=== PATIENT | female | born 1995 | race Caucasian/White ===

== ENCOUNTER 2024-06-08 08:02 | Outpatient (RCR) | payer OTHER, SELFPAY | END 2024-09-04 23:59 | disposition home or self-care (01) | LOC: ANHLAB 08:02 | PROVIDERS: Visit Provider Obstetrics & Gynecology | DX: O20.0 Threatened abortion (principal); Z3A.00 Weeks of gestation of pregnancy not specified | CPT/HCPCS: 36415; 84702 ==

== ENCOUNTER 2024-06-13 10:19 | Outpatient (CLI) | payer OTHER, SELFPAY | END 2024-06-13 10:20 | disposition home or self-care (01) | LOC: ANHLAB 10:20 | PROVIDERS: Visit Provider Obstetrics & Gynecology | DX: O02.1 Missed abortion (principal) | CPT/HCPCS: 36415; 84702 ==

== ENCOUNTER 2024-06-26 00:31 | Day surgery (SDC) | payer OTHER, SELFPAY ==
[2024-06-24 09:56] VITALS: BMI 36.1
--- NOTE | 2024-06-24 09:57 | PC.NURSE ---
Addendum entered by Jose Carlos Harris RN 06/25/24 14:02: Changed surgery date to 06-26-2024 to arrive at 0930 for 1130 surgery. No other changes to instructions. Original Note: Report to the Outpatient Waiting Room, entrance under the green pavilion located off [facility], at time _1200_ on date _[id number]_. Planned Procedure Time: _2pm_.? Time changes happen often and if your time is changed the preop area will call you the afternoon before. - You and your visitor will be asked to self-screen and do not enter if you have any COVID symptoms. Please call surgeon if you need to reschedule. - A mask is optional within the hospital at this time. Patients may have clear liquids (water, carbonated beverages, clear teas, apple juice) until 3 hours prior to surgery with a maximum of 20 ounces. - No food from midnight until time of surgery and no smoking. This includes no chewing gum, candy or mints. Take only the following medications with a SIP of water on the morning of surgery: ____None____ DO NOT STOP ANY OF YOUR OTHER PRESCRIPTION MEDICATIONS PRIOR TO SURGERY EXCEPT THE FOLLOWING Medications to discontinue per physician __None___ Date to take last dose Please no make-up, nail maori, hairspray, perfume, deodorant, or body powder the day of surgery.? No jewelry (including any body piercings) or valuables the day of surgery, leave them at home.? Please take a shower or bath the night before, or the morning of, surgery with an antibacterial soap.? Wear comfortable, loose fitting clothing.? - Jewelry must be removed prior to entering the operating room.? Rings and piercings that are not removed may be cut off. - The hospital will not accept responsibility for valuables.? - Please leave all valuables, including medications, at home the day of surgery. If you are going home after surgery, a licensed racecar driver must drive you home.? - NO public transportation without another adult if you receive anesthesia. - We recommend that an adult stay with you for 24 hours following discharge. - We also recommend that you do not drive, make important decision, drink alcoholic beverages, or take any drugs that were not prescribed by your health care provider for at least 24 hours after your discharge time. Follow any additional instructions given to you from your surgeon. Telephone instructions given to __Roselyn__and asked if any additional questions and then verbalized understanding. Patient advised to call surgeon office or pre surgery nurse liaison [phone] if any additional questions.
[2024-06-26 09:54] VITALS: BP 123/66; PULSE 84; RESP 20; TEMP 36.4; O2SAT 100
[2024-06-26] MEDS: LACTATED RINGERS 1,000 ML 30 ML IV CONT (10:45)
[2024-06-26] MEDS: ACETAMINOPHEN 500 MG TABLET 1000 MG PO (11:04)
--- NOTE | 2024-06-26 11:34 | P.PNAN_ITS ---
Anes - Initial Pre Proc Eval Procedure: Operation Date: 06/26/24 11:30 Proposed Procedures p Suction Dilation and Curettage - Alistair Manning MD Date/Time: 06/26/24 11:34 Surgeon: Alistair Manning MD Pre Op Diagnosis: Missed AB Patient Data Age: 29 Gender: F Height: 1.7 m Weight: 103.7 kg Last Vital Signs Temp 97.6 F 06/26/24 09:54 Pulse 84 06/26/24 09:54 Resp 20 06/26/24 09:54 BP 123/66 06/26/24 09:54 Pulse Ox 100 06/26/24 09:54 O2 Del Method Room Air 06/26/24 09:54 Allergies Allergy/AdvReac Type Severity Reaction Status Date / Time No Known Allergies Allergy Unverified 06/24/24 09:50 Home Medications ?Medication ?Instructions ?Recorded ?Confirmed ?Type No Home Medications 06/24/24 06/24/24 History Patient hx anesthesia problems: none Family hx anesthesia problems: none Results Review: All pre-operative results and documents have been reviewed as part of the pre- operative evaluation. [facility] Family History Family History Grandparent Diabetes mellitus Social History Social History Smoking status: Never smoker Second hand tobacco smoke exposure: No Alcohol intake: current Drinks per week: 2 Living arrangements: with family Spiritual care concerns: No Anes - Eval Final PreProcedure Day of Procedure 06/26/24 11:34 Patient weight: morbidly obese Heart: regular rate and rhythm Lungs: clear to auscultation Airway: Mallampati scale class II Neurological: alert and oriented Last oral intake: >/= 8 hours ASA classification: III Emergent: no Anesthetic plan: proceed Anesthesia type and monitoring: general GIVS and standard monitoring Results Review: All pre-operative results and documents have been reviewed as part of the pre- operative evaluation. BMI 35. Informed Consent: The patient's anesthetic plan and its attendant risks and benefits were discussed with the patient/family/POA. Questions were solicited and answers provided to the satisfaction of the patient/family/POA.
--- NOTE | 2024-06-26 11:42 | WPDHPUPDATE1 ---
History and Physical Update Update Date/Time: 06/26/24 11:42 History and Physical has been reviewed, including an updated exam of the patient. There are NO changes in the patient's condition. Risks, benefits, and alternatives have been discussed and questions answered. Patient agrees to proceed with procedure.
[2024-06-26] MEDS: LIDOCAINE 1% LOCAL INJ 10 ML VIAL INFILTRATE (12:03)
[2024-06-26 12:14] VITALS: BP 95/59; PULSE 93; RESP 22; O2SAT 99
--- NOTE | 2024-06-26 12:15 | P.OP_ITS ---
Procedure Note - Detailed Date of Procedure 06/26/24 Pre-op Diagnosis Missed AB Post-op Diagnosis Same Procedure Performed Suction D&C Surgeon Alistair Manning MD Anesthesia MAC Indications missed Findings normal-appearing vulva vagina and cervix to. Moderate amount of products conception within the uterus. 10 cm uterus Description of Procedure the patient was taken the operating room. She was prepped and draped in dorsal lithotomy position after induction of mac anesthesia. A speculum was placed in the vagina. Cervix grasped with tenaculum. The cervix was dilated to about 1 cm Using Avendano dilators. A 10. Ugandan curved curette was used to perform suction D&C. The curette was introduced and vacuum was applied. The curette was removed over all surfaces of the intrauterine cavity multiple times. This was done until all the surfaces were clear and had the familiar grainy texture they can be felt through the instrument. A sharp curette was then used to curettage all the surfaces. The suction cup was then reapplied 1 more time to remove any debris. The instruments were removed. The speculum and tenaculum were removed. The patient tolerated the procedure well. She was taken recovery room stable condition. Estimated Blood Loss 50 Drains No Packing No Pathology Yes Complications No immediate complications Condition Stable Disposition PACU
[2024-06-26] MEDS: fentaNYL CITRATE INJ (*CRX) 100 MCG/2 ML VIAL 25 MCG IV PUSH (12:30)
[2024-06-26 12:45] VITALS: BP 125/55; PULSE 71; RESP 18
[2024-06-26] MEDS: oxyCODONE HCL (*CRX) 5 MG TAB IR PO (12:50)
[2024-06-26 13:10] VITALS: BP 121/67; PULSE 75; RESP 16
--- OUTSIDE RECORDS SUMMARY | 2024-07-02 05:05 | XMS_ITS | Encounter Summary ---
Author Organization [facility] Address [address] [place] [address]. [place], [place] [address] [place] [address] Care Team Providers Care Banquet Server Name Role Phone Candida House Primary Care Provider Encounter Details Date Type Department Care Team (Latest Contact Info) Description 11/09/2018 Scan [facility] INFO [facility] Scanned, Documents Social History Tobacco Use Types Packs/Day Years Used Date Smoking Tobacco: Never Smokeless Tobacco: Never Alcohol Use Standard Drinks/Week Comments Yes 0 (1 standard drink = 0.6 oz pur e alcohol) AUDIT-C Answer Date Recorded Frequency of Alcohol Consumption 2-4 times a mon09/04/2018 Average Number of Drinks Not on file 019 Frequency of Binge Drinking Not on file 08/11 PHQ-2 Answer Date Recorded PHQ-2 Score 2 09/06/2018 Comments No Sex and Gender Information Value Date Recorded Sex Assigned at Not on file Legal Sex Female 4:48 PM CDT Gender Identity Not on file Sexual Orientation Not on file documented as of this encounter Plan of Treatment Not on file documented as of this encounter Visit Diagnoses Not on filedocumented in this encounter Additional Health Concerns Assessment Noted Time PHQ-9 Depression Total Score: 6 09/05/19 19 11:32 AM CDT documented as of this encounter Care Teams Banquet Server Relationship Specialty Start Date End Date Candida House FNP [address] [place] [address] PCP - General Nurse Practitioner Family 09/04/18 documented as of this encounter
--- OUTSIDE RECORDS SUMMARY | 2024-07-02 05:05 | XMS_ITS | Encounter Summary ---
Author Organization [facility] Address [address] [place] [address]. [place], [place] [address] [place] [address] Care Team Providers Care Printer Repair Technician Name Role Phone Candida House Primary Care Provider [phone] Encounter Details Date Type Department Care Team (Latest Contact Info) Description 04/05/2019 Scan HEALTH INFO SRVCS Scanned, Documents Social History Tobacco Use Types Packs/Day Years Used Date Smoking Tobacco: Never Smokeless Tobacco: Never Alcohol Use Standard Drinks/Week Comments Yes 0 (1 standard drink = 0.6 oz pur e alcohol) 1x week AUDIT-C Answer Date Recorded Frequency of Alcohol Consumption 2-4 times a mon09/04/2018 Average Number of Drinks Not on file 019 Frequency of Binge Drinking Not on file 08/11 PHQ-2 Answer Date Recorded PHQ-2 Score 0 05/13/2019 Comments No Sex and Gender Information Value [...] Assessment Noted Time PHQ-9 Depression Total Score: 5 04/05/20 19 2:06 PM CDT documented as of this encounter Care Teams Printer Repair Technician Relationship Specialty Start Date End Date Candida House FNP [address] [place] [address] PCP - General Nurse Practitioner Family 09/04/18 documented as of this encounter
--- OUTSIDE RECORDS SUMMARY | 2024-07-02 05:05 | XMS_ITS | Encounter Summary ---
Author Organization [facility] Address [address] [place] [address]. [place], [place] [id number] [place] [address] Care Team Providers Care Vein Pumper Name Role Phone Unavailable Primary Care Provider Unavailabl e Encounter Details Date Type Department Care Team (Latest Contact Info) Description 12/29/2011 [facility] Social History Tobacco Use Types Packs/Day Years Used Date Smoking Tobacco: Never Assessed Comments Unknown Sex and Gender Information Value Date Recorded Sex Assigned at Not on file Legal Sex Female 4:48 PM CDT Gender Identity Not on file Sexual Orientation Not on file documented as of this encounter Plan of Treatment Not on file documented as of this encounter Visit Diagnoses Not on filedocumented in this encounter
--- OUTSIDE RECORDS SUMMARY | 2024-07-02 05:05 | XMS_ITS | Encounter Summary ---
Author Organization [facility] Address [address] [place] [address]. [place], [place] [address] [place] [address] Care Team Providers Care Kettle Operator Name Role Phone Candida House Primary Care Provider [phone] Encounter Details Date Type Department Care Team (Late st Contact Info) Description 12/05/2018 [facility] Documentation [facility] Family & Internal Medicine [facility] [address] [place] [address] Candida House FNP [address] [place], [place] [id number] Social History Tobacco Use Types Packs/Day Years [...] on file documented as of this encounter Progress Notes * APOLINAR Rivas - 12/05/2018 9:02 PM CDT Med refill documented in this encounter Plan of Treatment Not on file documented as of this encounter Visit Diagnoses Diagnosis Acute non-recurrent frontal sinusitis- Primary documented in this encounter Additional Health Concerns Assessment Noted Time PHQ-9 Depression Total Score: 6 09/05/19 19 11:32 AM CDT documented as of this encounter Care Teams Kettle Operator Relationship Specialty Start Date End Date Candida House FNP [address] [place] [id number] PCP - General Nurse Practitioner Family 09/04/18 documented as of this encounter
--- OUTSIDE RECORDS SUMMARY | 2024-07-02 05:05 | XMS_ITS | Encounter Summary ---
Author Organization [facility] Address [address] [place] [address]. [place], [place] [phone] [place] [address] Care Team Providers Care Clinical Psychology Teacher Name Role Phone Unavailable Primary Care Provider Unavailabl e Encounter Details Date Type Department Care Team (Late st Contact Info) Description 12/20/2017 Abstract [facility] Family & Internal Medicine [id number] [place] [address] Candida House FNP [facility] [place] [address] Social History Tobacco Use Types Packs/Day Years Used Date Smoking Tobacco: Never Assessed Comments Unknown Sex and Gender Information Value Date Recorded Sex Assigned at Not on file Legal Sex Female 4:48 PM CDT Gender Identity Not on file Sexual Orientation Not on file documented as of this encounter Plan of Treatment Not on file documented as of this encounter Procedures Procedure Name Priority Date/Time Associated Diagnosis Comments URINALYSIS AUTO DIP Routine 12/20/2017 2 :44 PM CDT documented in this encounter Results * URINALYSIS AUTO DIP (12/20/2017 2:44 PM CDT) COLOR (U) Yellow [facility] T O EPIC CONVERSION TRANSPARENCY Clear [facility] P TO EPIC CONVERSION GLUCOSE Negative [facility] T O EPIC CONVERSION BILIRUBIN (U) Negative [facility] UP TO EPIC CONVERSION KETONE (U) Negative [facility] TO EPIC CONVERSION SPECIFIC GRAVITY (U) 1.005 [facility] TO EPIC CONVERSION BLOOD (U) Non Hemolyzed-Tr conrad [facility] TO EPIC CONVERSION PH (U) 5.5 5.0 - 7.0 [facility] T O EPIC CONVERSION PROTEIN (ELP) (U) Negative [facility] TO EPIC CONVERSION UROBILINOGEN 0.2 E.U./dL [facility] OUP TO EPIC CONVERSION NITRITES neg [facility] T O EPIC CONVERSION LEUKOCYTES (U) Negative [facility] OUP TO EPIC CONVERSION 12/20/2017 2:44 PM CDT 12/20/2017 2:44 PM CDT Narrative [facility] TO EPIC CONVERSION - 12/20/2017 2:44 PM CDT [id number] 9:00AM by Renetta Grey: ERROR in leukocytes. Leukocytes are positive for small. Result Communication: No patient communication needed at this time Candida House DRY WALL FINISHER URINE ORDERABLES Final Result [facility] TO EPIC CONVERSION documented in this encounter Visit Diagnoses Not on filedocumented in this encounter
--- OUTSIDE RECORDS SUMMARY | 2024-07-02 05:05 | XMS_ITS | Encounter Summary ---
Author Organization [facility] Address [address] [place] [address]. [place], [place] [address] [place] [address] Care Team Providers Care Compactor Driver Name Role Phone Unavailable Primary Care Provider Unavailabl e Encounter Details Date Type Department Care Team (Latest Contact Info) Description 09/27/2017 Abstract [facility] Medical Group Social History Tobacco Use [...] Procedure Name Priority Date/Time Associated Diagnosis Comments VARICELLA ZOSTER IGG Routine 09/29/2017 1:00 PM CDT COMPREHENSIVE METABOLIC PANEL Routine 09/29/2017 1:00 PM CDT CBC W/DIFF AUTOMATED Routine 09/29/2017 1:00 PM CDT THYROID STIM HORMONE TSH Routine 09/29/2017 1:00 PM CDT documented in this encounter Results * (ABNORMAL) COMPREHENSIVE METABOLIC PANEL (09/29/2017 1:00 PM CDT) GLUCOSE 110(H) 65 - 99 mg/dL [facility] TO EPIC CONVERSION BUN 9 6 - 20 mg/dL [facility] TO EPIC CONVERSION CREATININE S/P/B 0.83 0.57 - 1.00 mg/dL [facility] TO EPIC CONVERSION EGFR NON-AFR. AMER. 102 >59 mL/min/1.7 3 [facility] TO EPIC CONVERSION EGFR AFR. AMER. 117 >59 mL/min/1.7 3 [facility] TO EPIC CONVERSION BUN CREATININE RATIO 11 9 - 23 [facility] TO EPIC CONVERSION SODIUM S/P/B 141 134 - 144 mmol/L [facility] TO EPIC CONVERSION POTASSIUM S/P/B 4.0 3.5 - 5.2 mmol/L [facility] TO EPIC CONVERSION CHLORIDE S/P/B 99 96 - 106 mmol/L [facility] TO EPIC CONVERSION TCO2 21 18 - 29 mmol/L [facility] TO EPIC CONVERSION CALCIUM S/P/B 9.9 8.7 - 10.2 mg/dL [facility] TO EPIC CONVERSION PROTEIN 7.6 6.0 - 8.5 g/dL [facility] TO EPIC CONVERSION ALBUMIN S/P/B 5.0 3.5 - 5.5 g/dL [facility] TO EPIC CONVERSION GLOBULIN 2.6 1.5 - 4.5 g/dL [facility] TO EPIC CONVERSION A/G RATIO 1.9 1.2 - 2.2 [facility] T O EPIC CONVERSION BILIRUBIN TOTAL (FLUID) 0.4 0.0 - 1.2 mg/dL [facility] TO EPIC CONVERSION ALKALINE PHOSPHATASE S/P/B 103 39 - 117 IU/L [facility] TO EPIC CONVERSION AST 23 0 - 40 IU/L [facility] TO EPIC CONVERSION ALT 23 0 - 32 IU/L [facility] TO EPIC CONVERSION 09/29/2017 1:00 PM CDT 09/29/2017 1:00 PM CDT Narrative [facility] TO EPIC CONVERSION - 09/30/2017 3:10 PM CDT Result Communication: Call patient with results [facility] Final Resul t [facility] TO EPIC CONVERSION * CBC W/DIFF AUTOMATED (09/29/2017 1:00 PM CDT) WBC 8.3 3.4 - 10.8 x10E3/uL [facility] TO EPIC CONVERSION RBC 5.22 3.77 - 5.28 x10E6/uL [facility] TO EPIC CONVERSION HEMOGLOBIN MIXED VENOUS 15.5 11.1 - 15.9 g/dL [facility] TO EPIC CONVERSION HCT 46.4 34.0 - 46.6 % [facility] TO EPIC CONVERSION MCV 89 79 - 97 fL [facility] TO EPIC CONVERSION MCH 29.7 26.6 - 33.0 pg [facility] TO EPIC CONVERSION MCHC 33.4 31.5 - 35.7 g/dL [facility] TO EPIC CONVERSION RDW 13.3 12.3 - 15.4 % [facility] TO EPIC CONVERSION PLT 351 150 - 379 x10E3/uL [facility] TO EPIC CONVERSION SEG NEUTROPHILS 61 Not Estab. % [facility] TO EPIC CONVERSION LYMPHOCYTES 31 Not Estab. % [facility] TO EPIC CONVERSION MONOCYTES 6 Not Estab. % [facility] TO EPIC CONVERSION EOSINOPHILS 2 Not Estab. % [facility] TO EPIC CONVERSION BASOPHILS % 0 Not Estab. % [facility] TO EPIC CONVERSION IMMATURE CELLS [facility] OUP TO EPIC CONVERSION ABS. NEUTROPHILS 5.1 1.4 - 7.0 x10E3/uL [facility] TO EPIC CONVERSION ABS. LYMPHOCYTES 2.5 0.7 - 3.1 x10E3/uL [facility] TO EPIC CONVERSION ABS. MONOCYTES 0.5 0.1 - 0.9 x10E3/uL [facility] TO EPIC CONVERSION ABS. EOSINOPHILS 0.1 0.0 - 0.4 x10E3/uL [facility] TO EPIC CONVERSION ABS. BASOPHILS 0.0 0.0 - 0.2 x10E3/uL [facility] TO EPIC CONVERSION IMMATURE CELLS 0 Not Estab. % [facility] TO EPIC CONVERSION ABS. IMMATURE GRANULOCYTES 0.0 0.0 - 0.1 x10E3/uL [facility] TO EPIC CONVERSION NRBC [facility] T O EPIC CONVERSION CBC COMMENT [facility] TO EPIC CONVERSION 09/29/2017 1:00 PM CDT 09/29/2017 1:00 PM CDT Narrative [facility] TO EPIC CONVERSION - 09/30/2017 3:10 PM CDT Result Communication: Call patient with results [facility] Final Resul t [facility] TO EPIC CONVERSION * THYROID STIM HORMONE, TSH (09/29/2017 1:00 PM CDT) TSH 2.370 0.450 - 4.500 uIU/mL [facility] TO EPIC CONVERSION 09/29/2017 1:00 PM CDT 09/29/2017 1:00 PM CDT Narrative [facility] TO EPIC CONVERSION - 09/30/2017 3:10 PM CDT Result Communication: Call patient with results [facility] Final Resul t Performing Organization Address [facility] de Phone Number [facility] TO EPIC CONVERSION * VARICELLA ZOSTER IGG (09/29/2017 1:00 PM CDT) VARICELLA ZOSTER IGG EIA 3869 Immune >165 index [facility] TO EPIC CONVERSION Comment: Result Comment: ? Negative ?<135 ?Equivocal ?135 - 165 ?Positive ?>165 ? A positive result generally indicates exposure to the ? pathogen or administration of specific immunoglobulins, ? but it is not indication of active infection or stage ? of disease. 09/29/2017 1:00 PM CDT 09/29/2017 1:00 PM CDT Narrative [facility] TO EPIC CONVERSION - 09/30/2017 3:10 PM CDT Result Communication: Call patient with results [facility] Final Resul t Performing Organization Address [facility] de Phone Number [facility] TO EPIC CONVERSION documented in this encounter Visit Diagnoses Not on filedocumented in this encounter
--- OUTSIDE RECORDS SUMMARY | 2024-07-02 05:05 | XMS_ITS | Encounter Summary ---
Author Organization [facility] Address [address] [place] [address]. [place], [place] [id number] [place] [id number] Care Team Providers Care Tool Machine Setup Operator Name Role Phone Candida House Primary Care Provider [phone] Reason for Visit * Reason Comments Annual Encounter Details Date Type Department Care Team (Late st Contact Info) Description 04/05/2019 1:40 PM CDT Office Visit [facility] Family & Internal Medicine [id number] [place] [address] Candida House FNP [facility] [place], [place] [id number] Annual Social History Tobacco Use Types Packs/Day Years [...] on file documented as of this encounter Last Filed Vital Signs Vital Sign Reading Time Taken Comments Blood Pressure 116/81 04/05/2019 1:52 PM CDT Pulse 60 04/05/2019 1:52 PM CDT Temperature - - Respiratory Rate 16 04/05/2019 1:52 PM CDT Oxygen Saturation 100% 04/05/2019 1:52 PM CDT Inhaled Oxygen Concentration - - Weight 81.2 kg (179 lb) 04/05/2019 1:52 PM CDT Height 167.6 cm (5' 6 ) 04/05/2019 1:52 PM CDT Body Mass Index 28.89 04/05/2019 1:52 PM CDT documented in this encounter Patient Instructions * Patient Instructions* APOLINAR Rivas - 04/05/2019 1:40 PM CDT Make sure you follow up with a counselor and a psychiatrist as we discussed in the office today. Call for any questions or concerns Follow up routinely or sooner if needed. documented in this encounter Progress Notes * APOLINAR Rivas - 04/05/2019 1:40 PM CDT Office Progress Note Reason for Visit: Annual History of Present Illness: Roselyn presents to the office for a f/u of her chronic issues which include her bipolar disease withschizophrenic tendencies. She reports that her anxiety is through the roof due to her inattention. She reports that she has never had treatment for ADD but feels like she might need this type of treatment. She did stop her meds for her mental health disorders and seeing her psychiatrist over one year ago because she felt like she did not need this treatment. We discussed follow up with a new psychiatrist for these issues since many of these symptoms can be caused from untreated bipolar disease and treated her with a medication for ADHD can worsen her bipolar symptoms. She is agreeable to thisplan. She is also due for her influenza and TDAP vaccine and she is agreeable to get these today. ROS: Review of Systems Constitutional: Negative for chills, fever and weight loss. HENT: Negative for congestion, ear discharge, ear pain, hearing loss, nosebleeds, sinus pain, sore throat and tinnitus. Eyes: Negative for blurred vision, double vision, photophobia, pain, discharge and redness. Respiratory: Negative for cough, hemoptysis, sputum production, shortness of breath and wheezing. Cardiovascular: Negative for chest pain, palpitations, orthopnea, claudication, leg swelling and PND. Gastrointestinal: Negative for abdominal pain, blood in stool, constipation, diarrhea, heartburn, melena, nausea and vomiting. Genitourinary: Negative for dysuria, flank pain, frequency, hematuria and urgency. Musculoskeletal: Negative for falls, joint pain and myalgias. Neurological: Negative for dizziness, tingling, tremors, sensory change, speech change, focal weakness, seizures, loss of consciousness, weakness and headaches. Psychiatric/Behavioral: Negative for depression, substance abuse and suicidal ideas. The patient isnervous/anxious. The patient does not have insomnia. Medications: No current outpatient medications on file prior to visit. No current facility-administered medications on file prior to visit. Allergies: No Known Allergies Medical History: History reviewed. No pertinent past medical history. Surgical History: Past Surgical History: Procedure Laterality Date ??? ANKLE SURGERY Social History: Social History Socioeconomic History ??? Marital status: Single Spouse name: Not on file ??? Number of children: Not on file ??? Years of education: Not on file ??? Highest education level: Not on file Occupational History ??? Not on file Social Needs ??? Financial resource strain: Not on file ??? Food insecurity: Worry: Not on file Inability: Not on file ??? Transportation needs: Medical: Not on file Non-medical: Not on file Tobacco Use ??? Smoking status: Never Smoker ??? Smokeless tobacco: Never Used Substance and Sexual Activity ??? Alcohol use: Yes Frequency: 2-4 times a month Comment: 1x week ??? Drug use: No ??? Sexual activity: Yes Partners: Male control/protection: IUD Lifestyle ??? Physical activity: Days per week: Not on file Minutes per session: Not on file ??? Stress: Not on file Relationships ??? Social connections: Talks on phone: Not on file Gets together: Not on file Attends jewish service: Not on file Active member of club or organization: Not on file Attends meetings of clubs or organizations: Not on file Relationship status: Not on file ??? Intimate partner violence: Fear of current or ex partner: Not on file Emotionally abused: Not on file Physically abused: Not on file Forced sexual activity: Not on file Other Topics Concern ??? Not on file Social History Narrative ??? Not on file Family History: Family History Problem Relation Name Age of Onset ??? Anxiety Paternal Grandmother ??? Psychiatry Paternal Grandmother PE: Physical Exam Constitutional: She is oriented to person, place, and time. Vital signs are normal. She appears well-developed and well-nourished. She is cooperative. She does not have a sickly appearance. She does not appear ill. No distress. HENT: Head: Normocephalic and atraumatic. Right Ear: External ear normal. Left Ear: External ear normal. Nose: Nose normal. Mouth/Throat: Oropharynx is clear and moist. Eyes: Conjunctivae, EOM and lids are normal. Pupils are equal, round, and reactive to light. Neck: Trachea normal, normal range of motion and full passive range of motion without pain. Neck supple. Normal carotid pulses present. Carotid bruit is not present. No tracheal deviation present. Nothyroid mass and no thyromegaly present. Cardiovascular: Normal rate, regular rhythm, normal heart sounds and intact distal pulses. Exam reveals no gallop and no friction rub. No murmur heard. Pulmonary/Chest: Effort normal and breath sounds normal. No accessory muscle usage. No respiratory distress. She has no decreased breath sounds. She has no wheezes. She has no rhonchi. She has no rales. Abdominal: Soft. Bowel sounds are normal. She exhibits no distension and no mass. There is no tenderness. There is no rebound and no guarding. Musculoskeletal: Normal range of motion. She exhibits no tenderness or deformity. Lymphadenopathy: She has no cervical adenopathy. Neurological: She is alert and oriented to person, place, and time. She has normal strength and normal reflexes. No cranial nerve deficit or sensory deficit. Coordination and gait normal. Skin: Skin is warm, dry and intact. No rash noted. No erythema. Psychiatric: She has a normal mood and affect. Her speech is normal and behavior is normal. Judgment and thought content normal. Cognition and memory are normal. Nursing note and vitals reviewed. Filed Vitals: 04/05/19 1352 BP: 116/81 Pulse: 60 Resp: 16 SpO2: 100% Weight: 81.2 kg (179 lb) Height: 5' 6 (1.676 m) Diagnoses/Impression: 1. Bipolar disorder with depression (CMS/HCC) 2. Episodic mood disorder (CMS/HCC) 3. Inattention 4. Need for influenza vaccination 5. Need for Tdap vaccination Recommendations and Plan: 1. Bipolar disorder with depression ([facility]/HCC) 2. Episodic mood disorder ([facility]/HCC) 3. Inattention 4. Need for influenza vaccination 5. Need for Tdap vaccination Orders Placed This Encounter ??? FLU VACC QUAD PRSRV FREE 0.5 ML DOSE ??? TETANUS, DIPHTHERIA THOXIDS AND ACELLULAR Cannot display discharge medications since this is not an admission. Time Spent: Approximately 30 minutes was spent in direct patient consultation and the majority of that time (>50%) was spent on counseling and coordination of care. PCP: APOLINAR YANCEY 04/11/2019 documented in this encounter Plan of Treatment Not on file documented as of this encounter Visit Diagnoses Diagnosis Bipolar disorder with depression ([facility]/HCC [facility]/HCC)- Primary Bipolar I disorder, most recent episode (or current) depressed, unspecified Episodic mood disorder ([facility]/HCC) Unspecified episodic mood disorder Inattention Other specified conditions influencing health status Need for influenza vaccination Need for prophylactic vaccination and inoculation against influenza Need for Tdap vaccination Need for prophylactic vaccination with combined [id number] (DTP) vaccine documented in this encounter Additional Health Concerns Assessment Noted Time PHQ-9 Depression Total Score: 5 04/05/20 19 2:06 PM CDT documented as of this encounter Care Teams Tool Machine Setup Operator Relationship Specialty Start Date End Date Candida House FNP [address] [place] [id number] PCP - General Nurse Practitioner Family 09/04/18 documented as of this encounter
--- OUTSIDE RECORDS SUMMARY | 2024-07-02 05:05 | XMS_ITS | Encounter Summary ---
Author Organization [facility] Address [address] [place] [address]. [place], [place] [id number] [place] [id number] Care Team Providers Care Engine Repairer Name Role Phone Candida House Primary Care Provider [phone] Reason for Visit * Reason Comments Allied Health Visit TB test reading Encounter Details Date Type Department Care Team (Latest Contact Info) Description 11/09/2018 12:40 PM CDT Allied Health/Nurse Visit [facility] Family & Internal Medicine [address] [phone] Allied Health Visit (TB test reading) Social History Tobacco Use Types Packs/Day Years [...] as of this encounter Visit Diagnoses Diagnosis Screening for tuberculosis- Primary Screening examination for pulmonary tuberculosis documented in this encounter Additional Health Concerns Assessment Noted Time PHQ-9 Depression Total Score: 6 09/05/19 19 11:32 AM CDT documented as of this encounter Care Teams Engine Repairer Relationship Specialty Start Date End Date Candida House FNP [address] [place] [id number] PCP - General Nurse Practitioner Family 09/04/18 documented as of this encounter
--- OUTSIDE RECORDS SUMMARY | 2024-07-02 05:05 | XMS_ITS | Clinical Summary ---
Author Organization [facility] Address [address] [place] [address]. [place], [place] [id number] [place] [address] Care Team Providers Care Painter Spring Name Role Phone Candida House APOLINAR Primary Care Provider [phone] Allergies No known active allergies Medications No known medications Active Problems Problem Noted Date Diagnosed Date Inattention 04/11/2019 Abdominal pain 12/20/2017 Bipolar disorder with depression ([facility]) 09/23/2017 H/O varicella 09/22/2017 Abnormal glucose level 07/28/2017 Episodic mood disorder 07/28/2017 Anxiety 11/08/2011 Resolved Problems Problem Noted Date Diagnosed Date Resolved Date Need for influenza vaccination 04/11/2019 02/21/2020 Need for Tdap vaccination 04/11/2019 Immunizations Name Administration Dates Next Due Fluzone 6 Months+ Quad (0.5 mL Prefilled Syringe ) 04/05/2019 Tdap (Boostrix) 04/05/2019 Family History Medical History Relation Comments Anxiety Paternal Grandmother Psychiatry Paternal Grandmother Relation Status Comments Paternal Grandmother Social History Tobacco Use Types Packs/Day Years [...] on file Sexual Orientation Not on file Last Filed Vital Signs Vital Sign Reading [...] Mass Index 28.89 04/05/2019 1:52 PM CDT Plan of Treatment Health Maintenance Due Date Last Done Comments Cervical Cancer Screening Pa p Smear (Age 21 to 29) Every 3 Years 1997 Cervical Cancer Screening 1997 Annual Physical 02/29/2000 Hepatitis C 2015 Hepatitis B Vaccines (1 of 3 - 19+ 3-dose series) 02/29/2016 COVID-19 Vaccine ( - 2023-2 5 season) 2024 Influenza Adult (#1) 2024 04/05/2019 DTaP, Tdap and Td Vaccines ( 2 - Td or Tdap) 04/05/2029 04/05/2019 HPV Vaccines Aged Out No longer eligi ble based on patient's age to complete this topic Meningococcal Vaccine Aged Out No marilyn bruce eligible based on patient's age to complete this topic Pneumococcal Vaccine: Pediat rics (0 to 5 Years) and At-Risk Patients (6 to 64 Years) Aged Out No longer eligi ble based on patient's age to complete this topic RSV Immunizations Under 20 Months Aged Out No longer eligible based on patient's age to complete this topic Insurance [facility] Care Teams Painter Spring Relationship Specialty Start Date End Date Candida House FNP [address] [place] [id number] PCP - General Nurse Practitioner Family 09/04/18
--- OUTSIDE RECORDS SUMMARY | 2024-07-02 05:05 | XMS_ITS | Encounter Summary ---
Author Organization [facility] Address [address] [place] [address]. [place], [place] [address] [place] [id number] Care Team Providers Care Case Manager Name Role Phone Unavailable Primary Care Provider Unavailabl e Encounter Details Date Type Department Care Team (Latest Contact Info) Description 09/14/2017 Abstract [facility] Social History Tobacco [...]
--- OUTSIDE RECORDS SUMMARY | 2024-07-02 05:05 | XMS_ITS | Encounter Summary ---
Author Organization [facility] Address [address] [place] [address]. [place], [place] [id number] [place] [address] Care Team Providers Care Optical Technician Name Role Phone Unavailable Primary Care Provider Unavailabl e Encounter Details Date Type Department Care Team (Late st Contact Info) Description 07/28/2017 Abstract [facility] Family & Internal Medicine [id number] [place] [address] Candida House FNP [address] [place] [address] Social History Tobacco Use Types Packs/Day Years Used Date Smoking Tobacco: Never Assessed Comments Unknown Sex and Gender Information Value Date Recorded Sex Assigned at Not on file Legal Sex Female 4:48 PM CDT Gender Identity Not on file Sexual Orientation Not on file documented as of this encounter Last Filed Vital Signs Vital Sign Reading Time Taken Comments Blood Pressure 118/74 07/28/2017 8:42 AM DITTO MACHINE OPERATOR Pulse 71 07/28/2017 8:42 AM DITTO MACHINE OPERATOR Temperature - - Respiratory Rate - - Oxygen Saturation - - Inhaled Oxygen Concentration - - Weight 100.2 kg (221 lb) 07/28/2017 8:42 AM DITTO MACHINE OPERATOR Height 170.2 cm (5' 7 ) 07/28/2017 8:42 AM DITTO MACHINE OPERATOR Body Mass Index 34.61 07/28/2017 8:42 AM DITTO MACHINE OPERATOR documented in this encounter Progress Notes * APOLINAR Rivas - 07/28/2017 8:00 AM CST Reason For Visit New Patient Visit Chief Complaint New patient to establish care History of Present Illness PHQ-9 Depression Questionnaire: Over the past 2 weeks, how often have you been bothered by the following problems? 1.) Little interest or pleasure in doing things? Several days. 2.) Feeling down, depressed or hopeless? Several days. 3.) Trouble falling asleep or sleeping too much? Not at all. 4.) Feeling tired or having little energy? Several days. 5.) Poor appetite or overeating? Several days. 6.) Feeling bad about yourself, or that you are a failure, or have let yourself or your family down? Several days. 7.) Trouble concentrating on things, such as reading a newspaper or watching television? Half the days or more. 8.) Moving or speaking so slowly that other people could have noticed, or the opposite, moving or speaking faster than usual? Several days. 9.) Thoughts that you would be off or of hurting yourself in some way? Not at all. TOTAL SCORE: 8, severity of depression is mild. How difficult have these problems made it for you to do your work, take care of things at home, or get along with people? Somewhat difficult. HPI Free Text: Angy presents to the office, as a new patient, to establish primary care with me. She reports a history of bipolar/mood disorder. She does see a psychiatrist regularly for her treatment of her mood disorder. She is taking Lamictal and Risperdal daily for her mood disorder. She reports that it is working well. She denies any side effects from these medications. She denies SI or HI presently. She lives with her parents and her brother and sister. She works full-time and is in college part-time. She reports that she is sexually active and has an IUD (Elda) in place since April 2015. She reports that she has a menstrual cycle every 3-4 months. She also reports that her last Pap smear was with Dr Jones. She is a non-smoker, occasional/rare alcohol drinker and non-illicit drug user. She denies any domestic violence issues in her life. She also reports no concerns for STIs. She is unsure when her last routine labs were checked. We will order them today for her to get. She reports a history of an elevated fasting glucose level but she was never diagnosed with diabetes. She does not want an influenza vaccine. Otherwise, she feels like her immunizations ar UTD. Review of Systems See HPI for pertinent positives. Psychiatric: depression, but no anxiety and no suicidal ideation. Active Problems 1. Anxiety (300.00) (F41.9) 2. Depression (311) (F32.9) Family History Family History 1. No pertinent family history Social History ?? Never a smoker ?? Never Drank Alcohol Current Meds 1. LamoTRIgine 25 MG Oral Tablet; TAKE ONE TABLET BY MOUTH IN THE MORNING FOR 1 WEEK, THEN INCREASE TO 1TABLET BY MOUTH TWICE DAILY; Therapy: [id number] to (Evaluate:11Jul2012) Requested for: 12Apr2012; Last Rx:12Apr2012 Ordered Rx By: Demi Reed; Dispense: 30 Days ; #:60; Refill: 2; For: Anxiety; RASHIDA = N; Verified Transmission to [facility] 2. RisperiDONE 1 MG Oral Tablet; TAKE ONE TABLET BY MOUTH AT BEDTIME; Therapy: [id number] to (Evaluate:22Apr2012) Requested for: [id number]; Last Rx:[id number] Ordered Rx By: Demi Reed; Dispense: 30 Days ; #:30; Refill: 1; For: Anxiety, Depression; RASHIDA = N; Verified Transmission to [facility] 361; Last Updated By: Mercedes Ramires; 02/22/2012 8:09:29 AM Allergies 1. No Known Drug Allergies Recorded By: Mercedes Ramires; 04/24/2012 8:04:09 AM Vitals Recorded: 90Sqx9658 08:42AM Heart Rate 71 Respiration 16 Systolic 118 Diastolic 74 O2 Saturation 98 Height 5 ft 7 in Weight 221 lb BMI Calculated 34.61 BSA Calculated 2.11 Physical Exam Constitutional General appearance: Abnormal. patient was observed to be, but well developed and well nourished. Head and Face Head and face: Normal. Palpation of the face and sinuses: No sinus tenderness. Eyes Conjunctiva and lids: No swelling, erythema or discharge. Pupils and irises: Equal, round, reactive to light. Ears, Nose, Mouth, and Throat External inspection of ears and nose: Normal. Otoscopic examination: Tympanic membranes translucent with normal light reflex. Canals patent without erythema. Hearing: Normal. Nasal mucosa, septum, and turbinates: Normal without edema or erythema. Lips, teeth, and gums: Normal, good dentition. Oropharynx: Abnormal. Oral mucosa was moist, but was normal. The palate examination showed no abnormalities. The tonsils were normal. There was 3+ enlargement, erythema and swelling of both tonsils. The posterior pharynx was erythematous. Neck Neck: Supple, symmetric, trachea midline, no masses. Thyroid: Normal, no thyromegaly. Pulmonary Respiratory effort: No increased work of breathing or signs of respiratory distress. Auscultation of lungs: Clear to auscultation. Cardiovascular Auscultation of heart: Normal rate and rhythm, normal S1 and S2, no murmurs. Examination of extremities for edema and/or varicosities: Normal. Chest Patient defers breast exam. Abdomen Patient defers rectal exam. Abdomen: Non-tender, no masses. Liver and spleen: No hepatomegaly or splenomegaly. Genitourinary Patient defers pelvic exam. Lymphatic Palpation of lymph nodes in neck: No lymphadenopathy. Musculoskeletal Gait and station: Normal. Digits and nails: Normal without clubbing or cyanosis. Joints, bones, and muscles: Normal. Range of motion: Normal. Stability: Normal. Muscle strength/tone: Normal. Skin Skin and subcutaneous tissue: Normal without rashes or lesions. Neurologic Cranial nerves: Cranial nerves II-XII intact. Cortical function: Normal mental status. Reflexes: 2+ and symmetric. Sensation: No sensory loss. Coordination: Normal finger to nose and heel to esquivel. Psychiatric Judgment and insight: Normal. Orientation to person, place, and time: Normal. Recent and remote memory: Intact. Mood and affect: Normal. Results/Data *A1C In Office 28Jul2017 11:57AM Scovillezer, Candida Test Name Result Flag Reference A1C 5.4 4.2 - 6.5 % HbA1C *Rapid Strep Test In Office 28Jul2017 11:56AM Kilzer, Candida Test Name Result Flag Reference *Rapid Strep In Office Presumptive Negative Internal QC Verified Yes LC-Upper Respiratory Culture [id number] 28Jul2017 09:05AM Scovillezer, Candida Test Name Result Flag Reference Upper Respiratory Culture Final report Result 1 Routine respiratory jayleen Counseling The patient was counseled regarding diagnostic results, instructions for management, risk factor reductions, prognosis, patient and family education, impressions, risks and benefits of treatment options and importance of compliance with treatment. total time of encounter was 30 minutes and 25 minutes was spent counseling. Assessment 1. Abnormal glucose level (790.29) (R73.09) 2. Sore throat (462) (J02.9) 3. Screening cholesterol level (V77.91) (Z13.220) 4. Screening for blood disease (V78.9) (Z13.0) 5. Mood disorder (296.90) (F39) 6. Immunization due (V05.9) (Z23) 7. Does not use illicit drugs (V49.89) (Z78.9) 8. Denies alcohol consumption (V49.89) (Z78.9) 9. Never used tobacco (V49.89) (Z78.9) 10. Caffeine use (V49.89) (F15.90) 11. Lack of exercise (V69.0) (Z72.3) 12. No pertinent family history : Family History 13. Anxiety (300.00) (F41.9) 14. Depression (311) (F32.9) Plan Abnormal glucose level 1. *A1C In Office; Status:Complete; Done: 70Wor6885 11:57AM Performed:In Office; Due:27Aug2017;Ordered; For:Abnormal glucose level; Ordered By:Candida House; Abnormal glucose level, Anxiety, Depression, Mood disorder, Screening cholesterol level, Screening for blood disease, Sore throat 2. LC-CBC With Differential/Platelet [id number]; Status:Hold For - Manual Activation; Requested for:[id number]; Perform:[facility]; Due:27Aug2017; Last Updated By:Demi Galeana; 07/28/2017 11:57:37 AM;Ordered; For:Abnormal glucose level, Anxiety, Depression, Mood disorder, Screening cholesterol level, Screening for blood disease, Sore throat; Ordered By:Candida House; 3. LC-Comp. Metabolic Panel ( CMP ) [id number]; Status:Hold For - Manual Activation; Requested for:[id number]; Perform:[facility]; Due:27Aug2017; Last Updated By:Demi Galeana; 07/28/2017 11:57:37 AM;Ordered; For:Abnormal glucose level, Anxiety, Depression, Mood disorder, Screening cholesterol level, Screening for blood disease, Sore throat; Ordered By:Candida House; 4. LC-Lipid Panel With LDL/HDL Ratio [id number]; Status:Hold For - Manual Activation; Requested for:[id number]; Perform:[facility]; Due:27Aug2017; Last Updated By:Demi Galeana; 07/28/2017 11:57:37 AM;Ordered; For:Abnormal glucose level, Anxiety, Depression, Mood disorder, Screening cholesterol level, Screening for blood disease, Sore throat; Ordered By:Candida House; 5. LC-TSH reflex to T4F 101499; Status:Hold For - Manual Activation; Requested for:[id number]; Perform:[facility]; Due:27Aug2017; Last Updated By:Demi Galeana; 07/28/2017 11:57:37 AM;Ordered; For:Abnormal glucose level, Anxiety, Depression, Mood disorder, Screening cholesterol level, Screening for blood disease, Sore throat; Ordered By:Candida House; 6. LC-UA with Culture Reflex [id number]; Status:Hold For - Manual Activation; Requested for:[id number]; Perform:[facility]; Due:27Aug2017; Last Updated By:Demi Galeana; 07/28/2017 11:57:37 AM;Ordered; For:Abnormal glucose level, Anxiety, Depression, Mood disorder, Screening cholesterol level, Screening for blood disease, Sore throat; Ordered By:Candida House; 7. LC-Uric Acid, Serum 063847; Status:Hold For - Manual Activation; Requested for:[id number]; Perform:[facility]; Due:27Aug2017; Last Updated By:Demi Galeana; 07/28/2017 11:57:37 AM;Ordered; For:Abnormal glucose level, Anxiety, Depression, Mood disorder, Screening cholesterol level, Screening for blood disease, Sore throat; Ordered By:Candida House; 8. LC-Vitamin D, 25-Hydroxy [id number]; Status:Hold For - Manual Activation; Requested for:[id number]; Perform:[facility]; Due:27Aug2017; Last Updated By:Demi Galeana; 07/28/2017 11:57:37 AM;Ordered; For:Abnormal glucose level, Anxiety, Depression, Mood disorder, Screening cholesterol level, Screening for blood disease, Sore throat; Ordered By:Candida House; Immunization due 9. Stop: Flulaval Quadrivalent 0.5 ML Intramuscular Suspension Prefilled Syringe For: Immunization due; Ordered By:Candida House; Effective Date:28Jul2017; Last Updated By: Annemarie Allen; 07/28/2017 9:52:33 AM Mood disorder 10. Schedule Follow up 4 weeks Outpatient Follow-up Status: Hold For - Scheduling Requested for: [id number] Ordered; For: Mood disorder; Ordered By: Candida House Performed: Due: 14Aug2017 11. Avoid alcoholic beverages.; Status:Complete; Done: 34Vzy3386 11:09PM Ordered; For:Mood disorder; Ordered By:Candida House; 12. Call if: New symptoms occur.; Status:Complete; Done: 30Vsu2362 11:09PM Ordered; For:Mood disorder; Ordered By:Candida House; 13. Be sure to get at least 8 hours of sleep every night.; Status:Complete; Done: 02Ptp5590 11:09PM Ordered; For:Mood disorder; Ordered By:Candida House; 14. Call if: The symptoms seem worse.; Status:Complete; Done: 15Rzt7757 11:09PM Ordered; For:Mood disorder; Ordered By:Candida House; 15. Continue with our present treatment plan.; Status:Complete; Done: 85Itt0514 11:09PM Ordered; For:Mood disorder; Ordered By:Candida House; 16. Call if: You are having unusual movements of your tongue, mouth, or face muscles.; Status:Complete; Done: 93Csd1767 11:09PM Ordered; For:Mood disorder; Ordered By:Candida House; 17. Decreasing the stress in your life may help your condition improve.; Status:Complete; Done: 41Bao8885 11:09PM Ordered; For:Mood disorder; Ordered By:Candida House; 18. Call 881 if: You are considering suicide.; Status:Complete; Done: 09Gbl5984 11:09PM Ordered; For:Mood disorder; Ordered By:Candida House; 19. Please bring all medicines, vitamins, and herbal supplements with you when you come to the office.; Status:Complete; Done: 35Bvm7106 11:09PM Ordered; For:Mood disorder; Ordered By:Candida House; 20. Call 911 if: You are thinking about harming yourself or someone else.; Status:Complete; Done: 99Mcp6057 11:09PM Ordered; For:Mood disorder; Ordered By:Candida House; 21. There are ways to handle a person with paranoia.; Status:Complete; Done: 22Cev5225 11:09PM Ordered; For:Mood disorder; Ordered By:Candida House; 22. Call 911 if: Your muscles are rigid, tight, or stiff and you are running a high fever.; Status:Complete; Done: 37Szy9367 11:09PM Ordered; For:Mood disorder; Ordered By:Candida House; 23. We recommend regular contraceptive use to prevent an unplanned .; Status:Complete; Done: 10Iak7999 11:09PM Ordered; For:Mood disorder; Ordered By:Candida House; Sore throat 24. Avoid exposure to cigarette smoke.; Status:Complete; Done: 87Hdn7957 11:10PM Ordered; For:Sore throat; Ordered By:Candida House; 25. Call if: The symptoms are not better in 7 days.; Status:Complete; Done: 08Wqj3747 11:10PM Ordered; For:Sore throat; Ordered By:Candida House; 26. *Rapid Strep Test In Office; Status:Complete; Done: 86Tvr3584 11:56AM Performed:In Office; Due:27Aug2017;Ordered; For:Sore throat; Ordered By:Candida House; 27. Drink plenty of fluids.; Status:Complete; Done: 14Ycn4949 11:10PM Ordered; For:Sore throat; Ordered By:Candida House; 28. Call if: You develop a cough.; Status:Complete; Done: 88Zoz4598 11:10PM Ordered; For:Sore throat; Ordered By:Candida House; 29. Gargle with warm salt water for 5 minutes every 4 hours.; Status:Complete; Done: 61Hzf6478 11:10PM Ordered; For:Sore throat; Ordered By:Candida House; 30. Call if: You get a rash.; Status:Complete; Done: 34Qjp9882 11:10PM Ordered; For:Sore throat; Ordered By:Candida House; 31. Good hand washing is one of the best ways to control the spread of germs.; Status:Complete; Done: 72Rmm1083 11:10PM Ordered; For:Sore throat; Ordered By:Candida House; 32. Call if: You have pain in your ear.; Status:Complete; Done: 44Azh8951 11:10PM Ordered; For:Sore throat; Ordered By:Candida House; 33. Status:Complete; Done: 75Lij4274 11:10PM Ordered; For:Sore throat; Ordered By:Candida House; 34. Call if: You start vomiting.; Status:Complete; Done: 97Ate0907 11:10PM Ordered; For:Sore throat; Ordered By:Candida House; 35. Take steps to prevent passing germs to others.; Status:Complete; Done: 04Rto7800 11:10PM Ordered; For:Sore throat; Ordered By:Candida House; 36. Call if: Your joints are red or painful.; Status:Complete; Done: 38Vkn4996 11:10PM Ordered; For:Sore throat; Ordered By:Candida House; 37. The following home treatments may soothe a sore throat.; Status:Complete; Done: 79Szd4522 11:10PM Ordered; For:Sore throat; Ordered By:Candida House; 38. Call if: Your sore throat is not better in 1 week.; Status:Complete; Done: 89Nph3322 11:10PM Ordered; For:Sore throat; Ordered By:Candida House; 39. Call if: Your swallowing difficulty is not better in 3 days.; Status:Complete; Done: 00Kgf8481 11:10PM Ordered; For:Sore throat; Ordered By:Candida House; 40. Call if: Your temperature is higher than 101F.; Status:Complete; Done: 04Wkr6706 11:10PM Ordered; For:Sore throat; Ordered By:Candida House; 41. Call 911 if: You have difficulty breathing, or you are short of breath more often.; Status:Complete; Done: 09Wvn8014 11:10PM Ordered; For:Sore throat; Ordered By:Candida House; 42. Seek Immediate Medical Attention if: You become dehydrated.; Status:Complete; Done: 59Mdb3492 11:10PM Ordered; For:Sore throat; Ordered By:Candida House; 43. Seek Immediate Medical Attention if: You get a severe headache that seems different from your usual ones.; Status:Complete; Done: 72Mdg4541 11:10PM Ordered; For:Sore throat; Ordered By:Candida House; 44. Seek Immediate Medical Attention if: Your swallowing difficulty is worse.; Status:Complete; Done: 22Qyd2724 11:10PM Ordered; For:Sore throat; Ordered By:Candida House; Discussion/Summary Suicide Risk Assessment Completed. Positive adult depression screening. Evaluation of Psychiatric State Completed.. Tobacco use screening completed. Alcohol consumption screening completed. Assessment of substance use completed. Suicide risk assessment completed. Alcohol consumption screening completed. Assessment of substance use completed. PHQ-9 Completed (Score 8). Signatures Electronically signed by : Candida House CNP; Jul 31 2017 11:11PM DITTO MACHINE OPERATOR (Author) documented in this encounter Plan of Treatment Not on file documented as of this encounter Procedures Procedure Name Priority Date/Time Associated Diagnosis Comments HEMOGLOBIN, GLYCOSYLATED Routine 07/28/2017 11:57 AM DITTO MACHINE OPERATOR STREP A RAPID Routine 07/28/2017 11:56 AM DITTO MACHINE OPERATOR CULTURE, RESPIRATORY Routine 07/28/2017 9:05 AM DITTO MACHINE OPERATOR documented in this encounter Results * HEMOGLOBIN, GLYCOSYLATED (07/28/2017 11:57 AM DITTO MACHINE OPERATOR) HGB A1C 5.4 4.2 - 6.5 % HbA1C [facility] TO EPIC CONVERSION 07/28/2017 11:5 7 AM DITTO MACHINE OPERATOR 07/28/2017 11:57 AM DITTO MACHINE OPERATOR Narrative [facility] TO EPIC CONVERSION - 07/28/2017 11:57 AM DITTO MACHINE OPERATOR Result Communication: No patient communication needed at this time us Candida JIANG LABORATORY Final Result [facility] TO EPIC CONVERSION * STREP A RAPID (07/28/2017 11:56 AM DITTO MACHINE OPERATOR) Pathologist [facility] RAPID STREP TEST Presumptive Negative [facility] TO EPIC CONVERSION Internal Control: Yes [facility] TO EPIC CONVERSION 07/28/2017 11:5 6 AM DITTO MACHINE OPERATOR 07/28/2017 11:56 AM DITTO MACHINE OPERATOR Narrative [facility] TO EPIC CONVERSION - 07/28/2017 11:56 AM DITTO MACHINE OPERATOR Result Communication: No patient communication needed at this time us Candida MCCALLUMP MICROBIOLOGY - GENERAL ORDERAB LES Final Result Performing Organization Address City/[facility]/ZIP Co de Phone Number [facility] TO EPIC CONVERSION * CULTURE RESPIRATORY, BACTERIAL (07/28/2017 9:05 AM DITTO MACHINE OPERATOR) CULTURE RESULT Final report [facility] TO EPIC CONVERSION RESULT [facility] T O EPIC CONVERSION Comment:Result Comment: Rout ine respiratory jayleen 07/28/2017 9:05 AM DITTO MACHINE OPERATOR 07/28/2017 9:05 AM DITTO MACHINE OPERATOR Narrative [facility] TO EPIC CONVERSION - 07/30/2017 3:07 PM DITTO MACHINE OPERATOR Result Communication: No patient communication needed at this time us Candida House DESKTOP PUBLISHING ASSOCIATE MICROBIOLOGY - GENERAL ORDERAB LES Final Result Performing Organization Address City/[facility]/ZIP Co de Phone Number [facility] TO EPIC CONVERSION documented in this encounter Visit Diagnoses Not on filedocumented in this encounter
--- OUTSIDE RECORDS SUMMARY | 2024-07-02 05:05 | XMS_ITS | Encounter Summary ---
Author Organization [facility] Address [address] [place] [address]. [place], [place] [address] [place] [address] Care Team Providers Care Club Attendant Name Role Phone Candida House APOLINAR Primary Care Provider [phone] Reason for Visit * Reason Comments Allied Health Visit Encounter Details Date Type Department Care Team (Latest Contact Info) Description 11/06/2018 3:40 PM CDT Allied Health/Nurse Visit [facility] Family & Internal Medicine [address] [phone] Allied Health Visit Social History Tobacco Use Types Packs/Day Years Used Date Smoking Tobacco: Never Smokeless Tobacco: Never Alcohol Use Standard Drinks/Week Comments Yes 0 (1 standard drink = 0.6 oz pur e alcohol) AUDIT-C Answer Date Recorded Frequency of Alcohol Consumption 2-4 times a mon th 09/04/2018 Average Number of Drinks Not on file [...] Procedure Name Priority Date/Time Associated Diagnosis Comments TB INTRADERMAL TEST (BACK OFFICE) Routine 11/06/2018 8:38 AM CDT Visit for TB skin test documented in this encounter Results * TB INTRADERMAL TEST (BACK OFFICE) (11/06/2018 8:38 AM CDT) MM INDURATION 0 PPD SKIN TEST NEGATIVE NOT REQUIRED (NOT REQUIRED) 11/06/2018 8:38 AM CDT Candida JIANG MICROBIOLOGY - GENERAL ORDERAB LES Final Result documented in this encounter Visit Diagnoses Diagnosis Visit for TB skin test- Primary Screening examination for pulmonary tuberculosis documented in this encounter Administered Medications Administered Medications Medication Order MAR Action Action Date Dose Rate Site Protein Derivative (Purified) Intradermal Given 11/07/2018 0.1 mL RIGHT FOREARM documented in this encounter Additional Health Concerns Assessment Noted Time PHQ-9 Depression Total Score: 6 09/05/19 19 11:32 AM CDT documented as of this encounter Care Teams Club Attendant Relationship Specialty Start Date End Date Candida House FNP [address] [place] [id number] PCP - General Nurse Practitioner Family 09/04/18 documented as of this encounter
--- OUTSIDE RECORDS SUMMARY | 2024-07-02 05:05 | XMS_ITS | Encounter Summary ---
Author Organization [facility] Address [address] [place] [address]. [place], [place] [address] [place] [address] Care Team Providers Care Charge Lpn Name Role Phone Unavailable Primary Care Provider Unavailabl e Encounter Details Date Type Department Care Team (Latest Contact Info) Description 04/16/2012 Abstract [facility] Social History Tobacco Use [...]
--- OUTSIDE RECORDS SUMMARY | 2024-07-02 05:05 | XMS_ITS | Encounter Summary ---
Author Organization [facility] Address [address] [place] [address]. [place], [place] [address] [place] [address] Care Team Providers Care Commercial Teller Name Role Phone Candida House Primary Care Provider [phone] Encounter Details Date Type Department Care Team [...] documented as of this encounter Care Teams Commercial Teller Relationship Specialty Start Date End Date Candida House FNP [address] [place] [address] PCP - General Nurse Practitioner Family 09/04/18 documented as of this encounter
--- OUTSIDE RECORDS SUMMARY | 2024-07-02 05:05 | XMS_ITS | Encounter Summary ---
Author Organization [facility] Address [address] [place] [address]. [place], [place] [address] [place] [address] Care Team Providers Care Farm Machinery Assembler Name Role Phone Unavailable Primary Care Provider Unavailabl e Encounter Details Date Type Department Care Team (Latest Contact Info) Description 12/21/2017 Abstract [facility] Social History Tobacco Use Types Packs/Day Years Used Date Smoking Tobacco: Never Assessed Comments Unknown Sex and Gender Information Value Date Recorded Sex Assigned at Not on file Legal Sex Female 4:48 PM CDT Gender Identity Not on file Sexual Orientation Not on file documented as of this encounter Progress Notes * Generic Conversion MD Debora - 12/21/2017 4:13 PM CDT Message Recorded as Task Date: 12/20/2017 04:24 PM, Created By: Candida House Task Name: Call Back [facility] Nurse Team Regarding Patient: Angy Norman, Status: In Progress Comment: Candida House - 20 Dec 2017 4:24 PM TASK CREATED I thought her urine dip was positive for small leukocytes?? Renetta Grey - 21 Dec 2017 8:58 AM TASK IN PROGRESS Renetta Grey - 21 Dec 2017 8:58 AM TASK REPLIED TO: [facility] Yes, I looked and it is positive for small leukocytes. not sure why it is entered in as negative. Iwill try to change it. Candida House - 21 Dec 2017 11:39 AM TASK REPLIED TO: Previously Assigned To Candida House thank you Signatures Electronically signed by : Renetta Grey, ; Dec 21 2017 4:13PM LICENSED PRACTICAL NURSE CLINIC NURSE (Author) documented in this encounter Plan of Treatment Not on file documented as of this encounter Visit Diagnoses Not on filedocumented in this encounter
--- OUTSIDE RECORDS SUMMARY | 2024-07-02 05:05 | XMS_ITS | Encounter Summary ---
Author Organization [facility] Address [address] [place] [address]. [place], [place] [id number] [place] [address] Care Team Providers Care Thermograph Operator Name Role Phone Unavailable Primary Care Provider Unavailabl e Encounter Details Date Type Department Care Team (Latest Contact Info) Description 08/08/2017 Abstract [facility] Social History Tobacco Use Types Packs/Day Years Used Date Smoking Tobacco: Never Assessed Comments Unknown Sex and Gender Information Value Date Recorded Sex Assigned at Not on file Legal Sex Female 4:48 PM CDT Gender Identity Not on file Sexual Orientation Not on file documented as of this encounter Progress Notes * Generic Conversion MD Debora - 08/08/2017 8:58 AM CST Message Message: Per notes written by Candida on pt's previous medical record, she is due for the Gardasil Vaccine series and will need a TDAP in 2019 or sooner. Pt updated by phone and V/U-cara Signatures Electronically signed by : Dawn Coles R.N.; Aug 08 2017 9:00AM [employer] OFFICE INSTRUCTOR (Author) documented in this encounter Plan of Treatment Not on file documented as of this encounter Visit Diagnoses Not on filedocumented in this encounter
--- OUTSIDE RECORDS SUMMARY | 2024-07-02 05:05 | XMS_ITS | Encounter Summary ---
Author Organization [facility] Address [facility]. [place], [place] [address] [place] [address] Care Team Providers Care Recovery Operator Name Role Phone Unavailable Primary Care Provider Unavailabl e Encounter Details Date Type Department Care Team (Late st Contact Info) Description 09/29/2017 Abstract [facility] Family & Internal Medicine [id number] [place] [address] Ochoa Bradley MD [address] [place] [address] Social History Tobacco Use Types Packs/Day Years Used Date Smoking Tobacco: Never Assessed Comments Unknown Sex and Gender Information Value Date Recorded Sex Assigned at Not on file Legal Sex Female 4:48 PM CDT Gender Identity Not on file Sexual Orientation Not on file documented as of this encounter Progress Notes * KIMBERLY Mcmullen - 09/29/2017 1:00 PM CDT Reason For Visit Nurse Visit Chief Complaint Patient is here for TB skin test Active Problems 1. Abnormal glucose level (790.29) (R73.09) 2. Anxiety (300.00) (F41.9) 3. Bipolar depression (296.50) (F31.30) 4. Depression (311) (F32.9) 5. H/O varicella (V12.09) (Z86.19) 6. Immunization due (V05.9) (Z23) 7. Mood disorder (296.90) (F39) 8. Screening cholesterol level (V77.91) (Z13.220) 9. Screening for blood disease (V78.9) (Z13.0) 10. Screening for tuberculosis (V74.1) (Z11.1) Current Meds 1. BuPROPion HCl ER (XL) 150 MG Oral Tablet Extended Release 24 Hour; Therapy: [id number] to Recorded 2. LamoTRIgine 25 MG Oral Tablet; TAKE ONE TABLET BY MOUTH IN THE MORNING FOR 1 WEEK, THEN INCREASE TO 1TABLET BY MOUTH TWICE DAILY; Therapy: 83Tgf4000 to (Evaluate:11Jul2012) Requested for: 12Apr2012; Last Rx:12Apr2012 Ordered 3. RisperiDONE 1 MG Oral Tablet; TAKE ONE TABLET BY MOUTH AT BEDTIME; Therapy: 19Pyh1570 to (Evaluate:22Apr2012) Requested for: 68Asn3092; Last Rx:[id number] Ordered Allergies 1. No Known Drug Allergies Assessment 1. Screening for blood disease (V78.9) (Z13.0) 2. Immunization due (V05.9) (Z23) Plan 1. Tubersol 5 UNIT/0.1ML Intradermal Solution For: Immunization due; Ordered By:Alma Maldonado; Effective Date:29Sep2017; Administered by: Annemarie Allen: 09/29/2017 1:31:00 PM; Last Updated By: Annemarie Allen; 09/29/2017 1:32:08 PM 2. LC-CBC With Differential/Platelet [id number]; Status:In Progress - Specimen/Data Collected; Done: 27Sep2017 Perform:[facility]; Due:27Oct2017; Last Updated By:Demi Galeana; 09/29/2017 1:02:19 PM;Ordered; For:Screening for blood disease; Ordered By:Alma Maldonado; 3. LC-Comp. Metabolic Panel ( CMP ) [id number]; Status:In Progress - Specimen/Data Collected; Done: 27Sep2017 Perform:[facility]; Due:27Oct2017; Last Updated By:Demi Galeana; 09/29/2017 1:02:19 PM;Ordered; For:Screening for blood disease; Ordered By:Alma Maldonado; 4. LC-TSH [id number]; Status:In Progress - Specimen/Data Collected; Done: 27Sep2017 Perform:[facility]; Due:48Qlv6709; Last Updated By:Demi Galeana; 09/29/2017 1:02:19 PM;Ordered; For:Screening for blood disease; Ordered By:Alma Maldonado; 5. TC-Zhajsrjyq-Kymhtt V Ab, IgG [id number]; Status:In Progress - Specimen/Data Collected; Done: 27Sep2017 Perform:[facility]; Due:55Oru9188; Last Updated By:Demi Galeana; 09/29/2017 1:02:19 PM;Ordered; For:Screening for blood disease; Ordered By:Alma Maldonado; Signatures Electronically signed by : Alma Maldonado APN; Sep 29 2017 2:17PM OSTEOPATHIC MEDICINE TEACHER (Author) documented in this encounter Plan of Treatment Not on file documented as of this encounter Visit Diagnoses Not on filedocumented in this encounter
--- OUTSIDE RECORDS SUMMARY | 2024-07-02 05:05 | XMS_ITS | Encounter Summary ---
Author Organization [facility] Address [address] [place] [address]. [place], [place] [address] [place] [address] Care Team Providers Care Machine Deicer Element Winder Name Role Phone Unavailable Primary Care Provider Unavailabl e Encounter Details Date Type Department Care Team (Latest Contact Info) Description 10/01/2017 Abstract [facility] Social History Tobacco Use Types Packs/Day Years Used Date Smoking Tobacco: Never Assessed Comments Unknown Sex and Gender Information Value Date Recorded Sex Assigned at Not on file Legal Sex Female 4:48 PM CDT Gender Identity Not on file Sexual Orientation Not on file documented as of this encounter Progress Notes * KIMBERLY Mcmullen - 10/01/2017 9:04 PM CDT Message Was this specimen fasting? If not, let her know labs were nml. Verified Results LC-CBC With Differential/Platelet [id number] 01:00PM Alma Maldonado Test Name Result Flag Reference WBC 8.3 x10E3/uL 3.4-10.8 RBC 5.22 x10E6/uL 3.77-5.28 Hemoglobin 15.5 g/dL 11.1-15.9 Hematocrit 46.4 % 34.0-46.6 MCV 89 fL 79-97 MCH 29.7 pg 26.6-33.0 MCHC 33.4 g/dL 31.5-35.7 RDW 13.3 % 12.3-15.4 Platelets 351 x10E3/uL 150-379 Neutrophils 61 % Not Estab. Lymphs 31 % Not Estab. Monocytes 6 % Not Estab. Eos 2 % Not Estab. Basos 0 % Not Estab. Immature Cells Neutrophils (Absolute) 5.1 x10E3/uL 1.4-7.0 Lymphs (Absolute) 2.5 x10E3/uL 0.7-3.1 Monocytes(Absolute) 0.5 x10E3/uL 0.1-0.9 Eos (Absolute) 0.1 x10E3/uL 0.0-0.4 Baso (Absolute) 0.0 x10E3/uL 0.0-0.2 Immature Granulocytes 0 % Not Estab. Immature Grans (Abs) 0.0 x10E3/uL 0.0-0.1 NRBC Hematology Comments: LC-Comp. Metabolic Panel ( CMP ) [id number] 29Sep2017 01:00PM Alma Maldonado Test Name Result Flag Reference Glucose, Serum 110 mg/dL H 65-99 BUN 9 mg/dL 6-20 Creatinine, Serum 0.83 mg/dL 0.57-1.00 eGFR If NonAfricn Am 102 mL/min/1.73 >59 eGFR If Africn Am 117 mL/min/1.73 >59 BUN/Creatinine Ratio 11 9-23 Sodium, Serum 141 mmol/L 134-144 Potassium, Serum 4.0 mmol/L 3.5-5.2 Chloride, Serum 99 mmol/L 96-106 Carbon Dioxide, Total 21 mmol/L 18-29 Calcium, Serum 9.9 mg/dL 8.7-10.2 Protein, Total, Serum 7.6 g/dL 6.0-8.5 Albumin, Serum 5.0 g/dL 3.5-5.5 Globulin, Total 2.6 g/dL 1.5-4.5 A/G Ratio 1.9 1.2-2.2 Bilirubin, Total 0.4 mg/dL 0.0-1.2 Alkaline Phosphatase, S 103 IU/L 39-117 AST (SGOT) 23 IU/L 0-40 ALT (SGPT) 23 IU/L 0-32 -TSH [id number] 29Sep2017 01:00PM Alma Maldonado Test Name Result Flag Reference TSH 2.370 uIU/mL 0.450-4.500 GB-Ffpmpkqll-Humtch V Ab, IgG [id number] 29Sep2017 01:00PM Alma Maldonado Test Name Result Flag Reference Varicella Zoster IgG 3869 index Immune >165 Negative <135 Equivocal 135 - 165 Positive >165 A positive result generally indicates exposure to the pathogen or administration of specific immunoglobulins, but it is not indication of active infection or stage of disease. documented in this encounter Plan of Treatment Not on file documented as of this encounter Visit Diagnoses Not on filedocumented in this encounter
--- OUTSIDE RECORDS SUMMARY | 2024-07-02 05:05 | XMS_ITS | Encounter Summary ---
Author Organization [facility] Address [address] [place] [address]. [place], [place] [address] [place] [address] Care Team Providers Care Car Dumper Name Role Phone Candida House Primary Care Provider [phone] Reason for Visit * Reason Comments URI/ENT Symptoms x 3 days Encounter Details Date Type Department Care Team (Late st Contact Info) Description 09/04/2018 10:20 AM CDT Office Visit [facility] Family & Internal Medicine [id number] [place] [address] Candida House FNP [address] [place] [id number] URI/ENT Symptoms (x 3 days) Social History Tobacco Use Types Packs/Day Years [...] Sign Reading Time Taken Comments Blood Pressure 117/80 09/04/2018 10:38 AM CDT Pulse 83 09/04/2018 10:38 AM CDT Temperature - - Respiratory Rate 12 09/04/2018 10:38 AM CDT Oxygen Saturation 99% 09/04/2018 10:38 AM CDT Inhaled Oxygen Concentration - - Weight 91.6 kg (202 lb) 09/04/2018 10:38 AM CDT Height 167.6 cm (5' 6 ) 09/04/2018 10:38 AM CDT Body Mass Index 32.6 09/04/2018 10:38 AM CDT documented in this encounter Patient Instructions * Patient Instructions* Candida TamAPOLINAR lemon - 09/04/2018 10:20 AM CDT Images from the original note were not included. Patient Education Patient Education Sinusitis Discharge Instructions, Adult About this topic The sinuses are air-filled spaces inside the head. They are found behind your forehead, nose, cheeks, and eyes. The spaces are lined with small hairs that clean the sinuses. Sinusitis means that your sinuses are swollen, inflamed, or infected. This happens when the small hairs that clean the sinuses do not work, or when the opening to the sinuses is blocked. Mucus is trapped inside the sinuses and causes pain. The block may be caused by: ?? Colds ? This is the most common reason. ?? Allergies ?? Curving or bending of the wall that separates your nose. This is a deviated septum. ?? Extra bony growths inside the nose. These are called nasal bone spurs. ?? Chemical irritation from cigarette smoke or other irritating odors Signs can last for up to 4 weeks or may be long-lasting. They may also appear again in a few monthsafter you feel better. Doctors may treat sinusitis by giving drugs. Surgery may be needed if sinusitis happens again and again. What care is needed at home? ?? Ask your doctor what you need to do when you go home. Make sure you ask questions if you do not understand what you need to do. ?? Your doctor may order a saline nose rinse to help clear your sinuses. ?? Drink 6 to 8 glasses of water each day to help thin mucus. ?? Use two or three pillows under your head and shoulders when you sleep. This will help your sinuses drain. ?? Drape a towel over your head as you breathe in the steam from a bowl of warm water. This will help moisturize your sinuses. This may also drain clogged sinuses. ?? Use a warm compress to your face to ease facial pain. What follow-up care is needed? ?? Your doctor may ask you to make visits to the office to check on your progress. Be sure to keep your visits. ?? Your doctor will tell you if other tests are needed. ?? Your doctor may send you for allergy tests or to an allergy expert. What lifestyle changes are needed? ?? Avoid drinks that contain caffeine or alcohol. ?? Try to stop smoking. Avoid being around others who smoke. Smoke can damage the small hairs inside your sinuses. What drugs may be needed? The doctor may order drugs to: ?? Help with pain and swelling ?? Fight an infection ?? Control coughing ?? Dry up the sinuses ?? Help a runny or stuffy nose Will physical activity be limited? You do not have to limit your activity. You may want to rest more if you have a fever or headache. What problems could happen? ?? Infections that happen again and again ?? Asthma attack ?? Coughing ?? Loss of voice What can be done to prevent this health problem? ?? Keep your nose as moist as possible. Use saline sprays, washes, and a humidifier often. ?? Avoid being around cigarette and cigar smoke or strong odors from chemicals. ?? Avoid long periods of swimming in pools treated with chlorine. This can bother the lining of thenose and sinuses. ?? Avoid water diving. This forces water into the sinuses from the nasal passages. ?? Manage your allergies with your doctor's help. ?? Use an air conditioner if allergies are a problem. ?? Before air travel, use a drug to dry up mucus. As the plane takes off or lands, the pressure cancause sinus pain. When do I need to call the doctor? ?? Signs of infection. These include a fever of 100.4??F (38??C) or higher, chills. ?? Sudden breathing problems ?? You are not feeling better in 2 or 3 days or you are feeling worse Teach Back: Helping You Understand The Teach Back Method helps you understand the information we are giving you. The idea is simple. After talking with the staff, tell them in your own words what you were just told. This helps to makesure the staff has covered each thing clearly. It also helps to explain things that may have been abit confusing. Before going home, make sure you are able to do these: ?? I can tell you about my condition. ?? I can tell you what may help ease my breathing. ?? I can tell you what I will do if I have a fever, chills, or trouble breathing. Where can I learn more? [place] [employer] http://care.australian-rhinologic.org/adult_sinusitis National [place] of Allergy and Infectious Diseases http://www.niaid.nih.gov/topics/sinusitis/Pages/index.aspx Last Reviewed Date 2015-01-01 Consumer Information Use and Disclaimer This information is not specific medical advice and does not replace information you receive from your health care provider. This is only a brief summary of general information. It does NOT include all information about conditions, illnesses, injuries, tests, procedures, treatments, therapies, discharge instructions or life-style choices that may apply to you. You must talk with your health care provider for complete information about your health and treatment options. This information should not be used to decide whether or not to accept your health care provider???s advice, instructions or recommendations. Only your health care provider has the knowledge and training to provide advice that is right for you. Copyright Copyright ?? 2018 [employer] and its affiliates and/or licensors. All rights reserved. documented in this encounter Progress Notes * APOLINAR Rivas - 09/04/2018 10:20 AM CDT Office Progress Note Reason for Visit: URI/ENT Symptoms (x 3 days) History of Present Illness: Angy comes to the office today with complaints of frontal headache, right sided maxillary pain, malaise, dry cough that is worse at night, mild sore throat, clear rhinorrhea with nasal congestion. She reports her symptoms started 3 days ago and have progressively gotten worse. She has only been treating her headache with ibuprofen PRN. She reports some mild nausea 1 night ago. Denies vomiting, diarrhea, rash, fever, wheezing or SOB. Reports her mom has been sick with laryngitis recently. She denies voice changes. ROS: Review of Systems Constitutional: Positive for malaise/fatigue. Negative for chills, diaphoresis, fever and weight loss. HENT: Positive for congestion, sinus pain and sore throat. Negative for ear discharge, ear pain, hearing loss, nosebleeds and tinnitus. Eyes: Negative for blurred vision, double vision, photophobia, pain, discharge and redness. Respiratory: Positive for cough. Negative for hemoptysis, sputum production, shortness of breath, wheezing and stridor. Cardiovascular: Negative for chest pain, palpitations, orthopnea, claudication and leg swelling. Gastrointestinal: Positive for nausea. Negative for abdominal pain, blood in stool, constipation, diarrhea, heartburn, melena and vomiting. Genitourinary: Negative for dysuria, flank pain, frequency, hematuria and urgency. Musculoskeletal: Negative for back pain, joint pain, myalgias and neck pain. Skin: Negative for itching and rash. Neurological: Negative for dizziness, tingling, speech change, focal weakness, weakness and headaches. Endo/Heme/Allergies: Negative for environmental allergies. Psychiatric/Behavioral: Negative for depression. The patient is not nervous/anxious. Medications: No current outpatient medications on file prior to visit. No current facility-administered medications on file prior to visit. Allergies: No Known Allergies Medical History: No past medical history on file. Surgical History: Past Surgical History: Procedure Laterality [...] use: Yes Frequency: 2-4 times a month ??? Drug use: No ??? Sexual activity: Yes control/protection: IUD Lifestyle ??? Physical activity: Days per week: Not on file Minutes per session: Not on file ??? Stress: Not on file Relationships ??? Social connections: Talks on phone: Not on file Gets together: Not on file Attends jain service: Not on file Active member of [...] Problem Relation Name Age of Onset ??? Psychiatry Paternal Grandfather PE: Physical Exam Constitutional: She is oriented to person, place, and time. She appears well- developed and well-nourished. She is cooperative. She appears ill. No distress. HENT: Head: Normocephalic and atraumatic. Right Ear: Hearing, tympanic membrane, external ear and ear canal normal. Left Ear: Hearing, tympanic membrane, external ear and ear canal normal. Nose: Rhinorrhea and sinus tenderness present. Right sinus exhibits maxillary sinus tenderness. Left sinus exhibits maxillary sinus tenderness. Mouth/Throat: Uvula is midline and mucous membranes are normal. No uvula swelling. Posterior oropharyngeal erythema present. No oropharyngeal exudate, posterior oropharyngeal edema or tonsillar abscesses. Eyes: Conjunctivae, EOM and lids are normal. Pupils are equal, round, and reactive to light. Neck: Trachea normal, normal range of motion, full passive range of motion without pain and phonation normal. Neck supple. Normal carotid pulses present. Carotid bruit is not present. No thyroid massand no thyromegaly present. Cardiovascular: Normal rate, regular rhythm and normal heart sounds. Pulmonary/Chest: Effort normal and breath sounds normal. No accessory muscle usage. No respiratory distress. She has no decreased breath sounds. She has no wheezes. She has no rhonchi. She has no rales. She exhibits no tenderness. Abdominal: Soft. Bowel sounds are normal. She exhibits no distension and no mass. There is no tenderness. There is no rebound and no guarding. Lymphadenopathy: Head (right side): No submental, no submandibular and no tonsillar adenopathy present. Head (left side): No submental, no submandibular and no tonsillar adenopathy present. She has no cervical adenopathy. Neurological: She is alert and oriented to person, place, and time. She has normal reflexes. Coordination and gait normal. Skin: Skin is warm, dry and intact. She is not diaphoretic. Psychiatric: She has a normal mood and affect. Her speech is normal and behavior is normal. Judgment and thought content normal. Cognition and memory are normal. Filed Vitals: 09/04/18 1038 BP: 117/80 Pulse: 83 Resp: 12 SpO2: 99% Weight: 91.6 kg (202 lb) Height: 5' 6 (1.676 m) Diagnoses/Impression: 1. Acute non-recurrent frontal sinusitis amoxicillin 875 MG tablet Recommendations and Plan: 1. Acute non-recurrent frontal sinusitis - amoxicillin 875 MG tablet; Take 1 tablet (875 mg total) by mouth 2 (two) times daily for 10 days.Dispense: 20 tablet; Refill: 0 start amoxicillin 875mg twice daily for 10 days - Take medications as prescribed - Drink plenty of fluids - Notify office if symptoms do no resolve or you start running a fever over 102 - Call the office for any questions or concerns Orders Placed This Encounter ??? amoxicillin 875 MG tablet Cannot display discharge medications since this is not an admission. PCP: APOLINAR YANCEY 09/06/2018 documented in this encounter Plan of Treatment Not on file documented as of this encounter Visit Diagnoses Diagnosis Acute non-recurrent frontal sinusitis- Primary documented in this encounter Additional Health Concerns Assessment Noted Time PHQ-9 Depression Total Score: 6 09/05/19 19 11:32 AM CDT documented as of this encounter Care Teams Car Dumper Relationship Specialty Start Date End Date Candida House FNP [address] [place] [id number] PCP - General Nurse Practitioner Family 09/04/18 documented as of this encounter
--- OUTSIDE RECORDS SUMMARY | 2024-07-02 05:05 | XMS_ITS | Encounter Summary ---
Author Organization [facility] Address [address] [place] [address]. [place], [place] [address] [place] [address] Care Team Providers Care Belt Builder Name Role Phone Unavailable Primary Care Provider Unavailabl e Encounter Details Date Type Department Care Team (Late st Contact Info) Description 09/22/2017 Abstract [facility] Family & Internal Medicine [id number] [place] [address] Alma Maldonado APNP [address] [place] [address] Social History Tobacco Use Types Packs/Day Years Used Date Smoking Tobacco: Never Assessed Comments Unknown Sex and Gender Information Value Date Recorded Sex Assigned at Not on file Legal Sex Female 4:48 PM CDT Gender Identity Not on file Sexual Orientation Not on file documented as of this encounter Last Filed Vital Signs Vital Sign Reading Time Taken Comments Blood Pressure 114/68 09/22/2017 1:12 PM CDT Pulse 69 09/22/2017 1:12 PM CDT Temperature - - Respiratory Rate - - Oxygen Saturation - - Inhaled Oxygen Concentration - - Weight 99.5 kg (219 lb 4 oz) 09/22/2017 1:12 PM CDT Height 167.6 cm (5' 6 ) 09/22/2017 1:12 PM CDT Body Mass Index 35.39 09/22/2017 1:12 PM CDT documented in this encounter Progress Notes * KIMBERLY Mcmullen - 09/22/2017 1:00 PM CDT Reason For Visit Health Electrician Outside Complaint Patient is here for school physical History of Present Illness HPI: Angy Guillen 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 She continues her medications as prescribed for bipolar depression. She is followed by psychiatry on a regular basis for this. She denies any HI or SI. No new complaints today. Review of Systems Constitutional: negative. Head and Face: negative. Eyes: negative. ENT: negative. Cardiovascular: negative. Respiratory: negative. Gastrointestinal: negative. Genitourinary: negative. Musculoskeletal: negative. Integumentary negative. Psychiatric: as noted in HPI and depression, but no insomnia, no irritability, no anxiety and not suicidal. Hematologic and Lymphatic: negative. Neurological Negative. Endocrine Negative. Active Problems 1. Abnormal glucose level (790.29) (R73.09) 2. Anxiety (300.00) (F41.9) 3. Depression (311) (F32.9) 4. Immunization due (V05.9) (Z23) 5. Mood disorder (296.90) (F39) 6. Screening cholesterol level (V77.91) (Z13.220) 7. Screening for blood disease (V78.9) (Z13.0) Surgical History ?? History of Ankle Surgery Family History Family History ?? No pertinent family history Social History ?? Caffeine use (V49.89) (F15.90) ?? Denies alcohol consumption (V49.89) (Z78.9) ?? Does not use illicit drugs (V49.89) (Z78.9) ?? Lack of exercise (V69.0) (Z72.3) ?? Never a smoker ?? Never Drank Alcohol ?? Never used tobacco (V49.89) (Z78.9) Current Meds 1. BuPROPion HCl ER (XL) 150 MG Oral Tablet Extended Release 24 Hour; Therapy: [id number] to Recorded Rx By: GAETANO; Dispense: 30 Days ; #:30; Refill: 0; RASHIDA = N; Record; Last Updated By: Annemarie Allen; 07/28/2017 8:45:37 AM 2. LamoTRIgine 25 MG Oral Tablet; TAKE ONE TABLET BY MOUTH IN THE MORNING FOR 1 WEEK, THEN INCREASE TO 1TABLET BY MOUTH TWICE DAILY; Therapy: [id number] to (Evaluate:11Jul2012) Requested for: 12Apr2012; Last Rx:12Apr2012 Ordered Rx By: Demi Reed; Dispense: 30 Days ; #:60; Refill: 2; For: Anxiety; RASHIDA = N; Verified Transmission to [facility] 3. RisperiDONE 1 MG Oral Tablet; TAKE ONE TABLET BY MOUTH AT BEDTIME; Therapy: 44Mms4377 to (Evaluate:22Apr2012) Requested for: 86Lzu2135; Last Rx:[id number] Ordered Rx By: Demi Reed; Dispense: 30 Days ; #:30; Refill: 1; For: Anxiety, Depression; RASHIDA = N; Verified Transmission to [facility]; Last Updated By: Mercedes Ramires; 02/22/2012 8:09:29 AM Allergies 1. No Known Drug Allergies Recorded By: Mercedes Ramires; 04/24/2012 8:04:09 AM Vitals Recorded: 22Sep2017 01:12PM Temperature 97.4 F Heart Rate 69 Respiration 16 Systolic 114 Diastolic 68 O2 Saturation 98 Height 5 ft 6 in Weight 219 lb 4 oz BMI Calculated 35.39 BSA Calculated 2.08 Physical Exam Constitutional General appearance: No acute distress, well appearing and well nourished. Head and Face Head and face: Normal. Palpation of the face and sinuses: No sinus tenderness. Eyes Conjunctiva and lids: No swelling, erythema or discharge. Pupils and irises: Equal, round, reactive to light. Ears, Nose, Mouth, and Throat External inspection of ears and nose: Normal. Otoscopic examination: Tympanic membranes translucent with normal light reflex. Canals patent without erythema. Nasal mucosa, septum, and turbinates: Normal without edema or erythema. Lips, teeth, and gums: Normal, good dentition. Oropharynx: Normal with no erythema, edema, exudate or lesions. Neck Neck: Supple, symmetric, trachea midline, no masses. Thyroid: Normal, no thyromegaly. Pulmonary Respiratory effort: No increased work of breathing or signs of respiratory distress. Auscultation of lungs: Clear to auscultation. Cardiovascular Auscultation of heart: Normal rate and rhythm, normal S1 and S2, no murmurs. Pedal pulses: 2+ bilaterally. Examination of extremities for edema and/or varicosities: Normal. Chest Patient defers breast exam. Abdomen Patient defers rectal exam. Abdomen: Non-tender, no masses. Liver and spleen: No hepatomegaly or splenomegaly. Genitourinary Patient defers pelvic exam. Lymphatic Palpation of lymph nodes in neck: No lymphadenopathy. Musculoskeletal Gait and station: Normal. Digits and nails: Normal without clubbing or cyanosis. Skin Skin and subcutaneous tissue: Normal without rashes or lesions. Palpation of skin and subcutaneous tissue: Normal turgor. Neurologic Cranial nerves: Cranial nerves II-XII intact. Reflexes: 2+ and symmetric. Sensation: No sensory loss. Psychiatric Orientation to person, place, and time: Normal. Mood and affect: Normal. Counseling The patient was counseled regarding instructions for management, risk factor reductions, patient and family education, impressions, risks and benefits of treatment options and importance of compliance with treatment. total time of encounter was 30 minutes and 20 minutes was spent counseling. Assessment 1. Encounter for preventive health examination (V70.0) (Z00.00) 2. Bipolar depression (296.50) (F31.30) 3. Screening for blood disease (V78.9) (Z13.0) 4. Screening for tuberculosis (V74.1) (Z11.1) Plan Abnormal glucose level, Anxiety, Depression, PMH: History of sore throat, Mood disorder, Screening cholesterol level, Screening for blood disease ?? LC-CBC With Differential/Platelet [id number]; Status:Canceled - Manual Activation; Perform:[facility]; Due:27Aug2017; Last Updated By:Demi Galeana; 09/22/2017 1:53:18 PM;Ordered; For:Abnormal glucose level, Anxiety, Depression, PMH: History of sore throat, Mood disorder, Screening cholesterol level, Screening for blood disease; Ordered By:Candida House; ?? LC-Comp. Metabolic Panel ( CMP ) [id number]; Status:Canceled - Manual Activation; Perform:[facility]; Due:27Aug2017; Last Updated By:Demi Galeana; 09/22/2017 1:53:18 PM;Ordered; For:Abnormal glucose level, Anxiety, Depression, PMH: History of sore throat, Mood disorder, Screening cholesterol level, Screening for blood disease; Ordered By:Candida House; ?? LC-Lipid Panel With LDL/HDL Ratio [id number]; Status:Canceled - Manual Activation; Perform:[facility]; Due:27Aug2017; Last Updated By:Demi Galeana; 09/22/2017 1:53:18 PM;Ordered; For:Abnormal glucose level, Anxiety, Depression, PMH: History of sore throat, Mood disorder, Screening cholesterol level, Screening for blood disease; Ordered By:Candida House; ?? LC-TSH reflex to T4F [id number]; Status:Canceled - Manual Activation; Perform:[facility]; Due:27Aug2017; Last Updated By:Demi Galeana; 09/22/2017 1:53:18 PM;Ordered; For:Abnormal glucose level, Anxiety, Depression, PMH: History of sore throat, Mood disorder, Screening cholesterol level, Screening for blood disease; Ordered By:Candida House; ?? LC-UA with Culture Reflex [id number]; Status:Canceled - Manual Activation; Perform:[facility]; Due:27Aug2017; Last Updated By:Demi Galeana; 09/22/2017 1:53:18 PM;Ordered; For:Abnormal glucose level, Anxiety, Depression, PMH: History of sore throat, Mood disorder, Screening cholesterol level, Screening for blood disease; Ordered By:Candida House; ?? LC-Uric Acid, Serum 671276; Status:Canceled - Manual Activation; Perform:[facility]; Due:27Aug2017; Last Updated By:Demi Galeana; 09/22/2017 1:53:18 PM;Ordered; For:Abnormal glucose level, Anxiety, Depression, PMH: History of sore throat, Mood disorder, Screening cholesterol level, Screening for blood disease; Ordered By:Candida House; ?? LC-Vitamin D, 25-Hydroxy 243501; Status:Canceled - Manual Activation; Perform:[facility]; Due:27Aug2017; Last Updated By:Demi Galeana; 09/22/2017 1:53:18 PM;Ordered; For:Abnormal glucose level, Anxiety, Depression, PMH: History of sore throat, Mood disorder, Screening cholesterol level, Screening for blood disease; Ordered By:Candida House; Abnormal glucose level, Screening cholesterol level, Screening for blood disease ?? LC-TSH 149469; Status:In Progress - Specimen/Data Collected; Done: 22Sep2017 Perform:[facility]; Due:12Dtf1695; Last Updated By:Demi Galeana; 09/22/2017 2:04:24 PM;Ordered; For:Abnormal glucose level, Screening cholesterol level, Screening for blood disease; Ordered By:Alma Maldonado; Bipolar depression ?? Be sure to get at least 8 hours of sleep every night.; Status:Complete; Done: 23Sep2017 Ordered; For:Bipolar depression; Ordered By:Alma Maldonado; ?? Call if: You are having difficulty sleeping (insomnia).; Status:Complete; Done: 23Sep2017 Ordered; For:Bipolar depression; Ordered By:Amla Maldonado; ?? Continue with our present treatment plan.; Status:Complete; Done: 23Sep2017 Ordered; For:Bipolar depression; Ordered By:Alma Maldonado; ?? Call if: You are having unusual movements of your tongue, mouth, or face muscles.; Status:Complete; Done: 23Sep2017 Ordered; For:Bipolar depression; Ordered By:Alma Maldonado; ?? Decreasing the stress in your life may help your condition improve.; Status:Complete; Done: 23Sep2017 Ordered; For:Bipolar depression; Ordered By:Alma Maldonado; ?? Call if: You are unable to eat a normal amount of food and you do not feel hungry.; Status:Complete; Done: 23Sep2017 Ordered; For:Bipolar depression; Ordered By:Alma Maldonado; ?? Reduce your daily intake of foods and beverages that contain caffeine; Status:Complete; Done: 23Sep2017 Ordered; For:Bipolar depression; Ordered By:Alma Maldonado; ?? Call if: You become dizzy or lightheaded, especially when you stand up after sitting for a while.; Status:Complete; Done: 23Sep2017 Ordered; For:Bipolar depression; Ordered By:Alma Maldonado; ?? We recommend regular contraceptive use to prevent an unplanned .; Status:Complete; Done: 23Sep2017 Ordered; For:Bipolar depression; Ordered By:Alma Maldonado; ?? Call if: You gain or lose over 10 pounds without a change in your diet.; Status:Complete; Done: 05Zxa8174 Ordered; For:Bipolar depression; Ordered By:Alma Maldonado; ?? Call if: You have feelings of extreme sadness and feelings of hopelessness.; Status:Complete; Done: 43Oeg1835 Ordered; For:Bipolar depression; Ordered By:Alma Maldonado; ?? Call if: Your feelings of being frightened, nervous, anxious, and out of control are happening more often.; Status:Complete; Done: 80Moe5335 Ordered; For:Bipolar depression; Ordered By:Alma Maldonado; ?? Call 663 if: You are considering suicide.; Status:Complete; Done: 00Wtp5687 Ordered; For:Bipolar depression; Ordered By:Alma Maldonado; ?? Call 911 if: You are thinking about harming yourself or someone else.; Status:Complete; Done: 23Sep2017 Ordered; For:Bipolar depression; Ordered By:Alma Maldonado; ?? Seek Immediate Medical Attention if: You get a rash.; Status:Complete; Done: 23Sep2017 Ordered; For:Bipolar depression; Ordered By:Alma Maldonado; ?? Seek Immediate Medical Attention if: Your muscles are rigid, tight, or stiff and you are running a high fever.; Status:Complete; Done: 23Sep2017 Ordered; For:Bipolar depression; Ordered By:Alma Maldonado; H/O varicella ?? FR-Idnmvdoqv-Foyddp V Ab, IgG [id number]; Status:In Progress - Specimen/Data Collected; Done: 22Sep2017 Perform:[facility]; Due:46Zus4595; Last Updated By:Demi Galeana; 09/22/2017 2:04:24 PM;Ordered; For:H/O varicella; Ordered By:Alma Maldonado; Health Maintenance ?? Follow-up visit in 1 year Outpatient Follow-up Status: Hold For - Scheduling Requested for: 22Sep2017 Ordered; For: Health Maintenance; Ordered By: Alma Maldonado Performed: Due: 06Oct2017; Last Updated By: Bernice Orr; 09/22/2017 1:55:29 PM ?? Always use a seat belt and shoulder strap when riding or driving a motor vehicle.; Status:Complete; Done: 99Vvq6474 Ordered; For:Health Maintenance; Ordered By:Alma Maldonado; ?? Call if: You find a new or different kind of lump in your breast.; Status:Complete; Done: 13Ouu0415 Ordered; For:Health Maintenance; Ordered By:Alma Maldonado; ?? Decreasing the stress in your life may help your condition improve.; Status:Complete; Done: 59Idj3235 Ordered; For:Health Maintenance; Ordered By:Alma Maldonado; ?? Call if: You have any warning signs of skin cancer.; Status:Complete; Done: 43Mln6263 Ordered; For:Health Maintenance; Ordered By:Alma Maldonado; ?? Drink plenty of fluids.; Status:Complete; Done: 23Sep2017 Ordered; For:Health Maintenance; Ordered By:Alma Maldonado; ?? Schedule an appointment in 48-72 hours to have your TB (tuberculin) skin test interpreted by a trained healthcare provider.; Status:Complete; Done: 23Sep2017 Ordered; For:Health Maintenance; Ordered By:Alma Maldonado; ?? There are many ways to reduce your risk of catching or spreading a sexually transmitted Infection.; Status:Complete; Done: 17Rne5909 Ordered; For:Health Maintenance; Ordered By:Alma Maldonado; ?? Use a sun block product with an SPF of 15 or more.; Status:Complete; Done: 23Sep2017 Ordered; For:Health Maintenance; Ordered By:Alma Maldonado; ?? Vitamins can help you get daily requirements that your diet may not be giving you.; Status:Complete; Done: 23Sep2017 Ordered; For:Health Maintenance; Ordered By:Alma Maldonado; ?? We recommend routine visits to a dentist.; Status:Complete; Done: 23Sep2017 Ordered; For:Health Maintenance; Ordered By:Alma Maldonado; ?? We recommend you modify your diet to achieve and maintain a healthy weight. Being underweight may increase your risk of developing health problems from vitamin and mineral deficiencies. We recommend a balanced diet rich in fruits and vegetables. You may also consider increasing your calorie intake by eating more frequently or adding nuts, avocados, and low-fat cheese or milk to your meals. Please let us know if you would like to learn more about your nutrition and calorie needs, and additional options to help you achieve your weight goals.; Status:Complete; Done: 44Osi7433 Ordered; For:Health Maintenance; Ordered By:Alma Maldonado; Screening for blood disease ?? LC-CBC With Differential/Platelet [id number]; Status:In Progress - Specimen/Data Collected; Done: 22Sep2017 Perform:[facility]; Due:16Jks0020; Last Updated By:Demi Galeana; 09/22/2017 2:04:24 PM;Ordered; For:Screening for blood disease; Ordered By:Alma Maldonado; ?? LC-Comp. 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 She continues her medication for her Bipolar depression. No HI or SI. She will receive her first part PPD in office today. No pap indicated at this time. Routine fasting labs ordered. Signatures Electronically signed by : Alma Maldonado APN; Sep 23 2017 10:31PM IMAGING SCIENCE PROFESSOR (Author) documented in this encounter Plan of Treatment Not on file documented as of this encounter Visit Diagnoses Not on filedocumented in this encounter
--- OUTSIDE RECORDS SUMMARY | 2024-07-02 05:05 | XMS_ITS | Encounter Summary ---
Author Organization [facility] Address [address] [place] [address]. [place], [place] [address] [place] [address] Care Team Providers Care Safety Director Name Role Phone Unavailable Primary Care Provider Unavailabl e Encounter Details Date Type Department Care Team (Latest Contact Info) Description 01/30/2018 Abstract [facility] Medical Group , Generic Conversion, Social History Tobacco Use Types Packs/Day Years [...]
--- OUTSIDE RECORDS SUMMARY | 2024-07-02 05:05 | XMS_ITS | Encounter Summary ---
Author Organization [facility] Address [address] [place] [address]. [place], [place] [address] [place] [address] Care Team Providers Care Conveyor Feeder Offbearer Name Role Phone Candida House Primary Care Provider [phone] Encounter Details Date Type Department Care Team (Latest Contact Info) Description 11/07/2018 Scan HEALTH INFO [facility] Scanned, Documents Social [...] documented as of this encounter Care Teams Conveyor Feeder Offbearer Relationship Specialty Start Date End Date Candida House FNP [address] [place] [id number] PCP - General Nurse Practitioner Family 09/04/18 documented as of this encounter
--- OUTSIDE RECORDS SUMMARY | 2024-07-02 05:05 | XMS_ITS | Encounter Summary ---
Author Organization [facility] Address [address] [place] [address]. [place], [place] [address] [place] [address] Care Team Providers Care Maintenance Trainer Name Role Phone Unavailable Primary Care Provider Unavailabl e Encounter Details Date Type Department Care Team (Latest Contact Info) Description 04/24/2012 Abstract [facility] Medical Group Demi Reed MD [address] [place] [phone] Social History Tobacco Use Types Packs/Day Years Used Date Smoking Tobacco: Never Assessed Comments Unknown Sex and Gender Information Value Date Recorded Sex Assigned at Not on file Legal Sex Female 4:48 PM CDT Gender Identity Not on file Sexual Orientation Not on file documented as of this encounter Last Filed Vital Signs Vital Sign Reading Time Taken Comments Blood Pressure 124/70 04/24/2012 8:02 AM HEALTH/SAFETY JOB TITLES Pulse 92 04/24/2012 8:02 AM HEALTH/SAFETY JOB TITLES Temperature - - Respiratory Rate - - Oxygen Saturation - - Inhaled Oxygen Concentration - - Weight 67.7 kg (149 lb 3.2 oz) 04/24/2012 8:02 A M HEALTH/SAFETY JOB TITLES Height 170.2 cm (5' 7 ) 04/24/2012 8:02 AM HEALTH/SAFETY JOB TITLES Body Mass Index 23.37 04/24/2012 8:02 AM HEALTH/SAFETY JOB TITLES Body Mass Index Percentile 81.31% 04/24/2012 8:0 2 AM HEALTH/SAFETY JOB TITLES Growth Chart: [facility] (Girls, 2- 20 Years) documented in this encounter Progress Notes * Demi Reed MD - 04/24/2012 8:00 AM CST Chief Complaint follow-up History of Present Illness Roselyn has transitioned easily to high school. She made all A's and one B first quarter and reports that she is able to keep up in all classes. Her mother reports that Roselyn will not always make homework/studying a priority but is doing well overall. Roselyn denies any significant anger, anxiety, or ir ritability.She is able to focus well in class and has had no difficulty with organization. She is cheerleading this year and enjoys the activity. She is also dating a sophomore and feels that the relationship is going well. She reports that sleep and appetite have been good. Mom reports that Roselyn saw her Ob-Gyne in December and was started on an OCP to help regulate her menstrual cycles and mood--she has responded well. No decreased need for sleep, grandiosity, or inapppropriate risk-taking behaviors. No SIB, SI, intent, or plan. No HI or violence. Active Problems 1. Anxiety 300.00 2. Depression 311 Social History ?? Never A Smoker ?? Never Drank Alcohol Current Meds 1. LamoTRIgine 25 MG Oral Tablet; TAKE ONE TABLET BY MOUTH IN THE MORNING FOR 1 WEEK, THEN INCREASE TO 1TABLET BY MOUTH TWICE DAILY; Therapy: 59Naa1225 to (Evaluate:11Jul2012) Requested for: 12Apr2012; Last Rx:12Apr2012 Ordered; For: Anxiety (300.00); Rx By: Demi Reed; Dispense: 30 Days ; #:60 EA; Refill: 2; Verified Transmission to [facility] 2. RisperiDONE 1 MG Oral Tablet; TAKE ONE TABLET BY MOUTH AT BEDTIME; Therapy: 53Bjc8952 to (Evaluate:22Apr2012) Requested for: 27Vsp5910; Last Rx:[id number] Ordered; For: Depression (311), Anxiety (300.00); Rx By: Demi Reed; Dispense: 30 Days ; #:30 EA; Refill: 1; [facility]; Last Updated By: Mercedes Ramires 3. Sertraline HCl 50 MG Oral Tablet; TAKE ONE TABLET BY MOUTH AT BEDTIME; Therapy: 75Psu5818 to (Evaluate:09Apr2012) Requested for: 75Lmp7086; Last Rx:[id number] Ordered; For: Depression (311), Anxiety (300.00); Rx By: Demi Reed; Dispense: 30 Days ; #:30 EA; Refill: 1; Verified Transmission to [facility]; Last Updated By: Mercedes Ramires Lamictal 25 mg po bid; Risperdal 1 mg po qhs; Zoloft 50 mg po qday; OCP through Ob-Gyne Allergies 1. No Known Drug Allergies No Known Drug Allergies Vitals Vital Signs [Data Includes: Current Encounter] 24Apr2012 08:02AM Heart Rate 92, L Radial Pulse Quality Normal, L Radial Respiration 18 Respiration Quality Normal Systolic 124, LUE, Sitting Diastolic 70, LUE, Sitting BMI Calculated 23.42 BSA Calculated 1.78 Height 5 ft 7 in Weight 149 lb 3.2 oz LMP 27Mar2012 Physical Exam Roselyn was casually groomed in [facility] and a [place]. Pleasant and cooperative with good eye contact. Able to initiate and maintain conversation.Speech is regular rate, volume, and articulation. Thoughtsl/l/gd. Mood is good and affect full- ranged. No SIB, SI, intent, or plan. No HI or violence. No AVH, delusions, or paranoia. I/J good. Counseling Supportive psychotherapy provided regarding current stressors and coping. Session lasted 20 minutes. Assessment AXIS I: 296.90, 300.00 AXIS II: none AXIS III:none acute AXIS IV: none AXIS V: 65 Plan Roselyn is stable overall at this time. Continue Risperdal 1 mg po qhs, Zoloft 50 mg po qday, Lamictal 25 mg po bid, and OCP through Ob-Gyne. RTC 3 months for follow-up. Call with problems. ER for SI, HI, AVH. Signatures Electronically signed by : Demi Reed M.D.; Apr 24 2012 8:44AM (Author) TH/SAFETY JOB TITLES documented in this encounter Plan of Treatment Not on file documented as of this encounter Visit Diagnoses Not on filedocumented in this encounter
--- OUTSIDE RECORDS SUMMARY | 2024-07-02 05:05 | XMS_ITS | Encounter Summary ---
Author Organization [facility] Address [facility]. [place], [place] [address] [place] [address] Care Team Providers Care Market Development Trainer Name Role Phone Unavailable Primary Care Provider Unavailabl e Encounter Details Date Type Department Care Team (Late st Contact Info) Description 10/02/2017 Abstract [facility] Family & Internal Medicine [facility] [address] [place] [address] Alma Maldonado, KIMBERLY [address] [place] [address] Social History Tobacco Use Types Packs/Day Years Used Date Smoking Tobacco: Never Assessed Comments Unknown Sex and Gender Information Value Date Recorded Sex Assigned at Not on file Legal Sex Female 4:48 PM CDT Gender Identity Not on file Sexual Orientation Not on file documented as of this encounter Progress Notes * Ochoa Bradley MD - 10/02/2017 1:00 PM CDT Reason For Visit Nurse Visit History of Present Illness HPI: Patient is here for a tb skin test reading Active Problems 1. Abnormal glucose level (790.29) [...] Oral Tablet Extended Release 24 Hour; Therapy: [id number] to Recorded 2. LamoTRIgine 25 MG Oral Tablet; TAKE ONE TABLET BY MOUTH IN THE MORNING FOR 1 WEEK, THEN INCREASE TO 1TABLET BY MOUTH TWICE DAILY; Therapy: [id number] to (Evaluate:11Jul2012) Requested for: 12Apr2012; Last Rx:[id number] Ordered 3. RisperiDONE 1 MG Oral Tablet; TAKE ONE TABLET BY MOUTH AT BEDTIME; Therapy: [id number] to (Evaluate:22Apr2012) Requested for: [id number]; Last Rx:[id number] Ordered Allergies 1. No Known Drug Allergies Signatures Electronically signed by : Ochoa Bradley M.D.; Oct 09 2017 3:52PM ASSISTANT PROFESSOR OF ANTHROPOLOGY (Author) * Generic Conversion MD Debora - 10/02/2017 1:00 PM CDT Message Recorded as Task Date: 10/01/2017 09:05 PM, Created By: Alma Maldonado Task Name: Call Patient with results Assigned To: [facility] Nurse Team Regarding Patient: Angy Norman, Status: In Progress Comment: Alma Maldonado - 01 Oct 2017 9:05 PM Patient Was this specimen fasting? If not, let her know labs were nml. Bernice Orr - 02 Oct 2017 7:38 AM TASK REASSIGNED: Previously Assigned To Alma Maldonado - 02 Oct 2017 12:54 PM TASK EDITED LM 10-02-17 tn Daylin Allen02 Oct 2017 12:54 PM TASK IN PROGRESS Annemarie Allen 02 Oct 2017 1:03 PM TASK EDITED This was not fasting, pt informed normal tn Signatures Electronically signed by : Annemarie Allen, ; Oct 02 2017 1:04PM ASSISTANT PROFESSOR OF ANTHROPOLOGY (Author) documented in this encounter Plan of Treatment Not on file documented as of this encounter Procedures Procedure Name Priority Date/Time Associated Diagnosis Comments TB INTRADERMAL TEST(LAB PERFORMED) Routine 10/02/2017 12:00 AM CDT documented in this encounter Results * TB INTRADERMAL TEST(LAB PERFORMED) (10/02/2017 12:00 AM CDT) TB SKIN TST 2ND STEP Negative [facility] TO EPIC CONVERSION COMMENT none [facility] T O EPIC CONVERSION TB SKIN TST 2ND STEP none [facility] TO EPIC CONVERSION COMMENT Annemarie Allen CMA [facility] TO EPIC CONVERSION 10/02/2017 10/02/2017 Narrative [facility] TO EPIC CONVERSION - 10/03/2017 10:52 AM CDT Result Communication: No patient communication needed at this time us Ochoa Bradley MD MICROBIOLOGY - GENERAL ORDERAB LES Final Result [facility] TO EPIC CONVERSION documented in this encounter Visit Diagnoses Not on filedocumented in this encounter
--- OUTSIDE RECORDS SUMMARY | 2024-07-02 05:06 | XMS_ITS | Clinical Summary ---
Author Organization [facility] Virtual Care Address [address] [place] [phone] Phone Care Team Providers Care Gypsum Roofer Name Role Phone Adria Miranda MD Primary Care Provider Allergies No known active allergies Medications senna (SENOKOT) 8.6 mg tabletIndicatio ns:constipation Take 1 tablet by mouth 2 (two) times a day as needed for constipation 30 tablet 2 Active ibuprofen (ADVIL,MOTRIN) 600 mg tabletIndicatio ns:Cramps Take 1 tablet (600 mg total) by mouth every 6 (six) hours as needed for pain 60 tablet 2 Active acetaminophen 500 mg capsuleIndicati ons:Pain Take 2 capsules (1,000 mg total) by mouth every 6 (six) hours as needed for pain 60 tablet 2 Active oxyCODONE (ROXICODONE) 5 mg immediate release tabletIndicatio ns:Pain Take 1 tablet (5 mg total) by mouth every 4 (four) hours as needed for pain for up to 7 doses 7 tablet 2 Active Active Problems Problem Noted Date Diagnosed Date state 03/20/2022 Overview (03/21/2022): # ID: Afebrile. No signs/symptoms of infection. #COVID-19: Test not indicated # Heme: EBL 750 mL. No symptoms acute blood loss anemia. # CV/Pulm: Gestational hypertension - Blood pressures well controlled on no meds. Asymptomatic, denies GONZALEZ/RUQ pain/vision changes. CBC/CMP WNL, UPC deferred d/t diagnosis . Enrolled in home BP. # GI/: Tolerating PO. Voiding spontaneously. # Pain: Controlled with above regimen. # Post DVT prophylaxis: The patient has the following MAJOR risk factors none and the following MINOR risk factors BMI 30-39 and delivery. enoxaparin 40 mg daily ordered for VTE prophylaxis. # MOC: for IUD at PPV # MOF: . Urine drug screen not indicated. Patient informed of results: N/A. # COVID Vaccination Status: Not assessed # Disposition: Follow up to be scheduled with primary OB. Desires dc home today if baby is cleared by peds. Arthralgia of ankle 11/24/2015 Pain of foot 11/24/2015 Resolved Problems Problem Noted Date Diagnosed Date Resolved Date Encounter for induction of labor 03/18/2022 03/20/2022 Immunizations Name Administration Dates Next Due Influenza, Unspecified 03/09/2022 Medical History Medical History Date Comments Personal history of other me ntal and behavioral disorders History of bipolar disorder - (Added by TW Conv) Family History Medical History Relation Name Comments Low Back Pain Mother Family history of low back pain - (Added by TW Conv) Relation Name Status Comments Mother Social History Tobacco Use Types Packs/Day Years Used Date Smoking Tobacco: Never Social Connection and Isolat ion Panel [NHANES] Answer Date Recorded In a typical week, how many times do you talk on the phone with family, friends, or neighbors? More than three times a week 03/21/2022 How often do you get togethe r with friends or relatives? More than three times a week 03/21/2022 How often do you attend chur Cardiac Systemz or muslim services? Never 03/21/2022 Do you belong to any clubs o r organizations such as advent groups, unions, fraternal or athletic groups, or school groups? No 03/21/2022 How often do you attend meet ings of the clubs or organizations you belong to? Never 03/21/2022 Are you , , di vorced, , never , or living with a partner? Living with partner 03/21/2022 AUDIT-C Answer Date Recorded Q1: How often do you have a drink containing alcohol? Never 03/18/2022 Q2: How many drinks containi ng alcohol do you have on a typical day when you are drinking? Patient does not drink Q3: How often do you have si x or more drinks on one occasion? Never 03/18/2022 Overall Financial Resource Strain (CARDIA) Answe r Date Recorded How hard is it for you to pa y for the very basics like food, housing, medical care, and heating? Not hard at all 03/21/2022 Hunger Vital Sign Answer Date Recorded Within the past 12 months, y ou worried that your food would run out before you got the money to buy more. Never true 03/21/20 22 Within the past 12 months, t he food you bought just didn't last and you didn't have money to get more. Never true 03/21/2022 PRAPARE - Transportation Answer Date Re corded In the past 12 months, has l ack of transportation kept you from medical appointments or from getting medications? No 03/12 In the past 12 months, has l ack of transportation kept you from meetings, work, or from getting things needed for daily living? No 03/21/2022 Housing Stability Vital Sign Answer Ruslan e Recorded In the last 12 months, was t here a time when you were not able to pay the mortgage or rent on time? No 03/21/2022 In the last 12 months, how many places have you lived? 0 03/21/2022 In the last 12 months, was t here a time when you did not have a steady place to sleep or slept in a [place] (including now)? No 03/21/2022 Comments No Sex and Gender Information Value Date Recorded Sex Assigned at Not on file Legal Sex Female 10:50 AM DIRECTOR OF RETAIL ANALYTICS Gender Identity Not on file Sexual Orientation Not on file Obstetrics History Para Term AB IAB SAB Ectopic Multiple Livin g Live Births 1 1 1 0 1 1 Date Outcome GA Total Labor Labor/2nd/3rd Weight Sex Type Anes PTL Loan A1 A5 Name Clin 2021 Term 40w 1d 1h 26m 1h 25m/0h 01m 3.74 kg (8 lb 3.9 oz) M CS-LT ranv Epidur al N Livin g 3 8 MIFFLI N,BOYA NNE PORTER Elosi meagan, Rebecca lle, MD Complications: Intolera nce Delivery Location:[facility] Main C ampus ([facility] L AND D PROCEDURE) Last Filed Vital Signs Vital Sign Reading Time Taken Comments Blood Pressure 121/75 03/21/2022 8:15 AM CDT Pulse 99 03/21/2022 8:15 AM CDT Temperature 37 ??C (98.6 ??F) 03/21/2022 8:15 AM CDT Respiratory Rate 18 03/21/2022 8:15 AM CDT Oxygen Saturation 96% 03/21/2022 8:15 AM CDT Inhaled Oxygen Concentration - - Weight 108.9 kg (240 lb) 03/18/2022 6:20 AM CDT Height 170.2 cm (5' 7 ) 03/18/2022 6:20 AM CDT Body Mass Index 37.59 03/18/2022 6:20 AM CDT Plan of Treatment Health Maintenance Due Date Last Done Comments Cervical Cancer Screening 1997 Depression Screening 1997 Hepatitis C Screening 1997 Varicella Vaccines (1 of 2 - 13+ 2-dose series) 2010 Hepatitis B Screening 2015 Regular Well Visit/Exam 18-64 2015 Covid-19 Vaccine (3 - 2023-2 5 season) 2024 11/23/2020, 11/02/2020 Influenza Vaccine (#1) 2024 , 04/05/2019 DTaP/Tdap/Td Vaccine (2 - Td or Tdap) 04/05/2029 04/05/2019 HPV Vaccines Aged Out No longer eligi ble based on patient's age to complete this topic Pneumococcal vaccine <65 Aged Out No longer eligible based on patient's age to complete this topic Insurance [facility] [employer] Address: [address] [place] [address] [facility] [employer] [employer] [facility] [employer] [employer] Address: [facility] [address] [place] [address] [facility] CHOICE PLUS [employer] [facility] [employer] Address: [facility] [id number] [place] [address] Advance Directives For more information, please contact: [phone] * Full Code (Latest Code Status on File) Date Activated Date Inactivated Comments 03/19/2022 8:09 PM 03/21/2022 9:14 PM * Full Code Date Activated Date Inactivated Comments 03/18/2022 6:04 AM 03/19/2022 8:09 PM Full CPR in case of cardiopulmonary arrest Care Teams Gypsum Roofer Relationship Specialty Start Date End Date Adria Miranda MD [address] [place] [address] PCP - General 05/15/20
--- OUTSIDE RECORDS SUMMARY | 2024-07-02 05:06 | XMS_ITS | Encounter Summary ---
Author Organization [facility] Healthcare Address [address] [place] [address] Care Team Providers Care Brazing Machine Tender Name Role Phone Adria Miranda MD Primary Care Provider Reason for Visit * Reason Onset Date Comments Follow-up 04/04/2022 Encounter Details Date Type Department Care Team (Late st Contact Info) Description 04/04/[address] [address] Mar Swift RN Postpartum Follow-up Social History Tobacco Use Types Packs/Day Years [...] 03/21/2022 How often do you attend chur ch or religion services? Never 03/21/2022 Do you belong to any clubs o r organizations such as christianity groups, unions, fraternal or athletic groups, or [...] you are drinking? Patient does not drink 2 Q3: How often do you have si [...] place to sleep or slept in a intermediate (including now)? No 03/21/2022 Comments No Sex and Gender Information Value Date Recorded Sex Assigned at Not on file Legal Sex Female 10:50 AM RENDERER Gender Identity Not on file Sexual Orientation Not on file documented as of this encounter Miscellaneous Notes * Telephone Encounter - Mar Swift RN - 04/04/2022 10:32 AM CDT Contacted patient for follow up call. Pt denies any increase in bleeding, clots, or pain. Pt has no questions or concerns at this time. Discussed symptoms of hemorrhage and high BP.Contacted patient for follow up call. Pt denies any increase in bleeding, clots, or pain. Pt hasno questions or concerns at this time. Discussed symptoms of hemorrhage and high BP.Pt states BP isin the 116-130 over 80-83 range. documented in this encounter Plan of Treatment Not on file documented as of this encounter Visit Diagnoses Not on filedocumented in this encounter Care Teams Brazing Machine Tender Relationship Specialty Start Date End Date Adria Miranda MD [address] [place] [id number] PCP - General 05/15/20 documented as of this encounter
--- OUTSIDE RECORDS SUMMARY | 2024-07-02 05:06 | XMS_ITS | Referral Summary ---
Author Organization [facility] Virtual Care Address [facility] [place] [address] Phone Care Team Providers Care Shaving Machine Operator Name Role Phone Adria Miranda MD Primary [...] Administration Dates Next Due Influenza, Unspecified 03/09/2022 Social History Tobacco Use Types Packs/Day Years [...] often do you attend chur ch or uatsdin services? Never 03/21/2022 Do you belong to any clubs o r organizations such as latter-day groups, unions, fraternal or athletic groups, or [...] place to sleep or slept in a residential (including now)? No 03/21/2022 Comments No Sex and Gender Information Value Date Recorded Sex Assigned at Not on file Legal Sex Female 10:50 AM SECTION SUPERVISOR Gender Identity Not on file Sexual Orientation [...] 03/18/2022 6:20 AM CDT Plan of Treatment Not on file Insurance [facility] [facility] CHOICE PLUS [facility] Advance Directives For more information, please contact: [phone] * Full Code (Latest Code Status on File) Date Activated Date Inactivated Comments 03/19/2022 8:09 PM 03/21/2022 9:14 PM * Full Code Date Activated Date Inactivated Comments 03/18/2022 6:04 AM 03/19/2022 8:09 PM Full CPR in case of cardiopulmonary arrest Care Teams Shaving Machine Operator Relationship Specialty Start Date End Date Adria Miranda MD [address] [facility] [address] [facility] - General 05/15/20
--- OUTSIDE RECORDS SUMMARY | 2024-07-02 05:07 | XMS_ITS | Encounter Summary ---
Author Organization [facility] Healthcare Address [address] [place] [address] Care Team Providers Care Secondary Education Professor Name Role Phone Adria Miranda MD Primary Care Provider Encounter Details Date Type Department Care Team (Late st Contact Info) Description 05/14/[address] [facility] [address] [place] [address] Room [address] (Third Floor) [place] [address] Juanita Malcolm NP [address] [facility] [phone] [place], [place] [id number] Social History Tobacco Use Types Packs/Day Years Used Date Smoking Tobacco: Never Comments Unknown Sex and Gender Information Value Date Recorded Sex Assigned at Not on file Legal Sex Female 10:50 AM FLOAT NURSE Gender Identity Not on file Sexual Orientation Not on file documented as of this encounter Miscellaneous Notes * Addendum Note - Anneliese Goddard CLT - 05/15/2020 10:45 AM CSTAddended by: ANNELIESE GODDARD on: 05/15/2020 10:45 AM Modules accepted: Orders T NURSE * Telephone Encounter - Juanita Malcolm NP - 05/14/2020 4:00 PM FLOAT NURSE Employee COVID-19 Screening 05/14/2020 Email: [email or web address] Employee/Student ID# [id number] Are you an employee or student? Employee Employer: [employer] Employee Facility: [facility] Does your job primarily involve providing care for bone marrow transplant patients? 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 Are you working/studying from home or on-site? On-site Have you been tested for Covid-19 previously? No Have you had a known, specific COVID exposure within the last 14 days? No Employee Symptoms: Yes Date of employee symptom onset: 05/13/2020 Description of Symptoms: Loss of Taste;Loss of Smell Date symptoms started: 05/13/2020 Date last worked: 05/10/2020 Do you currently live with, or have ongoing contact with, someone known or suspected to have COVID-19? No Exposure Risk (See Exposure Guide): No known or low risk exposure Assessment: Symptomatic, non-occupational Plan: (A) Stay home and test (COVID plus Influenza A/B) Testing Site Location: [facility] Script A0 (Stay home and test) for symptomatic employees with no known or low risk exposure Given your symptoms, you should not come to work and will be referred for testing. ??? Please go to the employee testing site at ??? You will be tested for both COVID-19 and Influenza ??? While you are awaiting testing and results, you must remain off work. ??? While waiting for results, home quarantine guidance still applies. You should isolate yourself at home, avoid contact with any household members as much as possible, and stay in your home withoutleaving except for medical care. If your symptoms worsen, please call back or call 911 - let your providers, ER or EMS know that you are being tested for COVID-19. ??? Once your results are back, you will receive further instruction from Occupational Health. Don't return to work until you hear from [facility]. Occupational Health will notify you and your consumer affairs manager when you can return to work. ??? Should your test result positive, [facility] will work with you to identify any close contacts you may have had at work. [facility] will then alert your work contacts directly; you do not have to. Your table games floor supervisor should consult with [facility] if they have any questions and before any communication with coworkers about a positive test. [facility] will help ensure that coworkers potentially at risk are notified and given appropriate advice without unnecessary disclosure of personal health information. ??? We will send you an email with self-quarantine instructions (see [facility] Guidance for At-Home Isolation: Employees). ??? You must follow any additional isolation or quarantine instructions provided to you from federal, state or local public health authorities. ??? You should let your table games floor supervisor know that you will not be coming to work. Although the Call Center will email your table games floor supervisor to confirm that you have been instructed not to come to work, it is still your responsibility to notify your table games floor supervisor as you would for any other work absence. You should receive an email from the call center with these instructions. The email will come from [email or web address]; if you do not receive it, please check to see if your email beverage server has automatically routed it to [employer]. T NURSE documented in this encounter Plan of Treatment Not on file documented as of this encounter Results * (ABNORMAL) Influenza A/B and COVID-19 PCR ([facility] ONLY) Nasopharyngeal (05/15/2020 8:17 AM FLOAT NURSE) COVID-19 RNA Detected(A) JONATHAN HODGE Comment: Interpretive Data Testing performed by the [facility] Molecular Infectious Disease Laboratory. The 2019-Novel Coronavirus Assay (COVID-19) Real Time RT-PCR assay is for in vitro diagnostic use under FDA emergency use authorization only. A negative RT-PCR result does not preclude infection with COVID-19 and should not be used as the sole basis for treatment or other patient management decisions. Additional sample types have been validated according to CLIA regulations. ?? Current Interpretive Data was last revised on 2019. Testing performed by: [facility], [address] [place]., [address] Influenza A RNA Not Detected JONATHAN HODGE Comment:Testing performed by : [facility], [address] [place] [address], [id number] Influenza B RNA Not Detected CERNER CH Comment: Interpretive Data Testing performed by the [facility] Molecular Infectious Disease [facility]. This test is performed using the elbert Influenza A/B Assay. This is a real-time RT-PCR test for the qualitative detection of nucleic acid from Influenza A and Influenza B. This assay has been reviewed by the FDA for Emergency Use Authorization (EUA). The performance characteristics have been verified by the [facility]. Results should be interpreted in combination with clinical context and a negative result does not rule out infection. ?? Interpretive data last revised 2020. Testing performed by: [facility], [address] [place] [address], [id number] First COVID-19 test? Yes CERNER CH Comment:Testing performed by : [facility], [address] [place] [address], [id number] Employeed in healthcare? Yes CERNER CH Comment:Testing performed by : [facility], [address] [place] [address], [id number] status? No CERNER CH Comment:Testing performed by : [facility], [address] [place] [address], [id number] Group care resident? No CERNER CH Comment:Testing performed by : [facility], [address] [place] [address], [id number] Hospitalized? No CERNER CH Comment:Testing performed by : [facility], [address] [place] [address], [id number] Is patient in ICU? No CERNER CH Comment:Testing performed by : [address], [address] Symptomatic as defined by CDC? Yes CERNER CH Comment:Testing performed by : [facility], [address] [place] [address], [id number] Nasopharyngeal 05/15/2020 8: 17 AM FLOAT NURSE 05/15/2020 3:08 PM FLOAT NURSE Narrative CERNER - 05/16/2020 6:20 AM FLOAT NURSE Patient is employed by/enrolled at:->[facility] Date of symptom onset->05/13/20 us Stacie Angulo MD LAB MICROBIOLOGY - GENERAL ORDERABLES Final Result JONATHAN [address] [address] Department [place] [address] documented in this encounter Visit Diagnoses Diagnosis Loss of smell- Primary Disturbances of sensation of smell and taste Loss of smell Disturbances of sensation of smell and taste documented in this encounter Additional Health Concerns Infection Onset Date Last Indicated Resolved Time COVID: Suspected 05/14/2020 05/15/2020 05/16/2020 6:20 AM FLOAT NURSE documented as of this encounter Care Teams Secondary Education Professor Relationship Specialty Start Date End Date Adria Miranda MD [address] [facility] [address] [place] [address] PCP - General 05/15/20 documented as of this encounter
--- OUTSIDE RECORDS SUMMARY | 2024-07-02 05:07 | XMS_ITS | Encounter Summary ---
Author Organization [facility] Healthcare Address [address] [place] [address] Care Team Providers Care Vp Communications Name Role Phone Adria Miranda MD Primary Care Provider Encounter Details Date Type Department Care Team (Late st Contact Info) Description 06/16/2021 Telephone [facility] [address] [place] [address] [id number] (Third Floor) [place] [address] Isabel Power RN Social History Tobacco Use Types Packs/Day Years Used Date Smoking Tobacco: Never Comments Unknown Sex and Gender Information Value Date Recorded Sex Assigned at Not on file Legal Sex Female 10:50 AM SENIOR MECHANICAL PROJECT MANAGER Gender Identity Not on file Sexual Orientation Not on file documented as of this encounter Miscellaneous Notes * Addendum Note - Jacinda Vazquez - 06/16/2021 4:59 PM CSTAddended by: JACINDA VAZQUEZ on: 06/16/2021 04:59 PM Modules accepted: Orders OR MECHANICAL PROJECT MANAGER * Telephone Encounter - Isabel Power RN - 06/16/2021 1:45 PM CST Employee COVID-19 Screening 05/14/2020 06/16/2021 Vaccine related call? - No Email: [email or web address] Employee/Student ID# [id number] Are you an employee or student? Employee Employee Employer: [employer] Employee Facility: [facility] Does your job primarily involve providing care for bone marrow transplant patients? 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 On-site On-site Have you been tested for Covid-19 previously? No - Have you had a known, specific Covid exposure within the last 14 days? No - Employee Symptoms: Yes - Date of employee symptom onset: 05/13/2020 - Description of Symptoms: Loss of Taste;Loss of Smell - Date symptoms started: 05/13/2020 - Date last worked: 05/10/2020 - Do you currently live with, or have ongoing contact with, someone known or suspected to have Covid-19? No - Exposure Risk (See Exposure Guide): No known or low risk exposure - Assessment: Symptomatic, non-occupational - Plan: (A) Stay home and test (COVID plus Influenza A/B) - Testing Site Location: [facility] - Script A0 (Stay home and test) for symptomatic, exposed HCW, symptomatic, unexposed Non-HCW or Vaccinated Non-HCW Given your symptoms, you should not come to work and will be referred for combined COVID/Influenza testing. If you have had a COVID infection in the past 4 months, you will be tested for influenza only. ??? Please go to the employee testing site at [facility] ??? While you are awaiting testing and [...] Occupational Health will notify you and your manager telecom when you can return to work. ??? Should your test result positive, [facility] will work with you to identify any close contacts you may have had at work. [facility] will then alert your work contacts directly; you do not have to. Your electrical maintenance supervisor should consult with [facility] if they have any questions and before any communication with coworkers about a positive test. [facility] will help ensure that coworkers potentially at risk are notified and given appropriate advice without unnecessary disclosure of personal health information. ??? We will send you an email with self-quarantine instructions (see [facility] Guidance for At-Home Isolation: Employees). ??? You must follow any additional isolation or quarantine instructions provided to you from federal, state or local public health authorities. ??? You should let your electrical maintenance supervisor know that you will not be coming to work. Although the Call Center will email your electrical maintenance supervisor to confirm that you have been instructed not to come to work, it is still your responsibility to notify your electrical maintenance supervisor as you would for any other work absence. You should receive an email from the call center with these instructions. The email will come from [email or web address]; if you do not receive it, please check to see if your email [employer] has automatically routed it to [email or web address]. OR MECHANICAL PROJECT MANAGER documented in this encounter Plan of Treatment Not on file documented as of this encounter Results * (ABNORMAL) Influenza A/B and COVID-19 PCR Nasopharyngeal (06/16/2021 3:48 PM SENIOR MECHANICAL PROJECT MANAGER) COVID-19 RNA Detected(A) JONATHAN HODGE Comment: Interpretive Data Synonyms for this test include: PCR and NAAT . ??Testing performed by the [facility] Molecular Infectious Disease Laboratory. The 2019-Novel Coronavirus Assay (COVID-19) Real Time RT-PCR assay is for in vitro diagnostic use under FDA emergency use authorization only. A negative RT-PCR result does not preclude infection with COVID-19 and should not be used as the sole basis for treatment or other patient management decisions. ??Additional sample types have been validated according to CLIA regulations. ?? Current Interpretive Data was last revised on July 16, 2020. Testing performed by: [facility], [address] [place]., [address] Influenza A RNA Not Detected CERNER Comment:Testing performed by : [facility], [address] [facility], [address] Influenza B RNA Not Detected CERNER Comment: Interpretive Data Testing performed by the [facility] Infectious Disease [facility]. This test is performed using the elbert Influenza A/B Assay. This is a real-time RT-PCR test for the qualitative detection of nucleic acid from Influenza A and Influenza B. This assay has been reviewed by the FDA for Emergency Use Authorization (EUA). The performance characteristics have been verified by the [facility]. Results should be interpreted in combination with clinical context and a negative result does not rule out infection. ?? Interpretive data last revised 2020. Testing performed by: [facility], [address] [place] [address], [id number] First COVID-19 test? No CERNER CH Comment:Testing performed by : [facility], [address] [place] [address], [address] Employeed in healthcare? Yes CERNER CH Comment:Testing performed by : [facility], [address] [place] [address], [id number] status? No CERNER CH Comment:Testing performed by : [facility], [address] [place] [address], [address] Group care resident? No CERNER CH Comment:Testing performed by : [facility], [address] [place] [address], [id number] Hospitalized? No CERNER CH Comment:Testing performed by : [facility], [address] [place] [address], [address] Is patient in ICU? No CERNER CH Comment:Testing performed by : [facility], [address] [place] [address], [id number] Symptomatic as defined by CDC? Yes JONATHAN HODGE Comment:Testing performed by : [facility], [address] [facility], [place]., [address] Nasopharyngeal 06/16/2021 3: 48 PM SENIOR MECHANICAL PROJECT MANAGER 06/17/2021 12:59 AM SENIOR MECHANICAL PROJECT MANAGER Narrative JONATHAN HODGE - 06/17/2021 12:31 PM SENIOR MECHANICAL PROJECT MANAGER Patient is employed by/enrolled at:->[facility] Date of Symptom Onset->06/16/21 us Stacie Angulo MD LAB MICROBIOLOGY - GENERAL ORDERABLES Final Result JONATHAN [address] Department [place] [address] documented in this encounter Visit Diagnoses Diagnosis Body aches- Primary Generalized pain Body aches Generalized pain documented in this encounter Additional Health Concerns Infection Onset Date Last Indicated Resolved Time COVID: Suspected 06/16/2021 06/16/2021 06/17/2021 12:31 PM SENIOR MECHANICAL PROJECT MANAGER documented as of this encounter Care Teams Vp Communications Relationship Specialty Start Date End Date Adria Miranda MD [address] [facility] [address] [place] [address] [place] [id number] PCP - General 05/15/20 documented as of this encounter
--- OUTSIDE RECORDS SUMMARY | 2024-07-02 05:07 | XMS_ITS | Encounter Summary ---
Author Organization [facility]/Health system Facility Care Team Providers Care Pipe Fitter Maintenance Name Role Phone Unavailable Primary Care Provider Unavailabl e Encounter Details Date Type Department Care Team (Latest Contact Info) Description 07/10/2015 5:37 AM RAILROAD DESIGN CONSULTANT - 07/10/2015 4:00 PM RAILROAD DESIGN CONSULTANT Hospital Encounter [facility] [place], [place] [address] [place] [address] Other instability, left ankle; Synovitis and tenosynovitis; Other acquired deformities of left foot; Bipolar disorder (CMS/HCC); Attention-deficit hyperactivity disorder; senior living current use of aspirin; Other retirement (current) drug therapy Social History Tobacco Use Types Packs/Day Years Used Date Smoking Tobacco: Never Comments Unknown Sex and Gender Information Value Date Recorded Sex Assigned at Not on file Legal Sex Female 10:50 AM RAILROAD DESIGN CONSULTANT Gender Identity Not on file Sexual Orientation Not on file documented as of this encounter Miscellaneous Notes * Op Note - Provider, MD Ludivina - 07/10/2015 12:00 AM CST Patient: NANI OCHOA Reg No: [id number] U H #: [id number] Admit Dt.: 07/10/2015 : 1995 Pt Type: COS Room No: [id number]- Attending: Price Downing M.D. Surgeon: Price Downing M.D. Dictating: Price Downing M.D. Service Dt: 07/10/2015 OPERATIVE REPORT ANESTHESIA: General with preoperative popliteal femoral blockade. PREOPERATIVE DIAGNOSIS (ES): 1. Left ankle instability. 2. Left ankle synovitis. POSTOPERATIVE DIAGNOSIS (ES): 1. Left ankle instability. 2. Left ankle synovitis. 3. Left ankle talus osteochondral defect. NAME OF OPERATION: 1. Left ankle arthroscopy with extensive debridement. 2. Left ankle arthroscopy with osteochondral debridement and microfracture. 3. Left peroneus longus debridement. 4. Left peroneus brevis debridement. 5. Left sinus tarsi open debridement. 6. Left Brostrom-Velásquez lateral ligament reconstruction. INDICATIONS FOR PROCEDURE: The patient is an 20-year-old female who has had longstanding difficulty with the left ankle. She has symptoms of instability. She had a high ankle sprain. She had symptoms of high ankle instability. We had placed a tightrope with ankle arthroscopy and debridement of an osteochondral defect at the ankle nearly one year ago. With continued difficulty, we examined the ankle and she was felt to have symptoms of instability as well as clinical instability. MRI did not show any significant intraarticular process. However, we knew of the lateral talar dome lesion. We discussed operative versus nonoperative care. She elected to proceed with ankle stabilization procedure and in addition we will investigate the peroneal tendons where she has some posterior ankle pain. Lastly, we would debride the sinus tarsi where she had additional focal pain in the sinus tarsi joint. She understood the risks and benefits of the operation including but not limited to bleeding, infection, nerve injury, need for reoperation, malunion, nonunion and persistent pain. She agreed to proceed and surgical consent was obtained. OPERATIVE FINDINGS: 1. Small flap of cartilage in an irregular zone of cartilage in the area of the previous OCD of the lateral talar dome about 4-5 mm in length. 2. Intact-appearing longus and brevis tendons after debridement. 3. Scarring within the sinus tarsi debrided. 4. Stable ankle after Brostrom-Velásquez lateral ligament reconstruction. DESCRIPTION OF PROCEDURE: After the proper side and site were identified in the preoperative holding area and the word YES was written on the patient's left lower extremity, she was brought to the operating room. She was placed on the operating table in the supine position. All bony processes were well padded. BREANN and sequential compression device were placed on the right lower extremity. A tourniquet was placed on the left upper thigh. The left leg was placed in the noninvasive distraction harness for arthroscopy. Preoperative antibiotics were given. The left lower extremity was prepped and draped in the usual sterile manner. At this point, a surgical pause was performed to verify side and site of procedure. An Esmarch bandage was used to exsanguinate the left lower extremity. The tourniquet was inflated to 300 mmHg. We made the arthroscopic portals. The ankle had been placed in the noninvasive distractor. Distraction was applied. We started with the medial portal. A needle was used to localize the medial portal just medial to the anterior tibial tendon. About a 1 cm incision was made in the skin. The needle had been used to insufflate the joint with 20 mL of normal saline. The incision was made through the soft tissue and dissected down to the level of the joint. The camera was then placed in the joint. Under direct visualization, we then placed our lateral portal. The needle was used to localize this. We made a small billy in the skin and then debrided down to the level of the ankle joint. We entered the ankle joint bluntly. We placed the shaver here. We inspected the joint. There was some recurrence of synovium and thickened tissue in the anterior ankle, anterolateral ankle and in the region of the syndesmosis. Also, we could identify a small flap of cartilage laterally in the talar dome at the region of her previous osteochondral defect. Medially, the tissues appeared to be in slightly better condition. There was still some inflammation and synovitis to the joint. At this point, we moved the shaver to debride anterior, anterolaterally. We used a biter to debride some thickened TFL ligaments. We then moved towards the syndesmosis region and debrided there as well. Posteriorly and medially there was less debridement. We switched portals. We debrided the anterolateral portal region as well as anteriorly at the ankle at this time as well. At this point, we switched portals back. We investigated laterally. There was a flap of cartilage and fibrocartilage that was a bit thickened. It seemed irregular. We elected to debride it. We used curettes to debride the area and we finally had an area of about 4 x 5 mm in size. Once the cartilage had been debrided, we then evaluated the joint. The other cartilage was in good condition. We elected to move towards microfracture. We used the microfracture pick and placed multiple perforations in the region. Fat edema emanated from the holes that were made, suggesting that we were deep to the subchondral bone. We irrigated the joint out. We then removed the instrumentation. We closed the lateral and medial portals with 3-0 nylon to the skin. At this point, we moved towards the lateral ankle. We made about an 8 cm incision at the lateral ankle. It was centered over the fibula and extended down towards the base of the fourth. Soft tissue was carefully dissected, with care taken to protect the branch of the sural nerve. We then identified the lateral ligamentous capsular structure. We preserved the extensor retinaculum. We retracted this inferiorly. Once the lateral capsule ligamentous structures had been isolated, we then dissected down into the peroneal tendon sheath. She had pain in this region. We kept the SPR intact. We opened the peroneal tendon sheath from the tip of the fibula down distal about 3 cm. we examined the longus and brevis tendons. Both were felt to be intact. There was no significant tearing. There was some tenosynovium that surrounded each of them which was debrided with the scissors, with care taken to protect the tendons themselves. At this point, we moved towards the sinus tarsi. We made a rent in the area of the EDB and joint capsule to expose into the sinus tarsi. We used a pituitary rongeur to debride a portion of the sinus tarsi fat pad and synovitis. We then moved towards the lateral ligament reconstruction. We made a hockey-stick type capsulotomy over the distal anterior aspect of the fibula, extending slightly posteriorly. This elevated the lateral ligament and capsular structures. We elevated it off of the distal fibula. With it elevated and out of the way, we then exposed the distal fibula and used a curette and rongeur to debride the area to create a bleeding surface for healing back. Once this was completed, we placed sutures. We placed two box-stitches in the calcaneofibular ligament deep to the peroneal tendon. We placed multiple [id number] FiberWire sutures in the anterolateral angle. We then held the ankle in dorsiflexion and eversion to tie the calcaneofibular ligament suture. We then held the ankle in dorsiflexion with posterior drawer slight eversion to tie the anterior capsular and ATFL repair ligament structure in place. At this point, we examined the ankle. There was increased stability, but we had not completed the Velásquez modification. We identified the central retinaculum which we had preserved. We used an 0 Vicryl in the mattress manner to reapproximate the extensor retinaculum. Once this was completed, the ankle was quite stable in both anterior drawer and TL tilt. At this point, we irrigated the wounds. We closed in layered fashion with a 3-0 Monocryl in the deep tissues, 3-0 Monocryl in the subcutaneous tissues and 3-0 nylon to the skin. A dry sterile dressing was applied to the left lower extremity. A posterior and sugar tong well padded splint was then applied as well. The tourniquet was let down. Toes pinked up nicely without concern for perfusion. There were no complications to the case. She was brought to the recovery room in stable condition. SPECIMENS REMOVED: None. ESTIMATED BLOOD LOSS: Less than 50 mL. INTRAOPERATIVE FLUIDS: 1200 mL. TOURNIQUET TIME: 1 hour and 54 minutes at 300 mmHg. SPONGE/INSTRUMENT/NEEDLE COUNTS: Correct at the end of the case x 2. CONDITION ON DISCHARGE FROM OPERATING ROOM: Stable. COMPLICATIONS: None. ATTESTATION OF PRESENCE: Dr. Price Downing was the attending surgeon and was present for the entirety of the case. POSTOPERATIVE PAIN MANAGEMENT REQUEST: I have requested that regional anesthesia for pain management be performed by a qualified health care provider from the Anesthesiology department for postoperative pain management. Based upon the degree of postoperative pain that is expected from this procedure, the skills and experience of a qualified health care provider from the Anesthesiology department are required. This expertise in pain management will improve pain relief and aid in decreasing analgesic side effects. Edited by: Price Downing MD On 08/03/2015 11:15 PM RAILROAD DESIGN CONSULTANT Electronically Authenticated and Edited by: Price Downing MD On 11/27/2015 11:07 AM CDT Price Downing M.D. PETERSONM:mm #[id number] Editing MT: TD: 07/19/2015 12:40 AM documented in this encounter Plan of Treatment Not on file documented as of this encounter Procedures Procedure Name Priority Date/Time Associated Diagnosis Comments URINE CHORIONIC GONADOTROPIN (HCG) Routine 07/10/2015 5:50 AM RAILROAD DESIGN CONSULTANT DISCHARGE LABORATORY CUMULATIVE REPORT 07/10/2015 documented in this encounter Results * Urine chorionic gonadotropin (HCG) (07/10/2015 5:50 AM RAILROAD DESIGN CONSULTANT) HCG, ur Negative HISTORICAL RESULTS Urine 07/10/2015 5:50 AM RAILROAD DESIGN CONSULTANT Price Downing MD LAB BLOOD ORDERABLES F inal Result HISTORICAL RESULTS * DISCHARGE LABORATORY CUMULATIVE REPORT (07/10/2015) Narrative 07/10/2015 Ordered by an unspecified provider. 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
--- OUTSIDE RECORDS SUMMARY | 2024-07-02 05:07 | XMS_ITS | Encounter Summary ---
Author Organization [facility] Healthcare Address [address] [place] [address] Care Team Providers Care Seismic Prospecting Observer Name Role Phone Adria Miranda MD Primary Care Provider Encounter Details Date Type Department Care Team (Late st Contact Info) Description 03/15/[address] [phone] Mercedes Rainey, RN Social History Tobacco Use Types Packs/Day Years Used Date Smoking Tobacco: Never Comments Unknown Sex and Gender Information Value Date Recorded Sex Assigned at Not on file Legal Sex Female 10:50 AM RESIDENT SERVICE COORDINATOR Gender Identity Not on file Sexual Orientation Not on file documented as of this encounter Miscellaneous Notes * Telephone Encounter - Mercedes Rainey RN - 03/15/2022 9:46 AM CDT RN sent pre IOL instructions to pt via [employer]. documented in this encounter Plan of Treatment Not on file documented as of this encounter Visit Diagnoses Not on filedocumented in this encounter Care Teams Seismic Prospecting Observer Relationship Specialty Start Date End Date Adria Miranda MD [address] [facility] [address] [place] [address] [place] [id number] PCP - General 05/15/20 documented as of this encounter
--- OUTSIDE RECORDS SUMMARY | 2024-07-02 05:07 | XMS_ITS | Encounter Summary ---
Author Organization [facility] Facility Care Team Providers Care Extractor Operator Name Role Phone Unavailable Primary Care Provider Unavailabl e Encounter Details Date Type Department Care Team (Latest Contact Info) Description 07/29/2014 5:38 AM RECREATION INSTRUCTOR - 07/29/2014 4:00 PM RECREATION INSTRUCTOR Hospital Encounter [facility] [place] [address] [place] [address] Other synovitis and tenosynovitis; Acquired musculoskeletal deformity of other specified site; Other joint derangement, not elsewhere classified, involving ankle and foot; Sprain of tibiofibular ligament of ankle; Other accidents Social History Tobacco Use Types Packs/Day Years Used Date Smoking Tobacco: Never Comments Unknown Sex and Gender Information Value Date Recorded Sex Assigned at Not on file Legal Sex Female 10:50 AM RECREATION INSTRUCTOR Gender Identity Not on file Sexual Orientation Not on file documented as of this encounter Miscellaneous Notes * Op Note - Provider, MD Ludivina - 07/29/2014 12:00 AM CST Patient: Angy Norman Reg No: [id number] H #: [id number] Admit Dt.: 07/29/2014 : 1995 Pt Type: 200 Room No: OR Attending: Price Sherman M.D. Surgeon: Price Sherman M.D. Dictating: Price Sherman M.D. Service Dt: 07/29/2014 OPERATIVE REPORT FIRST INSURANCE ASSISTANT: Dr. Barbara Du. ANESTHESIA: General. PREOPERATIVE DIAGNOSIS (ES): Left ankle synovitis. POSTOPERATIVE DIAGNOSIS (ES): Left ankle synovitis. Left osteochondral defect. Left syndesmosis instability. NAME OF OPERATION: Left ankle arthroscopy with extensive debridement. Left ankle arthroscopy with debridement and microfracture of osteochondral defect. Left ankle open reduction internal fixation of syndesmosis. Surgeon used fluoroscopy greater than one hour. Postoperative X-rays, three views of the left ankle. Postoperative X-ray, stress view of the left ankle. INDICATIONS FOR PROCEDURE: Ms. Norman is a 19-year-old female who had an ankle sprain in February. She has been working through nonoperative care. Unfortunately she continues to have pain and swelling. She does not feel overt instability, but with any exertional activity continues to feel pain from around anterior and anterolateral aspects of her ankle. External rotation stress maneuver demonstrated that there was some tilting of the talus on the left that was asymmetric to the right. No overt syndesmotic widening. Preoperative imaging did not reveal clear intraarticular process. The syndesmosis appeared to be symmetric on CT scan. We discussed operative intervention due to the fact that the patient had failed six months of conservative care. We also discussed injection. The patient elected to proceed with surgical intervention. She and her mother understood the risks and benefits of the operation including, but not limited to, bleeding, infection, nerve or muscle injury, need for operation, malunion, non-union, recurrence of deformity, persistent pain, and need for further operation. She understood the risks of recurring instability. She and her mother agreed to proceed. Surgical consent was obtained. OPERATIVE FINDINGS: 1. 3 x 5 millimeter osteochondral defect to the lateral shoulder of the talus. 2. No clear flap or loose body within the joint. 3. Area of impaction injury to the anterior distal tibia. 4. Scar tissue within the anteromedial and anterolateral and anterior gutters, as well as posteriorly in the ankle joint, as well as along the area of the syndesmosis. 5. Talar lilt increased on the left as compared to the right when external rotation stress maneuver was completed, suggesting subtle instability of the talus and suggesting the necessity for syndesmotic stability. DESCRIPTION OF PROCEDURE: After the proper site and side were identified in the preoperative holding area and the word yes was written on Ms. Norman's left lower extremity she was brought to the operating room. She was placed on the operating room table in the supine position. All bony prominences were well padded. TEDs and sequential compression devices were placed on the right lower extremity. Tourniquet was placed on the left upper thigh. Preoperative antibiotics in the form of Ancef were given. Her left lower extremity was prepped and draped in the usual sterile manner. The leg was placed in a noninvasive distractor for ankle arthroscopy. At this point a surgical pause was performed to verify site, side and procedure. An esmarch bandage was used to exsanguinate the left lower extremity. Tourniquet was inflated to 300 mmHg. The leg was placed in a noninvasive distractor and distraction, and traction was applied to the ankle. We started with the arthroscopy. A needle was used to localize the medial portal. It was placed just medial to the anterior tibial tendon. A small billy was made in the skin. 20 mL of fluid had been insufflated into the joint. We then bluntly dissected the medial ankle joint down to the level of the joint itself and entered the joint. The camera was placed. We investigated the joint. We found that there was an area of osteochondral defect at the lateral talar dome. The synovitis in the anterior aspect of the ankle. There was a plica along the anterior aspect of the joint as well. Significant synovitis throughout the joint. Particularly inflamed at the anterior joint, as well as along the area of the syndesmosis. At this point we started our lateral portal. A needle was used to localize this and it was visualized under the arthroscopy. A small billy was made in the skin. The soft tissue was bluntly dissected down to the level of the ankle joint. The soft tissue was carefully dissected with care taken to protect the superficial peroneal nerve. The shaver was then placed in the lateral portal. At this point we used the shaver to debride the plica from the anterior joint. It was debrided in its entirety. We then moved towards the anterolateral ankle. There was significant synovitis here. This was debrided with the shaver. We then identified the inferior slip of the AITFL and was felt to be a bit thickened and potentially an impinging lesion within the joint. With this in mind we debrided it. A biter was used and then a shaver was used to debride this anterolateral joint to prevent any risk of further impinging lesion of the joint. Then we moved towards the syndesmosis. There was an area of synovitic tissue particularly at the posterior half of the syndesmosis. This was debrided with the shaver. At this point we then moved towards the posterior aspect of the joint. There was some thickened synovitic capsular tissue. There was an inferior slip of the anterior malleolar ligament that appeared to be thickened as well. This was debrided with a shaver. We then evaluated the cartilage in the joint. All appeared to be in fairly good condition. We did identify the lateral aspect of the talar dome where there was an area of osteochondral defect about 3 x 3 millimeters in size. We would address this after addressing the medial side of the ankle. At this point the arthroscopy instruments were switched. With the shaver in the medial portal we were then able to debride the medial aspect of the anterior ankle joint, as well as the anterior aspect of the joint as well. We were able to identify an area of cartilage injury at the most anterior aspect of the distal tibial plafond, likely the region of the impaction injury, and suggestion of subchondral fracture. This was debrided so as to remove any loose scar tissue that was in this region. We then used the shaver in the anteromedial aspect of the joint. There appeared to be a tiny bony ossicle here, but it did not appear to be intraarticular and was felt to be fairly benign in nature. It was debrided of thickened synovitic tissue, but the actual ossicle itself was left in place. The overall intraarticular alignment appeared to be fairly appropriate and stable. We then switched portals back. We evaluated the syndesmosis. The traction had been let go on the ankle. There was a fair amount of mobilization of the fibula. It was felt that this may be subtle instability. Particularly in light of the fact that X-ray demonstrated stress maneuver which showed increased talar tilt on the left as compared to the right with external rotation stress. We elected to proceed with syndesmosis fixation. We would debride the osteochondral defect first. We used a curette to debride the area of the osteochondral defect at the lateral talar bone. Once this was completed there was an area of about 3 x 5 millimeters in size. All of these fragments were removed. Then used a microfracture awl to microfracture within the area of this defect. The area bled very nicely, suggesting appropriate blood flow for fibrocartilage formation. We then suctioned the remaining fluid from the joint. We completed arthroscopy. The leg was removed from the noninvasive distraction harness. We then moved towards syndesmosis fixation. We localized the area of the lateral fibula where we would like to place our syndesmosis fixation with a tightrope. We examined the ankle carefully. External rotation stress confirmed the talar tilt that we were concerned about. We then moved towards an incision. A 3 centimeter incision was made along the lateral aspect of the ankle. The soft tissue was carefully dissected down to the level of the lateral fibula. We incised the periosteum and elevated anteriorly and posteriorly. We then identified the fibula. We found an area that was in the central location of the fibula anterior to posterior and then we placed our guide pin. It was an area just above the area of the incision where there was articulation between the fibula and tibia. K-wire was placed across four cortices. It was identified on the C-arm to be parallel to the joint. On lateral view we found that it moved from posterior to anterior and was fairly centered within the fibula which was felt to be satisfactory position. We then over-drilled this with the drill for the tightrope. The tightrope was then placed from lateral to medial. The suture button was deployed at the medial aspect of the ankle and was able to oppose nicely to the medial ankle itself. We then were able to cinch the FiberWire in place and cinch the suture button in appropriate position and fixation. The lateral circular button sat nicely against the bone. At this point we took multiple X-ray images. External rotation stress showed that there was further stability in the area of the ankle and the talus did not appear to tilt significantly as it had. With this in mind we moved towards closure. We irrigated the wound. We closed the deep periosteal layer with 3-0 Monocryl, 3-0 Monocryl in the subcutaneous tissues, and 3-0 nylon in the skin. Arthroscopic portals were closed with 3-0 nylon at each port. The tourniquet was let down. The toes pinked up nicely without concern for perfusion. A dry sterile dressing was then applied to the left lower extremity. A posterior and a sugar-tong well-padded splint was then applied to the left lower extremity as well. The patient was awakened from anesthesia without difficulty and brought to the recovery room in stable condition. There were no complications to the case. SPECIMENS REMOVED: None. ESTIMATED BLOOD LOSS: Less than 50 mL. INTRAOPERATIVE FLUIDS: 1800 mL. Tourniquet time: 107 minutes at 300 mmHg. SPONGE/INSTRUMENT/NEEDLE COUNTS: All sponge, instrument and needle counts were correct times two. CONDITION ON DISCHARGE FROM OPERATING ROOM: Stable. COMPLICATIONS: None. ATTESTATION OF PRESENCE: I, Dr. Price Sherman, the attending surgeon, was present for the entirety of the case. X-ray Note: At the completion of the case, but prior to closing the wounds, three views of the left ankle, as well as a stress view of the left ankle were obtained. Showed AP, mortis and lateral view with appropriate alignment of the ankle joint. Tightrope had been placed from fibula to tibia, providing further syndesmotic stability and fixation. External rotation stress demonstrated that compared to preoperative imaging there was less talar tilt and less instability of the ankle. Electronically Signed By Price Sherman M.D. 08/12/2014 10:15 P Gayla Morgan/[facility] #[id number] Editing MT: [email or web address] a TD: 07/29/2014 11:26:00 cc: Price Sherman M.D. documented in this encounter Plan of Treatment Not on file documented as of this encounter Procedures Procedure Name Priority Date/Time Associated Diagnosis Comments FL FLUOROSCOPY > 1 HOUR Routine 07/29/2014 7:54 AM RECREATION INSTRUCTOR documented in this encounter Results * Fluoroscopy > 1 Hour (07/29/2014 7:54 AM RECREATION INSTRUCTOR) Anatomical Region Laterality Modality Body N/A Radiographic Beatriz ging 07/29/2014 7:54 AM RECREATION INSTRUCTOR Narrative 07/29/2014 10:03 AM RECREATION INSTRUCTOR This examination was converted from a legacy system and did not match a report, either due to it being a non-reportable examination, or a duplicate entry Procedure Note Provider, Ludivina, - 01/16/2017 This examination was converted from a legacy system and did not match areport, either due to it being a non-reportable examination, or aduplicate entry Historical Provider MD VERMA FLUOROSCOPY PROCEDURE S Final Result documented in this encounter Visit Diagnoses Diagnosis Other synovitis and tenosynovitis Acquired musculoskeletal deformity of other specified site Other joint derangement, not elsewhere classified, involving ankle and foot Sprain of tibiofibular ligament of ankle Other accidents documented in this encounter
--- OUTSIDE RECORDS SUMMARY | 2024-07-02 05:07 | XMS_ITS | Encounter Summary ---
Author Organization [facility] Address [address] [place] [address] Care Team Providers Care Circuit Court Judge Name Role Phone Adria Miranda MD Primary Care Provider Reason for Referral * Diagnostic Imaging (Routine) - Closed Specialty Diagnoses / Procedures Referred By Chula collins Referred To Contact Diagnoses Encounter for anatomic survey Procedures US Ob 14 Weeks Or Over Alessandra Conde NP [address] [place] [address] Phone: tel: fax: [facility] (All Locations) Referral ID Status Reason Start Date Expiration Date Visits Re quested Visits Authorized [id number] Closed 09/01/2021 10/01/2022 1 1 * Diagnostic Imaging (Routine) - Closed Specialty Diagnoses / Procedures Referred By Chula collins Referred To Contact Diagnoses Encounter for supervision of normal first in first trimester Procedures US Nuchal Translucency Alessandra Conde NP [address] [place] [address] Phone: tel: fax: [facility] (All Locations) Referral ID Status Reason Start Date Expiration Date Visits Re quested Visits Authorized [id number] Closed 08/04/2021 06/11/2022 1 1 Reason for Visit * Diagnostic Imaging (Routine) - Closed Specialty Diagnoses / Procedures Referred By Chula collins Referred To Contact Diagnoses Encounter for supervision of normal first in first trimester Procedures US Nuchal Translucency Alessandra Conde NP [address] [place] [address] Phone: tel: fax: [facility] (All Locations) Referral ID Status Reason Start Date Expiration Date Visits Re quested Visits Authorized [id number] Closed 08/04/2021 06/11/2022 1 1 Encounter Details Date Type Department Care Team (Latest Contact Info) Description 09/01/2021 10:42 AM CDT - 09/01/2021 11:59 PM CDT Hospital Encounter [facility] - Ultrasound [address] [place] [address], [address] Floor, [address] [facility] [place] [address] Jade Garcia MD [address] [place] [address] Alessandra Conde NP [address] [place] [address] Nuchal translucency of fetus on ultrasound (Primary Dx); Encounter for supervision of normal first in first trimester; Encounter for anatomic survey Discharge Disposition: Discharge to home or self care Social History Tobacco Use Types Packs/Day Years Used Date Smoking Tobacco: Never Comments Unknown Sex and Gender Information Value Date Recorded Sex Assigned at Not on file Legal Sex Female 10:50 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 Gender Identity Not on file Sexual Orientation Not on file documented as of this encounter Discharge Disposition Disposition Code Departure Means Destination Discharge to home or self care documented in this encounter Plan of Treatment Not on file documented as of this encounter Procedures Procedure Name Priority Date/Time Associated Diagnosis Comments US NUCHAL TRANSLUCENCY Schedule Routine, Read Routine (OP Routine) 09/01/2021 10:42 AM CDT Encounter for supervision of normal first in first trimester SEQUENTIAL SCREEN, PART 1 Routine 09/01/2021 12:00 AM CDT Nuchal translucency of fetus on ultrasound documented in this encounter Results * US Ob 14 Weeks Or Over (11/03/2021 12:04 PM CDT) Fetus# Fetus1 VIEWPOINT Estimated Weight 402 g&grams VIEWPOINT Placenta Details posterior, Previa-no VIEWPOINT Presentation Vertex VIEWPOINT Anatomical Region Laterality Modality Abdomen N/A Ultrasound 11/03/2021 12:0 8 PM CDT [facility] Aileen Conde WIRE DRAWER IMG OB US PROCEDURES Nelda l Result * US Nuchal Translucency (09/01/2021 10:42 AM CDT) Anatomical Region Laterality Modality Abdomen N/A Ultrasound 09/01/2021 10:4 5 AM CDT Narrative 09/01/2021 11:18 AM CDT There are no Discrete Measurement Components for this test result - Please see .pdf Procedure Note Luis Fernando Bran MD - 09/01/2021 There are no Discrete Measurement Components for this test result - Pleasesee .pdf [facility] Aileen Conde WIRE DRAWER IMG OB US PROCEDURES Nelda l Result * Sequential screen, part 1 (09/01/2021 12:00 AM CDT) Pathologist [facility] Ultrasound Date 09/01/2021 12:00:00 AM [facility] - 01 Nuchal Transluency 1.5 mm [facility] - 01 [place] Rump Length 51.2 mm [facility] - 01 Gestational Age 11.6 weeks [facility] - 01 Equity Research Analyst Juanita Barnes [facility] - 01 Fetus Count 1 [facility] - 01 Weight 204 LBS [facility] - 01 Race White [facility] - 01 Age at Term 25.1 [facility] - 01 IDDM No [facility] - 01 DS Family History No [facility] - 01 Nuchal Translucency MoM 1.28 MoM [facility] - 01 HOWARD-A MoM 0.61 MoM [facility] - 01 hCG MoM 1.02 MoM [facility] - 01 Result Note [facility] - 01 Comment: Final result pending second trimester sample ??Optimal draw dates: 10/02/2021 - 10/16/2021 Down Syndrome Screening Risk 1:1,400 [facility] - 01 Down Syndrome Age Related Risk 1:770 [facility] - 01 Down Syndrome Risk Cutoff 1:50 [facility] - 01 Trisomy 18 Screening Risk 1:10,000 [facility] - 01 Trisomy 18 Age Related Risk 1:2,700 [facility] - 01 Trisomy 18 Risk Cutoff 1:100 [facility] - 01 Interpretation Note [facility] - 01 Comment: The second trimester specimen may be collected between 15 and 21 weeks GA. This patient's optimal date range (16-18 weeks gestation) is noted above. This test does not reliably detect other chromosomal abnormalities. ?Risk assessment for open neural tube defects (ONTD) is not available in the first trimester. ?Maternal screening has some level of inherent false negative and false positive results and is not a substitute for diagnostic testing. ??It remains standard of care to offer diagnosis to women age 35 or older at term. ?Please check the patient information used in this risk assessment and call with any corrections. Director Note [facility] - Comment: Bayron Zarate M.D., Ph.D [facility] is a business unit of [email or web address], a wholly-owned subsidiary of [employer]. Blood specimen (specimen) 09/01/2021 09/02/2021 7:01 PM CDT Comment:SERUM Narrative [facility] - 09/03/2021 11:47 AM CDT Performed at: ??01 - [facility] [address] [place], [place] Insole Bottom Filler: Bayron Zarate Polysomnography Technician, Phone: ??[phone] Summer Aileen Conde NP LAB GENETIC TESTING Final Result [facility] - documented in this encounter Visit Diagnoses Diagnosis Nuchal translucency of fetus on ultrasound- Primary Encounter for supervision of normal first in first trimester Encounter for anatomic survey documented in this encounter Additional Health Concerns Infection Onset Date Last Indicated Resolved Time COVID: Recovered Comment:Added based on recent COVID infection. 06/30/2021 08/04/2021 10/28/2021 3:05 AM C DT documented as of this encounter Care Teams Circuit Court Judge Relationship Specialty Start Date End Date Adria Miranda MD [address] [place] [address] PCP - General 05/15/20 documented as of this encounter
--- OUTSIDE RECORDS SUMMARY | 2024-07-02 05:07 | XMS_ITS | Encounter Summary ---
Author Organization [facility]/Health system Facility Care Team Providers Care Equities Trader Name Role Phone Unavailable Primary Care Provider Unavailabl e Encounter Details Date Type Department Care Team (Late st Contact Info) Description 11/24/2015 12:28 PM CDT - 11/24/2015 11:59 PM CDT Hospital Encounter [facility] Js, Joceline Vargas MD [address] [place] [id number] Soft tissue disorder; Acquired left flat foot Social History Tobacco Use Types Packs/Day Years Used Date Smoking Tobacco: Never Comments Unknown Sex and Gender Information Value Date Recorded Sex Assigned at Not on file 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 FINAL REPORT ACC# ??Date Time ??Exam [id number] Nov 24, 2015 13:27:00 [id number] Ankle Complt. min 3 views L EXAMINATION: ?Left ankle complete minimum 3 views HISTORY: ??Left ankle sprain FINDINGS: ?? Weight-bearing 3 view examination of the left ankle is performed with comparison the left ankle radiographs on 02/25/2015 and left foot radiographs from earlier the same day. Comparison was also made to an MRI on 06/08/2015. There is unchanged there is syndesmotic reduction with intact ankle mortise. There is increased diffuse left ankle soft tissue swelling. No fracture is identified. Mild pes planus is unchanged. IMPRESSION: ?? Unchanged left ankle syndesmotic reduction with increased diffuse left ankle soft tissue swelling. No fracture. Requested By: Dictated By: ?? JOCELINE HIGGINBOTHAM M.D. ??on Nov 24 2015 ??1:34P This document has been electronically signed by: JOCELINE HIGGINBOTHAM M.D. on Nov 24 2015 ??1:34P [id number] Procedure Note Provider, MD Ludivina - 10/06/2016 JOCELINE HIGGINBOTHAM M.D. FINAL REPORT ACC# Date Time Exam [id number] Nov 24, 2015 13:27:00 [id number] Ankle Complt. min 3 views L EXAMINATION: Left ankle complete minimum 3 views HISTORY: Left ankle sprain FINDINGS: Weight-bearing 3 view examination of the left ankle is performed with comparison the left ankle radiographs on 02/25/2015 and left foot radiographs from earlier the same day. Comparison was also made to an MRI on 06/08/2015. There is unchanged there is syndesmotic reduction with intact ankle mortise. There is increased diffuse left ankle soft tissue swelling. No fracture is identified. Mild pes planus is unchanged. IMPRESSION: Unchanged left ankle syndesmotic reduction with increased diffuse left ankle soft tissue swelling. No fracture. Requested By: Dictated By: JOCELINE HIGGINBOTHAM M.D. on Nov 24 2015 1:34P This document has been electronically signed by: JOCELINE HIGGINBOTHAM M.D. on Nov 24 2015 1:34P [id number] us Historical Provider MD VERMA XR PROCEDURES Final R esult * XR Foot 3+ Vw (11/24/2015 12:44 PM CDT) Anatomical Region Laterality Modality N/A Radiographic Beatriz ging 11/24/2015 12:4 4 PM CDT Narrative 11/24/2015 12:49 PM CDT BEATRIZ CLOUD M.D. FINAL REPORT ACC# ??Date Time ??Exam [id number] Nov 24, 2015 12:44:00 [id number] Foot Complt. min 3 views L EXAMINATION: ?? 1. Left foot complete minimum 3 views HISTORY: Left foot pain FINDINGS: Three views weight-bearing submitted with comparison CT 07/14/2014. There no acute fractures. There is mild pes planus. The joint spaces are normal in appearance. Prior syndesmotic repair is noted. IMPRESSION: ?? 1. Mild left pes planus. Requested By: Dictated By: ?? BEATRIZ CLOUD M.D. ??on Nov 24 2015 12:49P This document has been electronically signed by: BEATRIZ CLOUD M.D. on Nov 24 2015 12:49P [id number] Procedure Note Provider, Ludivina, - 10/06/2016 BEATRIZ CLOUD M.D. FINAL REPORT ACC# Date Time Exam [id number] Nov 24, 2015 12:44:00 [id number] Foot Complt. min 3 views L EXAMINATION: 1. Left foot complete minimum 3 views HISTORY: Left foot pain FINDINGS: Three views weight-bearing submitted with comparison CT 07/14/2014. There no acute fractures. There is mild pes planus. The joint spaces are normal in appearance. Prior syndesmotic repair is noted. IMPRESSION: 1. Mild left pes planus. Requested By: Dictated By: BEATRIZ CLOUD M.D. on Nov 24 2015 12:49P This document has been electronically signed by: BEATRIZ CLOUD M.D. on Nov 24 2015 12:49P [id number] us Historical Provider MD VERMA XR PROCEDURES Final R esult documented in this encounter Visit Diagnoses Diagnosis Soft tissue disorder Disorders of soft tissue, unspecified Acquired left flat foot documented in this encounter
--- OUTSIDE RECORDS SUMMARY | 2024-07-02 05:07 | XMS_ITS | Encounter Summary ---
Author Organization [facility] Address [address] [place] [address] Care Team Providers Care Plant General Manager Name Role Phone Adria Miranda MD Primary Care Provider Reason for Visit * Reason Onset Date Comments Covid-19 Home Monitoring 06/25/2021 Encounter Details Date Type Department Care Team (Late st Contact Info) Description 06/25/2021 Telephone [facility] Organization [address] [place] [address] Bee Farmer MA Covid-19 Home Monitoring Social History Tobacco Use Types Packs/Day Years Used Date Smoking Tobacco: Never Comments Unknown Sex and Gender Information Value Date Recorded Sex Assigned at Not on file 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 By saving a note using this template, the patient will drop off our home monitoring candidate reports for two weeks. If we still consider them to have an active case of COVID-19 at that time, we willreevaluate them for home monitoring. Bee Farmer, Cable Assembler, [facility] Care [facility] REFINER documented in this encounter Plan of Treatment Not on file documented as of this encounter Visit Diagnoses Not on filedocumented in this encounter Additional Health Concerns Infection Onset Date Last Indicated Resolved Time COVID19 06/16/2021 06/16/2021 06/30/2021 3:05 AM SALT REFINER documented as of this encounter Care Teams Plant General Manager Relationship Specialty Start Date End Date Adria Miranda MD [address] [place] [address] [place] [id number] PCP - General 05/15/20 documented as of this encounter
--- OUTSIDE RECORDS SUMMARY | 2024-07-02 05:07 | XMS_ITS | Encounter Summary ---
Author Organization [facility] Facility Care Team Providers Care Media Intern Name Role Phone Unavailable Primary Care Provider Unavailabl e Encounter Details Date Type Department Care Team (Late st Contact Info) Description 03/03/2015 8:51 AM CDT - 03/03/2015 4:00 PM CDT Hospital Encounter [facility] [place] [address] [place] [address] Pain in joint, ankle and foot Social History Tobacco Use Types Packs/Day Years Used Date Smoking Tobacco: Never Comments Unknown Sex and Gender Information Value Date Recorded Sex Assigned at Not on file 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 Gender Identity Not on file Sexual Orientation Not on file documented as of this encounter Plan of Treatment Not on file documented as of this encounter Procedures Procedure Name Priority Date/Time Associated Diagnosis Comments ASPIRATION INJECTION INTERMEDIATE JOINT Routine 03/03/2015 8:29 AM CDT documented in this encounter Results * Aspiration Injection Intermediate Joint (03/03/2015 8:29 AM CDT) Anatomical Region Laterality Modality N/A Radiographic Beatriz ging 03/03/2015 8:29 AM CDT Narrative 03/03/2015 9:34 AM CDT This examination was converted from a legacy system and did not match a report, either due to it being a non-reportable examination, or a duplicate entry Procedure Note ProviderLudivina MD - 01/16/2017 This examination was converted from a legacy system and did not match areport, either due to it being a non-reportable examination, or aduplicate entry us Historical Provider MD VERMA FLUOROSCOPY PROCEDURE S Final Result documented in this encounter Visit Diagnoses Diagnosis Pain in joint, ankle and foot documented in this encounter
--- OUTSIDE RECORDS SUMMARY | 2024-07-02 05:07 | XMS_ITS | Encounter Summary ---
Author Organization [facility] Facility Care Team Providers Care Hyperion Administrator Name Role Phone Unavailable Primary Care Provider Unavailabl e Encounter Details Date Type Department Care Team (Late st Contact Info) Description 10/08/2014 3:33 PM CDT - 10/08/2014 4:00 PM CDT Hospital Encounter [facility] [place], [place] [address] [place] [address] Pain in joint, ankle and foot; Edema Social History Tobacco Use Types Packs/Day Years Used Date Smoking Tobacco: Never Comments Unknown Sex and Gender Information Value Date Recorded Sex Assigned at Not on file 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 FINAL REPORT ACC# ??Date Time ??Exam [id number] Oct 08, 2014 15:46:00 [id number] Ankle Complt. min 3 views L EXAMINATION: ?Left ankle complete minimum 3 views HISTORY: ??Ankle instability FINDINGS: ?? Three weight-bearing views of the left ankle are compared to the prior study from 09/10/2014. Redemonstrated is syndesmotic repair with a tight rope which is in unchanged alignment. The ankle mortise and syndesmosis are intact. The visualized joint spaces are normal. There is mild pes planus. There is no acute fracture. Mild bimalleolar soft tissue swelling is unchanged. IMPRESSION: ?? Unchanged left ankle syndesmotic repair with persistent mild soft tissue swelling. Requested By: PRICE SARABIA M.D. Dictated By: ?? BEATRIZ JIMÉNEZ M.D. ??on Oct 08 2014 ??4:12P This document has been electronically signed by: BEATRIZ JIMÉNEZ M.D. on Oct 08 2014 ??4:12P Procedure Note Provider, MD uLdivina - 10/06/2016 BEATRIZ JIMÉNEZ M.D. FINAL REPORT ACC# Date Time Exam [id number] Oct 08, 2014 15:46:00 [id number] Ankle Complt. min 3 views L EXAMINATION: Left ankle complete minimum 3 views HISTORY: Ankle instability FINDINGS: Three weight-bearing views of the left ankle are compared to the prior study from 09/10/2014. Redemonstrated is syndesmotic repair with a tight rope which is in unchanged alignment. The ankle mortise and syndesmosis are intact. The visualized joint spaces are normal. There is mild pes planus. There is no acute fracture. Mild bimalleolar soft tissue swelling is unchanged. IMPRESSION: Unchanged left ankle syndesmotic repair with persistent mild soft tissue swelling. Requested By: PRICE SARABIA M.D. Dictated By: BEATRIZ JIMÉNEZ M.D. on Oct 08 2014 4:12P This document has been electronically signed by: BEATRIZ JIMÉNEZ M.D. on Oct 08 2014 4:12P us Historical Provider IMG XR PROCEDURES Final R esult documented in this encounter Visit Diagnoses Diagnosis Pain in joint, ankle and foot Edema documented in this encounter
--- OUTSIDE RECORDS SUMMARY | 2024-07-02 05:07 | XMS_ITS | Encounter Summary ---
Author Organization [facility] Address [address] [address] Care Team Providers Care Maintenance Aide Name Role Phone Adria Miranda MD Primary Care Provider Reason for Visit * Reason Onset Date Comments Covid-19 Home Monitoring 05/19/2020 enrollm ent Encounter Details Date Type Department Care Team (Late st Contact Info) Description 05/19/2020 Telephone [facility] Accountable Care Organization [address] [place] [address] Mercedes Ashley [address] [address] Covid-19 Home Monitoring (enrollment) Social History Tobacco Use Types Packs/Day Years Used Date Smoking Tobacco: Never Comments Unknown Sex and Gender Information Value Date Recorded Sex Assigned at Not on file 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 The patient was contacted via phone for enrollment in the program. The following criteria were reviewed with the patient: - Active MyChart (or willing to activate today): No Please send patient activation link and confirm that they have received. Patients with active MyChart but who are uncertain how to access should be directed to the [employer] wyckoff at: [phone] or [phone]. - Tablet or SmartPhone with [employer] or ability to download [employer] today: No - Agree to complete a daily questionnaire about their symptoms (this will be sent to their phone ator around 9am daily): No The patient was informed that members of the healthcare team will contact them depending on the symptoms that they report. This call could come from a variety of phone numbers depending on which member of the healthcare team is contacting the patient, and the patient should be prepared to answer calls from a variety of phone numbers. If the patient reports concerning symptoms but is unable to be contacted, the police department maybe contacted to perform a security check. After review, the patient declined to participate. The ???COVID19 Home Monitoring?? order was not placed to enroll the patient. Declined HM but took hotline WORKER documented in this encounter Plan of Treatment Not on file documented as of this encounter Visit Diagnoses Not on filedocumented in this encounter Additional Health Concerns Infection Onset Date Last Indicated Resolved Time COVID19 05/15/2020 05/15/2020 05/29/2020 3:07 AM TREE WORKER documented as of this encounter Care Teams Maintenance Aide Relationship Specialty Start Date End Date Adria Miranda MD [address] [place] [address] [place] [id number] PCP - General 05/15/20 documented as of this encounter
--- OUTSIDE RECORDS SUMMARY | 2024-07-02 05:07 | XMS_ITS | Encounter Summary ---
Author Organization [facility] Healthcare Address [address] [place] [address] Care Team Providers Care Slate Roofer Name Role Phone Adria Miranda MD Primary Care Provider Reason for Visit * Auth/Cert Specialty Diagnoses / Procedures Referred By Contac t Referred To Contact Diagnoses Encounter for induction of labor Procedures ADM Referral ID Status Reason Start Date Expiration Date Visits Re quested Visits Authorized [id number] 1 1 Encounter Details Date Type Department Care Team (Late st Contact Info) Description 03/19/2022 3:45 AM CDT - 03/19/2022 6:00 AM CDT Surgery [address] [id number] [place] [address] [place] [id number] SECTION Surgery Details Date/Time Status Location OR Service Patient Class Case Class Case Type Trauma Case? 03/19/2022 3:45 AM Posted [facility] L&D OR L&D OR 2 Obstetrics / Gynecology Inpatient Panel 1 Procedure [facility] Anes Op Region Wound Class Comments SECTION N/A Choice Abdomen Class II - Cl kayode Contaminated Surgeon Surgeon Role Service Panel Billy, Carlitos Fowler MD Resident - Assisting Obstetrics / Gynecology 1 O'Mel Ivey MD Co-Surgeon Obstetrics / Gynecolog y 1 Brenda Baldwin MD Primary Obstetrics / Gynec ology 1 Tiffani Neely MD Assisting Obstetrics / Gynecology 1 documented in this encounter Social History Tobacco Use Types Packs/Day Years Used Date Smoking Tobacco: Never AUDIT-C Answer Date Recorded Q1: How often do you have a drink containing alcohol? Never 03/18/2022 Q2: How many drinks containi ng alcohol do you have on a typical day when you are drinking? Patient does not drink Q3: How often do you have si x or more drinks on one occasion? 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 Gender Identity Not on file Sexual Orientation Not on file documented as of this encounter Last Filed Vital Signs Vital Sign Reading Time Taken Comments Blood Pressure 108/56 03/19/2022 5:55 AM CDT Pulse 111 03/19/2022 6:00 AM CDT Temperature 37 ??C (98.6 ??F) 03/19/2022 4:50 AM CDT Respiratory Rate 18 03/19/2022 5:55 AM CDT Oxygen Saturation 98% 03/19/2022 6:00 AM CDT Inhaled Oxygen Concentration - - Weight 108.9 kg (240 lb) 03/18/2022 6:20 AM CDT Height 170.2 cm (5' 7 ) 03/18/2022 6:20 AM CDT Body Mass Index 37.59 03/18/2022 6:20 AM CDT documented in this encounter Discharge Summaries * Flora Darden NP - 03/21/2022 9:06 AM CDT Inpatient Discharge Summary Admitting Provider: Afshan Trimble MD Discharge Provider: Brenda Baldwin MD Admission Date: 03/18/2022 Discharge Date: 03/21/2022 Delivery Date/Time: 03/19/2022 at 3:36 AM Delivery method: , Low Transverse [251] Primary Discharge Diagnosis: Intrauterine at 40w1d, delivered Secondary Discharge Diagnosis: Medical Conditions Diagnosis Arthralgia of ankle Pain of foot state Procedures Performed: Procedure(s): SECTION Low transverse Other Treatments: Magnesium sulfate therapy: No Blood transfusion: No Hospital Course: Angy Norman is a 27 y.o. female at 40w1d weeks gestation, dated by 1st trimester ultrasound who presented to L&D for elective IOL. Her induction was started with misoprostol and a cervical ripening balloon catheter, and later augmented with pitocin and amniotomy. She progressedto complete cervical dilation and after she started pushing, recurrent late decelerations and decreased variability developed on EFM. A prolonged deceleration to the 100- 100s began despite repositioning, halting pitocin infusion, and terbutaline. The FHR remained stable in the 110s with moderate variability, from baseline of 150. Decision was made to proceed to OR for Level 1 given nonreassuring status. After obtaining the appropriate operative consents, the patient was taken to the operating room, where previously placed epidural was dosed and confirmed to provide adequate anesthesia. She underwent a primary Low Transverse Section via [place]. She delivered a viable male with apgars 3 and 8 at one and five minutes of life respectively. Delivery was unco mplicated. See operative report for full details. The patient was transferred to . Her course was uncomplicated. Prior to discharge, her pain was well controlled, she was voiding, passing gas, ambulating, and meeting all milestones. Pt has chosen to breastfeed and plans a IUD for contraception, desires to wait until 6 weeks. #gHTN: BP controlled on no meds. The patient was consented and registered for remote blood pressuremonitoring. A blood pressure cuff has been given to the patient. She has confirmed receipt of test message. Her AVS was updated with discharge instructions on use of the remote blood pressure monitoring system. She will follow up in 1 week for a blood pressure check in her primary OB team ([facility]). Symptoms of preeclampsia have been reviewed. Discharge Details Physical Exam at Discharge: Discharge Condition: Stable Pulse: 99 Resp: 18 BP: 121/75 Temp: 37 ??C (98.6 ??F) Weight: 240 lb (108.9 kg) Problem State # ID: Afebrile. No signs/symptoms of infection. #COVID-19: Test not indicated # Heme: EBL 750 mL. No symptoms acute blood loss anemia. # CV/Pulm: Gestational hypertension - Blood pressures well controlled on no meds. Asymptomatic, denies GONZALEZ/RUQ pain/vision changes. CBC/CMP WNL, UPC deferred d/t diagnosis . Enrolled in home. # GI/: Tolerating PO. Voiding spontaneously. # [...] today if baby is cleared by peds. See full physical exam from progress note on day of discharge. Lab Results Component Value Date HCT 28.3 (L) 03/20/2022 ABORH A Positive 03/18/2022 Immunization History Administered Date(s) Administered Influenza, Unspecified 03/09/2022 Pfizer SARS-CoV-2 Vaccination (12+ yrs) PURPLE 11/02/2020, 11/23/2020 Discharge Disposition: Final discharge disposition not confirmed Code Status at Discharge: Full Discharge Instructions: SEE AVS Discharge Medications: Your medication list START taking these medications acetaminophen 500 mg capsule Take 2 capsules (1,000 mg total) by mouth every 6 (six) hours as needed for pain ibuprofen 600 mg tablet Take 1 tablet (600 mg total) by mouth every 6 (six) hours as needed for pain Commonly known as: ADVIL,MOTRIN senna 8.6 mg tablet Take 1 tablet by mouth 2 (two) times a day as needed for constipation Commonly known as: SENOKOT Outpatient Follow-Up: 2 weeks at [facility] Flora Darden NP 03/21/22 Cosigned by Jade Garcia MD at 03/21/2022 7:10 PM CDT documented in this encounter Discharge Instructions * Discharge Instructions* Susannah Treviño NP - 03/19/2022 3:31 PM CDT Images from the original note were not included. Discharge Instructions - Section In order to minimize social contact during COVID19 precautions, your visit maybe over the phone. Please remember to wash your hands frequently, do not touch your face, and avoid anyone with feversor cough. Stay at home as much as possible and practice social distancing. COVID19 Precautions: * Wash your hands frequently * Do not touch your face * Avoid anyone with fevers or cough * DO NOT come to clinic or the hospital with mild cold or flu-like symptoms, first call our OB communication center at [phone]. * If you have SEVERE illness including persistent shortness of breath, high fever not responsive totylenol, or nausea and vomiting preventing you from adequately orally hydrating, then call your doctor or go to the ER. Call Your Doctor If: * You have a fever of 100.4 degrees or higher. * You have vaginal bleeding more than your normal menstrual period. * You are passing large blood clots (larger than an egg). * You have a strong foul odor coming from your vagina. * You have burning, pain or difficulty urinating. * Your incision has redness, drainage, bad odor, or if the incision separates. * You have nausea, vomiting or increased abdominal pain. * You have redness or pain in your calves, legs or inner thighs. * You have red, swollen painful breasts. * You have other questions or concerns. * You have a headache, difficulty breathing, pain in your upper abdomen, or changes in your vision. * You have decreased urine output. * Your level of consciousness changes. * If you have a blood pressure cuff at home, check your blood pressure once a day and write it down. Call your doctor if your blood pressure is greater than 160 (top number) or 110 (bottom number). Diet: * Follow your regular diet. * Maintain liquid intake of 8 -10 glasses per day. * For constipation - drink prune juice or take stool softener medication ordered by your doctor. Eat foods with fiber (examples - raisins, prunes, washed raw vegetables, whole wheat bread, and bran). Activity: * Do not put anything in your vagina for 6 weeks. NO douching, tampons or sexual intercourse. * Weakness and fatigue are common. * Limit activities and visitors and increase as energy levels return. Rest as often as possible. * Lift nothing heavier than 10 pounds for 2 weeks. * No driving for 1-2 weeks or while taking narcotics. * If you are not , milk will come in between the 3rd and 4th day . Wear tight support bra and use ice packs to relieve discomfort. Care Instructions: * You may shower or shampoo your hair. You may take a full bath about 2 weeks after delivery. * Keep incision clean and dry. Every day, gently wash your incision with mild soap and warm water and pat dry. * If you have steri strips, you may still shower. The steri strips may fall of on their own, but ifthey do not, remove them after 5 days. * If you have beau, please make an appointment with your doctor to have them removed in 10 days. Contraception: PROGESTIN-ONLY PILLS: Progestin-only pills are safe to use while . You can start taking the pills at any time. You can get within 2 weeks of giving , though we recommend no sexual intercourse for at least 6 weeks. Swallow the pill at the same time every day. Choose a time and take the pill at that time or within 3 hours after that time. Start the next pack the day after the last pack is finished. Do not take any break or days off between packs. Always have your next pack ready before you finish each pack. If you miss taking a pill during the 3-hour window, take it as soon as you remember, even if that means you will take 2 pills in one day. Use a backup method such as condoms or abstain from sex during the next 48 hours. Changes in your menstrual periods (frequency, length, and bleeding between periods) are common in women taking these pills. Very few medications interact with control pills. Ask your pharmacist or doctor if you have questions about other medications you aretaking. INJECTABLE CONTRACEPTIVE: You received your first dose of Depo-Provera in the hospital. It works right away to prevent . Get a new Depo-Provera shot every 12 weeks. Call your doctor to make an appointment. Depo-Provera works best if you return on time. It is common to have changes in your menstrual periods with Depo-Provera, such as no periods, frequent bleeding, or unpredictable bleeding. DESIRES IUD: The intrauterine device (IUD) can be placed 4 to 6 weeks after delivery. Make an appointment to have it placed with your doctor. You can get within 2 weeks of giving , though we recommend no sexual intercourse for at least 6 weeks. Consider using a different method of control while you are waiting for your IUD. LACTATIONAL AMENORRHEA can be an effective method to prevent if ALL of the following are true: 1) you are on demand, with at least 80% of feeds at the breast (not pumped breast milk orformula), 2) you have not gotten your first menstrual period after delivery, and 3) your baby is less than 6 months old. Ask your doctor about other methods of control if any of those things are no longer true. DESIRES CONDOMS / DECLINES CONTRACEPTION: You can get within 2 weeks of giving , though we recommend no sexual intercourse for at least 6 weeks. Condoms can be an effective method of control. However, other methods of control are better at preventing . Use a new condom every time you have sex. If you do not use a condom, or the condom breaks, you can use emergency contraceptive pills (Plan B) to preventpregnancy. You can get them at a pharmacy without a prescription. You can also get a prescription by calling your doctor. Emergency contraception works best if used right away. However, you can stilluse it within 5 days after unprotected sex. Feeding: : Follow unrestricted . Feed your baby based on baby's hunger cues (or atleast 8-12 feedings per 24 hours). Do NOT supplement unless instructed by Vascular Neurologist. Call your Vascular Neurologist if your baby has poor eating habits (examples: feedings decrease, no feedings in 6 hours, or spits up more than ?? of their feeding for 2 consecutive feedings). Once your baby is 5-6 days old, you should expect at least 5 wet diapers and 3 soiled diapers per day. Formula Feeding: Feed your baby based on baby's hunger cues. Your baby will eat about every three to four hours during the day. Babies usually eat on demand (when they wake up at night). Your baby will take1-3 ounces at each feeding, and this will increase as the baby grows. Formula contains all the water and nutrition your baby needs. Do NOT supplement (water, juice, cereal) unless instructed byPediatrician. Call your Vascular Neurologist if your baby has poor eating habits (examples: feedings decrease, no feedings in 6 hours, or spits up more than ?? of their feeding for 2 consecutive feedings). Once your baby is 5-6 days old you should expect at least 5 wet diapers and 3 soiled diapers per day. Outpatient Follow Up: Every patient needs a visit. We are currently scheduling some in person and some telemedicine visits for your visits. We are trying to keep you safe and minimize social contact due to COVID19 precautions. If you do not hear from your primary OB to set up your telephone or in person visit, please call your primary OB to set up a telephone or in person visit. Thank you for understanding and remember to wash your hands and avoid anyone with fevers or cough. Stay at home as much as possible and practice social distancing. If you yourself develop fever >100.4F, a new cough, or shortness of breath please call our centralized OB communication center at [phone]. Do not come to the hospital or clinic until you speak with a provider. [facility]: Your appointment has been scheduled for you. If you did not receive an appointment, please call your primary provider to set up either an in person or phone appointment. Call to schedule one to be seen within 2 and 6 weeks of delivery Blood Pressure Monitoring: If you are enrolled in home blood pressure monitoring please text your blood pressures when prompted upon hospital discharge. How to use a home blood pressure monitor: Be still. Don't smoke, drink caffeinated beverages or exercise within 30 minutes before measuring your blood pressure. Sit for at least 5 minutes before taking your blood pressure. Sit correctly. Sit with your back straight and supported (on a dining chair, rather than a sofa). Your feet should be flat on the floor and your legs should not be crossed. Your arm should be supported on a flat surface (such as a table) with the upper arm at heart level. Make sure the middle of the cuff is placed directly above the bend of the elbow. Check your monitor's instructions for an illustration or have your healthcare provider show you how. If at ANY time you have symptoms of chest pain, shortness of breath, vision changes, numbness/weakness, difficulty speaking, headache, or if something just doesn't feel right, call our OB communication center at [phone]. High blood pressure problems during & after Preeclampsia or induced hypertension is a high blood pressure disease that can happen in and shortly after delivery (up to 6 weeks after having your baby). Most women will developblood pressure problems towards the end of their , but others will have it for the first time after their delivery. High blood pressure can be dangerous and needs to be monitored closely. Blood pressures can get so high that it can put you at risk for brain injury, stroke, and seizures. Preeclampsia can also hurt your kidneys and liver or cause buildup of fluid in your lungs. If it is very severe and not treatedpreeclampsia can cause . Preeclampsia affects 8-10 out of 100 women and although we don???t know exactly what causes it we do know that some women are at higher risk: - First - If you are under 18 years old or over 40 years old - If you have diabetes, kidney problems, or Lupus - If you are obese - If you have had preeclampsia before - If you had high blood pressure before - If you are with twins or triplets The best way to treat preeclampsia is to have the baby and most of the time your blood pressure will return to normal after delivery, but some people still have high blood pressure after the baby is born. Some people need medication when leaving the hospital to help keep you blood pressure in a normal range. You may only need to take medication for a short time after the baby is born others need it for longer periods of time. It is very important that you get this prescription filled and take the medicine as instructed in order to help control your blood pressure. If you have preeclampsia or another hypertensive disorder of after you go home from the hospital, you should call the doctor if you experience: senior care risks of preeclampsia If you had preeclampsia or high blood pressure in you have a higher chance of having highblood pressure sometime later in life. It can also increase your chance of heart disease, heart attack, or stroke in future . May women who get preeclampsia will not have it again in the future but women with preeclampsia have a higher chance of getting it again compared to women who did not have it. If you had a baby before 34 weeks because of preeclampsia, you have the highest chance of getting it again. It is very important you see a primary care doctor for regular checkups to have your blood pressurechecked. Discharge Medications: Take the following medications. Your medication list You have not been prescribed any medications. documented in this encounter Medications at Time of Discharge acetaminophen 500 mg capsuleIndicatio ns:Pain Take 2 capsules (1,000 mg total) by mouth every 6 (six) hours as needed for pain 60 tablet 03/21/2022 ibuprofen (ADVIL,MOTRIN) 600 mg tabletIndication s:Cramps Take 1 tablet (600 mg total) by mouth every 6 (six) hours as needed for pain 60 tablet 03/21/2022 oxyCODONE (ROXICODONE) 5 mg immediate release tabletIndication s:Pain Take 1 tablet (5 mg total) by mouth every 4 (four) hours as needed for pain for up to 7 doses 7 tablet 03/21/2022 senna (SENOKOT) 8.6 mg tabletIndication s:constipation Take 1 tablet by mouth 2 (two) times a day as needed for constipation 30 tablet 03/21/2022 documented as of this encounter Ordered Prescriptions Prescription Sig Dispense Quantity Refills Last Filled Start Date End Date oxyCODONE (ROXICODONE) 5 mg immediate release tabletIndications :Pain Take 1 tablet (5 mg total) by mouth every 4 (four) hours as needed for pain for up to 7 doses 7 tablet 03/21/2022 acetaminophen 500 mg capsuleIndication s:Pain Take 2 capsules (1,000 mg total) by mouth every 6 (six) hours as needed for pain 60 tablet 03/21/2022 ibuprofen (ADVIL,MOTRIN) 600 mg tabletIndications :Cramps Take 1 tablet (600 mg total) by mouth every 6 (six) hours as needed for pain 60 tablet 03/21/2022 senna (SENOKOT) 8.6 mg tabletIndications :constipation Take 1 tablet by mouth 2 (two) times a day as needed for constipation 30 tablet 03/21/2022 documented in this encounter Discharge Disposition Disposition Code Departure Means Destination Discharge to home or self care documented in this encounter Progress Notes * Angy Myers LMSW - 03/21/2022 12:03 PM CDT Reason for Admission MOB (Angy Thomas Emerson 1995) was admitted on 03/18/2022 for Encounter for induction of labor[Z34.90]. 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 Pediatric follow-up to be scheduled with [facility] in [place]. Medical insurance coverage is through [employer]. Information Baby boy was born on 03/19/2022 at EGA 40 weeks and has been named Elliot. Delivery was , Low Transverse . weighed 8lbs and 3.9 ounces at delivery. This is mother's first child. Social History Current [place] [address] [place] [address] [place] [address], where she lives with her boyfriend, Jose Luis. Patient confirms she feels safe here. Currently [phone] (home) is the best phone number for future contact. Pt denies having established WIC and Food Eunice as supplemental income source. MOB reports that FOB and their families will be positive supports for her and her child. FOB has been present and supportive at the hospital. Mental Health History Patient noted she was diagnosed with Bipolar disorder at 16 years old, but has not been on medication since she was 21 years old. Patient denied any concerns at this time and noted she is very open with her family, who checks in with her often. Patient explained she is not currently connected with a therapist, but that she has information on a few therapists she plans to contact if needed. Patient noted her was super easy and that she is currently feeling good. SW provided patientwith a Mood and Anxiety Disorder(PMADS) resource/information packet. SW explained the information and the resources available. Social Work and Angy Norman discussed the signs and symptoms of Mood and AnxietyDisorder. Social Work discussed and normalized increase in emotions and the importance of self-care. Social Work encouraged new mom to take time for herself and utilize supports available. Available support systems reviewed, including: FOB and her family. Warning signs reviewed and MOB encouraged to seek medical and mental health treatment if symptoms arise including possible medication management. Resources for counseling provided in Mother/Baby folder and MOB encouraged to contact if needed. MOB engaged in conversation and demonstrates knowledge. Strengths Pt is open and receptive to Social Work intervention, education, and resources. Resources Provided and Goals Addressed Social Determinants of Health: Transportation Needs: No Transportation Needs Lack of Transportation (Medical): No Lack of Transportation (Non-Medical): No Social Connections: Moderately Isolated Frequency of Communication with Friends and Family: More than three times a week Frequency of Social Gatherings with Friends and Family: More than three times a week Attends Sikh Services: Never Active Member of Clubs or Organizations: No Attends Club or Organization Meetings: Never Marital Status: Living with partner Food Insecurity: No Food Insecurity Worried About Running Out of Food in the Last Year: Never true Ran Out of Food in the Last Year: Never true Housing Stability: Low Risk Unable to Pay for Housing in the Last Year: No Number of Places Lived in the Last Year: 0 Unstable Housing in the Last Year: No Financial Resource Strain: Low Risk Difficulty of Paying Living Expenses: Not hard at all SW provided patient with a [employer] resource/information packet. Patient denied needing any further resources at this time. Safe Sleep education provided including the importance of sleeping alone, flat on their back, in their own basinet/crib for the first year. SW ensured that Angy Norman has a crib/basinet/pack n play for safe sleep of . Family has diapers, bottles, clothing, and car seat for . Safe Discharge Plan Mother bonding well with . Preparations have been made at home for and social supports are available. Follow-up medical care has been arranged. Family is connected to resources and will utilize services as needed. There are no concerns for a safe discharge for with family. Social Work will follow for support and additional needs should they arise. Angy MCCRAY LMSW [facility] [employer] Driver * Flora Darden NP - 03/21/2022 9:02 AM CDT Post Progress Note Admission Date: 03/18/2022 SUBJECTIVE Angy Norman is a 27 y.o. postop day 2 s/p , Low Transverse . Pain: Controlled Bleeding: lochia minimal Oral Intake: taking regular diet Voiding: without difficulty Bowel function: bowel movement Ambulating: yes Mood: stable Feeding: No acute events overnight. Denies GONZALEZ, visual changes, chest pain, SOB, or RUQ pain. no complaints . Strongly desires discharge today if baby is able. Understands home BP monitoring and s/s of PReE OBJECTIVE Vitals: Temp Min: 36.7 ??C (98.1 ??F) Max: 37 ??C (98.6 ??F) Pulse Min: 90 Max: 99 BP Min: 121/75 Max: 131/65 Resp Min: 18 Max: 20 SpO2 Min: 96 % Max: 100 % Physical Exam General: No acute distress. Neurologic: Alert and oriented Lungs: Non-labored. Clear to auscultation bilaterally. Abdomen: Soft, non distended, non-tender. Positive bowel sounds. Fundus firm below umbilicus. Incision: Dressing removed, steri strips c/d/i Extremities: Warm and well-perfused. +1 bilateral lower extremity edema. No redness or calf tenderness. Pelvic: Deferred. Lab Review: No results found for this or any previous visit (from the past 24 hour(s)). Current Meds: Current Facility-Administered Medications Medication Dose Route Frequency Provider Last Rate Last Admin acetaminophen (TYLENOL) tablet 1,000 mg 1,000 mg oral Q6H Chel Louis MD 1,000 mg at 03/21/22521 docusate sodium (COLACE) capsule 100 mg 100 mg oral BID Chel Louis MD 100 mg at 03/20/222008 enoxaparin (LOVENOX) syringe 40 mg 40 mg subcutaneous Daily-2100 Chel Louis MD 40 mg at 03/20/222008 hydrocortisone (ANUSOL-HC) 2.5 % rectal cream rectal TID PRN Chel Louis MD ibuprofen (ADVIL,MOTRIN) tablet 600 mg 600 mg oral Q6H Chel Louis MD 600 mg at 03/21/22 0521 Lactated Ringer's (LR) infusion 125 mL/hr intravenous Continuous Chel Louis MD ondansetron ODT (ZOFRAN-ODT) disintegrating tablet 4 mg 4 mg oral Q6H PRN Chel Louis MD Or ondansetron (ZOFRAN) injection 4 mg 4 mg intravenous Q6H PRN Chel Louis MD oxyCODONE (ROXICODONE) tablet 5 mg 5 mg oral Q4H PRN Chel Louis MD 5 mg at 03/20/22 0924 PNV with drnrbfg-lggp-YG tablet 1 tablet 1 tablet oral Daily Chel Louis MD 1 tablet at 03/20/22 0744 polyethylene glycol (MIRALAX) packet 17 g 17 g oral Daily PRN Chel Louis MD 17 g at 03/20/22 0744 senna (SENOKOT) tablet 1 tablet 1 tablet oral BID Chel Louis MD 1 tablet at 03/20/222008 simethicone (MYLICON) chewable tablet 80 mg 80 mg oral QID PRN (after meals & nightly) Chel Louis MD sodium chloride 0.9% flush 0.5-20 mL 0.5-20 mL intra-catheter Q8H DUTCH Chel Louis MD 10 mLat 03/19/22 2232 sodium chloride 0.9% flush 0.5-20 mL 0.5-20 mL intra-catheter PRN Chel Louis MD sodium chloride 0.9% irrigation PRN Brenda Baldwin MD 1,000 mL at 03/19/22 0343 sterile water irrigation PRN Brenda Baldwin MD 1,000 mL at 03/19/22 0343 ASSESSMENT/PLAN Angy Norman is a 27 y.o. female postop day 2 s/p , Low Transverse . Problem State # ID: Afebrile. No signs/symptoms of infection. #COVID-19: Test not indicated # Heme: EBL 750 mL. No symptoms acute blood loss anemia. # CV/Pulm: Gestational hypertension - Blood pressures well controlled on no meds. Asymptomatic, denies GONZALEZ/RUQ pain/vision changes. CBC/CMP WNL, UPC deferred d/t diagnosis . Enrolled in home. # GI/: Tolerating PO. Voiding spontaneously. # [...] today if baby is cleared by peds. Flora Darden HOST AND HOSTESS-C 03/21/22 Cosigned by Jade Garcia MD at 03/21/2022 7:17 PM CDT Associated attestation - Jade Garcia MD - 03/21/2022 7:17 PM CDT I have seen and examined the patient on 03/21/22. I agree with the findings and plan of care as documented in the resident's/fellow's note.. * Bernice Olivarez MD - 03/20/2022 5:34 AM CDT Post Progress Note Delivery Date/Time: 03/19/2022 at 3:36 AM Delivery method: , Low Transverse [251] Subjective Flatus: No Pain: Well controlled Diet: Tolerating regular diet. Ambulating independently Voiding spontaneously Lochia less than menses Feels well this AM. Has not yet passed flatus since surgery, tolerating PO without n/v. Scheduled Medications acetaminophen, 1,000 mg, oral, Q6H docusate sodium, 100 mg, oral, BID enoxaparin, 40 mg, subcutaneous, Daily-2100 ibuprofen, 600 mg, oral, Q6H viatmin, 1 tablet, oral, Daily senna, 1 tablet, oral, BID sodium chloride 0.9%, 0.5-20 mL, intra-catheter, Q8H DUTCH PRN Medications diphenhydrAMINE hydrocortisone HYDROmorphone nalbuphine naloxone ondansetron ODT OR ondansetron ondansetron ODT OR ondansetron oxyCODONE oxyCODONE polyethylene glycol simethicone sodium chloride 0.9% sodium chloride 0.9% sterile water Vitals: Temp: [36.6 ??C (97.9 ??F)-37.4 ??C (99.3 ??F)] 36.8 ??C (98.2 ??F) Pulse: [104-117] 105 BP: (115-121)/(59-76) 115/76 Resp: [17-18] 18 SpO2: [95 %-99 %] 96 % Intake/Output Summary (Last 24 hours) at 03/20/2022 0712 Last data filed at 03/19/2022 1700 Gross per 24 hour Intake -- Output 1700 ml Net -1700 ml Physical Exam General: No acute distress. Cardiovascular: Regular rate and rhythm. Lungs: Non-labored. Clear to auscultation bilaterally. Abdomen: Soft, non-distended, non-tender to palpation. Fundus below umbilicus. Bandage c/d/i Extremities: Warm and well-perfused. Neuro: Globally intact Recent Labs Lab Units 03/20/22 0600 03/18/22 0642 WBC K/cumm 15.6* 11.2* HEMOGLOBIN g/dL 9.5* 12.7 HEMATOCRIT % 28.3* 36.8 PLATELETS K/cumm 127* 176 CREATININE mg/dL 0.64 0.51* AST Units/L 31 24 ALT Units/L 14 13 GLUCOSE mg/dL 124 95 Assessment and Plan 27 y.o. POD#1from PLTCS. Problem State # ID: Afebrile. No signs/symptoms of infection. #COVID-19: Test not indicated # Heme: EBL 750 mL. No symptoms acute blood loss anemia. # CV/Pulm: Gestational hypertension - Blood pressures well controlled on no meds. Asymptomatic, denies GONZALEZ/RUQ pain/vision changes. CBC/CMP WNL, UPC deferred d/t diagnosis . # GI/: Tolerating PO. Voiding spontaneously. # [...] Status: Not assessed # Disposition: Follow up task not sent. Continue routine care. Encounter for Induction of Labor (Resolved) Chel Louis MD 03/20/22 R4 OB Attestation: I have reviewed the above documentation and agree as edited. gHTN, well controlled on no meds. POD1, continue routine PP care Chel Louis MD CALL CENTER RECEPTIONIST PGY-4 03/20/22 7:12 AM Cosigned by Tiffani Neely MD at 03/20/2022 11:06 PM CDT Associated attestation - Tiffani Neely MD - 03/20/2022 11:06 PM CDT I have seen and examined the patient on 03/20/22. I agree with the findings and plan of care as documented in the resident's/fellow's note.. * Chel Louis MD - 03/19/2022 12:59 AM CDT R4 OB: FHR cat 1. Nadege q2m. SVE on RN check 9.5/90/0. VS notable for elevated BPx1 (including SR BPx1) not yet meeting criteria. Continue OT and uptitrate per protocol, OT at 8. Dr. Baldwin aware and at desk. Chel Louis MD * Bernice Olivarez MD - 03/18/2022 7:34 PM CDT Labor Update Note S: Patient feeling painful contractions. Requesting an epidural now. Currently on nasal cannula O2 as a part of the oxygen study. O: BP 122/72 Pulse 97 Temp 36.9 ??C (98.5 ??F) Resp 18 Ht 170.2 cm (5' 7 ) Wt 240 lb (108.9 kg) SpO2 92% BMI 37.59 kg/m?? SVE: 5.5 /50 /-3 Monitoring: Baseline: 130 bpm, Variability: Moderate, Accelerations: Present and Decelerations: Yes, intermittent variables Uterine Activity: Contractions present, q4-5 minutes A/P: 27 y.o. at 40w0d Category 2 tracing, reassured by moderate variability Vitals: reviewed and normal Additional medications/infusions: oxytocin - will continue to titrate per protocol - currently on OT running @2 Bernice lOivarez MD * Yan Conteh MD - 03/18/2022 5:59 PM CDT Labor Progress Note 27 y.o. at 40w0d by 1T US Feeling painful contractions. BP 122/78 Pulse 100 Temp 36.7 ??C (98 ??F) (Oral) Resp 18 Ht 170.2 cm (5' 7 ) Wt 240 lb (108.9 kg) SpO2 98% BMI 37.59 kg/m?? Temp: [36.7 ??C (98 ??F)] Pulse: [78-179] BP: (122)/(78) Monitoring: Baseline: 145 bpm, Variability: Moderate, Accelerations: Present and Decelerations: None Uterine Activity: Contractions present, q2-4 minutes Physical Exam General: NAD, mood appropriate Cardiovascular: Regular rate Pulmonary: non-labored Abdomen: Gravid, non-tender Extremities: Warm and well perfused. Cervix: 5.5 /60 /-3 Assessment and Plan 27 y.o. at 40w0d Problem Encounter for Induction of Labor Induction of labor: Admit to L&D. Consents signed and placed in chart. Labs: Hgb 12.7. S/p misoprostol/cook catheter. Ruptured at 1610. Now unchanged for several hours, will start OT when patientamenable. Maternal obesity: BMI>40. FWB: Continuous monitoring. Reactive NST ID: 3rd trimester HIV (>28 wga) negative on 02/22. GBS negative on 02/22. RPR on admission: negative. Membrane Status: AROM at 1610 on 1610.. Indications for UDS: none. Verbal consent obtained for UDS: Not indicated MOF: Plans to breastfeed. Urine drug screen not indicated. Patient informed of results: N/A MOC: Plans to use post hIUD for contraception. Pain management: Desires epidural when no longer tolerating contractions. Post DVT prophylaxis: The patient has the following MAJOR risk factors BMI >/= 40 and thefollowing MINOR risk factors none. enoxaparin 40 mg daily will be ordered for VTE prophylaxis . COVID Vaccine Status: Not assessed COVID Test Status: Test not indicated Yan Conteh MD 226:05 PM * Mikayla Coon MD - 03/18/2022 4:15 PM CDT R1 OB Update AROM @1610 with clear fluid. Mikayla Rojas MD * Jessica Marie MD - 03/18/2022 3:43 PM CDT Labor Update Note S: Patient resting in bed, feels contractions but describes them as toelrable O: BP 122/78 Pulse 89 Temp 36.8 ??C (98.3 ??F) (Oral) Resp 18 Ht 170.2 cm (5' 7 ) Wt 240 lb (108.9 kg) SpO2 93% BMI 37.59 kg/m?? SVE: 6.5 /75 /-2 Monitoring: Baseline: 145 bpm, Variability: Moderate, Accelerations: Absent and Decelerations: Yes, late deceleration with prompt return to baseline and assured by moderate variability Uterine Activity: Contractions present, q1-4 minutes A/P: 27 y.o. at 40w0d Category II tracing Vitals: reviewed and normal Additional medications/infusions: none - Late decels associated with pt bouncing on ball. - Discouraged use of bouncing on ball, repositioned patient in bed - Pitocin paused due to limited staff due to [employer] in OR - Dr. Baldwin updated Jessica Marie MD * Kesha Snider MD - 03/18/2022 12:45 PM CDT Labor Update Note S: Patient feeling painful contractions, feeling some pressure vaginally. Bouncing on ball helps. O: BP 118/57 Pulse 82 Temp 36.8 ??C (98.3 ??F) (Oral) Resp 18 Ht 170.2 cm (5' 7 ) Wt 240 lb (108.9 kg) SpO2 97% BMI 37.59 kg/m?? SVE: 5 75 /-2 Monitoring: Baseline: 145 bpm, Variability: Moderate, Accelerations: Present and Decelerations: Yes, rare variable deceleratoins Uterine Activity: Irregular contractions A/P: 27 y.o. at 40w0d Category II tracing, reassured by variability Vitals: reviewed and normal CC removed during SVE Will transition to pitocin starting at 2mU/min and titrate as able Dr. Baldwin updated Kesha Snider MD * Gabbie Gutierrez MD - 03/18/2022 6:06 AM CDT Obstetrics H&P Chief Complaint: IOL Estimated Date of Delivery: None noted. Provider: [facility] HPI: Angy Norman is a 27 y.o. 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 Patient is . History of Abnormal Pap: None STD History: none Past Medical History: Diagnosis Date Personal history of other mental and behavioral disorders History of bipolar disorder - (Added by TW Conv) Chronic hypertension: No Diabetes: No Asthma: No No past surgical history on file. Social History Tobacco Use Smoking status: Never Smokeless tobacco: Not on file Substance and Sexual Activity Drug use: Not on file Sexual activity: Not on file Alcohol Use: Not on file Support System: Supported by partner Safe at home: Yes family history includes Low Back Pain in her mother. Family history of bleeding or clotting disorders: No Family history of defects, genetic disorders, or developmental delay: No No Known Allergies HOME MEDICATIONS : Not on File Review of Sys: Negative except per HPI Vitals: Temp: [37.1 ??C (98.7 ??F)] 37.1 ??C (98.7 ??F) Pulse: [89] 89 Resp: [18] 18 BP: (133)/(83) 133/83 Physical Exam: General: NAD, mood appropriate Cardiovascular: Regular rate and rhythm Pulmonary: normal work of breathing Abdomen: Gravid, non-tender Extremities: Warm and well perfused Speculum Exam: deferred Cervix: 2 /50 /-3 Monitoring: Baseline: 140 bpm, Variability: Moderate, Accelerations: Present and Decelerations: None Uterine Activity: Irregular contractions Interpretation: Reactive Ultrasound: Breech presentation Posterior placenta Previa: No Estimated Weight: 3400g by Yazan Labs: Rh pos/Ab neg/HIV NR (Resulted on: 02/22) 3rd trimester (>28 wga):yes/Rub immune/RPRNR/HepB NR/HepC NR/GC/CT neg GBS neg (Resulted on: 02/22) Assessment and Plan Angy Norman is a 27 y.o. at 40w0d by 1T who is being admitted for IOL Problem Encounter for Induction of Labor Induction of labor: Admit to L&D. Consents signed and placed in chart. Labs: CBC, BMP and T&S pending. Induction of labor with misoprostol and cook catheter. Maternal obesity: BMI>40, BMP ordered on admission. FWB: Continuous monitoring. Reactive NST ID: 3rd trimester HIV (>28 wga) negative on 02/22. GBS negative on 02/22. RPR on admission: pending. Membrane Status: intact. Indications for UDS: none. Verbal consent obtained for UDS: Not indicated MOF: Plans to breastfeed. Urine drug screen not indicated. Patient informed of results: N/A MOC: Plans to use post hIUD for contraception. Pain management: Desires epidural when no longer tolerating contractions. Post DVT prophylaxis: The patient has the following MAJOR risk factors BMI >/= 40 and thefollowing MINOR risk factors none. enoxaparin 40 mg daily will be ordered for VTE prophylaxis . COVID Vaccine Status: Not assessed COVID Test Status: Test not indicated Plan discussed with Dr. Trimble. Gabbie Gutierrez MD 03/18/22 Cosigned by Afshan Trimble MD at 03/18/2022 9:35 AM CDT Associated attestation - Afshan Trimble MD - 03/18/2022 9:35 AM CDT The resident/fellow saw and examined the patient, we discussed their findings, and I am in agreement with the plan based on the discussion with the resident/fellow. I did not personally examine the patient. documented in this encounter H&P Notes * Afshan Trimble MD - 03/18/2022 9:35 AM CDT See progress note dated 03/[address] Gutierrez for H&P. Afshan Trimble MD 03/18/2022 documented in this encounter Miscellaneous Notes * Plan of Care - Ruba Simpson RN - 03/21/2022 2:39 PM CDT Problem: Activity: Goal: Ability to tolerate increased activity will improve Outcome: Progressing Problem: Bowel/Gastric: Goal: Gastrointestinal status for postoperative course will improve Outcome: Progressing Problem: Lack of Knowledge: Goal: Knowledge of Section Care will improve Outcome: Progressing Problem: Life Cycle: Goal: Chance of risk for complications during the period will decrease Outcome: Progressing Problem: Physical Regulation: Goal: Postoperative complications will be avoided or minimized Outcome: Progressing Problem: Respiratory: Goal: Ability to maintain adequate ventilation will improve Outcome: Progressing Problem: Role Relationship: Goal: Ability to demonstrate positive interaction with the child will improve Outcome: Progressing Problem: Sensory: Goal: Pain level will decrease Outcome: Progressing Goal: Satisfaction with pain management regimen will improve Outcome: Progressing Problem: Skin Integrity: Goal: Demonstration of wound healing without infection will improve Outcome: Progressing Goal: Ability to participate in self-care as condition permits will improve Outcome: Progressing Problem: Urinary Elimination: Goal: Ability to reestablish a normal urinary elimination pattern will improve Outcome: Progressing Goals: Clinical Goals for the Shift: vss, pain management Summary: progressing towards d.c * Note - Adelina Espinoza RN - 03/21/2022 2:17 PM CDT 03/21/22 1015 Consultation Reason for Consult Follow-up assessment LATCH Documentation Latch source Observed Latch 2 Audible Swallowing 2 Type of Nipple 2 Comfort (Breast/Nipple) 2 Hold 1 LATCH Score 9 Feeding Information Position Cross cradle Other OB Tools Tools Lanolin;Comfort gels Breast Pump Pump 1 Pump Review/Education Setup, frequency, and cleaning Patient Follow-Up Consult Status Complete Accepts assistance with latch/position at this time. Standby assist and verbal coaching alone sufficient in order for mother to latch baby comfortably to breast independently. Discussed consistency with deliberate attachment to breast using techniques to acheive deep latch. Lots of colostrum noted with hand expression, encouraged frequent hand expression directly to baby or on spoon, then fed to baby. Encouraged to call for assist as desired. Discharge teaching done at this time. Praise and support offered. * Plan of Care - Gilbert Savage RN - 03/20/2022 11:31 PM CDT Problem: Activity: Goal: Ability to tolerate increased activity will improve Outcome: Progressing Problem: Bowel/Gastric: Goal: Gastrointestinal status for postoperative course will improve Outcome: Progressing Problem: Lack of Knowledge: Goal: Knowledge of Section Care will improve Outcome: Progressing Problem: Life Cycle: Goal: Chance of risk for complications during the period will decrease Outcome: Progressing Problem: Physical Regulation: Goal: Postoperative complications will be avoided or minimized Outcome: Progressing Problem: Respiratory: Goal: Ability to maintain adequate ventilation will improve Outcome: Progressing Problem: Role Relationship: Goal: Ability to demonstrate positive interaction with the child will improve Outcome: Progressing Problem: Sensory: Goal: Pain level will decrease Outcome: Progressing Goal: Satisfaction with pain management regimen will improve Outcome: Progressing Problem: Skin Integrity: Goal: Demonstration of wound healing without infection will improve Outcome: Progressing Goal: Ability to participate in self-care as condition permits will improve Outcome: Progressing Problem: Urinary Elimination: Goal: Ability to reestablish a normal urinary elimination pattern will improve Outcome: Progressing Goals: Clinical Goals for the Shift: vss, pain manegement, ramesh with baby Summary: Patient verbalizes understanding of plan of care. Patient states that pain is controlled by current medications and therapies ordered. Patient progressing toward discharge. * Note - Luly Redding RN - 03/20/2022 11:48 AM CDT Mother states infant has latched but at this time sleepy then becomes gaggy and spitty. S/p bath and circumcision. Mother shown how to position in football and cross cradle position but no successful latch achieved. Mother shown hand expression and infant given gtts of colostrum. Mother encouraged to keep attempting every 2-3 hours and on demand. Encouraged mother to watch videos * Plan of Care - Ruba Simpson RN - 03/20/2022 10:20 AM CDT Problem: Activity: Goal: Ability to tolerate increased activity will improve Outcome: Progressing Problem: Bowel/Gastric: Goal: Gastrointestinal status for postoperative course will improve Outcome: Progressing Problem: Lack of Knowledge: Goal: Knowledge of Section Care will improve Outcome: Progressing Problem: Life Cycle: Goal: Chance of risk for complications during the period will decrease Outcome: Progressing Problem: Physical Regulation: Goal: Postoperative complications will be avoided or minimized Outcome: Progressing Problem: Respiratory: Goal: Ability to maintain adequate ventilation will improve Outcome: Progressing Problem: Role Relationship: Goal: Ability to demonstrate positive interaction with the child will improve Outcome: Progressing Problem: Sensory: Goal: Pain level will decrease Outcome: Progressing Goal: Satisfaction with pain management regimen will improve Outcome: Progressing Problem: Skin Integrity: Goal: Demonstration of wound healing without infection will improve Outcome: Progressing Goal: Ability to participate in self-care as condition permits will improve Outcome: Progressing Problem: Urinary Elimination: Goal: Ability to reestablish a normal urinary elimination pattern will improve Outcome: Progressing Goals: Clinical Goals for the Shift: vss, pain management Summary: progressing towards d/c * Plan of Care - Gilbert Savage RN - 03/19/2022 11:58 PM CDT Problem: Activity: Goal: Ability to tolerate increased activity will improve Outcome: Progressing Problem: Bowel/Gastric: Goal: Gastrointestinal status for postoperative course will improve Outcome: Progressing Problem: Lack of Knowledge: Goal: Knowledge of Section Care will improve Outcome: Progressing Problem: Life Cycle: Goal: Chance of risk for complications during the period will decrease Outcome: Progressing Problem: Physical Regulation: Goal: Postoperative complications will be avoided or minimized Outcome: Progressing Problem: Respiratory: Goal: Ability to maintain adequate ventilation will improve Outcome: Progressing Problem: Role Relationship: Goal: Ability to demonstrate positive interaction with the child will improve Outcome: Progressing Problem: Sensory: Goal: Pain level will decrease Outcome: Progressing Goal: Satisfaction with pain management regimen will improve Outcome: Progressing Problem: Skin Integrity: Goal: Demonstration of wound healing without infection will improve Outcome: Progressing Goal: Ability to participate in self-care as condition permits will improve Outcome: Progressing Problem: Urinary Elimination: Goal: Ability to reestablish a normal urinary elimination pattern will improve Outcome: Progressing Goals: Clinical Goals for the Shift: vss, pain management Summary: Patient verbalizes understanding of plan of care. Patient states that pain is controlled by current medications and therapies ordered. No signs of infection noted at this time. Patient progressing toward discharge. * Plan of Care - Ruba Simpson RN - 03/19/2022 4:44 PM CDT Problem: Lack of Knowledge: Goal: Verbalization of understanding the information provided will improve Outcome: Progressing Problem: Coping: Goal: Ability to identify appropriate support needs for the childbearing process will improve Outcome: Progressing Goal: Ability to verbilize concerns and feelings about labor and delivery improve Outcome: Progressing Problem: Life Cycle: Goal: Ability to maintain clinical measurements within normal limits will improve Outcome: Progressing Goal: Ability to make normal progression through stages of labor will improve Outcome: Progressing Goal: Ability to effectively push during vaginal delivery will improve Outcome: Progressing Problem: Role Relationship: Goal: Ability to demonstrate positive interaction with the child will improve Outcome: Progressing Problem: Safety: Goal: Chance of risk for complications during labor and delivery will decrease Outcome: Progressing Problem: Sensory: Goal: Relief or control of pain from uterine contractions will improve Outcome: Progressing Problem: Activity: Goal: Ability to tolerate increased activity will improve Outcome: Progressing Problem: Bowel/Gastric: Goal: Gastrointestinal status for postoperative course will improve Outcome: Progressing Problem: Lack of Knowledge: Goal: Knowledge of Section Care will improve Outcome: Progressing Problem: Life Cycle: Goal: Chance of risk for complications during the period will decrease Outcome: Progressing Problem: Physical Regulation: Goal: Postoperative complications will be avoided or minimized Outcome: Progressing Problem: Respiratory: Goal: Ability to maintain adequate ventilation will improve Outcome: Progressing Problem: Role Relationship: Goal: Ability to demonstrate positive interaction with the child will improve Outcome: Progressing Problem: Sensory: Goal: Pain level will decrease Outcome: Progressing Goal: Satisfaction with pain management regimen will improve Outcome: Progressing Problem: Skin Integrity: Goal: Demonstration of wound healing without infection will improve Outcome: Progressing Goal: Ability to participate in self-care as condition permits will improve Outcome: Progressing Problem: Urinary Elimination: Goal: Ability to reestablish a normal urinary elimination pattern will improve Outcome: Progressing Goals: Clinical Goals for the Shift: healthy mom/baby, pain control, monitor VSS, monitor FHR Summary: progressing * Hospital Course - Katalina, Flora Milligan NP - 03/19/2022 3:33 PM CDT Angy Norman is a 27 y.o. female at 40w1d weeks gestation, dated by 1st trimester ultrasound who presented to L&D for elective IOL. Her induction was started with misoprostol and a cervical ripening balloon catheter, and later augmented with pitocin and amniotomy. She progressedto complete cervical dilation and after she started pushing, recurrent late decelerations and decreased variability developed on EFM. A prolonged deceleration to the 100- 100s began despite repositioning, halting pitocin infusion, and terbutaline. The FHR remained stable in the 110s with moderate variability, from baseline of 150. Decision was made to proceed to OR for Level 1 given nonreassuring status. After obtaining the appropriate operative consents, the patient was taken to the operating room, where previously placed epidural was dosed and confirmed to provide adequate anesthesia. She underwent a primary Low Transverse Section via Pfannensteil. She delivered a viable male infant with apgars 3 and 8 at one and five minutes of life respectively. Delivery was unco mplicated. See operative report for full details. The patient was transferred to . Her course was uncomplicated. Prior to discharge, her pain was well controlled, she was voiding, passing gas, ambulating, and meeting all milestones. Pt has chosen to breastfeed and plans a IUD for contraception, desires to wait until 6 weeks. #gHTN: BP controlled on no meds. The patient was consented and registered for remote blood pressuremonitoring. A blood pressure cuff has been given to the patient. She has confirmed receipt of test message. Her AVS was updated with discharge instructions on use of the remote blood pressure monitoring system. She will follow up in 1 week for a blood pressure check in her primary OB team ([facility]). Symptoms of preeclampsia have been reviewed. * Note - Luly Redding RN - 03/19/2022 2:16 PM CDT Discussed hunger cues, cluster feedings and normal behavior. Mother shown correct positioning and latch using illustrations.. Infant sleepy at this time. Discussed hand expression but mother has visitors in room. Will follow up in am. Encouraged mother to attempt every 2-3 hours and watch for hunger cues * Op Note - Carlitos Cervantes MD - 03/19/2022 4:47 AM CDT [facility] Section Delivery Note Patient's Name: Angy Norman : 1995 Attending Physician: Brenda Baldwin MD Surgical Team: Surgeon(s) and Role: * Brenda Baldwin MD - Primary * Tiffani Neely MD - Assisting * Carlitos Cervantes MD - Resident - Assisting * Mel Martin MD - Co-Surgeon Clinic: [facility] Primary Diagnoses: Intrauterine at 40w1d, delivered Delivery method: , Low Transverse [251] Anesthesia: Epidural [254] Membranes: Artificial rupture, thick meconium. Time ruptured prior to delivery: rupture date, rupture time, delivery date, or delivery time have not been documented Antibiotics: Ancef and Azithromycin Infant Delivery Date/Time: 03/19/2022 at 3:36 AM Placenta Delivery Date & Time: 03/19/2022 3:37 AM Cord: 3 vessels [3] Delayed cord clamping: No, per pediatrics : living 8 lb 3.9 oz (3.74 kg) male APGARs: 3 / 8 Disposition: [facility] Operative Note Preoperative Diagnosis: Intrauterine at 40w1d Non-reassuring status Postoperative Diagnosis: Same Name of Operation: Primary Low Transverse Section via Pfannensteil Indication for Procedure: Angy Norman is a 27 y.o. female at 40w1d weeks gestation, dated by 1st trimester ultrasound who presented to L&D for elective IOL. Her induction was started with misoprostol and a cervical ripening balloon catheter, and later augmented with pitocin and amniotomy. She progressed tocomplete cervical dilation and after she started pushing, recurrent late decelerations and decreased variability developed on EFM. A prolonged deceleration to the 100-100s began despite repositioning, halting pitocin infusion, and terbutaline. The FHR remained stable in the 110s with moderate variability, from baseline of 150. Decision was made to proceed to OR for Level 1 given nonreassuring status. Operative Findings: Infant in vertex presentation. APGARS were 3 / 8 at 1 and 5 minutes respectively. Pediatrics was present at delivery. Placenta with central 3 vessel cord. Normal uterus, bilateral tubes and ovaries. Description of Procedure: After obtaining the appropriate operative consents, the patient was takento the operating room, where previously placed epidural was dosed and confirmed to provide adequateanesthesia. She was given 2 grams of Ancef/500mg Azithromycin. She was then prepared and draped in the normal sterile fashion in the supine position with a leftward tilt. A Pfannenstiel skin incisionwas then made with the scalpel and carried through to the underlying layer of fascia. The fascia was incised in the midline and the incision extended laterally bluntly. The superior aspect of the fascial incision was then grasped with the Vikas clamps and elevated, the underlying rectus muscles were dissected off bluntly. The rectus muscles were then in the midline, and the peritoneum was identified and entered bluntly. The peritoneal incision was then extended superiorly and inferiorly with good visualization of the bladder. The bladder blade was then inserted and the vesicouterine peritoneum identified. A low transverse hysterotomy was made with the scalpel. The uterine incision was then extended bluntly. The bladder blade was removed and the infant's head was brought to the level of the hysterotomyand delivered atraumatically. The cord was clamped and cut and the was handed off to the waiting pediatricians. Cord gases were sent. The placenta was then delivered using external massage. The uterus was exteriorized and cleared of all clots and debris. The uterine incision was repaired with 0-vicryl in a running, locked fashion. A second imbricating layer of the same suture was used to obtain excellent hemostasis.An additional figure of eight suture was used to reapproximate the R lateral serosal defect observed following imbrication. Good hemostasis was noted after hysterotomy closure. The uterus was returned to the abdomen and the gutters were cleared of all clots and debris. The hysterotomy was examined in situ and hemostasis was satisfactory. The ventral aspect of the fascia wasinspected and no fascial defects were found. The rectus muscles were inspected and found to be intact. The fascia was reapproximated with looped 0 PDS in a running fashion. The subcutaneous tissue was then irrigated and the bovie was used to obtain excellent hemostasis. The subcutaneous tissue was closed with 0-Plain Gut. The skin was closed with 4-0 monocryl in a subcuticular fashion. Following fundal pressure to expel uterine/vaginal clots, boggy tone was palpated and 800mg misoprostol was placed rectally. The patient tolerated the procedure well and was taken to the recovery room in stable condition. Complications: None Estimated Blood Loss: 750 mL Intraoperative Fluids: 2000mL crystalloid Urine Output: 40mL clear yellow urine at the end of the procedure Sponge/Instrument/Needle Counts: The sponge, lap and needle counts were correct x3. Specimens Sent To Pathology: Placenta The attending, Brenda Baldwin MD, was present for the hernandez portions of the procedure. Carlitos Cervantes MD Cosigned by Tiffani Neely MD at 03/19/2022 3:22 PM CDT Associated attestation - Tiffani Neely MD - 03/19/2022 3:[address] Martin and Dr. Baldwin were present at start of , I arrived as hysterotomy was being closed and Dr. Martin scrubbed out at that time, I was present for the remainder of the procedure. * Significant Event - Chel Louis MD - 03/19/2022 3:55 AM CDT Section Decision Huddle Note Note entry delayed 2/2 patient care. After reviewing the patient's labor course, she has met criteria for non- reassuring status while pushing and complete, at 0 to +1 station, too high for attempt at operative delivery. Patient with persistent non-reassuring status despite terbutaline x1 as per primary physician, Dr. Baldwin. Given pesistent non-reassuring status, recommended to proceed with an urgent delivery. We allowed Angy Norman the opportunity to ask questions. We recommended a Level 1 delivery. The risks, benefits, and alternatives were discussed with the patient at length. She was in agreement. The labor team, anesthesia team, and pediatrics team were made aware. Proceeded to the OR emergently. Chel Louis MD * Plan of Care - Candice Cerrato RN - 03/18/2022 7:46 AM CDT Problem: Lack of Knowledge: Goal: Verbalization of understanding the information provided will improve Outcome: Progressing Problem: Coping: Goal: Ability to identify appropriate support needs for the childbearing process will improve Outcome: Progressing Goal: Ability to verbilize concerns and feelings about labor and delivery improve Outcome: Progressing Problem: Life Cycle: Goal: Ability to maintain clinical measurements within normal limits will improve Outcome: Progressing Goal: Ability to make normal progression through stages of labor will improve Outcome: Progressing Goal: Ability to effectively push during vaginal delivery will improve Outcome: Progressing Problem: Role Relationship: Goal: Ability to demonstrate positive interaction with the child will improve Outcome: Progressing Problem: Safety: Goal: Chance of risk for complications during labor and delivery will decrease Outcome: Progressing Problem: Sensory: Goal: Relief or control of pain from uterine contractions will improve Outcome: Progressing Goals: Clinical Goals for the Shift: healthy mom/baby, induction Summary: Patient cooperative and calm. Patient progressing towards goals. * Plan of Care - Malena Lim RN - 03/18/2022 6:20 AM CDT Goals: Clinical Goals for the Shift: healthy mom/baby, induction Summary: Problem: Lack of Knowledge: Goal: Verbalization of understanding the information provided will improve Outcome: Progressing Problem: Coping: Goal: Ability to identify appropriate support needs for the childbearing process will improve Outcome: Progressing Goal: Ability to verbilize concerns and feelings about labor and delivery improve Outcome: Progressing Problem: Life Cycle: Goal: Ability to maintain clinical measurements within normal limits will improve Outcome: Progressing Goal: Ability to make normal progression through stages of labor will improve Outcome: Progressing Goal: Ability to effectively push during vaginal delivery will improve Outcome: Progressing Problem: Role Relationship: Goal: Ability to demonstrate positive interaction with the child will improve Outcome: Progressing Problem: Safety: Goal: Chance of risk for complications during labor and delivery will decrease Outcome: Progressing Problem: Sensory: Goal: Relief or control of pain from uterine contractions will improve Outcome: Progressing documented in this encounter Plan of Treatment Not on file documented as of this encounter Procedures Procedure Name Priority Date/Time Associated Diagnosis Comments US OB LIMITED IP Routine 03/21/2022 8:48 AM CDT Encounter for induction of labor EGFR Timed 03/20/2022 6:00 AM CDT CBC WITHOUT DIFFERENTIAL Timed 03/20/2022 6:00 AM CDT COMPREHENSIVE METABOLIC PANEL Timed 03/20/2022 6:00 AM CDT SECTION 03/19/2022 3:25 AM CDT Intolerance of Labor EGFR STAT 03/18/2022 6:42 AM CDT RPR Routine 03/18/2022 6:42 AM CDT CBC WITHOUT DIFFERENTIAL STAT 03/18/2022 6:42 AM CDT HC ANTIBODY SCREEN RBC Timed 03/18/2022 6:42 AM CDT HEPATIC FUNCTION PANEL STAT 03/18/2022 6:42 AM CDT BASIC METABOLIC PANEL STAT 03/18/2022 6:42 AM CDT documented in this encounter Results * US Ob Limited (03/21/2022 8:48 AM CDT) Anatomical Region Laterality Modality Abdomen N/A Ultrasound Narrative 03/21/2022 8:48 AM CDT Vertex I have reviewed the images and agree with above. Javi Buenrostro MD us Javi Buenrostro MD IMG OB US PROCEDURES Final Result * eGFR (03/20/2022 6:00 AM CDT) eGFR >90 90 - 130 mL/min/1. 73 m2 [facility] Comment: Interpretive Data Reference Interval Normal ?>/= 90 mL/min/1.73m2 Mildly decreased* ? 60 - 89 mL/min/1.73m2 Mildly to moderately decreased ?45 - 59 mL/min/1.73m2 Moderately to severely decreased ??30 - 44 mL/min/1.73m2 Severely decreased ?15 - 29 mL/min/1.73m2 Kidney Failure ?< 15 ??mL/min/1.73m2 *Relative to young adult level Estimated glomerular filtration rate is determined by the 2020 CKD-EPI equation recommended by the National Kidney Foundation (A Unifying Approach to GFR Estimation: Recommendations of the NKF-ASK Task Force on Reassessing the Inclusion of Race in Diagnosing Kidney Disease, JASN 2020). The CKD-EPI equation should not be used for patients with unstable renal function and has not been validated in children and those over 70. Current interpretive data was last reviewed 2021. Blood 03/20/2022 6:00 AM CDT 03/20/2022 6:14 AM CDT Brenda Baldwin MD LAB BLOOD ORDERABLES Final Result Performing Organization Address City/State/[facility] Co de Phone Number [facility] [place] [address] * (ABNORMAL) Comprehensive metabolic panel (03/20/2022 6:00 AM CDT) Sodium 137 135 - 145 mmol/L [facility] Potassium, pl 3.8 3.3 - 4.9 mmol/L [facility] Chloride 104 97 - 110 mmol/L [facility] CO2 25 22 - 32 mmol/L [facility] Anion gap 8 2 - 15 mmol/L [facility] BUN 10 8 - 25 mg/dL [facility] Creatinine 0.64 0.60 - 1.10 mg/dL [facility] Glucose 124 70 - 199 mg/dL [facility] Comment: Interpretive Data Fasting glucose >/= 126 mg/dl is diagnostic for diabetes. ?? Fasting is defined as no caloric intake for at least 8 hours. Fasting glucose between 100 mg/dl to 125 mg/dl is diagnostic of prediabetes. In a patient with classic symptoms of hyperglycemia or hyperglycemic crisis, a random glucose >/= 200 mg/dl is diagnostic for diabetes. In the absence of unequivocal hyperglycemia, results should be confirmed by repeat testing. The classification and Diagnosis of Diabetes Diabetes Care 2017;40 (Suppl. 1):S11. Current interpretive data was last revised 2017. Calcium 8.7 8.5 - 10.3 mg/dL [facility] Bilirubin, total 0.3 0.1 - 1.2 mg/dL [facility] Protein, pl 5.8(L) 6.5 - 8.5 g/dL [facility] Albumin 3.0(L) 3.5 - 5.0 g/dL [facility] Alk phos 102 40 - 130 Units/L [facility] ALT 14 7 - 45 Units/L [facility] AST 31 10 - 45 Units/L [facility] Blood 03/20/2022 6:00 AM CDT 03/20/2022 6:14 AM CDT Brenda Baldwin MD LAB BLOOD ORDERABLES Final Result [facility] [place] [address] * (ABNORMAL) CBC without differential (03/20/2022 6:00 AM CDT) WBC 15.6(H) 3.8 - 9.9 K/cumm [facility] Hgb 9.5(L) 11.9 - 15.5 g/dL [facility] Comment:Hemoglobin delta due to surgical procedure. Called to Gilbert Castañeda RN on 03-20-22 at 0630 by P.R. Hct 28.3(L) 35.6 - 45.5 % [facility] Plt 127(L) 150 - 400 K/cumm [facility] MPV 11.3 9.1 - 12.3 fL [facility] RBC 3.16(L) 3.90 - 5.20 M/cumm [facility] MCV 89.6 81.3 - 96.4 fL [facility] MCH 30.1 27.1 - 33.3 pg [facility] MCHC 33.6 32.3 - 35.7 g/dL [facility] RDW CV 13.5 11.1 - 14.9 % [facility] RDW SD 44.6 35.7 - 48.1 fL [facility] NRBC abs 0.00 0.00 - 0.01 K/cumm [facility] Blood 03/20/2022 6:00 AM CDT 03/20/2022 6:14 AM CDT us Brenda Baldwin MD LAB BLOOD ORDERABLES Final Result Performing Organization Address [facility] Co de Phone Number [facility] [place] [address] * (ABNORMAL) Hepatic function panel (03/18/2022 6:42 AM CDT) Bilirubin, total 0.2 0.1 - 1.2 mg/dL [facility] Bilirubin, direct <0.2 0.1 - 0.3 mg/dL [facility] Protein, pl 6.7 6.5 - 8.5 g/dL [facility] Albumin 3.8 3.5 - 5.0 g/dL [facility] Alk phos 142(H) 40 - 130 Units/L [facility] ALT 13 7 - 45 Units/L [facility] AST 24 10 - 45 Units/L [facility] Blood 03/18/2022 6:42 AM CDT 03/18/2022 6:53 AM CDT Brenda Baldwin MD LAB BLOOD ORDERABLES Final Result Performing Organization Address [facility] Co de Phone Number [facility] Department [place] [address] * (ABNORMAL) eGFR (03/18/2022 6:42 AM CDT) eGFR >90(H) 90 - 130 mL/min/1. 73 m2 [facility] Comment: Interpretive Data Reference Interval Normal ?>/= 90 mL/min/1.73m2 Mildly decreased* ? 60 - 89 mL/min/1.73m2 Mildly to moderately decreased ?45 - 59 mL/min/1.73m2 Moderately to severely decreased ??30 - 44 mL/min/1.73m2 Severely decreased ?15 - 29 mL/min/1.73m2 Kidney Failure ?< 15 ??mL/min/1.73m2 *Relative to young adult level Estimated glomerular filtration rate is determined by the 2020 CKD-EPI equation recommended by the National Kidney Foundation (A Unifying Approach to GFR Estimation: Recommendations of the NKF-ASK Task Force on Reassessing the Inclusion of Race in Diagnosing Kidney Disease, JASN 2020). The CKD-EPI equation should not be used for patients with unstable renal function and has not been validated in children and those over 70. Current interpretive data was last reviewed 2021. Blood 03/18/2022 6:42 AM CDT 03/18/2022 6:53 AM CDT us Jade Garcia MD LAB BLOOD ORDERA BLES Final Result [facility] [place] [address] * RPR Blood (03/18/2022 6:42 AM CDT) RPR Nonreactive Nonreactive [facility] Blood 03/18/2022 6:42 AM CDT 03/18/2022 6:53 AM CDT us Jade Garcia MD LAB MICROBIOLOGY - GENERAL ORDERABLES Final Result Performing Organization Address City/[facility]/ZIP Co de Phone Number [facility] Department [place] [address] * (ABNORMAL) Basic metabolic panel (03/18/2022 6:42 AM CDT) [facility] Sodium 138 135 - 145 mmol/L [facility] Potassium, pl 3.8 3.3 - 4.9 mmol/L [facility] Chloride 104 97 - 110 mmol/L [facility] CO2 23 22 - 32 mmol/L [facility] Anion gap 11 2 - 15 mmol/L [facility] BUN 6(L) 8 - 25 mg/dL [facility] Creatinine 0.51(L) 0.60 - 1.10 mg/dL [facility] Glucose 95 70 - 199 mg/dL [facility] Comment: Interpretive Data Fasting glucose >/= 126 mg/dl is diagnostic for diabetes. ?? Fasting is defined as no caloric intake for at least 8 hours. Fasting glucose between 100 mg/dl to 125 mg/dl is diagnostic of prediabetes. In a patient with classic symptoms of hyperglycemia or hyperglycemic crisis, a random glucose >/= 200 mg/dl is diagnostic for diabetes. In the absence of unequivocal hyperglycemia, results should be confirmed by repeat testing. The classification and Diagnosis of Diabetes Diabetes Care 2017;40 (Suppl. 1):S11. Current interpretive data was last revised 2017. Calcium 9.6 8.5 - 10.3 mg/dL [facility] Blood 03/18/2022 6:42 AM CDT 03/18/2022 6:53 AM CDT us Jade Garcia MD LAB BLOOD ORDERA BLES Final Result Performing Organization Address City/[facility]/ZIP Co de Phone Number [facility] Department [place] [address] * (ABNORMAL) CBC without differential (03/18/2022 6:42 AM CDT) Pathologist [facility] WBC 11.2(H) 3.8 - 9.9 K/cumm [facility] Hgb 12.7 11.9 - 15.5 g/dL [facility] Hct 36.8 35.6 - 45.5 % [facility] Plt 176 150 - 400 K/cumm [facility] MPV 11.4 9.1 - 12.3 fL [facility] RBC 4.22 3.90 - 5.20 M/cumm [facility] MCV 87.2 81.3 - 96.4 fL [facility] MCH 30.1 27.1 - 33.3 pg [facility] MCHC 34.5 32.3 - 35.7 g/dL [facility] RDW CV 12.9 11.1 - 14.9 % [facility] RDW SD 40.5 35.7 - 48.1 fL [facility] NRBC abs 0.00 0.00 - 0.01 K/cumm [facility] Blood 03/18/2022 6:42 AM CDT 03/18/2022 6:53 AM CDT us Jade Garcia MD LAB BLOOD ORDERA BLES Final Result [facility] [place] [address] * Type and screen (03/18/2022 6:42 AM CDT) Pathologist [facility] Amanda, indirect Negative [facility] ABO Rh A Positive [facility] Blood 03/18/2022 6:42 AM CDT 03/18/2022 7:03 AM CDT Narrative [facility] - 03/18/2022 7:58 AM CDT Has the patient had Daratumumab or Isatuximab in the past 6 months?->Unknown us Jade Garcia MD LAB BLOOD BANK T EST ORDERABLES Final Result [facility] [place] [address] documented in this encounter Visit Diagnoses Not on filedocumented in this encounter Admitting Diagnoses Diagnosis Encounter for induction of labor documented in this encounter Administered Medications Inactive Administered Medications - up to 3 most recent administrations Medication Order MAR Action Action Date Dose Rate Site acetaminophen (TYLENOL) tablet 1,000 mg 1,000 mg, oral, Every 6 hours, First dose on 03/20/22 at 0630, Start in 24 hours after Anesthesia no longer covering., Indications: PainIndications:Pain Given 03/21/2022 11:44 AM CDT 1,000 mg Given 03/21/2022 5:22 AM CDT 1,000 mg Given 03/20/2022 11:17 PM CDT 1,000 mg docusate sodium (COLACE) capsule 100 mg 100 mg, oral, 2 times daily, First dose on 03/19/22 at 2100, Hold if diarrhea., Indications: constipation, Stool SoftenerIndications:constipation,Stool Softener Given 03/21/2022 9:44 AM CDT 100 mg Given 03/20/2022 8:09 PM CDT 100 mg Given 03/20/2022 7:44 AM CDT 100 mg enoxaparin (LOVENOX) syringe 40 mg 40 mg, subcutaneous, Daily (for enoxaparin), First dose on 03/19/22 at 2100, Indications: Deep Vein Thrombosis PreventionIndications:Deep Vein Thrombosis Prevention Given 03/20/2022 8:09 PM CDT 40 mg Left Lower Abdomen ibuprofen (ADVIL,MOTRIN) tablet 600 mg 600 mg, oral, Every 6 hours, First dose on 03/20/22 at 0630, Start in 24 hours after Anesthesia no longer covering., Indications: CrampsIndications:Cramps Given 03/21/2022 11:43 AM CDT 600 mg Given 03/21/2022 5:21 AM CDT 600 mg Given 03/20/2022 11:17 PM CDT 600 mg ondansetron (ZOFRAN) injection 4 mg 4 mg, intravenous, Administer over 2 Minutes, Every 6 hours PRN, nausea, vomiting, if not tolerating PO, Starting on 03/20/22 at 0224, Start in 24 hours after Anesthesia no longer covering., Indications: Nausea and VomitingIndications:Nausea and Vomiting ondansetron ODT (ZOFRAN-ODT) disintegrating tablet 4 mg 4 mg, oral, Every 6 hours PRN, nausea, vomiting, Starting on 03/20/22 at 0224, Start in 24 hours after Anesthesia no longer covering., Indications: Nausea and VomitingIndications:Nausea and Vomiting oxyCODONE (ROXICODONE) tablet 5 mg 5 mg, oral, Every 4 hours PRN, 1st line for pain, Starting on 03/20/22 at 0624, May administer 1 hour after 1st line agent for uncontrolled or increasing pain. Start in 24 hours after Anesthesia no longer covering., Indications: PainIndications:Pain Given 03/20/2022 9:24 AM CDT 5 mg PNV with [id number]-ytok-[id number] tablet 1 tablet 1 tablet, oral, Daily, First dose on 03/19/22 at 2045, Begin when normal bowel activity resumes., Indications: Vitamin Deficiency PreventionIndications:Vitamin Deficiency Prevention Given 03/21/2022 9:44 AM CDT 1 tablet Given 03/20/2022 7:44 AM CDT 1 tablet polyethylene glycol (MIRALAX) packet 17 g 17 g, oral, Daily PRN, constipation, Starting on 03/19/22 at 2009, Hold if diarrhea., Indications: constipationIndications:constipation Given 03/20/2022 7:44 AM CDT 17 g senna (SENOKOT) tablet 1 tablet 1 tablet, oral, 2 times daily, First dose on 03/19/22 at 2100, Hold if diarrhea., Indications: constipationIndications:constipation Given 03/21/2022 9:44 AM CDT 1 table t Given 03/20/2022 8:09 PM CDT 1 tablet Given 03/20/2022 7:44 AM CDT 1 tablet sodium chloride 0.9% flush 0.5-20 mL 0.5-20 mL, intra-catheter, Every 8 hours scheduled, First dose on 03/19/22 at 2200, Flush volume based on line type and size. Given 03/19/2022 10:32 PM CDT 10 mL sodium chloride 0.9% irrigation As needed, Starting on 03/19/22 at 0343, Intra-Op Given 03/19/2022 3:43 AM CDT 1,000 mL Surgical Site sterile water irrigation As needed, Starting on 03/19/22 at 0343, Intra-Op Given 03/19/2022 3:43 AM CDT 1,000 mL Surgical Site documented in this encounter Active and Recently Administered Medications Times are shown in CDT. Scheduled Medication Order 03/19/2022 03/20/2022 03/21/2022 acetaminophen (TYLENOL) tablet 1,000 mg (COMPLETED) 1,000 mg, oral, Every 6 hours scheduled, First dose on 03/19/22 at 1100, For 24 hours, When able to tolerate PO. Max 4 doses. Anesthesia orders for the first 24 hours ., Indications: Pain 1034 (Given - Provider: Ruba Simpson RN)1650 (Given - Provider: Ruba Simpson RN)2231 (Given - Provider: Gilbert Savage RN) 0447 (Given - Provider: Gilbert Savage RN) acetaminophen (TYLENOL) tablet 1,000 mg 1,000 mg, oral, Every 6 hours, First dose on 03/20/22 at 0630, Start in 24 hours after Anesthesia no longer covering., Indications: Pain 0630 (Due)1025 (Given - Provider: Ruba Simpson RN)1624 (Given - Provider: Ruba Simpson RN)2317 (Given - Provider: Gilbert Savage RN) 0522 (Given - Provider: Gilbert Savage RN)1144 (Given - Provider: Ruba Simpson RN)1700 (Due - Provider: Carlos A Yoder [facility]) docusate sodium (COLACE) capsule 100 mg 100 mg, oral, 2 times daily, First dose on 03/19/22 at 2100, Hold if diarrhea., Indications: constipation, Stool Softener 2046 (Given - Provider: Gilbert Savage RN) 0744 (Given - Provider: Ruba Simpson RN)2008 (Given - Provider: Gilbert Savage RN) 0944 (Given - Provider: Jeffery Dorsey) enoxaparin (LOVENOX) syringe 40 mg 40 mg, subcutaneous, Daily (for enoxaparin), First dose on 03/19/22 at 2100, Indications: Deep Vein Thrombosis Prevention 2225 (Not Given - Provider: Gilbert Savage RN - Reason: Contraindicated) 2008 (Given - Provider: Gilbert Savage RN) ibuprofen (ADVIL,MOTRIN) tablet 600 mg 600 mg, oral, Every 6 hours, First dose on 03/20/22 at 0630, Start in 24 hours after Anesthesia no longer covering., Indications: Cramps 0630 (Due)1025 (Given - Provider: Ruba Simpson RN)1624 (Given - Provider: Ruba Simpson RN)2317 (Given - Provider: Gilbert Savage RN) 0521 (Given - Provider: Gilbert Savage RN)1143 (Given - Provider: Ruba Simpson RN)1700 (Due - Provider: Carlos A Yoder [facility]) ketorolac (TORADOL) 30 mg/mL (1 mL) injection 30 mg (COMPLETED) 30 mg, intravenous, Every 6 hours scheduled, First dose on 03/19/22 at 1200, For 24 hours, Max 4 doses. Anesthesia orders for the first 24 hours ., Indications: Pain 1034 (Given - Provider: Ruba Simpson RN)1650 (Given - Provider: Ruba Simpson RN)2232 (Given - Provider: Gilbert Savage RN) 0447 (Given - Provider: Gilbert Savage RN) PNV with uuxykwg-pvob-AA tablet 1 tablet 1 tablet, oral, Daily, First dose on 03/19/22 at 2045, Begin when normal bowel activity resumes., Indications: Vitamin Deficiency Prevention 2338 (Not Given - Provider: Gilbert Savage RN - Reason: Contraindicated) 0744 (Given - Provider: Ruba Simpson RN) 0944 (Given - Provider: Jeffery Dorsey) senna (SENOKOT) tablet 1 tablet 1 tablet, oral, 2 times daily, First dose on 03/19/22 at 2100, Hold if diarrhea., Indications: constipation 2046 (Given - Provider: Gilbert Savage RN) 0744 (Given - Provider: Ruba Simpson RN)2008 (Given - Provider: Gilbert Savage RN) 0944 (Given - Provider: Jeffery Dorsey) sodium chloride 0.9% flush 0.5-20 mL (CANCELED) 0.5-20 mL, intra-catheter, Every 8 hours scheduled, First dose on Mon03/18/22 at 2200, Flush volume based on line type and size. 0600 (Due)1653 (Given - Provider: Ruba Simpson RN) sodium chloride 0.9% flush 0.5-20 mL 0.5-20 mL, intra-catheter, Every 8 hours scheduled, First dose on 03/19/22 at 2200, Flush volume based on line type and size. 2232 (Given - Provider: Gilbert Savage RN) 0639 (Not Given - Provider: Gilbert Savage RN - Reason: Patient/family refused)1805 (Not Given - Provider: Ruba Simpson RN - Reason: Order Discontinued)2332 (Not Given - Provider: Gilbert Savage RN - Reason: Loss of IV access) 0527 (Not Given - Provider: Gilbert Savage RN - Reason: Loss of IV access)1400 (Due) Continuous Medication Order 03/19/2022 03/20/2022 03/21/2022 fentaNYL-bupivacaine preservative free in 0.9% sodium chloride 2 mcg/mL- 0.1 % cassette (premix) (CANCELED) Continuous Rate: 10 mL/hr, Patient Bolus Dose: 8 mL, Lockout Interval: 15 Minutes, epidural, Continuous, Starting on Mon03/18/22 at 2014, Until 03/19/22 at 2008, 100 mL, Indications: Pain, Stop epidural infusion after placental delivery and any indicated repair is complete., Routine 0200 (New Syringe/Cartridge - Provider: Malena Lim RN)0440 (Stopped (Dual Sign) - Provider: Malena Lim RN) Lactated Ringer's (LR) infusion(Linked Group 1) 125 mL/hr, intravenous, Continuous, Starting on 03/20/22 at 0045, Until regular diet. 2337 (Not Given - Provider: Gilbert Savage RN - Reason: Contraindicated) oxytocin 30 unit/500 mL (0.06 unit/mL) in sodium chloride 0.9% (premix) solution (CANCELED) 0.5-40 milliunits/min (0.5-40 mL/hr), 0.06 units/mL, intravenous, Titrated, Starting on Mon03/18/22 at 1330, Until 03/19/22 at 2008, Indications: Induction of Labor, Start at 2 lawson-units/min and increase by 2 lawson-units/minutes every 30 minutes until contraction frequency is every 2-3 minutes. - - 20 milliunits/minutes maximum - All other patients 40 milliunits/minute maximum Discontinue for distress or uterine hyperstimulation., Routine 0338 (Rate/Dose Change - Provider: Ruben Ogden MD)0347 (Rate/Dose Change - Provider: Ruben Ogden MD)2008 (Due: Stopped - Provider: Chel Louis MD) PRN Medication Order 03/19/2022 03/20/2022 03/21/2022 hydrocortisone (ANUSOL-HC) 2.5 % rectal cream rectal, 3 times daily PRN, itching, irritation, Starting on 03/19/22 at 2008, Indications: Hemorrhoids miSOPROStoL (CYTOTEC) tablet 800 mcg (CANCELED) 800 mcg, rectal, Once as needed, hemorrhage per MD request, Starting on Mon03/18/22 at 0559, For 1 dose, L&D Pre-Delivery, Administer only on provider request 0433 (Given - Provider: Malena Lim RN) ondansetron (ZOFRAN) injection 4 mg(Linked Group 2) 4 mg, intravenous, Administer over 2 Minutes, Every 6 hours PRN, nausea, vomiting, if not tolerating PO, Starting on 03/20/22 at 0224, Start in 24 hours after Anesthesia no longer covering., Indications: Nausea and Vomiting ondansetron ODT (ZOFRAN-ODT) disintegrating tablet 4 mg(Linked Group 2) 4 mg, oral, Every 6 hours PRN, nausea, vomiting, Starting on 03/20/22 at 0224, Start in 24 hours after Anesthesia no longer covering., Indications: Nausea and Vomiting oxyCODONE (ROXICODONE) tablet 5 mg () 5 mg, oral, Every 4 hours PRN, 1st line for pain, Starting on 03/19/22 at 1020, For 24 hours, When able to tolerate PO. Anesthesia orders for the first 24 hours ., Indications: Pain 2231 (Given - Provider: Gilbert Savage RN) oxyCODONE (ROXICODONE) tablet 5 mg 5 mg, oral, Every 4 hours PRN, 1st line for pain, Starting on 03/20/22 at 0624, May administer 1 hour after 1st line agent for uncontrolled or increasing pain. Start in 24 hours after Anesthesia no longer covering., Indications: Pain 0924 (Given - Provider: Ruba Simpson, MARGE) polyethylene glycol (MIRALAX) packet 17 g 17 g, oral, Daily PRN, constipation, Starting on 03/19/22 at 2008, Hold if diarrhea., Indications: constipation 0744 (Given - Provider: Ruba Simpson, MARGE) simethicone (MYLICON) chewable tablet 80 mg 80 mg, oral, 4 times daily PRN (after meals, bedtime), flatulence, Starting on 03/19/22 at 2008, Indications: Flatulence sodium chloride 0.9% flush 0.5-20 mL (CANCELED) 0.5-20 mL, intra-catheter, As needed, line care, Starting on Mon03/18/22 at 1939, Flush volume based on line type and size. Flush before and after each use. 1650 (Given - Provider: Ruba Simpson RN) sodium chloride 0.9% flush 0.5-20 mL 0.5-20 mL, intra-catheter, As needed, line care, Starting on 03/19/22 at 2008, Flush volume based on line type and size. Flush before and after each use. sodium chloride 0.9% irrigation (CANCELED) As needed, Starting on 03/19/22 at 0343, Intra-Op 0343 (Given - Provider: Carlitos Cervantes MD) sterile water irrigation (CANCELED) As needed, Starting on 03/19/22 at 0343, Intra-Op 0343 (Given - Provider: Carlitos Cervantes MD) terbutaline (BRETHINE) injection 0.125 mg (COMPLETED)(Linked Group 3) 0.125 mg, intravenous, Once as needed, distress and uterine tachysystole, Starting on Mon03/18/22 at 0559, For 1 dose, L&D Pre-Delivery, Notify physician immediately if administration is required., Indications: distress and uterine tachysystole 0317 (Given - Provider: Malena Lim RN) Linked Groups Order Group 1: oxytocin 30 unit/500 mL (0.06 unit/mL) in sodium chloride 0.9% (premix) solution () 95-334 milliunits/min (95-334 mL/hr), 0.06 units/mL, intravenous, Titrated, Starting on 03/19/22 at 2045, Until 03/20/22 at 0044, Indications: Hemorrhage Prevention, 334 lawson-units/minutes for 30 minutes then decrease infusion to 95 lawson-units/min for 3.5 hours. , Routine Followed by Lactated Ringer's (LR) infusionJump to med 125 mL/hr, intravenous, Continuous, Starting on 03/20/22 at 0045, Until regular diet. Group 2: ondansetron ODT (ZOFRAN-ODT) disintegrating tablet 4 mgJump to med 4 mg, oral, Every 6 hours PRN, nausea, vomiting, Starting on 03/20/22 at 0224, Start in 24 hours after Anesthesia no longer covering., Indications: Nausea and Vomiting Or ondansetron (ZOFRAN) injection 4 mgJump to med 4 mg, intravenous, Administer over 2 Minutes, Every 6 hours PRN, nausea, vomiting, if not tolerating PO, Starting on 03/20/22 at 0224, Start in 24 hours after Anesthesia no longer covering., Indications: Nausea and Vomiting Group 3: terbutaline (BRETHINE) injection 0.125 mg (COMPLETED)Jump to med 0.125 mg, intravenous, Once as needed, distress and uterine tachysystole, Starting on Mon03/18/22 at 0559, For 1 dose, L&D Pre-Delivery, Notify physician immediately if administration is required., Indications: distress and uterine tachysystole Or terbutaline (BRETHINE) injection 0.25 mg (COMPLETED) 0.25 mg, subcutaneous, Once as needed, distress and uterine tachysystole if no IV access, Starting on Mon03/18/22 at 0559, For 1 dose, L&D Pre-Delivery, Notify physician immediately if administration is required., Indications: distress and uterine tachysystole documented in this encounter Orders Medications Ordered That Jhonny ht Not Have Been Administered Count Last Ordered Date First Ordered Date acetaminophen (TYLENOL) tablet 1,000 mg 2 1 diphenhydrAMINE (BENADRYL) injection 25 mg 2 03/19/2022 03/18/2022 docusate sodium (COLACE) capsule 100 mg 1 1 enoxaparin (LOVENOX) syringe 40 mg 1 2021 hydrocortisone (ANUSOL-HC) 2 .5 % rectal cream 1 03/19/2022 HYDROmorphone (DILAUDID) injection 0.2 mg 1 03/19/2022 ibuprofen (ADVIL,MOTRIN) tablet 600 mg 1 ketorolac (TORADOL) 30 mg/mL (1 mL) injection 30 mg 1 03/19/2022 Lactated Ringer's (LR) infusion 1 nalbuphine (NUBAIN) injection 5 mg 2 202103/18/2022 naloxone (NARCAN) 0.4 mg/mL injection 0.04-0.4 mg 2 03/19/2022 03/18/2022 ondansetron (ZOFRAN) injection 4 mg 3 03/1903/18/2022 ondansetron ODT (ZOFRAN-ODT) disintegrating tablet 4 mg 3 03/19/2022 03/18/2022 oxyCODONE (ROXICODONE) tablet 5 mg 2 2021 oxytocin 30 unit/500 mL (0.0 6 unit/mL) in sodium chloride 0.9% (premix) solution 2 03/19/2022 1 PNV with mzftgbu-odjb-EJ tablet 1 tablet 1 03/19/2022 polyethylene glycol (MIRALAX) packet 17 g 1 03/19/2022 senna (SENOKOT) tablet 1 tablet 1 simethicone (MYLICON) chewab le tablet 80 mg 1 03/19/2022 sodium chloride 0.9% flush 0.5-20 mL 6 01/202203/18/2022 carboprost (HEMABATE) injection 250 mcg 1 1 Carrier Fluids for Secondary Infusion - 0.9% Sodium Chloride 2 03/18/2022 cefOXitin (MEFOXITIN) 1,000 mg/10 mL in sterile water (premix) 1,000 mg 1 03/18/2022 dextrose 5% and Lactated Ringer's infusion 1 03/18/2022 fentaNYL-bupivacaine preserv ative free in 0.9% sodium chloride 2 mcg/mL- 0.1 % cassette (premix) 1 03/18/2022 Lactated Ringer's (LR) bolus 1,000 mL 3 12/2021 lidocaine PF (XYLOCAINE) 10 mg/mL (1 %) preservative free injection 100 mg 1 03/18/2022 loperamide (IMODIUM) capsule 2 mg 1 methylergonovine (METHERGINE ) injection 0.2 mg 1 03/18/2022 miSOPROStol (CYTOTEC) split tablet 25 mcg 2 03/18/2022 miSOPROStoL (CYTOTEC) tablet 800 mcg 1 12/2021 oxytocin (PITOCIN) injection 10 Units 1 12/2021 terbutaline (BRETHINE) injection 0.125 mg 1 03/18/2022 terbutaline (BRETHINE) injection 0.25 mg 1 03/18/2022 tranexamic acid (CYKLOKAPRON ) 1,000 mg/100 mL (10 mg/mL) in sodium chloride (premix) 1,000 mg 1 03/18/2022 Lab Orders Without Results Count Last Ordered D ate First Ordered Date HEPATIC FUNCTION PANEL 1 03/19/2022 Admission Count Last Ordered Date First Orde red Date ADMIT TO L&D INPATIENT 1 03/18/2022 Transfer Count Last Ordered Date First Orde red Date TRANSFER PATIENT TO NEW UNIT 1 03/19/2022 Discharge Count Last Ordered Date First Orde red Date DISCHARGE PATIENT 1 03/21/2022 documented in this encounter Care Teams Slate Roofer Relationship Specialty Start Date End Date Adria Miranda MD [address] [place] [address] PCP - General 05/15/20 documented as of this encounter
--- OUTSIDE RECORDS SUMMARY | 2024-07-02 05:07 | XMS_ITS | Encounter Summary ---
Author Organization [facility] Facility Care Team Providers Care Vein Access Technician Name Role Phone Unavailable Primary Care Provider Unavailabl e Encounter Details Date Type Department Care Team (Late st Contact Info) Description 02/25/2015 9:10 AM CDT - 02/25/2015 4:00 PM CDT Hospital Encounter [facility] [place], [place] [address] [place] [address] Aftercare involving internal fixation device; Swelling of limb Social History Tobacco Use Types Packs/Day Years Used Date Smoking Tobacco: Never Comments Unknown Sex and Gender Information Value Date Recorded Sex Assigned at Not on file 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 FINAL REPORT ACC# ??Date Time ??Exam [id number] Feb 25, 2015 09:26:00 [id number] Ankle Complt. min 3 views L EXAMINATION: ?Left ankle complete minimum 3 views HISTORY: ??Left high ankle sprain FINDINGS: Three weight-bearing views of the left ankle were submitted for interpretation with comparison to prior study dated 11/19/2014. There is unchanged internal fixation of the left ankle syndesmosis with a tight rope. The syndesmosis remains reduced. The ankle mortise is intact. There remains mild surrounding soft tissue swelling. There is no fracture. IMPRESSION: ?? Unchanged internal fixation of left distal tibiofibular syndesmosis, with decreased soft tissue swelling. Requested By: PRICE SARABIA M.D. Dictated By: ?? YOLA TALAVERA M.D. ??on Feb 25 2015 ??9:41A This document has been electronically signed by: YOLA TALAVERA M.D. on Feb 25 2015 ??9:41A [id number] Procedure Note Provider, MD Ludivina - 10/06/2016 YOLA TALAVERA M.D. FINAL REPORT ACC# Date Time Exam [id number] Feb 25, 2015 09:26:00 [id number] Ankle Complt. min 3 views L EXAMINATION: Left ankle complete minimum 3 views HISTORY: Left high ankle sprain FINDINGS: Three weight-bearing views of the left ankle were submitted for interpretation with comparison to prior study dated 11/19/2014. There is unchanged internal fixation of the left ankle syndesmosis with a tight rope. The syndesmosis remains reduced. The ankle mortise is intact. There remains mild surrounding soft tissue swelling. There is no fracture. IMPRESSION: Unchanged internal fixation of left distal tibiofibular syndesmosis, with decreased soft tissue swelling. Requested By: PRICE SARABIA M.D. Dictated By: YOLA TALAVERA M.D. on Feb 25 2015 9:41A This document has been electronically signed by: YOLA TALAVERA M.D. on Feb 25 2015 9:41A [id number] Historical Provider IMG XR PROCEDURES Final R esult documented in this encounter Visit Diagnoses Diagnosis Aftercare involving internal fixation device Swelling of limb documented in this encounter
--- OUTSIDE RECORDS SUMMARY | 2024-07-02 05:07 | XMS_ITS | Encounter Summary ---
Author Organization [facility] Facility Care Team Providers Care Meat Smoker Name Role Phone Unavailable Primary Care Provider Unavailabl e Encounter Details Date Type Department Care Team (Late st Contact Info) Description 10/19/2015 - 10/19/2015 11:59 PM CDT Hospital Encounter [facility] [place], [place] [address] [facility] [address] [place] [address] Social History Tobacco Use Types Packs/Day Years Used Date Smoking Tobacco: Never Comments Unknown Sex and Gender Information Value Date Recorded Sex Assigned at Not on file 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
--- OUTSIDE RECORDS SUMMARY | 2024-07-02 05:07 | XMS_ITS | Encounter Summary ---
Author Organization [facility] Address [address] [place] [address] Phone Care Team Providers Care Statistical Reporting Analyst Name Role Phone Adria Miranda MD Primary Care Provider Encounter Details Date Type Department Care Team (Late st Contact Info) Description 08/09/2021 Telephone [facility] Obstetrics and Gynecology [address] [place] [id number] [address] Social History Tobacco Use Types Packs/Day Years Used Date Smoking Tobacco: Never Comments Unknown Sex and Gender Information Value Date Recorded Sex Assigned at Not on file 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 06/30/2021 08/04/2021 10/28/2021 3:05 AM C DT documented as of this encounter Care Teams Statistical Reporting Analyst Relationship Specialty Start Date End Date Adria Miranda MD [address] [place] [address] PCP - General 05/15/20 documented as of this encounter
--- OUTSIDE RECORDS SUMMARY | 2024-07-02 05:07 | XMS_ITS | Encounter Summary ---
Author Organization [facility] Facility Care Team Providers Care Cushion Maker Hand Name Role Phone Unavailable Primary Care Provider Unavailabl e Encounter Details Date Type Department Care Team (Late st Contact Info) Description 07/10/2014 8:27 AM CLIENT SUCCESS DIRECTOR - 07/10/2014 4:00 PM CLIENT SUCCESS DIRECTOR Hospital Encounter [facility] [place] [place], [place] [address] [place] [address] Social History Tobacco Use Types Packs/Day Years Used Date Smoking Tobacco: Never Comments Unknown Sex and Gender Information Value Date Recorded Sex Assigned at Not on file Legal Sex Female 10:50 AM CLIENT SUCCESS DIRECTOR Gender Identity Not on file Sexual Orientation Not on file documented as of this encounter Plan of Treatment Not on file documented as of this encounter Procedures Procedure Name Priority Date/Time Associated Diagnosis Comments XR ANKLE 3+ VW Routine 07/10/2014 8:43 AM CLIENT SUCCESS DIRECTOR XR TIBIA FIBULA 2 VW Routine 07/10/2014 8:43 AM CLIENT SUCCESS DIRECTOR documented in this encounter Results * XR Tibia Fibula 2 VW (07/10/2014 8:43 AM CLIENT SUCCESS DIRECTOR) Anatomical Region Laterality Modality N/A Radiographic Beatriz ging 07/10/2014 8:43 AM CLIENT SUCCESS DIRECTOR Narrative 07/10/2014 9:11 AM CLIENT SUCCESS DIRECTOR BEATRIZ JIMÉNEZ M.D. FINAL REPORT ACC# ??Date Time ??Exam [id number] Jul 10, 2014 08:43:00 [id number] Ankle Complt. min 3 views R [id number] Jul 10, 2014 08:43:00 [id number] Tibia Fibula 2 views L EXAMINATION: ? 1. Right ankle complete minimum 3 views 2. Left tibia fibula 2 views HISTORY: ??Radiographically occult distal tibial fracture FINDINGS: ?? Right ankle: 3 weight-bearing views of the right ankle are submitted without prior right ankle examination but are compared to the left ankle radiographs from 06/09/2014. The ankle mortise and syndesmosis are intact. Additionally, the syndesmosis appears symmetric the contralateral side. There is no fracture. There is no soft tissue swelling. The joint spaces of the mid and hindfoot are normal. Left tibia and fibula: AP and lateral views of the left tibia and fibula are correlated to prior left ankle radiographs from 06/09/2014. The distal tibial fracture remains radiographically occult. There are no acute fractures. There is unchanged mild bimalleolar soft tissue swelling. A small lateral talar dome osteochondral lesion is unchanged. IMPRESSION: ?? 1. Normal right ankle radiographs with symmetric appearing syndesmosis. 2. Unchanged radiographically occult distal left tibial fracture. 3. Unchanged small left lateral talar dome osteochondral lesion. Requested By: PRICE SARABIA M.D. Dictated By: ?? BEATRIZ JIMÉNEZ M.D. ??on Jul 10 2014 ??9:11A This document has been electronically signed by: BEATRIZ JIMÉNEZ M.D. on Jul 10 2014 ??9:11A Procedure Note Provider, MD Ludivina - 10/06/2016 BEATRIZ JIMÉNEZ M.D. FINAL REPORT ACC# Date Time Exam [id number] Jul 10, 2014 08:43:00 [id number] Ankle Complt. min 3 views R [id number] Jul 10, 2014 08:43:00 [id number] Tibia Fibula 2 views L EXAMINATION: 1. Right ankle complete minimum 3 views 2. Left tibia fibula 2 views HISTORY: Radiographically occult distal tibial fracture FINDINGS: Right ankle: 3 weight-bearing views of the right ankle are submitted without prior right ankle examination but are compared to the left ankle radiographs from 06/09/2014. The ankle mortise and syndesmosis are intact. Additionally, the syndesmosis appears symmetric the contralateral side. There is no fracture. There is no soft tissue swelling. The joint spaces of the mid and hindfoot are normal. Left tibia and fibula: AP and lateral views of the left tibia and fibula are correlated to prior left ankle radiographs from 06/09/2014. The distal tibial fracture remains radiographically occult. There are no acute fractures. There is unchanged mild bimalleolar soft tissue swelling. A small lateral talar dome osteochondral lesion is unchanged. IMPRESSION: 1. Normal right ankle radiographs with symmetric appearing syndesmosis. 2. Unchanged radiographically occult distal left tibial fracture. 3. Unchanged small left lateral talar dome osteochondral lesion. Requested By: PRICE SARABIA M.D. Dictated By: BEATRIZ JIMÉNEZ M.D. on Jul 10 2014 9:11A This document has been electronically signed by: BEATRIZ JIMÉNEZ M.D. on Jul 10 2014 9:11A us Historical Provider IMNemo XR PROCEDURES Final R esult * XR Ankle 3+ Vw (07/10/2014 8:43 AM CLIENT SUCCESS DIRECTOR) Anatomical Region Laterality Modality N/A Radiographic Beatriz ging 07/10/2014 8:43 AM CLIENT SUCCESS DIRECTOR Narrative 07/10/2014 9:11 AM CLIENT SUCCESS DIRECTOR BEATRIZ JIMÉNEZ M.D. FINAL REPORT ACC# ??Date Time ??Exam [id number] Jul 10, 2014 08:43:00 [id number] Ankle Complt. min 3 views R [id number] Jul 10, 2014 08:43:00 [id number] Tibia Fibula 2 views L EXAMINATION: ? 1. Right ankle complete minimum 3 views 2. Left tibia fibula 2 views HISTORY: ??Radiographically occult distal tibial fracture FINDINGS: ?? Right ankle: 3 weight-bearing views of the right ankle are submitted without prior right ankle examination but are compared to the left ankle radiographs from 06/09/2014. The ankle mortise and syndesmosis are intact. Additionally, the syndesmosis appears symmetric the contralateral side. There is no fracture. There is no soft tissue swelling. The joint spaces of the mid and hindfoot are normal. Left tibia and fibula: AP and lateral views of the left tibia and fibula are correlated to prior left ankle radiographs from 06/09/2014. The distal tibial fracture remains radiographically occult. There are no acute fractures. There is unchanged mild bimalleolar soft tissue swelling. A small lateral talar dome osteochondral lesion is unchanged. IMPRESSION: ?? 1. Normal right ankle radiographs with symmetric appearing syndesmosis. 2. Unchanged radiographically occult distal left tibial fracture. 3. Unchanged small left lateral talar dome osteochondral lesion. Requested By: PRICE SARABIA M.D. Dictated By: ?? BEATRIZ JIMÉNEZ M.D. ??on Jul 10 2014 ??9:11A This document has been electronically signed by: BEATRIZ JIMÉNEZ M.D. on Jul 10 2014 ??9:11A Procedure Note Provider, MD Ludivina - 10/06/2016 BEATRIZ JIMÉNEZ M.D. FINAL REPORT ACC# Date Time Exam [id number] Jul 10, 2014 08:43:00 [id number] Ankle Complt. min 3 views R [id number] Jul 10, 2014 08:43:00 [id number] Tibia Fibula 2 views L EXAMINATION: 1. Right ankle complete minimum 3 views 2. Left tibia fibula 2 views HISTORY: Radiographically occult distal tibial fracture FINDINGS: Right ankle: 3 weight-bearing views of the right ankle are submitted without prior right ankle examination but are compared to the left ankle radiographs from 06/09/2014. The ankle mortise and syndesmosis are intact. Additionally, the syndesmosis appears symmetric the contralateral side. There is no fracture. There is no soft tissue swelling. The joint spaces of the mid and hindfoot are normal. Left tibia and fibula: AP and lateral views of the left tibia and fibula are correlated to prior left ankle radiographs from 06/09/2014. The distal tibial fracture remains radiographically occult. There are no acute fractures. There is unchanged mild bimalleolar soft tissue swelling. A small lateral talar dome osteochondral lesion is unchanged. IMPRESSION: 1. Normal right ankle radiographs with symmetric appearing syndesmosis. 2. Unchanged radiographically occult distal left tibial fracture. 3. Unchanged small left lateral talar dome osteochondral lesion. Requested By: PRICE SARABIA M.D. Dictated By: BEATRIZ JIMÉNEZ M.D. on Jul 10 2014 9:11A This document has been electronically signed by: BEATRIZ JIMÉNEZ M.D. on Jul 10 2014 9:11A us Historical Provider MD VERMA XR PROCEDURES Final R esult documented in this encounter Visit Diagnoses Not on filedocumented in this encounter
--- OUTSIDE RECORDS SUMMARY | 2024-07-02 05:07 | XMS_ITS | Encounter Summary ---
Author Organization [facility] Address [address] [place] [address] Care Team Providers Care Theater Company Producer Name Role Phone Adria Miranda MD Primary Care Provider Encounter Details Date Type Department Care Team (Late st Contact Info) Description 05/15/2020 10:45 AM COMMODITY BUYER Lab [address] [address] Loss of smell Social History Tobacco Use Types Packs/Day Years Used Date Smoking Tobacco: Never Comments Unknown Sex and Gender Information Value Date Recorded Sex Assigned at Not on file Legal Sex Female 10:50 AM COMMODITY BUYER Gender Identity Not on file Sexual Orientation Not on file documented as of this encounter Plan of Treatment Not on file documented as of this encounter Procedures Procedure Name Priority Date/Time Associated Diagnosis Comments INFLUENZA A/B AND COVID-19 PCR Routine 05/15/2020 8:17 AM COMMODITY BUYER Loss of smell documented in this encounter Results * (ABNORMAL) Influenza A/B and COVID-19 PCR ([facility] ONLY) Nasopharyngeal (05/15/2020 8:17 AM COMMODITY BUYER) COVID-19 RNA Detected(A) JONATHAN HODGE Comment: Interpretive Data Testing performed by the [facility]. The 2018-Novel Coronavirus Assay (COVID-19) Real Time RT-PCR assay [...] last revised on 2019. Testing performed by: [facility], [address] [place]., [address] Influenza A RNA Not Detected CERNER Comment:Testing performed by : [facility], [address] [facility], [address] Influenza B RNA Not Detected CERNER Comment: Interpretive Data Testing performed by the [facility]. This test is performed using the elbert Influenza A/B Assay. This is a real-time RT-PCR test for the qualitative detection of nucleic acid from Influenza A and Influenza B. This assay has been reviewed by the FDA for Emergency Use Authorization (EUA). The performance characteristics have been verified by the [facility]. Results should be interpreted in combination with clinical context and a negative result does not rule out infection. ?? Interpretive data last revised 2020. Testing performed by: [facility], [address] [place] [address]., [address] First COVID-19 test? 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 No CERNER CH Comment:Testing performed by : [facility], [address] [place] [address], [address] Group care resident? No CERNER CH Comment:Testing performed by : [facility], [address] [place] [address], [address] Hospitalized? No CERNER CH Comment:Testing performed by : [facility], [address] [place] [address], [address] Is patient in ICU? No CERNER CH Comment:Testing performed by : [facility], [address] [place]., [address] Symptomatic as defined by CDC? Yes JONATHAN HODGE Comment:Testing performed by : [facility], [address] [place]., [address] Nasopharyngeal 05/15/2020 8: 17 AM COMMODITY BUYER 05/15/2020 3:08 PM COMMODITY BUYER Narrative JONATHAN HODGE - 05/16/2020 6:20 AM COMMODITY BUYER Patient is employed by/enrolled at:->[facility] Date of symptom onset->05/13/20 us Stacie Angulo MD LAB MICROBIOLOGY - GENERAL ORDERABLES Final Result JONATHAN HODGE [id number] [address] [place] [address] documented in this encounter Visit Diagnoses Diagnosis Loss of smell Disturbances of sensation of smell and taste documented in this encounter Additional Health Concerns Infection Onset Date Last Indicated Resolved Time COVID: Suspected 05/14/2020 05/15/2020 05/16/2020 6:20 AM COMMODITY BUYER documented as of this encounter Care Teams Theater Company Producer Relationship Specialty Start Date End Date Adria Miranda MD [address] [place] [address] [place] [id number] PCP - General 05/15/20 documented as of this encounter
--- OUTSIDE RECORDS SUMMARY | 2024-07-02 05:07 | XMS_ITS | Encounter Summary ---
Author Organization [facility] Facility Care Team Providers Care Tours Captain Name Role Phone Unavailable Primary Care Provider Unavailabl e Encounter Details Date Type Department Care Team (Late st Contact Info) Description 06/11/2015 - 06/11/2015 11:59 PM RESIDENTIAL LIFE DIRECTOR Hospital Encounter [facility] [place], [place] [address] [place] [address] Social History Tobacco Use Types Packs/Day Years Used Date Smoking Tobacco: Never Comments Unknown Sex and Gender Information Value Date Recorded Sex Assigned at Not on file Legal Sex Female 10:50 AM RESIDENTIAL LIFE DIRECTOR Gender Identity Not on file Sexual Orientation Not on file documented as of this encounter Plan of Treatment Not on file documented as of this encounter Visit Diagnoses Not on filedocumented in this encounter
--- OUTSIDE RECORDS SUMMARY | 2024-07-02 05:07 | XMS_ITS | Encounter Summary ---
Author Organization [facility] Address [address] [place] [address] Care Team Providers Care Recreation Therapy Aide Name Role Phone Adria Miranda MD Primary Care Provider Reason for Visit * Reason Onset Date Comments Covid-19 Questions 06/23/2021 Encounter Details Date Type Department Care Team (Late st Contact Info) Description 06/23/2021 Telephone [facility] [address] [place], [place] [id number] (Third Floor) [place] [address] Meche Ornelas RN Covid-19 Questions Social History Tobacco Use Types Packs/Day Years Used Date Smoking Tobacco: Never Comments Unknown Sex and Gender Information Value Date Recorded Sex Assigned at Not on file Legal Sex Female 10:50 AM BOOSTER PUMP OILER Gender Identity Not on file Sexual Orientation Not on file documented as of this encounter Miscellaneous Notes * Telephone Encounter - Meche Ornelas RN - 06/23/2021 8:39 AM CST Employee calling for RTW clearance after positive COVID test. Referred to local [place] for further guidance and RTW date @ [phone]. TER PUMP OILER documented in this encounter Plan of Treatment Not on file documented as of this encounter Visit Diagnoses Not on filedocumented in this encounter Additional Health Concerns Infection Onset Date Last Indicated Resolved Time COVID19 06/16/2021 06/16/2021 06/30/2021 3:05 AM BOOSTER PUMP OILER documented as of this encounter Care Teams Recreation Therapy Aide Relationship Specialty Start Date End Date Adria Miranda MD [address] [place] [address] [place] [id number] PCP - General 05/15/20 documented as of this encounter
--- OUTSIDE RECORDS SUMMARY | 2024-07-02 05:07 | XMS_ITS | Encounter Summary ---
Author Organization [facility] Facility Care Team Providers Care Assembler Erector Name Role Phone Unavailable Primary Care Provider Unavailabl e Encounter Details Date Type Department Care Team (Latest Contact Info) Description 06/08/2015 1:55 PM INCLUSION INTERN - 06/08/2015 11:59 PM INCLUSION INTERN Hospital Encounter [facility] [place] [address] [place] [address] Sprain of other ligament of left ankle, subsequent encounter; Sprain of calcaneofibular ligament of left ankle, subsequent encounter; Sprain of deltoid ligament of left ankle, subsequent encounter; Other specified postprocedural state; Personal history of healed traumatic fracture; Abnormal findings on diagnostic imaging of other parts of musculoskeletal system Social History Tobacco Use Types Packs/Day Years Used Date Smoking Tobacco: Never Comments Unknown Sex and Gender Information Value Date Recorded Sex Assigned at Not on file Legal Sex Female 10:50 AM INCLUSION INTERN Gender Identity Not on file Sexual Orientation Not on file documented as of this encounter Plan of Treatment Not on file documented as of this encounter Procedures Procedure Name Priority Date/Time Associated Diagnosis Comments MRI LOWER EXTREMITY JOINT WO CONTRAST Routine 06/08/2015 4:03 PM INCLUSION INTERN VLWU UE/LE DUPLEX, VENOUS LIMITED OR UNILATERAL STUDY Routine 06/08/2015 2:56 PM INCLUSION INTERN documented in this encounter Results * MRI Lower Extremity Joint WO Contrast (06/08/2015 4:03 PM INCLUSION INTERN) Anatomical Region Laterality Modality N/A Magnetic Resonan ce 06/08/2015 4:0 3 PM INCLUSION INTERN Narrative 06/08/2015 5:06 PM INCLUSION INTERN JOCELINE HIGGINBOTHAM M.D. TANYA BRASWELL, FINAL REPORT The radiology attending physician has personally reviewed this study, and has reviewed and/or edited this written report and agrees with it. ACC# ??Date Time ??Exam [id number] Jun 08, 2015 16:03:00 [id number] MR Ankle Hindfoot wo L EXAMINATION: ?? MR left ankle without contrast HISTORY: Left ankle sprain. FINDINGS: Comparison left ankle radiographs dated 02/25/2015 show internal fixation of the left distal tibiofibular syndesmosis. Comparison is also made with left ankle MRI dated 04/15/[address] dated 07/14/2014. MR examination of the left ankle and hindfoot is performed with an extremity coil. Sagittal short TR/TE and STIR images and transverse and coronal short TR/TE, STIR, and fast spin-echo images were performed. Since the prior MRI, the subchondral insufficiency fracture in the tibial plafond has resolved. There has been microfracture of the anterolateral talar osteochondral lesion. There is mild edema in the anterolateral talar dome, but no focal cartilage defect. Medially, the posterior tibialis, flexor digitorum longus, and flexor hallucis longus tendons are intact. There is a chronic sprain of the deep deltoid ligament. The superficial deltoid and spring ligament are normal. Laterally, the superior peroneal retinaculum is indistinct. The peroneal tendons are normal without evidence of subluxation or dislocation. Again seen is a complete tear of the anterior talofibular ligament. The calcaneofibular ligament is thickened. The posterior talofibular ligament is intact. The distal anterior/inferior tibiofibular ligament and syndesmotic membrane are thickened. The sinus tarsi is normal. The anterior ankle extensors are normal. The Achilles tendon is intact. ?? The plantar fascia appears normal. The visualized intrinsic muscles of the foot are normal. There are moderate-sized tibiotalar and subtalar joint effusions. IMPRESSION: ?? 1. Chronic sprains of the left anterior talofibular ligament, calcaneofibular ligament, and deep deltoid ligament. 2. Sequela of prior left ankle syndesmotic injury status post reduction and internal fixation. 3. 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 4. Moderate-sized left tibiotalar and subtalar joint effusions and/or synovitis. 5. Resolved left tibial plafond subchondral fracture. 6. Previous microfracture of the left talar dome osteochondral lesion without cartilage defect. Requested By: Dictated By: ?? TANYA BRASWELL, ?? on Jun 08 2015 ??4:47P This document has been electronically signed by: JOCELINE HIGGINBOTHAM M.D. on Jun 08 2015 ??5:06P [id number] Procedure Note Provider, MD Ludivina - 10/06/2016 JOCELINE HIGGINBOTHAM M.D. TANYA BRASWELL, FINAL REPORT The radiology attending physician has personally reviewed this study, and has reviewed and/or edited this written report and agrees with it. ACC# Date Time Exam [id number] Jun 08, 2015 16:03:00 [id number] MR Ankle Hindfoot wo L EXAMINATION: MR left ankle without contrast HISTORY: Left ankle sprain. FINDINGS: Comparison left ankle radiographs dated 02/25/2015 show internal fixation of the left distal tibiofibular syndesmosis. Comparison is also made with left ankle MRI dated 04/15/[address] dated 07/14/2014. MR examination of the left ankle and hindfoot is performed with an extremity coil. Sagittal short TR/TE and STIR images and transverse and coronal short TR/TE, STIR, and fast spin-echo images were performed. Since the prior MRI, the subchondral insufficiency fracture in the tibial plafond has resolved. There has been microfracture of the anterolateral talar osteochondral lesion. There is mild edema in the anterolateral talar dome, but no focal cartilage defect. Medially, the posterior tibialis, flexor digitorum longus, and flexor hallucis longus tendons are intact. There is a chronic sprain of the deep deltoid ligament. The superficial deltoid and spring ligament arenormal. Laterally, the superior peroneal retinaculum is indistinct. The peroneal tendons are normal without evidence of subluxation or dislocation. Again seen is a complete tear of the anterior talofibular ligament. The calcaneofibular ligament is thickened. The posterior talofibular ligament is intact. The distal anterior/inferior tibiofibular ligament and syndesmotic membrane are thickened. The sinus tarsi is normal. The anterior ankle extensors are normal. The Achilles tendon is intact. The plantar fascia appears normal. The visualized intrinsic muscles of the foot are normal. There are moderate-sized tibiotalar and subtalar joint effusions. IMPRESSION: 1. Chronic sprains of the left anterior talofibular ligament, calcaneofibular ligament, and deep deltoid ligament. 2. Sequela of prior left ankle syndesmotic injury status post reduction and internal fixation. 3. 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 4. Moderate-sized left tibiotalar and subtalar joint effusions and/or synovitis. 5. Resolved left tibial plafond subchondral fracture. 6. Previous microfracture of the left talar dome osteochondral lesion without cartilage defect. Requested By: Dictated By: TANYA BRASWELL on Jun 08 2015 4:47P This document has been electronically signed by: JOCELINE HIGGINBOTHAM M.D. on Jun 08 2015 5:06P [id number] us Historical Provider MD [facility] MRI PROCEDURES Final Result * US UE/LE Duplex, venous Limited or Unilateral study (06/08/2015 2:56 PM INCLUSION INTERN) Anatomical Region Laterality Modality Vascular Ultrasound 06/08/2015 2:56 PM INCLUSION INTERN Narrative 06/08/2015 2:58 PM INCLUSION INTERN THANH HUSSEIN M.D. FINAL REPORT ACC# ??Date Time ??Exam [id number] Jun 08, 2015 14:56:00 [id number] Ext Vein US Ltd Left L EXAMINATION: ?? Venous Doppler of left lower extremity HISTORY: Swelling Ultrasound examination was performed from the groin to the ankle using real time ultrasound including dominique scale, duplex, spectral wave form analysis and color Doppler technique. ??Both augmentation and compression maneuvers were performed. FINDINGS: The veins are normally compressible and augment normally. ?? Normal respiratory variation is identified. IMPRESSION: ?? No evidence of deep venous thrombosis. Requested By: PRICE SARABIA M.D. Dictated By: ?? THANH HUSSEIN M.D. ??on Jun 08 2015 ??2:58P This document has been electronically signed by: THANH HUSSEIN M.D. on Jun 08 2015 ??2:58P [id number] Procedure Note Provider, Ludivina, - 10/06/2016 THANH HUSSEIN M.D. FINAL REPORT ACC# Date Time Exam [id number] Jun 08, 2015 14:56:00 [id number] Ext Vein US Ltd Left L EXAMINATION: Venous Doppler of left lower extremity HISTORY: Swelling Ultrasound examination was performed from the groin to the ankle using real time ultrasound including dominique scale, duplex, spectral wave form analysis and color Doppler technique. Both augmentation and compression maneuvers were performed. FINDINGS: The veins are normally compressible and augment normally. Normal respiratory variation is identified. IMPRESSION: No evidence of deep venous thrombosis. Requested By: PRICE SARABIA M.D. Dictated By: THANH HUSSEIN M.D. on Jun 08 2015 2:58P This document has been electronically signed by: THANH HUSSEIN M.D. on Jun 08 2015 2:58P [id number] Historical Provider CV VASCULAR PROCEDURES Fi nal Result documented in this encounter Visit Diagnoses Diagnosis Sprain of other ligament of left ankle, subsequent encounter Sprain of calcaneofibular ligament of left ankle, subsequent encounter Sprain of deltoid ligament of left ankle, subsequent encounter Other specified postprocedural state Personal history of healed traumatic fracture Abnormal findings on diagnostic imaging of other parts of musculoskeletal system documented in this encounter
--- OUTSIDE RECORDS SUMMARY | 2024-07-02 05:07 | XMS_ITS | Encounter Summary ---
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 Name Role Phone Unavailable Primary Care Provider Unavailabl e Encounter Details Date Type Department Care Team (Latest Contact Info) Description 01/01/2016 7:32 PM CDT - 01/01/2016 11:59 PM CDT Hospital [facility] [place], [place] [address] [place] [address] Other synovitis and tenosynovitis, left ankle and foot; Other specified joint disorders, left ankle and foot; Effusion of left ankle; Disorder of bone; Sprain of other ligament of left ankle, subsequent encounter; Sprain of calcaneofibular ligament of left ankle, subsequent encounter; Sprain of deltoid ligament of left ankle, subsequent encounter Social History Tobacco Use Types Packs/Day Years Used Date Smoking Tobacco: Never Comments Unknown Sex and Gender Information Value Date Recorded Sex Assigned at Not on file 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 F FINAL REPORT ACC# ??Date Time ??Exam [id number] Jan 01, 2016 21:54:00 [id number] MR Ankle Hindfoot wo cont L EXAMINATION: ?Left ankle MRI without contrast HISTORY: ??Left medial hindfoot and ankle pain, type II accessory navicular FINDINGS: ?? MR examination of the left ankle is performed using an extremity coil and no contrast. Sagittal short TR/TE and STIR images, transverse short TR/TE and fast spin echo images and coronal short TR/TE and fast spin echo images were obtained. Comparison is made to the prior MR examination on 06/08/2015 and prior foot and ankle radiographs on 11/24/2015. An MR compatible marker was placed over the medial aspect of the ankle at the posterior aspect of the medial malleolus. The posterior tibialis, flexor digitorum longus and flexor hallucis longus tendons are intact. There is a type II accessory navicular without edema in the accessory ossicle or the navicular. There is minimal fluid around the posterior tibialis and flexor digitorum longus deep to the marker. There is a chronic sprain of the deltoid ligament. The spring ligament is intact. The peroneus brevis and longus are intact. There is no discrete tear. There is a chronic sprain of the anterior talofibular ligament. The calcaneofibular ligament is thick in the posterior talofibular ligament is intact. There are changes of syndesmotic stabilization with thickening of the syndesmotic ligaments. The anterior tibialis, extensor digitorum longus and extensor hallucis longus are normal. The Achilles tendon is normal. The plantar fascia is normal. There is a small ankle joint effusion. There is no atrophy or edema within the intrinsic muscles of the foot. The sinus Tarsi and tarsal tunnel are normal. The joint spaces are normal. There is unchanged minimal persistent edema in the lateral talar dome at the site of prior osteochondral lesion microfracture. No focal cartilage defect is seen. IMPRESSION: ?? 1. 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 Minimal unchanged tenosynovitis at the posterior tibialis (deep to the palpable pain marker). 2. Changes of syndesmotic repair. 3. Small left ankle effusion. 4. Unchanged appearance of left talar dome osteochondral lesion microfracture with minimal persistent edema. 5. Chronic sprains of the left anterior talofibular, calcaneofibular and deltoid ligaments. Requested By: PRICE SARABIA M.D. Dictated By: ?? Gayla GRANT ??on Jan 02 2016 10:05A This document has been electronically signed by: Gayla GRANT on Jan 02 2016 10:05A [id number] Procedure Note Provider, MD Ludivina - 10/06/2016 Gayla GRANT FINAL REPORT ACC# Date Time Exam [id number] Jan 01, 2016 21:54:00 [id number] MR Ankle Hindfoot wo cont L EXAMINATION: Left ankle MRI without contrast HISTORY: Left medial hindfoot and ankle pain, type II accessorynavicular FINDINGS: MR examination of the left ankle is performed using an extremity coil and no contrast. Sagittal short TR/TE and STIR images, transverse short TR/TE and fast spin echo images and coronal short TR/TE and fast spin echo images were obtained. Comparison is made to the prior MR examination on 06/08/2015 and prior foot and ankle radiographs on 11/24/2015. An MR compatible marker was placed over the medial aspect of the ankle at the posterior aspect of the medial malleolus. The posterior tibialis, flexor digitorum longus and flexor hallucis longus tendons are intact. There is a type II accessory navicular without edema in the accessory ossicle or the navicular. There is minimal fluid around the posterior tibialis and flexor digitorum longus deep to the marker. There is a chronic sprain of the deltoid ligament. The spring ligament is intact. The peroneus brevis and longus are intact. There is no discrete tear. There is a chronic sprain of the anterior talofibular ligament. The calcaneofibular ligament is thick in the posterior talofibular ligament is intact. There are changes of syndesmotic stabilization with thickening of the syndesmotic ligaments. The anterior tibialis, extensor digitorum longus and extensor hallucis longus are normal. The Achilles tendon is normal. The plantar fascia is normal. There is a small ankle joint effusion. There is no atrophy or edema within the intrinsic muscles of the foot. The sinus Tarsi and tarsal tunnel are normal. The joint spaces are normal. There is unchanged minimal persistent edema in the lateral talar dome at the site of prior osteochondral lesion microfracture. No focal cartilage defect is seen. IMPRESSION: 1. 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 Minimal unchanged tenosynovitis at the posterior tibialis (deep to the palpable pain marker). 2. Changes of syndesmotic repair. 3. Small left ankle effusion. 4. Unchanged appearance of left talar dome osteochondral lesion microfracture with minimal persistent edema. 5. Chronic sprains of the left anterior talofibular, calcaneofibular and deltoid ligaments. Requested By: PRICE SARABIA M.D. Dictated By: Gayla GRANT on Jan 02 2016 10:05A This document has been electronically signed by: Gayla GRANT on Jan 02 2016 10:05A [id number] Historical Provider MD [facility] MRI PROCEDURES Final Result documented in this encounter Visit Diagnoses Diagnosis Other synovitis and tenosynovitis, left ankle and foot Other specified joint disorders, left ankle and foot Effusion of left ankle Disorder of bone Sprain of other ligament of left ankle, subsequent encounter Sprain of calcaneofibular ligament of left ankle, subsequent encounter Sprain of deltoid ligament of left ankle, subsequent encounter documented in this encounter
--- OUTSIDE RECORDS SUMMARY | 2024-07-02 05:07 | XMS_ITS | Encounter Summary ---
Author Organization [facility] Healthcare Address [address] [place] [address] Care Team Providers Care Epic Anesthesia Analyst Name Role Phone Adria Miranda MD Primary Care Provider Reason for Visit * Auth/Cert Specialty Diagnoses / Procedures Referred By Contac t Referred To Contact Diagnoses Encounter for induction of labor Procedures ADM Referral ID Status Reason Start Date Expiration Date Visits Re quested Visits Authorized [id number] 1 1 Encounter Details Date Type Department Care Team (Late st Contact Info) Description 03/18/2022 7:43 PM CDT Anesthesia Event [address] [id number] Ruben Ogden MD [address] [place] [address] Spencer Nunes MD [address] [place] [address] Anesthesia Record Procedure Summary Procedure Name Responsible Anesthesiologist Anesthesia Start Time Anesthesia Stop Time SECTION (Abdomen) Ruben Ogden MD 03/18/22194203/19/22 0446 Events Date Time Event Comment 03/18/2022 194 An Start 1942 Face Time 1949 Time out - Regional 1950 An Block Induction The patie nt was reevaluated immediately before moderate or deep sedation and before anesthesia induction. 2000 Epidural Placed 03/19/2022 0324 Epidural to 0325 An Start Data 0325 In Room 0330 Left Uterine Displacement 0330 Anesthesia Ready 0334 Proc Start 0335 Uterine Incision 0337 Baby Delivered 0340 Placenta 0356 Emesis 0435 Proc Fin 0438 Epidural removed 0438 an stop data 0439 Out of Room 0446 Handoff to RN I completed my handoff to the receiving nurse during which we: 1. Patient identified 2. Responsible provider identified 3. Pertinent medical history reviewed 4. Procedure type and surgical course discussed 5. Intraoperative anesthetic management and any significant issues discussed 6. Expectations and concerns for postop period discussed 7. Questions solicited from receiving nurse 8. Patient disposition at the time of handoff: patient's room 445 An Stop Meds Name Total epinePHRINE 1:200,000-lidocaine 1.5 % 5 mL phenylephrine 100 mcg/mL 1,600 mcg fentaNYL-bupivacaine preserv ative free in 0.9% sodium chloride 2 mcg/mL- 0.1 % cassette (premix) 91.33 mL phenylephrine infusion 5.65 mg oxytocin 3 Units ketorolac 30 mg ondansetron PF (ZOFRAN) 2 mg/mL injectio n 4 mg famotidine PF 20 mg oxytocin 30 unit/500 mL (0.0 6 unit/mL) in sodium chloride 0.9% (premix) solution 146.75 mL ceFAZolin 2,000 mg azithromycin 500 mg/250 mL 500 mg epinePHRINE 1:200,000-lidocaine 2 % PF 5 mL dextrose 5% and Lactated Ringer's infusi on 672.92 mL LR 1,000 mL * Agents No agents on file. * Blood No blood administrations on file. Lines, Drains, and Airways Type Details Placement Removal Peripheral IV Placement Date: 03/18/22; Placement Time: 0620; Existing LDA Placed by: Other (Comment); Catheter Size: 18 G; Orientation: Distal, Posterior, Right; Location: Forearm; Removal Date: 03/20/22; Removal Time: 1900; Removal Reason: Per protocol 03/18/22 0620 by Malena Lim RN 03/20/22 190 by Gilbert Castañeda RN Intrauterine Pressure Catheter Placement Date: 03/18/22; Placement Time: 175; Removal Date: 03/19/22; Removal Time: 0300; Removal Reason: Per protocol 03/18/22 175 by Candice Cerrato RN 03/19/22 0300 by Aida Marvin RN Epidural Placement Date: 03/18/22; Placement Time: 2031 (created via procedure documentation); 03/19/22; 43703/18/222031 by Heather Louis RN 03/19/22437 by Dianna Mendenhall MD Urethral Catheter Placement Date: 03/18/22; Placement Time: 2039; Balloon Size: 10 mL; Urine Returned: Yes; Removal Date: 03/19/22; Removal Time: 0300; Removal Reason: Per protocol 03/18/222039 by Malena Lim RN 03/19/22299 by Aida Marvin RN Urethral Catheter Placement Date: 03/19/22; Placement Time: 329; Inserted by: Adria BIRD; Removal Date: 03/19/22; Removal Time: 1314 03/19/22 033 by Aida Marvin RN 03/19/22 1314 by April Tidwell RETIRED Surgical Site 03/19/22; 0343; Abdomen; 05/14/24 (Retired LDA, Removed/Completed by [employer] with LDA Utility); 1213 (Retired LDA, Removed/Completed by [employer] with LDA Utility) 03/19/22 0343 by Aida Marvin RN 05/14/24 1213 by Discharge Provider, Automatic documented in this encounter Social History Tobacco [...] often do you attend chur ch or sikhism services? Never 03/21/2022 Do you belong to any clubs o r organizations such as jewish groups, unions, fraternal or athletic groups, or [...] place to sleep or slept in a jail (including now)? 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 Gender Identity Not on file Sexual Orientation Not on file documented as of this encounter OR Notes * Anesthesia Postprocedure Evaluation - Anita Cabrera DO - 03/20/2022 9:22 AM CDT Patient: Angy Thomas Novinger Procedure Summary Date: 03/18/22 Room / Location: [facility] ROOM 2 / [facility] L&D OR Anesthesia Start: 1942 Anesthesia Stop: 03/19/22445 Procedure: SECTION (Abdomen) Diagnosis: ( Intolerance of Labor) Surgeons: Brenda Baldwin MD Responsible Provider: Ruben Ogden MD Anesthesia Type: epidural ASA Status: 2 Anesthesia Type: epidural Last vitals BP 116/66 (BP Location: Right arm) Pulse 96 Temp 36.7 ??C (98.1 ??F) (Oral) Resp 18 SpO2 98% Anesthesia Post Evaluation Patient location during evaluation: floor Patient participation: complete - patient participated Level of consciousness: fully awake Pain score: 1 Pain management: adequate Airway patency: adequate Cardiovascular status: acceptable and hemodynamically stable Respiratory status: acceptable and room air Hydration status: euvolemic Pt is: normothermic Nausea/Vomiting status: none Comments: Patient denies headache, fevers, chills, rigors, nausea/vomiting, tingling/weakness/numbness, excessive pain/edema/drainage/erythema at needle puncture site. Patient taking PO, ambulating, urinating without Wallis catheter. Puncture site examined - no appreciable induration, erythema, swelling, drainage. Patient counseled on signs/symptoms of epidural abscess/hematoma and post dural puncture headache. Patient advised to seek immediate medical attention should she appreciate any of these. Patient voices understanding. No notable events documented. Cosigned by Julio Aviles MD at 03/20/2022 9:34 AM CDT * Anesthesia Procedure Notes - Heather Louis RN - 03/18/2022 8:29 PM CDTAssociated Order(s): Epidural Block Epidural Block Patient location: L&D End time: 03/18/2022 8:05 PM Reason for block: labor analgesia Staff: Supervising provider: Ruben Ogden MD Placed by: AGRONOMY INSTRUCTOR: Curt Rivas CRNA Other staff: Heather Louis RN Procedure prep: Preprocedure checklist: patient identified, procedure contraindications assessed, procedure consentobtained, IV checked, risks, benefits and alternatives discussed, monitors and equipment checked and timeout performed Patient Position: sitting Procedure performed while patient: awake Monitoring: oximetry and blood pressure Prep solution: chlorhexadine/alcohol PPE: provider hat/mask, sterile gloves and sterile drape Skin infiltrated with lidocaine 1%: yes Epidural: Approach: midline Imaging guidance used: no Location: L3-4 Number of attempts:2 Epidural needle: Injection technique: MYA saline Needle type: Tuohy Needle gauge: 17 G Needle length: 9 cm Loss of resistance: 6 cm Catheter: Catheter type: multi-orifice and wire-bound. Catheter at skin depth: 12 cm Negative aspiration of blood: no Negative aspiration of CSF: no Test dose: negative Assessment: Sensory level - left: full eval pending Sensory level - right: full eval pending Events: patient tolerated procedure well with no complications * Anesthesia Preprocedure Evaluation - Ruben Ogden MD - 03/18/2022 1:24 PM CDT Anesthesia Evaluation Angy Norman is a 27 y.o. female * No procedures listed * * No Diagnosis Codes entered * HISTORY HPI 27 yo 40w0d here for IOL. Past Medical History Information obtained from: patient and chart. Neurological Neuro/Psych system: negative Cardiovascular Cardiac system: negative Respiratory Pertinent negatives: non-smoker Respiratory system: negative Hepatic / Heme Hepatic/Heme system: negative Gastrointestinal GI system: negative Renal / Renal/ system: negative Musculoskeletal/Pain Musculoskeletal/Pain system: negative Patient Active Problem List Diagnosis ??? Arthralgia of ankle ??? Pain of foot ??? Encounter for induction of labor Past Medical History: Diagnosis Date ??? Personal history of other mental and behavioral disorders History of bipolar disorder - (Added by TERESSA Conv) No past surgical history on file. OB History 1 Para Term AB Living SAB IAB Ectopic Multiple Live Births No Known Allergies No medications reported. Current Facility-Administered Medications: ??? carboprost (HEMABATE) injection 250 mcg, 250 mcg, intramuscular, Once PRN ??? Carrier Fluids for Secondary Infusion - 0.9% Sodium Chloride, 30 mL, intravenous, PRN ??? cefOXitin (MEFOXITIN) 1,000 mg/10 mL in sterile water (premix) 1,000 mg, 1,000 mg, intravenous,Once PRN ??? dextrose 5% and Lactated Ringer's infusion, 125 mL/hr, intravenous, Continuous ??? Lactated Ringer's (LR) bolus 1,000 mL, 1,000 mL, intravenous, Once PRN ??? Lactated Ringer's (LR) bolus 1,000 mL, 1,000 mL, intravenous, TID PRN ??? lidocaine PF (XYLOCAINE) 10 mg/mL (1 %) preservative free injection 100 mg, 10 mL, infiltration, Once PRN ??? loperamide (IMODIUM) capsule 2 mg, 2 mg, oral, Once PRN ??? methylergonovine (METHERGINE) injection 0.2 mg, 0.2 mg, intramuscular, Once PRN ??? miSOPROStoL (CYTOTEC) tablet 800 mcg, 800 mcg, rectal, Once PRN ??? ondansetron ODT (ZOFRAN-ODT) disintegrating tablet 4 mg, 4 mg, oral, Q6H PRN OR ondansetron(ZOFRAN) injection 4 mg, 4 mg, intravenous, Q6H PRN ??? oxytocin (PITOCIN) injection 10 Units, 10 Units, intramuscular, Once PRN ??? oxytocin 30 unit/500 mL (0.06 unit/mL) in sodium chloride 0.9% (premix) solution, 0.5-40 milliunits/min, intravenous, Titrated ??? sodium chloride 0.9% flush 0.5-20 mL, 0.5-20 mL, intra-catheter, Q8H DUTCH ??? sodium chloride 0.9% flush 0.5-20 mL, 0.5-20 mL, intra-catheter, PRN ??? terbutaline (BRETHINE) injection 0.125 mg, 0.125 mg, intravenous, Once PRN OR terbutaline (BRETHINE) injection 0.25 mg, 0.25 mg, subcutaneous, Once PRN ??? tranexamic acid (CYKLOKAPRON) 1,000 mg/100 mL (10 mg/mL) in sodium chloride (premix) 1,000 mg, 1,000 mg, intravenous, Once PRN Social History Tobacco Use Smoking Status Never Smokeless Tobacco Not on file Alcohol Use: Not At Risk ??? Frequency of Alcohol Consumption: Never ??? Average Number of Drinks: Patient does not drink ??? Frequency of Binge Drinking: Never Substance and Sexual Activity Drug Use Not on file Family History Problem Relation Age of Onset ??? Low Back Pain Mother Family history of low back pain - (Added by TW Conv) PAT Physical Exam Airway Exam: Mallampati: II Cervical ROM: FROM Upper lip bite test class: 1 Cardiovascular Exam: Rate: regular Rhythm: regular Pulmonary Exam: LCTA EENT Exam: trachea midline Dental Exam: Appears intact and permanent retainer Skin Exam: Skin is warm. Abdominal exam: Abdomen is soft. Current state: Patient's current state is cooperative. Additional comments: BP 118/57 Pulse 82 Temp 36.8 ??C (98.3 ??F) (Oral) Resp 18 Ht 170.2 cm(5' 7 ) Wt 108.9 kg (240 lb) SpO2 97% BMI 37.59 kg/m?? Vitals: 03/18/22 1040 03/18/22 1045 03/18/22 1050 BP: 118/57 Pulse: 95 86 82 Resp: 18 Temp: 36.8 ??C (98.3 ??F) SpO2: 96% 98% 97% PT: No results found for requested labs within last 720 hours. INR: No results found for requested labs within last 720 hours. APTT: No results found for requested labs within last 720 hours. Hgb A1C: No results found for requested labs within last 720 hours. CBC RBC: 03/18/2022: 4.22 M/cumm RDW: No results found for requested labs within last 720 hours. MCHC: 03/18/2022: 34.5 g/dL MCH: 03/18/2022: 30.1 pg MCV: 03/18/2022: 87.2 fL Hct: 03/18/2022: 36.8 % Hgb: 03/18/2022: 12.7 g/dL WBC: 03/18/2022: 11.2 K/cumm (H) MPV: 03/18/2022: 11.4 fL Platelets: 03/18/2022: 176 K/cumm RDW CV: 03/18/2022: 12.9 % RDW Sd: 03/18/2022: 40.5 fL BMP Glucose: 03/18/2022: 95 mg/dL Calcium: 03/18/2022: 9.6 mg/dL Sodium: 03/18/2022: 138 mmol/L Potassium: 03/18/2022: 3.8 mmol/L CO2: 03/18/2022: 23 mmol/L Chloride: 03/18/2022: 104 mmol/L BUN: 03/18/2022: 6 mg/dL (L) Creatinine: 03/18/2022: 0.51 mg/dL (L) DOS Physical Exam Medical history, medications, and allergies reviewed. Attestation: This PAT evaluation 03/18/2022. Airway Exam: Mallampati: II Cervical ROM: FROM TM distance: 3 Cardiovascular Exam: Rate: regular Rhythm: regular Pulmonary Exam: LCTA, bilat EENT Exam: trachea midline Dental Exam: Appears intact Skin Exam: Skin is warm. Turgor is normal. Current state: Patient's current state is cooperative. Anesthesia Plan ASA 2 My patient is approved for the Anesthesia Controlled Medication protocol when under care of a AGRONOMY INSTRUCTOR Planned anesthesia: Epidural Informed Consent: Anesthesia plan and risks discussed with patient. Consent and Attending signature: I and/or my designee have discussed the anesthesia plan, benefits, possible alternatives, parental presence at time of induction (if indicated), and clinically relevant risks that may include dental injury, unintentional awareness, and/or other complications. The patient and/or parent/legal guardian understand, and agree to proceed. All questions answered. documented in this encounter Plan of Treatment Not on file documented as of this encounter Procedures Procedure Name Priority Date/Time Associated Diagnosis Comments [place] AN PROCEDURE PLACEHOLDER Routine 03/18/2022 8:29 PM CDT documented in this encounter Results * [place] AN PROCEDURE PLACEHOLDER (03/18/2022 8:29 PM CDT) Narrative Heather Louis RN - 03/18/2022 8:29 PM CDT Heather Louis RN ? 03/18/2022 ??8:32 PM Epidural Block Patient location: L&D End time: 03/18/2022 8:05 PM Reason for block: labor analgesia Staff: Supervising provider: Ruben Ogden MD Placed by: AGRONOMY INSTRUCTOR: Curt Rivas CRNA Other staff: Heather Louis RN Procedure prep: Preprocedure checklist: patient identified, procedure contraindications assessed, procedure consent obtained, IV checked, risks, benefits and alternatives discussed, monitors and equipment checked and timeout performed Patient Position: sitting Procedure performed while patient: awake Monitoring: oximetry and blood pressure Prep solution: chlorhexadine/alcohol PPE: provider hat/mask, sterile gloves and sterile drape Skin infiltrated with lidocaine 1%: yes Epidural: Approach: midline Imaging guidance used: no Location: L3-4 Number of attempts:2 Epidural needle: Injection technique: MYA saline Needle type: Tuohy Needle gauge: 17 G Needle length: 9 cm Loss of resistance: 6 cm Catheter: Catheter type: multi-orifice and wire-bound. Catheter at skin depth: 12 cm Negative aspiration of blood: no Negative aspiration of CSF: no Test dose: negative Assessment: Sensory level - left: full eval pending Sensory level - right: full eval pending Events: patient tolerated procedure well with no complications Brenda Baldwin MD ANESTHESIA ORDERABLES Final Result documented in this encounter Visit Diagnoses Not on filedocumented in this encounter Administered Medications Inactive Administered Medications - up to 3 most recent administrations Medication Order MAR Action Action Date Dose Rate Site azithromycin (ZITHROMAX) 500 mg/250 mL in sodium chloride 0.9% (premix) intravenous, Administer over 60 Minutes, As needed, Starting on 03/19/22 at 0332, Anesthesia Intra-op Given 03/19/2022 3:32 AM CDT 500 mg ceFAZolin (ANCEF) injection intravenous, Administer over 3 Minutes, As needed, Starting on 03/19/22 at 0332, Anesthesia Intra-op Given 03/19/2022 3:32 AM CDT 2,000 mg dextrose 5% and Lactated Ringer's infusion 125 mL/hr, intravenous, Continuous, Starting on Mon03/18/22 at 1400 Rate/Dose Verify 03/18/2022 7:43 PM CDT 125 mL/hr Restarted 03/18/2022 6:40 PM CDT 125 mL/hr 125 mL/hr New Bag 03/18/2022 1:32 PM CDT 125 mL/hr 125 mL/hr famotidine (PEPCID) injection intravenous, Administer over 2 Minutes, As needed, Starting on 03/19/22 at 0343, Anesthesia Intra-op Given 03/19/2022 3:43 AM CDT 20 mg fentaNYL-bupivacaine preservative free in 0.9% sodium chloride 2 mcg/mL- 0.1 % cassette (premix) Continuous Rate: 10 mL/hr, Patient Bolus Dose: 8 mL, Lockout Interval: 15 Minutes, epidural, Continuous, Starting on Mon03/18/22 at 2015, Until 03/19/22 at 2009, 100 mL, Indications: Pain, Stop epidural infusion after placental delivery and any indicated repair is complete., RoutineIndications:Pain New Syringe/Cartridge 03/19/2022 2:00 AM CDT 100 mL New Syringe/Cartridge 03/18/2022 8:37 PM CDT 100 mL Given 03/18/2022 8:09 PM CDT 5 mL ketorolac (TORADOL) 30 mg/mL (1 mL) injection intravenous, As needed, Starting on 03/19/22 at 0423, Anesthesia Intra-op Given 03/19/2022 4:23 AM CDT 30 mg Lactated Ringer's (LR) infusion intravenous, Continuous PRN, Starting on 03/19/22 at 0331, Anesthesia Intra-op New Bag 03/19/2022 3:31 AM CDT lidocaine-EPINEPHrine (XYLOCAINE with EPI) 1.5 %-1:200,000 preservative free injection epidural, As needed, Starting on Mon03/18/22 at 2005, Anesthesia Intra-op, Indications: Administration of Local AnesthesiaIndications:Administ ration of Local Anesthesia Given 03/18/2022 8:04 PM CDT 5 mL lidocaine-EPINEPHrine (XYLOCAINE with EPI) 2 %-1:200,000 preservative free injection epidural, As needed, Starting on 03/19/22 at 0339, Anesthesia Intra-op, Indications: Administration of Local AnesthesiaIndications:Administ ration of Local Anesthesia Given 03/19/2022 3:39 AM CDT 5 mL ondansetron (ZOFRAN) injection intravenous, Administer over 2 Minutes, As needed, Starting on 03/19/22 at 0343, Anesthesia Intra-op Given 03/19/2022 3:43 AM CDT 4 mg oxytocin (PITOCIN) injection intravenous, As needed, Starting on 03/19/22 at 0338, Anesthesia Intra-op Given 03/19/2022 3:38 AM CDT 3 Units oxytocin 30 unit/500 mL (0.06 unit/mL) in sodium chloride 0.9% (premix) solution 0.5-40 milliunits/min (0.5-40 mL/hr), 0.06 units/mL, intravenous, Titrated, Starting on Mon03/18/22 at 1330, Until 03/19/22 at 2009, Indications: Induction of Labor, Start at 2 lawson-units/min and increase by 2 lawson-units/minutes every 30 minutes until contraction frequency is every 2-3 minutes. - - 20 milliunits/minutes maximum - All other patients 40 milliunits/minute maximum Discontinue for distress or uterine hyperstimulation., RoutineIndications:Induction of Labor Rate/Dose Change 03/19/2022 3:47 AM CDT 95 mL/hr 95 mL/hr Rate/Dose Change 03/19/2022 3:38 AM CDT 250 mL/hr 250 mL/ hr Rate/Dose Change 03/18/2022 10:14 PM CDT 8 milliunits/min 8 mL/hr phenylephrine (DELILAH-SYNEPHRINE) 1 mg/10 mL (100 mcg/mL) in sodium chloride 0.9% (premix) intravenous, As needed, Starting on 03/19/22 at 0330, Anesthesia Intra-op Given 03/19/2022 4:17 AM CDT 200 mcg Given 03/19/2022 4:08 AM CDT 200 mcg Given 03/19/2022 4:02 AM CDT 200 mcg phenylephrine (DELILAH-SYNEPHRINE) 5 mg/50 mL (100 mcg/mL) in sodium chloride 0.9% (premix) intravenous, Continuous PRN, Starting on 03/19/22 at 0332, Anesthesia Intra-op Rate/Dose Change 03/19/2022 4:35 AM CDT 0.2 mcg/kg/min 13.068 mL/hr Rate/Dose Change 03/19/2022 4:32 AM CDT 0.4 mcg/kg/min 26. 136 mL/hr Rate/Dose Change 03/19/2022 4:29 AM CDT 0.6 mcg/kg/min 39. 204 mL/hr documented in this encounter Care Teams Epic Anesthesia Analyst Relationship Specialty Start Date End Date Adria Miranda MD [address] [place] [address] [place] [id number] PCP - General 05/15/20 documented as of this encounter
--- OUTSIDE RECORDS SUMMARY | 2024-07-02 05:07 | XMS_ITS | Encounter Summary ---
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 - 08/13/2014 4:00 PM MANAGER GOLF [facility] [place] [address] [place] [address] Aftercare involving internal fixation device; Pain in joint, ankle and foot Social History Tobacco Use Types Packs/Day Years Used Date Smoking Tobacco: Never Comments Unknown Sex and Gender Information Value Date Recorded Sex Assigned at Not on file 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 FINAL REPORT ACC# ??Date Time ??Exam [id number] Aug 13, 2014 15:39:00 [id number] Ankle Complt. min 3 views L EXAMINATION: ?? 1. Ankle complete 3 views HISTORY: Ankle instability FINDINGS: Nonweight-bearing views submitted with comparison 07/10/2014. There has been interval open reduction and internal fixation of the left syndesmosis with a single cable. No acute fractures are identified. Ankle mortise is normal. The joint spaces are normal in appearance. IMPRESSION: ?? 1. Interval reduction and internal fixation of the left ankle syndesmosis. Requested By: PRICE SARABIA M.D. Dictated By: ?? BEATRIZ CLOUD M.D. ??on Aug?2014 ??3:52P This document has been electronically signed by: BEATRIZ CLOUD M.D. on Aug?2014 ??3:52P Procedure Note Provider, MD Ludivina - 10/06/2016 BEATRIZ CLOUD M.D. FINAL REPORT ACC# Date Time Exam [id number] Aug 13, 2014 15:39:00 [id number] Ankle Complt. min 3 views L EXAMINATION: 1. Ankle complete 3 views HISTORY: Ankle instability FINDINGS: Nonweight-bearing views submitted with comparison 07/10/2014. There has been interval open reduction and internal fixation of the left syndesmosis with a single cable. No acute fractures are identified. Ankle mortise is normal. The joint spaces are normal in appearance. IMPRESSION: 1. Interval reduction and internal fixation of the left anklesyndesmosis. Requested By: PRICE SARABIA M.D. Dictated By: BEATRIZ CLOUD M.D. on Aug 13 2014 3:52P This document has been electronically signed by: BEATRIZ CLOUD M.D. on Aug 13 2014 3:52P us Historical Provider IMG XR PROCEDURES Final R esult documented in this encounter Visit Diagnoses Diagnosis Aftercare involving internal fixation device Pain in joint, ankle and foot documented in this encounter
--- OUTSIDE RECORDS SUMMARY | 2024-07-02 05:07 | XMS_ITS | Encounter Summary ---
Author Organization [facility] Address [address] [place] [address] Care Team Providers Care Supervisor Plate Pasting Name Role Phone Adria Miranda MD Primary Care Provider Reason for Referral * Diagnostic Imaging (Routine) - Closed Specialty Diagnoses / Procedures Referred By Contac t Referred To Contact Diagnoses Encounter for anatomic survey Procedures Ob Limited Alessandra Conde NP [address] [place] [address] Phone: tel: fax: [facility] (All Locations) Referral ID Status Reason Start Date Expiration Date Visits Re quested Visits Authorized [id number] Closed 11/03/2021 06/11/2022 1 1 Reason for Visit * Diagnostic Imaging (Routine) - Closed Specialty Diagnoses / Procedures Referred By Contmili collins Referred To Contact Diagnoses Encounter for anatomic survey Procedures Ob Limited Alessandra Conde NP [address] [place] [address] Phone: tel: fax: [facility] (All Locations) Referral ID Status Reason Start Date Expiration Date Visits Re quested Visits Authorized [id number] Closed 11/03/2021 06/11/2022 1 1 Encounter Details Date Type Department Care Team (Latest Contact Info) Description 11/10/2021 9:02 AM CDT - 11/10/2021 11:59 PM CDT Hospital Encounter [facility] - Ultrasound [address] [facility], [address] [place] [address] Encounter for anatomic survey Discharge Disposition: Discharge to home or self care Social History Tobacco Use Types Packs/Day Years Used Date Smoking Tobacco: Never Comments Unknown Sex and Gender Information Value Date Recorded Sex Assigned at Not on file 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 Gender Identity Not on file Sexual Orientation Not on file documented as of this encounter Discharge Disposition Disposition Code Departure Means Destination Discharge to home or self care documented in this encounter Plan of Treatment Not on file documented as of this encounter Procedures Procedure Name Priority Date/Time Associated Diagnosis Comments US OB LIMITED Schedule Routine, Read Routine (OP Routine) 11/10/2021 9:02 AM CDT Encounter for anatomic survey documented in this encounter Results * US Ob Limited (11/10/2021 9:02 AM CDT) Fetus# Fetus1 VIEWPOINT Placenta Details posterior, Previa-no VIEWPOINT Presentation Vertex VIEWPOINT Anatomical Region Laterality Modality Abdomen N/A Ultrasound 11/10/2021 9:03 AM CDT Summer Aileen Conde [employer] INST[employer]ER IMG OB US PROCEDURES Nelda l Result documented in this encounter Visit Diagnoses Diagnosis Encounter for anatomic survey documented in this encounter Care Teams Supervisor Plate Pasting Relationship Specialty Start Date End Date Adria Miranda MD [address] [facility] [address] [place] [address] PCP - General 05/15/20 documented as of this encounter
--- OUTSIDE RECORDS SUMMARY | 2024-07-02 05:07 | XMS_ITS | Encounter Summary ---
Author Organization 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
--- OUTSIDE RECORDS SUMMARY | 2024-07-02 05:07 | XMS_ITS | Encounter Summary ---
Author Organization [facility] Healthcare Address [address] [place] [address] Care Team Providers Care Game Moderator Name Role Phone Adria Miranda MD Primary Care Provider Reason for Visit * Auth/Cert Specialty Diagnoses / Procedures Referred By Contac t Referred To Contact Diagnoses Encounter for induction of labor Procedures ADM Referral ID Status Reason Start Date Expiration Date Visits Re quested Visits Authorized [id number] 1 1 Encounter Details Date Type Department Care Team (Latest Contact Info) Description 03/18/2022 5:59 AM CDT - 03/21/2022 5:09 PM CDT Hospital Encounter [address] [id number] [place] [address] [place] [id number] Afshan Trimble MD [address] [place] [address] Brenda Baldwin MD [address] [place] [address] Encounter for induction of labor (Primary Dx) Discharge Disposition: Discharge to home or self [...] often do you attend chur ch or latter-day services? 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 Symptoms of preeclampsia have been reviewed. [...] UPC deferred d/t diagnosis . Enrolled in homeBP. # GI/: Tolerating PO. Voiding spontaneously. # [...] as: SENOKOT Outpatient Follow-Up: 2 weeks at Jose Darden NP 03/21/22 Cosigned by Jade Garcia [...] first call our OB communication center at [phone]. * If you have SEVERE illness including [...] hours). Do NOT supplement unless instructed by Telecommunications Sales Representative. Call your Telecommunications Sales Representative if your baby has poor eating habits (examples: feedings decrease, no feedings in 6 hours, or infant spits up more than ?? of their [...] juice, cereal) unless instructed byPediatrician. Call your Telecommunications Sales Representative if your baby has poor eating habits [...] call our centralized OB communication center at [phone]. Do not come to the hospital or clinic until you speak with a provider. [facility]: Your appointment has been scheduled for [...] right, call our OB communication center at [phone]. High blood pressure problems during & after [...] should call the doctor if you experience: [facility]CI risks of preeclampsia If you had preeclampsia [...] in this encounter Progress Notes * Angy Myers, DIANA - 03/21/2022 12:03 PM CDT Reason for Admission MOB (Angy Norman 1995) was admitted on 03/18/2022 for Encounter for induction of labor[Z34.90]. 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 Pediatric follow-up to be scheduled with [facility] in [place]. Medical insurance coverage is through [employer]. Information Baby boy was born on 03/19/2022 at EGA 40 weeks and has been named Elliot. Delivery was , Low Transverse . weighed 8lbs and 3.9 ounces at delivery. This is mother's first child. Social History Current address is [address] [facility] [address], where she lives with her boyfriend, Jose Luis. Patient confirms she feels safe here. Currently [phone] (home) is the best phone number for future contact. Pt denies having established WIC and [employer] as supplemental income source. MOB reports that [...] More than three times a week Attends Pentecostalism Services: Never Active Member of Clubs or [...] at all SW provided patient with a PMADS resource/information packet. Patient denied needing any further [...] and additional needs should they arise. Angy Myers SPECIAL EVENTS DRIVER, CASINO CAGE SUPERVISOR MERGED [facility] Ripper Operator * Flora Darden NP - 03/21/2022 9:02 [...] 5 mg at 03/20/22 0924 PNV with pyhzbvh-wzgz-PO tablet 1 tablet 1 tablet oral Daily Chel Louis MD 1 tablet at 03/20/22743 polyethylene glycol (MIRALAX) packet 17 g 17 g oral Daily PRN Chel Louis MD 17 g at 03/20/22743 senna (SENOKOT) tablet 1 tablet 1 tablet oral BID Cehl Louis MD 1 tablet at 03/20/222008 simethicone [...] baby is cleared by peds. Flora Darden MILLWRIGHT INSTRUCTOR-C 03/21/22 Cosigned by Jade Garcia MD at [...] continue routine PP care Chel Louis MD SPIKE DRIVER PGY-4 03/20/22 7:12 AM Cosigned by Tiffani [...] - currently on OT running @2 Bernice Olivarez MD * Yan Conteh MD - 03/18/2022 [...] kg) SpO2 97% BMI 37.59 kg/m?? SVE: /-2 Monitoring: Baseline: 145 bpm, Variability: Moderate, [...] Estimated Date of Delivery: None noted. Provider: [facility] HPI: RayneMindy Norman is a 27 y.o. at 40w0d [...] Sex Delivery Anes PTL Lv 1 Current SUPPLY REQUIREMENTS OFFICER History: No LMP recorded. Patient is . [...] (Resulted on: 02/22) Assessment and Plan Angy Thomas Chestnut is a 27 y.o. at 40w0d by [...] latch achieved. Mother shown hand expression and given gtts of colostrum. Mother encouraged to [...] pressure check in her primary OB team ([facility]). Symptoms of preeclampsia have been reviewed. [...] Cervantes MD - 03/19/2022 4:47 AM CDT [facility] Section Delivery Note Patient's Name: Angy Norman : 1995 Attending Physician: Brenda Baldwin MD Surgical Team: Surgeon(s) and Role: * Brenda Baldwin MD - Primary * Tiffani Neely MD - Assisting * Carlitos Cervantes MD - Resident - Assisting * Mel Martin MD - Co-Surgeon Clinic: [facility] Primary Diagnoses: Intrauterine at 40w1d, delivered [...] kg) male APGARs: 3 / 8 Disposition: [facility] Operative Note Preoperative Diagnosis: Intrauterine at [...] Level 1 given nonreassuring status. Operative Findings: in vertex presentation. APGARS were 3 / [...] 90 - 130 mL/min/1. 73 m2 JONATHAN [facility] Comment: Interpretive Data Reference Interval Normal ?>/= [...] Baldwin MD LAB BLOOD ORDERABLES Final Result [facility] [address] [place] [address] * (ABNORMAL) Comprehensive metabolic panel (03/20/2022 6:00 AM CDT) Sodium 137 135 - 145 mmol/L [facility] Potassium, pl 3.8 3.3 - 4.9 mmol/L [facility] Chloride 104 97 - 110 mmol/L [facility] CO2 25 22 - 32 mmol/L [facility] Anion gap 8 2 - 15 mmol/L [facility] BUN 10 8 - 25 mg/dL [facility] Creatinine 0.64 0.60 - 1.10 mg/dL [facility] Glucose 124 70 - 199 mg/dL [facility] Comment: Interpretive Data Fasting glucose >/= 126 [...] 2017. Calcium 8.7 8.5 - 10.3 mg/dL [facility] Bilirubin, total 0.3 0.1 - 1.2 mg/dL [facility] Protein, pl 5.8(L) 6.5 - 8.5 g/dL [facility] Albumin 3.0(L) 3.5 - 5.0 g/dL [facility] Alk phos 102 40 - 130 Units/L [facility] ALT 14 7 - 45 Units/L [facility] AST 31 10 - 45 Units/L [facility] Blood 03/20/2022 6:00 AM CDT 03/20/2022 6:14 AM CDT Brenda Baldwin MD LAB BLOOD ORDERABLES Final Result [facility] [address] [place] [address] * (ABNORMAL) CBC without differential (03/20/2022 6:00 AM CDT) WBC 15.6(H) 3.8 - 9.9 K/cumm [facility] Hgb 9.5(L) 11.9 - 15.5 g/dL [facility] Comment:Hemoglobin delta due to surgical procedure. Called to Gilbert Castañeda RN on 03-20-22 at 0630 by P.R. Hct 28.3(L) 35.6 - 45.5 % [facility] Plt 127(L) 150 - 400 K/cumm [facility] MPV 11.3 9.1 - 12.3 fL [facility] RBC 3.16(L) 3.90 - 5.20 M/cumm [facility] MCV 89.6 81.3 - 96.4 fL [facility] MCH 30.1 27.1 - 33.3 pg [facility] MCHC 33.6 32.3 - 35.7 g/dL [facility] RDW CV 13.5 11.1 - 14.9 % [facility] RDW SD 44.6 35.7 - 48.1 fL [facility] NRBC abs 0.00 0.00 - 0.01 K/cumm [facility] Blood 03/20/2022 6:00 AM CDT 03/20/2022 6:14 AM CDT Brenda Baldwin MD LAB BLOOD ORDERABLES Final Result Performing Organization Address City/[facility] Co de Phone Number [facility] [place] [address] * (ABNORMAL) Hepatic function panel (03/18/2022 6:42 AM CDT) Pathologist [facility] Bilirubin, total 0.2 0.1 - 1.2 mg/dL [facility] Bilirubin, direct <0.2 0.1 - 0.3 mg/dL [facility] Protein, pl 6.7 6.5 - 8.5 g/dL [facility] Albumin 3.8 3.5 - 5.0 g/dL [facility] Alk phos 142(H) 40 - 130 Units/L [facility] ALT 13 7 - 45 Units/L [facility] AST 24 10 - 45 Units/L [facility] Blood 03/18/2022 6:42 AM CDT 03/18/2022 6:53 AM CDT Brenda Baldwin MD LAB BLOOD ORDERABLES Final Result [facility] [place] [address] * (ABNORMAL) eGFR (03/18/2022 6:42 AM CDT) eGFR >90(H) 90 - 130 mL/min/1. 73 m2 [facility] Comment: Interpretive Data Reference Interval Normal ?>/= [...] ORDERA BLES Final Result Performing Organization Address City/[facility] Co de Phone Number [facility] [address] [place] [address] * RPR Blood (03/18/2022 6:42 AM CDT) RPR Nonreactive Nonreactive JONATHAN [facility] Blood 03/18/2022 6:42 AM CDT 03/18/2022 6:53 AM CDT us Jade Garcia MD LAB MICROBIOLOGY - GENERAL ORDERABLES Final Result Performing Organization Address City/[facility] Co de Phone Number [facility] [place] [address] * (ABNORMAL) Basic metabolic panel (03/18/2022 6:42 AM CDT) Pathologist [facility] Sodium 138 135 - 145 mmol/L [facility] Potassium, pl 3.8 3.3 - 4.9 mmol/L [facility] Chloride 104 97 - 110 mmol/L [facility] CO2 23 22 - 32 mmol/L [facility] Anion gap 11 2 - 15 mmol/L [facility] BUN 6(L) 8 - 25 mg/dL [facility] Creatinine 0.51(L) 0.60 - 1.10 mg/dL [facility] Glucose 95 70 - 199 mg/dL [facility] Comment: Interpretive Data Fasting glucose >/= 126 [...] 2017. Calcium 9.6 8.5 - 10.3 mg/dL [facility] Blood 03/18/2022 6:42 AM CDT 03/18/2022 6:53 AM CDT us Jade Garcia MD LAB BLOOD ORDERA BLES Final Result Performing Organization Address City/[facility]/ZIP Co de Phone Number JONATHAN [facility] [address] [place] [address] * (ABNORMAL) CBC without differential (03/18/2022 6:42 AM CDT) Pathologist [facility] WBC 11.2(H) 3.8 - 9.9 K/cumm [facility] Hgb 12.7 11.9 - 15.5 g/dL [facility] Hct 36.8 35.6 - 45.5 % [facility] Plt 176 150 - 400 K/cumm [facility] MPV 11.4 9.1 - 12.3 fL [facility] RBC 4.22 3.90 - 5.20 M/cumm [facility] MCV 87.2 81.3 - 96.4 fL [facility] MCH 30.1 27.1 - 33.3 pg [facility] MCHC 34.5 32.3 - 35.7 g/dL [facility] RDW CV 12.9 11.1 - 14.9 % [facility] RDW SD 40.5 35.7 - 48.1 fL [facility] NRBC abs 0.00 0.00 - 0.01 K/cumm [facility] Blood 03/18/2022 6:42 AM CDT 03/18/2022 6:53 AM CDT us Jade Garcia MD LAB BLOOD ORDERA BLES Final Result Performing Organization Address City/[facility]/ZIP Co de Phone Number [facility] [place] [address] * Type and screen (03/18/2022 6:42 AM CDT) Amanda, indirect Negative [facility] ABO Rh A Positive [facility] Blood 03/18/2022 6:42 AM CDT 03/18/2022 7:03 AM CDT Narrative [facility] - 03/18/2022 7:58 AM CDT Has the patient had Daratumumab or Isatuximab in the past 6 months?->Unknown us Jade Garcia MD LAB BLOOD BANK T EST ORDERABLES Final Result Performing Organization Address City/[facility]/ZIP Co de Phone Number [facility] [place] [address] documented in this encounter Visit Diagnoses Diagnosis Encounter for induction of labor- Primary Encounter for induction of labor state Routine follow-up documented in this encounter Admitting Diagnoses Diagnosis Encounter for induction of labor documented in this encounter Administered Medications Inactive Administered Medications - up to 3 most recent administrations Medication Order MAR Action Action Date Dose Rate Site acetaminophen (TYLENOL) tablet 1,000 mg 1,000 mg, oral, Every 6 hours scheduled, First dose on 03/19/22 at 1100, For 24 hours, When able to tolerate PO. Max 4 doses. Anesthesia orders for the first 24 hours ., Indications: PainIndications:Pain Given 03/20/2022 4:47 AM CDT 1,000 mg Given 03/19/2022 10:31 PM CDT 1,000 mg Given 03/19/2022 4:50 PM CDT 1,000 mg acetaminophen (TYLENOL) tablet 1,000 mg 1,000 mg, oral, Every 6 hours, First dose on 03/20/22 at 0630, Start in 24 hours after Anesthesia no longer covering., Indications: PainIndications:Pain Given 03/21/2022 11:44 AM CDT 1,000 mg Given 03/21/2022 5:22 AM CDT 1,000 mg Given 03/20/2022 11:17 PM CDT 1,000 mg dextrose 5% and Lactated Ringer's infusion 125 mL/hr, intravenous, Continuous, Starting on Mon03/18/22 at 1400 Rate/Dose Verify 03/18/2022 7:43 PM CDT 125 mL/hr Restarted 03/18/2022 6:40 PM CDT 125 mL/hr 125 mL/hr New Bag 03/18/2022 1:32 PM CDT 125 mL/hr 125 mL/hr docusate sodium (COLACE) capsule 100 mg 100 [...] 03/19/22 at 2100, Indications: Deep Vein Thrombosis PreventionIndications:Maggy p Vein Thrombosis Prevention Given 03/20/2022 8:09 PM CDT 40 mg Left Lower Abdomen fentaNYL-bupivacaine preservative free in 0.9% sodium chloride [...] Given 03/18/2022 8:09 PM CDT 5 mL ibuprofen (ADVIL,MOTRIN) tablet 600 mg 600 mg, oral, Every 6 hours, First dose on Mon03/20/22 at 0630, Start in 24 hours after Anesthesia no longer covering., Indications: CrampsIndications:Cramps Given 03/21/2022 11:43 AM CDT 600 mg Given 03/21/2022 5:21 AM CDT 600 mg Given 03/20/2022 11:17 PM CDT 600 mg ketorolac (TORADOL) 30 mg/mL (1 mL) injection 30 mg 30 mg, intravenous, Every 6 hours scheduled, First dose on 03/19/22 at 1200, For 24 hours, Max 4 doses. Anesthesia orders for the first 24 hours ., Indications: PainIndications:Pain Given 03/20/2022 4:47 AM CDT 30 mg Given 03/19/2022 10:32 PM CDT 30 mg Given 03/19/2022 4:50 PM CDT 30 mg Lactated Ringer's (LR) bolus 1,000 mL 1,000 mL, intravenous, at 1,000 mL/hr, Administer over 1 Hours, Once as needed, for epidural placement per anesthesia request, Starting on Mon03/18/22 at 0559, For 1 dose, L&D Pre-Delivery, Administer only on provider request. Start 15 minutes prior to epidural placement New Bag 03/18/2022 7:37 PM CDT 1,000 mL 1000 mL/hr miSOPROStol (CYTOTEC) split tablet 25 mcg 25 mcg, vaginal, Once, On Mon03/18/22 at 0730, For 1 dose Given 03/18/2022 7:38 AM CDT 25 mcg miSOPROStoL (CYTOTEC) tablet 800 mcg 800 mcg, rectal, Once as needed, hemorrhage per MD request, Starting on Mon03/18/22 at 0559, For 1 dose, L&D Pre-Delivery, Administer only on provider request Given 03/19/2022 4:33 AM CDT 800 mcg ondansetron (ZOFRAN) injection 4 mg 4 mg, [...] for the first 24 hours ., Indications: PainIndications:Pain Given 03/19/2022 10:31 PM CDT 5 mg oxyCODONE (ROXICODONE) tablet 5 mg 5 mg, oral, Every 4 hours PRN, 1st line for pain, Starting on 03/20/22 at 0624, May administer 1 hour after 1st line agent for uncontrolled or increasing pain. Start in 24 hours after Anesthesia no longer covering., Indications: PainIndications:Pain Given 03/20/2022 9:24 AM CDT 5 mg oxytocin 30 unit/500 mL (0.06 unit/mL) in [...] 10:14 PM CDT 8 milliunits/min 8 mL/hr PNV with jmjvcpu-yggi-IU tablet 1 tablet 1 tablet, oral, Daily, First dose on 03/19/22 at 2045, Begin when normal bowel activity resumes., Indications: Vitamin Deficiency PreventionIndications:Vitamin Deficiency Prevention Given 03/21/2022 9:44 AM CDT 1 tablet Given 03/20/2022 7:44 AM CDT 1 tablet polyethylene glycol (MIRALAX) packet 17 g 17 g, oral, Daily PRN, constipation, Starting on 03/19/22 at 2008, Hold if diarrhea., Indications: constipationIndications:constipation Given 03/20/2022 [...] on line type and size. Given 03/19/2022 4:53 PM CDT 10 mL sodium chloride 0.9% flush 0.5-20 mL 0.5-20 mL, intra-catheter, As needed, line care, Starting on Mon03/18/22 at 1939, Flush volume based on line type and size. Flush before and after each use. Given 03/19/2022 4:50 PM CDT 10 mL sodium chloride 0.9% flush 0.5-20 mL 0.5-20 mL, intra-catheter, Every 8 hours scheduled, First dose on 03/19/22 at 2200, Flush volume based on line type and size. Given 03/19/2022 10:32 PM CDT 10 mL terbutaline (BRETHINE) injection 0.125 mg 0.125 mg, intravenous, Once as needed, distress and uterine tachysystole, Starting on Mon03/18/22 at 0559, For 1 dose, L&D Pre-Delivery, Notify physician immediately if administration is required., Indications: distress and uterine tachysystoleIndications: distress and uterine tachysystole Given 03/19/2022 3:17 AM CDT 0.125 mg documented in this encounter Active and Recently [...] Savage RN) 0447 (Given - Provider: Gilbert Savage, MARGE) acetaminophen (TYLENOL) tablet 1,000 mg 1,000 mg, oral, Every 6 hours, First dose on Mon03/20/22 at 0630, Start in 24 hours after Anesthesia no longer covering., Indications: Pain 0630 (Due)1025 (Given - Provider: Ruba Simpson RN)1624 (Given - Provider: Ruba Simpson RN)2317 (Given - Provider: Gilbert Savage, MARGE) 0522 (Given - Provider: Gilbert Savage RN)1144 (Given - Provider: Ruba Simpson RN)1700 (Due - Provider: Carlos A Yoder [facility]) docusate sodium (COLACE) capsule 100 mg 100 mg, oral, 2 times daily, First dose on 03/19/22 at 2100, Hold if diarrhea., Indications: constipation, Stool Softener 2046 (Given - Provider: Gilbert Savage RN) 0744 (Given - Provider: Ruba Simpson RN)2008 (Given - Provider: Gilbert Savgae RN) 0944 (Given - Provider: Jeffery Dorsey) enoxaparin (LOVENOX) syringe 40 mg 40 mg, subcutaneous, Daily (for enoxaparin), First dose on 03/19/22 at 2100, Indications: Deep Vein Thrombosis Prevention 2224 (Not Given - Provider: Gilbert Savage RN [...] RN)1700 (Due - Provider: Carlos A Yoder [facility]) ketorolac (TORADOL) 30 mg/mL (1 mL) injection [...] - Provider: Gilbert Savage RN) PNV with hrbetpg-eazk-HK tablet 1 tablet 1 tablet, oral, Daily, First dose on 03/19/22 at 2045, Begin when normal bowel activity resumes., Indications: Vitamin Deficiency Prevention 8 (Not Given - Provider: Gilbert Savage RN [...] and size. 0600 (Due)1653 (Given - Provider: uRba Simpson RN) sodium chloride 0.9% flush 0.5-20 [...] on Mon03/18/22 at 2015, Until 03/19/22 at 2008, 100 mL, Indications: Pain, Stop epidural infusion after placental delivery and any indicated repair is complete., Routine 0200 (New Syringe/Cartridge - Provider: Malena Lim, RN)0440 (Stopped (Dual Sign) - Provider: Malena Lim RN) Lactated Ringer's (LR) infusion(Linked Group 1) 125 mL/hr, intravenous, Continuous, Starting on Mon03/20/22 at 0045, Until regular diet. 2337 (Not [...] provider request 0433 (Given - Provider: Malena Lim, MARGE) ondansetron (ZOFRAN) injection 4 mg(Linked Group 2) [...] the first 24 hours ., Indications: Pain 223 (Given - Provider: Gilbert Savage RN) oxyCODONE [...] each use. 1650 (Given - Provider: Ruba Simpson, MARGE) sodium chloride 0.9% flush 0.5-20 mL 0.5-20 mL, intra-catheter, As needed, line care, Starting on 03/19/22 at 2009, Flush volume based on line type and [...] uterine tachysystole 0317 (Given - Provider: Malena Lim, MARGE) Linked Groups Order Group 1: oxytocin 30 [...] vomiting, if not tolerating PO, Starting on Mon03/20/22 at 0224, Start in 24 hours after [...] Count Last Ordered Date First Ordered Date diphenhydrAMINE (BENADRYL) injection 25 mg 2 03/19/2022 03/18/2022 hydrocortisone (ANUSOL-HC) 2 .5 % rectal cream 1 03/19/2022 HYDROmorphone (DILAUDID) injection 0.2 mg 1 03/19/2022 Lactated Ringer's (LR) infusion 1 nalbuphine (NUBAIN) injection 5 mg 2 202103/18/2022 naloxone (NARCAN) 0.4 mg/mL injection 0.04-0.4 mg 2 03/19/2022 03/18/2022 ondansetron (ZOFRAN) injection 4 mg 3 03/1903/18/2022 ondansetron ODT (ZOFRAN-ODT) disintegrating tablet 4 mg 3 03/19/2022 03/18/2022 oxytocin 30 unit/500 mL (0.0 6 unit/mL) in sodium chloride 0.9% (premix) solution 1 03/19/2022 simethicone (MYLICON) chewab le tablet 80 mg 1 03/19/2022 sodium chloride 0.9% flush 0.5-20 mL 3 01/202203/18/2022 sodium chloride 0.9% irrigation 1 sterile water irrigation 1 03/19/2022 carboprost (HEMABATE) injection 250 mcg 1 1 Carrier Fluids for Secondary Infusion - 0.9% Sodium Chloride 2 03/18/2022 cefOXitin (MEFOXITIN) 1,000 mg/10 mL in sterile water (premix) 1,000 mg 1 03/18/2022 Lactated Ringer's (LR) bolus 1,000 mL 2 12/2021 lidocaine PF (XYLOCAINE) 10 mg/mL (1 %) preservative free injection 100 mg 1 03/18/2022 loperamide (IMODIUM) capsule 2 mg 1 022 methylergonovine (METHERGINE ) injection 0.2 mg 1 03/18/2022 miSOPROStol (CYTOTEC) split tablet 25 mcg 1 03/18/2022 oxytocin (PITOCIN) injection 10 Units 1 12/2021 terbutaline (BRETHINE) injection 0.25 mg 1 03/18/2022 [...] 03/21/2022 documented in this encounter Care Teams Game Moderator Relationship Specialty Start Date End Date Adria Miranda MD [id number] [facility] [address] [address] [place] [address] [place] [id number] PCP - General 05/15/20 documented as of this encounter
--- OUTSIDE RECORDS SUMMARY | 2024-07-02 05:07 | XMS_ITS | Encounter Summary ---
Author Organization [facility] Facility Care Team Providers Care Enterprise Systems Architect Name Role Phone Unavailable Primary Care Provider Unavailabl e Encounter Details Date Type Department Care Team (Latest Contact Info) Description 08/03/2015 7:36 AM POLICY WRITER - 08/03/2015 4:00 PM POLICY WRITER Hospital Encounter [facility] [place] [place], [place] [address] [place] [address] Sprain of tibiofibular ligament of left ankle; Exposure to other specified factors, initial encounter; Engages in activity Social History Tobacco Use Types Packs/Day Years Used Date Smoking Tobacco: Never Comments Unknown Sex and Gender Information Value Date Recorded Sex Assigned at Not on file Legal Sex Female 10:50 AM POLICY WRITER Gender Identity Not on file Sexual Orientation Not on file documented as of this encounter Plan of Treatment Not on file documented as of this encounter Procedures Procedure Name Priority Date/Time Associated Diagnosis Comments XR ANKLE 3+ VW Routine 08/03/2015 7:48 AM POLICY WRITER documented in this encounter Results * XR Ankle 3+ Vw (08/03/2015 7:48 AM POLICY WRITER) Anatomical Region Laterality Modality N/A Radiographic Beatriz ging 08/03/2015 7:48 AM POLICY WRITER Narrative 08/03/2015 8:00 AM POLICY WRITER TANYA BRASWELL M.D. FINAL REPORT ACC# ??Date Time ??Exam [id number] Aug 03, 2015 07:48:00 [id number] Ankle Complt. min 3 views L EXAMINATION: ?Left ankle complete, minimum 3 views HISTORY: ??Left high ankle sprain. FINDINGS: ?? Three nonweightbearing views of the left ankle are compared with left ankle radiographs dated 02/25/2015. There is unchanged internal fixation of the left ankle syndesmosis with a tight rope. The syndesmosis remains reduced. Ankle mortise is intact. The joint spaces are normal. There is no acute fracture. There is mild persistent left ankle soft tissue swelling. IMPRESSION: ?? Unchanged internal fixation of the left distal tibiofibular syndesmosis. Requested By: PRICE SARABIA M.D. Dictated By: ?? TANYA BRASWELL M.D. ??on Aug 03 2015 ??8:00A This document has been electronically signed by: TANYA BRASWELL M.D. on Aug 03 2015 ??8:00A [id number] Procedure Note Provider, MD Ludivina - 10/06/2016 TANYA BRASWELL M.D. FINAL REPORT ACC# Date Time Exam [id number] Aug 03, 2015 07:48:00 [id number] Ankle Complt. min 3 views L EXAMINATION: Left ankle complete, minimum 3 views HISTORY: Left high ankle sprain. FINDINGS: Three nonweightbearing views of the left ankle are compared with left ankle radiographs dated 02/25/2015. There is unchanged internal fixation of the left ankle syndesmosis with a tight rope. The syndesmosis remains reduced. Ankle mortise is intact. The joint spaces are normal. There is no acute fracture. There is mild persistent left ankle soft tissue swelling. IMPRESSION: Unchanged internal fixation of the left distal tibiofibular syndesmosis. Requested By: PRICE SARABIA M.D. Dictated By: TANYA BRASWELL M.D. on Aug 03 2015 8:00A This document has been electronically signed by: TANYA BRASWELL M.D. on Aug 03 2015 8:00A [id number] us Historical Provider MD VERMA XR PROCEDURES Final R esult documented in this encounter Visit Diagnoses Diagnosis Sprain of tibiofibular ligament of left ankle Exposure to other specified factors, initial encounter Engages in activity documented in this encounter
--- OUTSIDE RECORDS SUMMARY | 2024-07-02 05:07 | XMS_ITS | Encounter Summary ---
Author Organization [facility] Address [address] [place] [address] Care Team Providers Care Stereotyper Helper Name Role Phone Adria Miranda MD Primary Care Provider Encounter Details Date Type Department Care Team (Late st Contact Info) Description 06/16/2021 5:00 PM YARN SKEINS EXAMINER Lab [address] [address] Body aches Social History Tobacco Use Types Packs/Day Years Used Date Smoking Tobacco: Never Comments Unknown Sex and Gender Information Value Date Recorded Sex Assigned at Not on file Legal Sex Female 10:50 AM YARN SKEINS EXAMINER Gender Identity Not on file Sexual Orientation Not on file documented as of this encounter Plan of Treatment Not on file documented as of this encounter Procedures Procedure Name Priority Date/Time Associated Diagnosis Comments INFLUENZA A/B AND COVID-19 PCR Routine 06/16/2021 3:48 PM YARN SKEINS EXAMINER Body aches documented in this encounter Results * (ABNORMAL) Influenza A/B and COVID-19 PCR Nasopharyngeal (06/16/2021 3:48 PM YARN SKEINS EXAMINER) COVID-19 RNA Detected(A) JONATHAN HODGE Comment: Interpretive Data Synonyms for this test include: PCR and NAAT . ??Testing performed by the [facility] Disease [facility]. The 2018-Novel Coronavirus [...] on July 16, 2020. Testing performed by: [facility], [address] [place]., [address] Influenza A RNA Not Detected CERNER Comment:Testing performed by : [facility], [address] [facility], [address] Influenza B RNA Not Detected CERNER Comment: Interpretive Data Testing performed by the [facility]. This test is performed using the elbert Influenza A/B Assay. This is a real-time RT-PCR test for the qualitative detection of nucleic acid from Influenza A and Influenza B. This assay has been reviewed by the FDA for Emergency Use Authorization (EUA). The performance characteristics have been verified by the [facility]. Results should be interpreted in combination with clinical context and a negative result does not rule out infection. ?? Interpretive data last revised 2020. Testing performed by: [facility], [address] [place] [address]., [address] First COVID-19 test? 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 No CERNER CH Comment:Testing performed by : [facility], [address] [place] [address], [address] Group care resident? No CERNER CH Comment:Testing performed by : [facility], [address] [place] [address], [phone] Hospitalized? No CERNER CH Comment:Testing performed by : [facility], [address] [facility], [address] Is patient in ICU? No CERNER CH Comment:Testing performed by : [facility], [address] [place]., [address] Symptomatic as defined by CDC? Yes JONATHAN HODGE Comment:Testing performed by : [facility], [address] [place]., [address] Nasopharyngeal 06/16/2021 3: 48 PM YARN SKEINS EXAMINER 06/17/2021 12:59 AM YARN SKEINS EXAMINER Narrative JONATHAN - 06/17/2021 12:31 PM YARN SKEINS EXAMINER Patient is employed by/enrolled at:->[facility] Date of Symptom Onset->06/16/21 us Stacie Angulo MD LAB MICROBIOLOGY - GENERAL ORDERABLES Final Result JONATHAN [id number] [address] Department of Laboratories [place], [place] [id number] documented in this encounter Visit Diagnoses Diagnosis Body aches Generalized pain documented in this encounter Additional Health Concerns Infection Onset Date Last Indicated Resolved Time COVID: Suspected 06/16/2021 06/16/2021 06/17/2021 12:31 PM YARN SKEINS EXAMINER documented as of this encounter Care Teams Stereotyper Helper Relationship Specialty Start Date End Date Adria Miranda MD [address] [facility] [address] [place] [address] [place] [id number] PCP - General 05/15/20 documented as of this encounter
--- OUTSIDE RECORDS SUMMARY | 2024-07-02 05:07 | XMS_ITS | Encounter Summary ---
Author Organization [facility] Facility Care Team Providers Care Supervisor Home Restoration Service Name Role Phone Unavailable Primary Care Provider Unavailabl e Encounter Details Date Type Department Care Team (Late st Contact Info) Description 11/19/2014 3:01 PM CDT - 11/19/2014 4:00 PM CDT Hospital Encounter [facility] [place], [place] [address] [place] [address] Aftercare involving internal fixation device; Swelling of limb Social History Tobacco Use Types Packs/Day Years Used Date Smoking Tobacco: Never Comments Unknown Sex and Gender Information Value Date Recorded Sex Assigned at Not on file 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 FINAL REPORT ACC# ??Date Time ??Exam [id number] Nov 19, 2014 15:09:00 [id number] Ankle Complt. min 3 views L EXAMINATION: ? Left ankle minimum 3 views HISTORY: ??Left high ankle sprain FINDINGS: ??Three-view weight bearing examination of the left ankle is acquired digitally and compared to a study from 08 October 2014. There is unchanged internal fixation of the syndesmosis with a tight rope. The syndesmosis remains reduced. Ankle mortise is intact. There is no fracture. Moderate surrounding soft tissue swelling is unchanged. IMPRESSION: ?? Unchanged internal fixation of the left distal tibiofibular syndesmosis with persistent soft tissue swelling. Requested By: PRICE SARABIA M.D. Dictated By: ?? DONTAE MACKAY M.D. ??on Nov 19 2014 ??3:16P This document has been electronically signed by: DONTAE MACKAY M.D. on Nov 19 2014 ??3:16P [id number] Procedure Note Provider, Ludivina, - 10/06/2016 DONTAE MACKAY M.D. FINAL REPORT ACC# Date Time Exam [id number] Nov 19, 2014 15:09:00 [id number] Ankle Complt. min 3 views L EXAMINATION: Left ankle minimum 3 views HISTORY: Left high ankle sprain FINDINGS: Three-view weight bearing examination of the left ankle is acquired digitally and compared to a study from 08 October 2014. There is unchanged internal fixation of the syndesmosis with a tight rope. The syndesmosis remains reduced. Ankle mortise is intact. There is no fracture. Moderate surrounding soft tissue swelling is unchanged. IMPRESSION: Unchanged internal fixation of the left distal tibiofibular syndesmosis with persistent soft tissue swelling. Requested By: PRICE SARABIA M.D. Dictated By: DONTAE MACKAY M.D. on Nov 19 2014 3:16P This document has been electronically signed by: DONTAE MACKAY M.D. on Nov 19 2014 3:16P [id number] Historical Provider MD VERMA XR PROCEDURES Final R esult documented in this encounter Visit Diagnoses Diagnosis Aftercare involving internal fixation device Swelling of limb documented in this encounter
--- OUTSIDE RECORDS SUMMARY | 2024-07-02 05:07 | XMS_ITS | Encounter Summary ---
Author Organization [facility] Address [address] [place] [address] Care Team Providers Care Generation Technologist Name Role Phone Adria Miranda MD Primary Care Provider Reason for Referral * Diagnostic Imaging (Routine) - Closed Specialty Diagnoses / Procedures Referred By Contac t Referred To Contact Diagnoses Encounter for anatomic survey Procedures US Ob Limited Alessandra Conde NP [address] [place] [address] Phone: tel: fax: [facility] (All Locations) Referral ID Status Reason Start Date Expiration Date Visits Re quested Visits Authorized [id number] Closed 11/03/2021 06/11/2022 1 1 * Diagnostic Imaging (Routine) - Closed Specialty Diagnoses / Procedures Referred By Contac t Referred To Contact Diagnoses Encounter for anatomic survey Procedures US Ob 14 Weeks Or Over Alessandra Conde NP [address] [place] [address] Phone: tel: fax: [facility] (All Locations) Referral ID Status Reason Start Date Expiration Date Visits Re quested Visits Authorized [id number] Closed 09/01/2021 10/01/2022 1 1 Reason for Visit * Diagnostic Imaging (Routine) - Closed Specialty Diagnoses / Procedures Referred By Chula collins Referred To Contact Diagnoses Encounter for anatomic survey Procedures US Ob 14 Weeks Or Over Alessandra Conde NP [address] [place] [address] Phone: tel: fax: [facility] (All Locations) Referral ID Status Reason Start Date Expiration Date Visits Re quested Visits Authorized [id number] Closed 09/01/2021 10/01/2022 1 1 Encounter Details Date Type Department Care Team (Latest Contact Info) Description 11/03/2021 12:04 PM CDT - 11/03/2021 11:59 PM CDT Hospital Encounter [facility] - Ultrasound [address] [place] [address], [address] Floor, [address] [facility] [place] [address] Alessandra Conde NP [address] [place], [place] [id number] Encounter for anatomic survey Discharge Disposition: Discharge to home or self care Social History Tobacco Use Types Packs/Day Years Used Date Smoking Tobacco: Never Comments Unknown Sex and Gender Information Value Date Recorded Sex Assigned at Not on file 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 Gender Identity Not on file Sexual Orientation Not on file documented as of this encounter Discharge Disposition Disposition Code Departure Means Destination Discharge to home or self care documented in this encounter Plan of Treatment Not on file documented as of this encounter Procedures Procedure Name Priority Date/Time Associated Diagnosis Comments US OB 14 WEEKS OR OVER Schedule Routine, Read Routine (OP Routine) 11/03/2021 12:04 PM CDT Encounter for anatomic survey documented in this encounter Results * US Ob Limited (11/10/2021 9:02 AM CDT) Fetus# Fetus1 VIEWPOINT Placenta Details posterior, Previa-no VIEWPOINT Presentation Vertex VIEWPOINT Anatomical Region Laterality Modality Abdomen N/A Ultrasound 11/10/2021 9:03 AM CDT us Alessandra Conde CANCER REGISTRY COORDINATOR IMG OB US PROCEDURES Nelda l Result * US Ob 14 Weeks Or Over (11/03/2021 12:04 PM CDT) Fetus# Fetus1 VIEWPOINT Estimated Weight 402 g&grams VIEWPOINT Placenta Details posterior, Previa-no VIEWPOINT Presentation Vertex VIEWPOINT Anatomical Region Laterality Modality Abdomen N/A Ultrasound 11/03/2021 12:0 8 PM CDT [facility] Aileen Conde CANCER REGISTRY COORDINATOR IMG OB US PROCEDURES Nelda l Result documented in this encounter Visit Diagnoses Diagnosis Encounter for anatomic survey documented in this encounter Care Teams Generation Technologist Relationship Specialty Start Date End Date Adria Miranda MD [address] [facility] [address] [place] [address] [place] [id number] PCP - General 05/15/20 documented as of this encounter
--- OUTSIDE RECORDS SUMMARY | 2024-07-02 05:07 | XMS_ITS | Encounter Summary ---
Author Organization [facility] Facility Care Team Providers Care Clerical Production Worker Name Role Phone Unavailable Primary Care Provider Unavailabl e Encounter Details Date Type Department Care Team (Late st Contact Info) Description 09/10/2014 8:14 AM CDT - 09/10/2014 4:00 PM CDT Hospital Encounter [facility] [place], [place] [address] [place] [address] Pain in joint, ankle and foot Social History Tobacco Use Types Packs/Day Years Used Date Smoking Tobacco: Never Comments Unknown Sex and Gender Information Value Date Recorded Sex Assigned at Not on file 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 FINAL REPORT ACC# ??Date Time ??Exam [id number] Sep 10, 2014 08:25:00 [id number] Ankle Complt. min 3 views L EXAMINATION: ?? 1. Left ankle complete minimum 3 views HISTORY: Ankle instability FINDINGS: Three weight-bearing view submitted with comparison 08/13/2014. Redemonstrated is a left ankle syndesmotic repair. Soft tissue swelling about the ankle has decreased in the interval. No acute fractures are identified. Ankle mortise is normal. IMPRESSION: ?? 1. Left ankle syndesmotic repair with interval decrease in soft tissue swelling. Requested By: PRICE SARABIA M.D. Dictated By: ?? BEATRIZ CLOUD M.D. ??on Sep ??2014 ??8:31A This document has been electronically signed by: BEATRIZ CLOUD M.D. on Sep ??2014 ??8:31A Procedure Note Provider, Ludivina, - 10/06/2016 BEATRIZ CLOUD M.D. FINAL REPORT ACC# Date Time Exam [id number] Sep 10, 2014 08:25:00 [id number] Ankle Complt. min 3 views L EXAMINATION: 1. Left ankle complete minimum 3 views HISTORY: Ankle instability FINDINGS: Three weight-bearing view submitted with [id number]/04/2015. Redemonstrated is a left ankle syndesmotic repair. Soft tissue swelling about the ankle has decreased in the interval. No acute fractures are identified. Ankle mortise is normal. IMPRESSION: 1. Left ankle syndesmotic repair with interval decrease in soft tissue swelling. Requested By: PRICE SARABIA M.D. Dictated By: BEATRIZ CLOUD M.D. on Sep 10 2014 8:31A This document has been electronically signed by: BEATRIZ CLOUD M.D. on Sep 10 2014 8:31A us Historical Provider IMG XR PROCEDURES Final R esult documented in this encounter Visit Diagnoses Diagnosis Pain in joint, ankle and foot documented in this encounter
--- OUTSIDE RECORDS SUMMARY | 2024-07-02 05:07 | XMS_ITS | Encounter Summary ---
Author Organization [facility] Facility Care Team Providers Care Collector Of Port Name Role Phone Unavailable Primary Care Provider Unavailabl e Encounter Details Date Type Department Care Team (Latest Contact Info) Description 07/14/2014 8:15 AM ELECTRICAL ACCESSORIES II ASSEMBLER - 07/14/2014 11:59 PM ELECTRICAL ACCESSORIES II ASSEMBLER Hospital [facility] [place] [place] [address] [place] [address] Pain in joint, ankle and foot; Sprain of tibiofibular ligament of ankle; Accident; Unspecified place of occurrence Social History Tobacco Use Types Packs/Day Years Used Date Smoking Tobacco: Never Comments Unknown Sex and Gender Information Value Date Recorded Sex Assigned at Not on file Legal Sex Female 10:50 AM ELECTRICAL ACCESSORIES II ASSEMBLER Gender Identity Not on file Sexual Orientation Not on file documented as of this encounter Plan of Treatment Not on file documented as of this encounter Procedures Procedure Name Priority Date/Time Associated Diagnosis Comments CT LOWER EXTREMITY WO CONTRAST Routine 07/14/2014 8:45 AM ELECTRICAL ACCESSORIES II ASSEMBLER documented in this encounter Results * CT Lower Extremity WO Contrast (07/14/2014 8:45 AM ELECTRICAL ACCESSORIES II ASSEMBLER) Anatomical Region Laterality Modality N/A Computed Tomogra phy 07/14/2014 8:45 AM ELECTRICAL ACCESSORIES II ASSEMBLER Narrative 07/14/2014 10:23 AM ELECTRICAL ACCESSORIES II ASSEMBLER JOCELINE HIGGINBOTHAM M.D. DONTAE KWON M.D. FINAL REPORT The radiology attending physician has personally reviewed this study, and has reviewed and/or edited this written report and agrees with it. ACC# ??Date Time ??Exam [id number] Jul 14, 2014 08:45:[id number] Lower Extre w/o con Lt ACC# ??Date Time ??Exam [id number] Jul 14, 2014 08:45:[id number] Lower Extre w/o con Lt EXAMINATION: ?CT left ankle without contrast HISTORY: ??Left ankle sprain. Evaluate syndesmosis. FINDINGS: ?? Thin collimation axial CT of bilateral ankles was performed without the use of intravenous contrast. Additional dedicated coronal and sagittal reformatted images of the left ankle were performed at the workstation and included in interpretation. Comparison is made to prior ankle radiographs dated 07/10/2014 demonstrating a normal appearance of the left ankle syndesmosis as well as prior left ankle MRI dated 04/15/2014. The distal tibiofibular syndesmoses are symmetric bilaterally, without abnormal widening of the expected, left side. No developing heterotopic ossification is identified. The ankle mortise of the left ankle remains intact. The joint spaces of the left ankle appear normal. No clear osseous correlate for the small anterolateral talar dome lesion is identified. Subtle increased sclerosis is present at the anterolateral distal tibia and in keeping with a radiographically occult subchondral tibial plafond fracture. On the left, medially, the flexor tendons are of normal morphology in location. Note is made of a type II os navicularis, present bilaterally. There is a small amount of heterotopic ossification present within the left ankle deltoid ligament. The left ankle peroneal tendons are of normal morphology location. Similarly, left ankle extensor tendons are normal in appearance. The anterior talofibular ligament appears slightly thickened, in keeping with known sprain. The left ankle effusion has decreased in size when compared to prior MR examination. Limited evaluation of the right ankle demonstrate normal joint spaces without fracture. ?? IMPRESSION: 1. Symmetric, normal-appearing bilateral distal tibiofibular syndesmoses. 2. Subtle increased sclerosis of the left ankle tibial plafond keeping with known subchondral fracture. 3. Decreased left ankle effusion. 4. Thickening of the left ankle anterior talofibular ligament as well as developing heterotopic ossification present within the left ankle deltoid ligament in keeping with known sprains. ?? Requested By: PRICE SARABIA M.D. Dictated By: ?? DONTAE KWON M.D. ??on Jul ??2014 ??9:50A This document has been electronically signed by: JOCELINE HIGGINBOTHAM M.D. on Jul ??2014 10:23A [id number] Procedure Note Provider, MD Ludivina - 10/06/2016 JOCELINE HIGGINBOTHAM M.D. DONTAE KWON M.D. FINAL REPORT The radiology attending physician has personally reviewed this study, and has reviewed and/or edited this written report and agrees with it. ACC# Date Time Exam [id number] Jul 14, 2014 08:45:[id number] Lower Extre w/o con Lt ACC# Date Time Exam [id number] Jul 14, 2014 08:45:[id number] Lower Extre w/o con Lt EXAMINATION: CT left ankle without contrast HISTORY: Left ankle sprain. Evaluate syndesmosis. FINDINGS: Thin collimation axial CT of bilateral ankles was performed without the use of intravenous contrast. Additional dedicated coronal and sagittal reformatted images of the left ankle were performed at the workstation and included in interpretation. Comparison is made to prior ankle radiographs dated 07/10/2014 demonstrating a normal appearance of the left ankle syndesmosis as well as prior left ankle MRI dated 04/15/2014. The distal tibiofibular syndesmoses are symmetric bilaterally, without abnormal widening of the expected, left side. No developing heterotopic ossification is identified. The ankle mortise of the left ankle remains intact. The joint spaces of the left ankle appear normal. No clear osseous correlate for the small anterolateral talar dome lesion is identified. Subtle increased sclerosis is present at the anterolateral distal tibia and in keeping with a radiographically occult subchondral tibial plafond fracture. On the left, medially, the flexor tendons are of normal morphology in location. Note is made of a type II os navicularis, present bilaterally. There is a small amount of heterotopic ossification present within the left ankle deltoid ligament. The left ankle peroneal tendons are of normal morphology location. Similarly, left ankle extensor tendons are normal in appearance. The anterior talofibular ligament appears slightly thickened, in keeping with known sprain. The left ankle effusion has decreased in size when compared to prior MR examination. Limited evaluation of the right ankle demonstrate normal joint spaces without fracture. IMPRESSION: 1. Symmetric, normal-appearing bilateral distal tibiofibularsyndesmoses. 2. Subtle increased sclerosis of the left ankle tibial plafond keeping with known subchondral fracture. 3. Decreased left ankle effusion. 4. Thickening of the left ankle anterior talofibular ligament as well as developing heterotopic ossification present within the left ankle deltoid ligament in keeping with known sprains. Requested By: PRICE SARABIA M.D. Dictated By: DONTAE KWON M.D. on Jul 14 2014 9:50A This document has been electronically signed by: JOCELINE HIGGINBOTHAM M.D. on Jul 14 2014 10:23A [id number] Historical Provider MD VERMA CT PROCEDURES Final R esult documented in this encounter Visit Diagnoses Diagnosis Pain in joint, ankle and foot Sprain of tibiofibular ligament of ankle Accident Unspecified accident Unspecified place of occurrence documented in this encounter
--- OUTSIDE RECORDS SUMMARY | 2024-07-02 05:08 | XMS_ITS | Encounter Summary ---
Author Organization [facility] Facility Care Team Providers Care Pipelines Manager Name Role Phone Unavailable Primary Care Provider Unavailabl e Encounter Details Date Type Department Care Team (Late st Contact Info) Description 04/12/2014 10:13 AM CDT - 04/12/2014 4:00 PM CDT Hospital Encounter [facility] Jas Brand, [place] [address] [facility] [address] [address] Pain in joint, ankle and foot; Injury, other and unspecified, knee, leg, ankle, and foot; Effusion of ankle and foot joint; Swelling of limb Social History Tobacco Use Types Packs/Day Years Used Date Smoking Tobacco: Never Assessed Comments Unknown Sex and Gender Information Value Date Recorded Sex Assigned at Not on file 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 FINAL REPORT ACC# ??Date Time ??Exam [id number] Apr 12, 2014 10:22:00 [id number] Ankle Complt. min 3 views L EXAMINATION: ?Left ankle complete minimum 3 views HISTORY: ??Left ankle injury FINDINGS: ?? AP, lateral, and mortise radiographs of the left ankle were obtained. The alignment is normal. No fracture is seen. There is no syndesmotic widening. The ankle mortise is uniform. There is bimalleolar soft tissue swelling. There is an ankle joint effusion. The joint spaces are normal. IMPRESSION: ?? Ankle joint effusion and bimalleolar soft tissue swelling without acute osseous injury. Requested By: JAS BRAND P.A.-C. Dictated By: ?? KEENAN NUNEZ M.D. ??on Apr ??2013 11:31A This document has been electronically signed by: KEENAN NUNEZ M.D. on Apr?2013 11:31A Procedure Note Provider, MD Ludivina - 10/06/2016 KEENAN NUNEZ M.D. FINAL REPORT ACC# Date Time Exam [id number] Apr 12, 2014 10:22:00 [id number] Ankle Complt. min 3 views L EXAMINATION: Left ankle complete minimum 3 views HISTORY: Left ankle injury FINDINGS: AP, lateral, and mortise radiographs of the left ankle were obtained. The alignment is normal. No fracture is seen. There is no syndesmotic widening. The ankle mortise is uniform. There is bimalleolar soft tissue swelling. There is an ankle joint effusion. The joint spaces are normal. IMPRESSION: Ankle joint effusion and bimalleolar soft tissue swelling without acute osseous injury. Requested By: JAS BRAND P.A.-C. Dictated By: KEENAN NUNEZ M.D. on Apr 12 2014 11:31A This document has been electronically signed by: KEENAN NUNEZ M.D. on Apr 12 2014 11:31A us Historical Provider IMG XR PROCEDURES Final R esult documented in this encounter Visit Diagnoses Diagnosis Pain in joint, ankle and foot Injury, other and unspecified, knee, leg, ankle, and foot Effusion of ankle and foot joint Swelling of limb documented in this encounter
--- OUTSIDE RECORDS SUMMARY | 2024-07-02 05:08 | XMS_ITS | Encounter Summary ---
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 Name Role Phone Unavailable Primary Care Provider Unavailabl e Encounter Details Date Type Department Care Team (Late st Contact Info) Description 05/14/2014 9:03 AM TIRE BAGGER - 05/14/2014 4:00 PM TIRE BAGGER Hospital Encounter [facility] [place] [place], [place] [address] [place] [address] Other orthopedic aftercare Social History Tobacco Use Types Packs/Day Years Used Date Smoking Tobacco: Never Comments Unknown Sex and Gender Information Value Date Recorded Sex Assigned at Not on file Legal Sex Female 10:50 AM TIRE BAGGER Gender Identity Not on file Sexual Orientation Not on file documented as of this encounter Plan of Treatment Not on file documented as of this encounter Procedures Procedure Name Priority Date/Time Associated Diagnosis Comments XR ANKLE 3+ VW Routine 05/14/2014 9:13 AM TIRE BAGGER documented in this encounter Results * XR Ankle 3+ Vw (05/14/2014 9:13 AM TIRE BAGGER) Anatomical Region Laterality Modality N/A Radiographic Beatriz ging 05/14/2014 9:13 AM TIRE BAGGER Narrative 05/14/2014 9:23 AM TIRE BAGGER AME HARRELL M.D. FINAL REPORT ACC# ??Date Time ??Exam [id number] May 14, 2014 09:13:00 [id number] Ankle Complt. min 3 views L EXAMINATION: ?Left ankle complete minimum 3 views HISTORY: ??Radiographically occult tibial fracture FINDINGS: ?? Three views of the left ankle are compared to the left ankle MRI dated 04/15/2014. The known distal left tibial fracture is again noted to be radiographically occult. There is mild soft tissue swelling of the ankle. The known anterolateral talar dome osteochondral lesion is better seen on the prior MRI. IMPRESSION: ?? Radiographically occult distal left tibial fracture. Requested By: Dictated By: ?? AME HARRELL M.D. ??on May ??2013 ??9:23A This document has been electronically signed by: AME HARRELL M.D. on May ??2013 ??9:23A Procedure Note Provider, Ludivina, - 10/06/2016 AME HARRELL M.D. FINAL REPORT ACC# Date Time Exam [id number] May 14, 2014 09:13:00 [id number] Ankle Complt. min 3 views L EXAMINATION: Left ankle complete minimum 3 views HISTORY: Radiographically occult tibial fracture FINDINGS: Three views of the left ankle are compared to the left ankle MRI dated 04/15/2014. The known distal left tibial fracture is again noted to be radiographically occult. There is mild soft tissue swelling of the ankle. The known anterolateral talar dome osteochondral lesion is better seen on the prior MRI. IMPRESSION: Radiographically occult distal left tibial fracture. Requested By: Dictated By: AME HARRELL M.D. on May 14 2014 9:23A This document has been electronically signed by: AME HARRELL M.D. on May 14 2014 9:23A us Historical Provider IMG XR PROCEDURES Final R esult documented in this encounter Visit Diagnoses Diagnosis Other orthopedic aftercare documented in this encounter
--- OUTSIDE RECORDS SUMMARY | 2024-07-02 05:08 | XMS_ITS | Encounter Summary ---
Author Organization [facility] Facility Care Team Providers Care Wind Instrument Repairer Name Role Phone Unavailable Primary Care Provider Unavailabl e Encounter Details Date Type Department Care Team (Late st Contact Info) Description 06/09/2014 12:30 PM QUEBRACHO TANNER - 06/09/2014 4:00 PM QUEBRACHO TANNER Hospital Encounter [facility] [place], [place] [address] [place] [id number] Pain in joint, ankle and foot; Disorder of bone and cartilage; Enthesopathy of ankle and tarsus Social History Tobacco Use Types Packs/Day Years Used Date Smoking Tobacco: Never Comments Unknown Sex and Gender Information Value Date Recorded Sex Assigned at Not on file Legal Sex Female 10:50 AM QUEBRACHO TANNER Gender Identity Not on file Sexual Orientation Not on file documented as of this encounter Plan of Treatment Not on file documented as of this encounter Procedures Procedure Name Priority Date/Time Associated Diagnosis Comments XR ANKLE 3+ VW Routine 06/09/2014 12:52 PM QUEBRACHO TANNER documented in this encounter Results * XR Ankle 3+ Vw (06/09/2014 12:52 PM QUEBRACHO TANNER) Anatomical Region Laterality Modality N/A Radiographic Beatriz ging 06/09/2014 12:5 2 PM QUEBRACHO TANNER Narrative 06/09/2014 1:07 PM QUEBRACHO TANNER JOCELINE HIGGINBOTHAM M.D. FINAL REPORT ACC# ??Date Time ??Exam [id number] Jun 09, 2014 12:52:00 [id number] Ankle Complt. min 3 views L EXAMINATION: ?Left ankle complete minimum 3 views HISTORY: ??Left distal tibial fracture FINDINGS: ?? Three weight-bearing views of the left ankle are performed with comparison the left ankle radiographs on 05/14/2014 an MRI of 04/15/2014. A tiny left lateral talar dome osteochondral lesion is better seen on prior MRI. There is mild syndesmotic widening, unchanged from previous radiographs. There is mild bimalleolar soft tissue swelling, slightly improved from prior study. The joint spaces of the ankle and hindfoot are otherwise normal. The distal tibial plafond fracture remains radiographically occult. IMPRESSION: ?? 1. Small left lateral talar dome osteochondral lesion. 2. Mild left syndesmotic widening with improving bimalleolar soft tissue swelling. Requested By: PRICE SARABIA M.D. Dictated By: ?? JOCELINE HIGGINBOTHAM M.D. ??on Jun 09 2014 ??1:07P This document has been electronically signed by: JOCELINE HIGGINBOTHAM M.D. on Jun 09 2014 ??1:07P Procedure Note Provider, MD Ludivina - 10/06/2016 JOCELINE HIGGINBOTHAM M.D. FINAL REPORT ACC# Date Time Exam [id number] Jun 09, 2014 12:52:00 [id number] Ankle Complt. min 3 views L EXAMINATION: Left ankle complete minimum 3 views HISTORY: Left distal tibial fracture FINDINGS: Three weight-bearing views of the left ankle are performed with comparison the left ankle radiographs on 05/14/2014 an MRI of 04/15/2014. A tiny left lateral talar dome osteochondral lesion is better seen on prior MRI. There is mild syndesmotic widening, unchanged from previous radiographs. There is mild bimalleolar soft tissue swelling, slightly improved from prior study. The joint spaces of the ankle and hindfoot are otherwise normal. The distal tibial plafond fracture remains radiographically occult. IMPRESSION: 1. Small left lateral talar dome osteochondral lesion. 2. Mild left syndesmotic widening with improving bimalleolar soft tissue swelling. Requested By: PRICE SARABIA M.D. Dictated By: JOCELINE HIGGINBOTHAM M.D. on Jun 09 2014 1:07P This document has been electronically signed by: JOCELINE HIGGINBOTHAM M.D. on Jun 09 2014 1:07P us Historical Provider IMNemo XR PROCEDURES Final R esult documented in this encounter Visit Diagnoses Diagnosis Pain in joint, ankle and foot Disorder of bone and cartilage Disorder of bone and cartilage, unspecified Enthesopathy of ankle and tarsus documented in this encounter
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
--- OUTSIDE RECORDS SUMMARY | 2024-07-02 05:08 | XMS_ITS | Encounter Summary ---
Author Organization [facility] Facility Care Team Providers Care Travel Services Professional Name Role Phone Unavailable Primary Care Provider Unavailabl e Encounter Details Date Type Department Care Team (Late st Contact Info) Description 04/15/2014 7:27 PM [employer] SUPERVISOR - 04/15/2014 11:59 PM [employer]UMBING SUPERVISOR Hospital Encounter [facility] Jas Brand, [place] [address] [facility] [address] [address] Effusion of ankle and foot joint Social History Tobacco Use Types Packs/Day Years Used Date Smoking Tobacco: Never Assessed Comments Unknown Sex and Gender Information Value Date Recorded Sex Assigned at Not on file Legal Sex Female 10:50 AM [employer]PER[employer] Gender Identity Not on file Sexual Orientation Not on file documented as of this encounter Plan of Treatment Not on file documented as of this encounter Procedures Procedure Name Priority Date/Time Associated Diagnosis Comments MRI LOWER EXTREMITY JOINT WO CONTRAST Routine 04/15/2014 6:54 PM [employer] SUPERVISOR documented in this encounter Results * MRI Lower Extremity Joint WO Contrast (04/15/2014 6:54 PM [employer] SUPERVISOR) Anatomical Region Laterality Modality N/A Magnetic Resonan ce 04/15/2014 6:54 PM [employer]UMB[employer] SUPERVISOR Narrative 04/16/2014 10:25 AM [employer] SUPERVISOR ANJANA BARGER M.D. BEATRIZ JIMÉNEZ, FINAL REPORT The radiology attending physician has personally reviewed this study, and has reviewed and/or edited this written report and agrees with it. ACC# ??Date Time ??Exam [id number] Apr 15, 2014 18:54:00 [id number] MRI Joint Lower Extr wo L ACC# ??Date Time ??Exam [id number] Apr 15, 2014 18:54:00 [id number] MRI Joint Lower Extr wo L EXAMINATION: ?Left ankle and hindfoot MRI without contrast HISTORY: ??Radiographically occult tibial fracture, ankle ligament sprain FINDINGS: ?? Left ankle radiographs from 04/12/2014 demonstrate bimalleolar soft tissue swelling and an ankle joint effusion. MR examination of the left ankle and hindfoot was performed with an extremity coil. Sagittal short TR/TE and STIR images and transverse and coronal short TR/TE and fast spin echo images were performed. Medially, the posterior tibialis, flexor digitorum longus, and flexor hallucis longus tendons are intact. There is a complete tear of the deep deltoid ligament. There is also thickening of the superficial deltoid from sprain. The spring ligament is normal. Laterally, the peroneal tendons and superior peroneal retinaculum are normal. There is a complete tear of the anterior talofibular ligament and a high grade sprain of the calcaneofibular ligament. The remaining lateral ankle ligaments are normal. The sinus tarsi is normal. The Achilles tendon is normal. There is mild tenosynovitis of the extensor digitorum longus tendons. The remaining anterior ankle extensor tendons are normal. The plantar fascia is normal. There is a large ankle joint effusion. There is a nondisplaced radiographically occult subchondral fracture of the distal tibial plafond. There is also mild edema within the anterolateral talar dome measuring 4 mm consistent with a tiny osteochondral lesion. Mild edema in the medial talus is likely due to the deltoid rupture. ?? IMPRESSION: 1. Radiographically occult subchondral fracture of the left tibial plafond. 2. Complete tear of the deep deltoid and anterior talofibular ligaments, and sprains of the superficial deltoid and calcaneofibular ligaments. 3. Tiny osteochondral lesion of left anterolateral talar dome. 4. Large left ankle joint effusion and talar bone contusion. 5. Mild extensor digitorum longus tenosynovitis. ?? Requested By: JAS BRAND P.A.-C. Dictated By: ?? BEATRIZ JIMÉNEZ, ?? on Apr ??9:08A This document has been electronically signed by: ANJANA BARGER M.D. on Apr ??2013 10:25A [id number] Procedure Note Provider, MD Ludivina - 10/06/2016 ANJANA BARGER M.D. BEATRIZ JIMÉNEZ, FINAL REPORT The radiology attending physician has personally reviewed this study, and has reviewed and/or edited this written report and agrees with it. ACC# Date Time Exam [id number] Apr 15, 2014 18:54:00 [id number] MRI Joint Lower Extr wo L ACC# Date Time Exam [id number] Apr 15, 2014 18:54:00 [id number] MRI Joint Lower Extr wo L EXAMINATION: Left ankle and hindfoot MRI without contrast HISTORY: Radiographically occult tibial fracture, ankle ligament sprain FINDINGS: Left ankle radiographs from 04/12/2014 demonstrate bimalleolar soft tissue swelling and an ankle joint effusion. MR examination of the left ankle and hindfoot was performed with an extremity coil. Sagittal short TR/TE and STIR images and transverse and coronal short TR/TE and fast spin echo images were performed. Medially, the posterior tibialis, flexor digitorum longus, and flexor hallucis longus tendons are intact. There is a complete tear of the deep deltoid ligament. There is also thickening of the superficial deltoid from sprain. The spring ligament is normal. Laterally, the peroneal tendons and superior peroneal retinaculum are normal. There is a complete tear of the anterior talofibular ligament and a high grade sprain of the calcaneofibular ligament. The remaining lateral ankle ligaments are normal. The sinus tarsi is normal. The Achilles tendon is normal. There is mild tenosynovitis of the extensor digitorum longus tendons. The remaining anterior ankle extensor tendons are normal. The plantar fascia is normal. There is a large ankle joint effusion. There is a nondisplaced radiographically occult subchondral fracture of the distal tibial plafond. There is also mild edema within the anterolateral talar dome measuring 4 mm consistent with a tiny osteochondral lesion. Mild edema in the medial talus is likely due to the deltoid rupture. IMPRESSION: 1. Radiographically occult subchondral fracture of the left tibial plafond. 2. Complete tear of the deep deltoid and anterior talofibular ligaments, and sprains of the superficial deltoid and calcaneofibular ligaments. 3. Tiny osteochondral lesion of left anterolateral talar dome. 4. Large left ankle joint effusion and talar bone contusion. 5. Mild extensor digitorum longus tenosynovitis. Requested By: JAS BRAND P.A.-C. Dictated By: BEATRIZ JIMÉNEZ on Apr 16 2014 9:08A This document has been electronically signed by: ANJANA BARGER M.D. on Apr 16 2014 10:25A [id number] Historical Provider MD VERMA MRI PROCEDURES Final Result documented in this encounter Visit Diagnoses Diagnosis Effusion of ankle and foot joint documented in this encounter
--- OUTSIDE RECORDS SUMMARY | 2024-07-02 05:09 | XMS_ITS | Continuity of Care Document ---
Author Organization [facility] Address [address] [place] [address] Assessment No assessment recorded. Plan of Treatment Reminders Order Date Submit Date Provider Last Modified By Organization Details Last Modified Time Details Appointments SURG POST OP 025 10:45AM Mary BARNES MD Not available Not available Not available Lab None record ed. Referral None record ed. Procedures None record ed. Surgeries None record ed. Imaging None record ed. Medication Orders None record ed. Patient TargetsNo targets recorded. Patient InstructionsNo instructions recorded. Reason for Referral None Reported. Results Created Date Observation Date Name Description Value Unit Range Abnormal Flag Note LastModifiedBy Organization Detail LastModifiedTime 06/06/20 24 06/06/2024 US, obste tric, trans vagin al No observ ation record ed. [facility] [address], [place], [address], 06/06/2024 18:04:47 06/06/20 24 06/06/2024 US, obste tric, trans vagin al No observ ation record ed. [email or web address] [address], [place], [address], 06/06/2024 20:24:16 06/18/19 25 06/18/2024 US, obste tric, trans vagin al No observ ation record ed. [facility] [address], [place], [address], 06/18/2024 16:35:04 06/18/19 25 06/18/2024 US, obste tric, trans vagin al No observ ation record ed. [email or web address], [place], [address], 06/18/2024 21:34:32 Result Notes None recorded. Procedures Surgical History Date Name Laterality Status Provider Name and Address Organization Details Recorded Time 5 DILATION & CURETTAGE (SURG) completed Krys Reed [facility] 06/26/2024 15:17:38 4 IUD Removal completed Alistair Barnes MD [address], [place], [address], [facility] 02/27/2024 22:17:19 4 Date of Last Pap Smear completed Nerissa Santillan [facility] 02/05/2024 10:12:12 2 Caesarean Section completed Nancy Gamboa [facility] 01/10/2024 14:25:58 Imaging Results None recorded. Procedure Notes None recorded. Medical Equipment None Reported. Allergies No known drug allergies Medications Name Sig Start Date Stop Date Status Note LastModified by Organization Details LastModified Time Kyleena 17.5 mcg/24 hr (up to 5 years) 19.5 mg intrauterin e device Take by intrauter ine route. 02/04 completed Not Available Not Available Not Available Vitals Date Recorded Body height Body mass index (BMI) Body weight Systolic blood pressure Diastolic blood pressure Provider Name and Address Organization Details Last Updated DateTime 06/06/2024 170.18 cm 35.4 kg/m2 558632.8 8 g 128 mm[Hg] 80 mm[Hg] Nerissa Santillan [facility] 4 16:53:01 Social History Question Answer Notes LastModified by Organizat ion Details LastModified Time Tobacco Smoking Status Never Smoker Nancy gregory, [facility] 01/10/2024 14:28:15 What Is Your Level Of Alcohol Consumption? Occasional Information not available 01/10/2024 How Many Years Have You Consumed Alcohol? 5 Information not available 01/10/2024 Are You Blind Or Do You Have Difficulty Seeing? No Information not available 01/10/2024 What Is Your Level Of Caffeine Consumption? Moderate Information not available 01/10/2024 How Much Tobacco Do You Chew? None Information not available 01/10/2024 In The 14 Days Before Symptom Onset, Have You Had Close Contact With A Laboratory-confir med COVID-19 While That Case Was Ill? No Information not available 01/10/2024 In The 14 Days Before Symptom Onset, Have You Had Close Contact With A Person Who Is Under Investigation For COVID-19 While That Person Was Ill? No Information not available 01/10/2024 Have You Been To An Area Known To Be High Risk For COVID-19? No Information not available 01/10/2024 Are You Deaf Or Do You Have Serious Difficulty Hearing? No Information not available 01/10/2024 What Type Of Diet Are You Following? REGULAR Information not available 01/10/2024 What Is The Highest Grade Or Level Of School You Have Completed Or The Highest Degree You Have Received? 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 Yes Information not available 01/10/2024 Do You Use Protection During Sex? Always Information not available 01/10/2024 Do You Use Your Seat Belt Or Car Seat Routinely? Yes Information not available 01/10/2024 Do You Have Smoke And Carbon Monoxide Detectors In Your Home? Yes Information not available 01/10/2024 How Much Tobacco Do You Smoke? No Information not available 01/10/2024 Do You Feel Stressed (tense, Restless, Nervous, Or Anxious, Or Unable To Sleep At Night)? [id number] Information not available 01/10/2024 Do You Use Any Illicit Or Recreational Drugs? No [facility] Information not available 01/10/2024 Do You Use Sunscreen Routinely? Yes [facility] Information not available 01/10/2024 Have You Used IV Drugs? No [facility] Information not available 01/10/2024 Sex: Unknown Functional Status Question Answer Note LastModified by Organizat ion Details LastModified Time Are you able to walk? YESWOREST [facility] Information not available 01/10/2024 What is your exercise level? Occasional Information not available 01/10/2024 Mental Status None recorded. Family History Relationship Description Onset Age of this Age Resolved Age Notes LastModified by Organization Details LastModified Time Unspecified Relation Family history unknown [place] [id number] Not available 2023 14:25:17 Medical History Condition Response Allergies (Food, seasonal, environmental ) N Other N Breast Cancer N Drug/Latex Allergies/Reactions N Blood Transfusion N Dermatologic Disorders N Lung Disease N Defects or Inherited Disease N Breast Problem N Gestational Diabetes N Hematologic disorders N Anesthesia Complications N History of STI N Deep Vein Thrombosis N Polycystic ovary syndrome N Anxiety Disorder N Autoimmune disease N Arthritis N Infertility N Polyps N Acid Reflux (GERD) N History of abnormal pap N Cancer N Stroke N Varicosities N Neurologic/Epilepsy N Endometriosis N High Cholesterol N Headaches N Fibromyalgia N Kidney Disease N Heart Problems N Kidney or Bladder Problems N Thyroid Problems N GI Problems N Eating Disorder N Anemia N Art (IVF or FET) N Psychiatric Illness N Ovarian Cancer N Diabetes N Pulmonary (TB, Asthma) N Hepatitis/Liver Disease N No Past Medical History N Eczema N Urinary Tract Infection N Abuse/Domestic Violence N Asthma N Trauma/Violence N Depression/ depression N Heart Disease N Pre-Eclampsia N Hypertension N Osteoporosis N Thrombophilias N Gynecological History Statement/Question Response Date of Last Mammogram Date of LMP 04/06/2024 STIs/STDs N Was last menstrual period normal Y Date of control 05/02/2022 Date of Last Colonoscopy N/A Desired Control Method Seeking Pre gnancy Abnormal Pap N On BCP's at Conception? N HPV Vaccine Y Colposcopy Duration of Flow (days) 5 Current Control Method Age at First Child 26 Sexually Active? Y Menses Monthly N Date of DEXA bone scan Age of first menstrual cycle 15 Date of Last Pap Smear 01/10/2024 Sexual Problems? N LMP Approximate N Obstetrics History GPAL:G 1 P 0 0 0 1 Type Value Living 1 Total 1 Past Encounters Encounter ID Performer Location Encounter Start Date Encounter Closed Date Diagnosis/Indication Diagnosis SNOMED-CT Code Diagnosis ICD10 Code Diagnosis Note [id number] Asia Macdonald [place] [address] [address] 06/06/2024 15:45:21 06/06/2024 16:45:09 Uterine size for dates discrepancy 836953297 O26.841 Z3A.01 [id number] Alistair Barnes MD [place] [address] [address] 06/06/2024 15:46:04 06/07/2024 04:55:07 Missed miscarriage 93901845 O02.1 this patient is a 29-year-ol d female presents for screening for . Ultrasound today revealed a 6 week gestationa l sac with no pole or yolk sac. Patient has dating consistent with over 8 weeks. We discussed these findings. We discussed the polyp easily of miscarriag e. We discussed the possibilit y of a viable . We agreed to serial HCGs. We talked about miscarriag e in detail. Talked about the risks, benefits, and alternativ es to observatio n. I spent over 20 minutes with her care and on her care in total. Health Concerns Section Related Observation LastModified by Organization Detai ls LastModified Time None Recorded Concern Status LastModified by Organization Details LastModified Time None Recorded Payers Encounter Date Sequence Insurance Name Policy Number Policy Parham Covered Member ID Parham Member ID Guarantor Name 06/06/2024 1 [facility] [id number] Angy Norman [id number] Angy Norman Notes Date Note Type Note Provider Name and Address Organization Details Recorded Time 06/06/2024 text/html this patient is a 29-year-old female presents for screening for . Ultrasound today revealed a 6 week gestational sac with no pole or yolk sac. Patient has dating consistent with over 8 weeks. We discussed these findings. We discussed the polyp easily of miscarriage. We discussed the possibility of a viable . We agreed to serial HCGs. We talked about miscarriage in detail. Talked about the risks, benefits, and alternatives to observation. I spent over 20 minutes with her care and on her care in total. Alistair Barnes MD [address], [place], [address], [facility] 06/06/2024 22:53:43 OBGyn Episode No OBEpisode recorded.
--- OUTSIDE RECORDS SUMMARY | 2024-07-02 05:09 | XMS_ITS | Continuity of Care Document ---
Author Organization [facility] Address [address] [place] [address] Assessment No assessment recorded. Plan of Treatment Reminders Order Date Submit Date Provider Last Modified By Organization Details Last Modified Time Details Appointments SURG POST OP 2024 10:45A Marcio BARNES MD Not available Not available Not available Lab None recorded. Referral None recorded. Procedures None recorded. Surgeries None recorded. Imaging US, obstetric , transvagi nal 2024 [id number] [email or web address] [place], [address], [place], [address], 06/18/2024 21:20:04 Medication Orders None recorded. Patient TargetsNo targets recorded. Patient InstructionsNo instructions recorded. Reason for Referral None Reported. Results Created Date Observation Date Name Description Value Unit Range Abnormal Flag Note LastModifiedBy Organization Detail LastModifiedTime 06/06/2006/06/2024 US, obste tric, trans vagin al No observ ation record ed. [facility] [address], [place], [address], 06/06/2024 18:04:47 06/06/20 24 06/06/2024 US, obste tric, trans vagin al No observ ation record ed. [email or web address], [place], [address], 06/06/2024 20:24:16 06/18/19 25 06/18/2024 US, obste tric, trans vagin al No observ ation record ed. [facility] [address], [place], [address], 06/18/2024 16:35:04 06/18/19 25 06/18/2024 US, obste tric, trans vagin al No observ ation record ed. [email or web address], [place], [address], 06/18/2024 21:34:32 Result Notes None recorded. Procedures Surgical History Date Name Laterality Status Provider Name and Address Organization Details Recorded Time 5 DILATION & CURETTAGE (SURG) completed Krys Reed [facility] 06/26/2024 15:17:38 4 IUD Removal completed Alistair Barnes MD [address], [place], [address], [facility] 02/27/2024 22:17:19 4 Date of Last Pap Smear completed Nerissa Santillan [facility] 02/05/2024 10:12:12 2 Caesarean Section completed Nancy Gamboa [facility] 01/10/2024 14:25:58 Imaging Results Imaging Date Name Status LastModified by Organization Details LastModified Time 06/18/2024 US, obstetric, transvaginal completed [facility] [address], [place], [address], 06/18/2024 16:35:04 Procedure Notes None recorded. Medical Equipment None Reported. Allergies No known drug allergies Medications Name Sig Start Date Stop Date Status Note LastModified by Organization Details LastModified Time Kyleena 17.5 mcg/24 hr (up to 5 years) 19.5 mg intrauterin e device Take by intrauter ine route. 02/04 completed Not Available Not Available Not Available Vitals None Recorded Social History Question Answer Notes LastModified by [employer] Details LastModified Time Tobacco Smoking Status Never Smoker Nancy Gamboa [facility] 01/10/2024 14:28:15 What Is Your Level [...] Or The Highest Degree You Have Received? [id number] Information not available 01/10/2024 What Is Your [...] Anxious, Or Unable To Sleep At Night)? [id number] [facility] Information not available 01/10/2024 Do You Use Any Illicit Or Recreational Drugs? No [facility] Information not available 01/10/2024 Do You Use Sunscreen Routinely? Yes Information not available 01/10/2024 Have You Used IV Drugs? No Information not available 01/10/2024 Sex: Unknown Functional Status Question Answer Note LastModified by Organizat ion Details LastModified Time Are you able to walk? YESWOREST Information not available 01/10/2024 What is your exercise level? Occasional Information not available 01/10/2024 Mental Status None recorded. Family History Relationship Description Onset Age of this Age Resolved Age Notes LastModified by Organization Details LastModified Time Unspecified Relation [email or web address] Not available 2023 14:25:17 Medical History Condition [...] SNOMED-CT Code Diagnosis ICD10 Code Diagnosis Note [id number] [facility] [address],[place] [address] 06/06/2024 15:45:21 06/06/2024 16:45:09 Uterine size for dates discrepancy 775783423 O26.841 Z3A.01 [id number] Alistair Barnes MD [place] [address],[place] [address] 06/06/2024 15:46:04 06/07/2024 04:55:07 Missed miscarriage 98577472 O02.1 this patient is a 29-year-ol d [...] care and on her care in total. [id number] [facility] [address] [address] 06/18/2024 15:25:14 06/18/2024 16:00:48 Missed miscarriage 53021895 O02.1 O02.81 Health Concerns Section Related Observation LastModified by Organization Detai ls LastModified Time None Recorded Concern Status LastModified by Organization Details LastModified Time None Recorded Payers Encounter Date Sequence Insurance Name Policy Number Policy Parham Covered Member ID Parham Member ID Guarantor Name 06/18/2024 1 [facility] [id number] Angy Norman [id number] Angy Norman OBGyn Episode No OBEpisode recorded.
--- OUTSIDE RECORDS SUMMARY | 2024-07-02 05:09 | XMS_ITS | Data Portability ---
Author Organization [facility], [facility] Address [address] [place] [address] [place] [address] Assessment No assessment recorded. Plan of Treatment Reminders Order Date Submit Date Provider Last Modified By Organization Details Last Modified Time Details Appointments SURG POST OP 2024 10:45A Marcio BARNES MD Not available Not available Not available Lab None recorded. Referral None recorded. Procedures None recorded. Surgeries dilation & curettage (SURG) 2024 025 [facility], [address], [place], [address], 06/26/2024 14:49:54 Imaging US, obstetric , transvagi nal 2023 024 [place] [address], [address], [place], [address], 06/06/2024 20:39:17 US, obstetric , transvagi nal [address] [facility] [address], [place], [address], 06/18/2024 21:20:04 Medication Orders None recorded. Patient TargetsNo targets recorded. Patient InstructionsNo instructions recorded. Reason for Referral None Reported. Results Created Date Observation Date Name Description Value Unit Range Abnormal Flag Note LastModifiedBy Organization Detail LastModifiedTime 06/06/20 24 06/06/2024 US, obste tric, trans vagin al No observ ation record ed. [facility] [address], [place], [address], 06/06/2024 18:04:47 06/06/20 24 06/06/2024 US, obste tric, trans vagin al No observ ation record ed. [email or web address], [place], [address], 06/06/2024 20:24:16 06/18/19 25 06/18/2024 US, obste tric, trans vagin al No observ ation record ed. [facility] [address], [place], [address], 06/18/2024 16:35:04 06/18/19 25 06/18/2024 US, obste tric, trans vagin al No observ ation record ed. [email or web address], [place], [address], 06/18/2024 21:34:32 Result Notes None recorded. Procedures Surgical History Date Name Laterality Status Provider Name and Address Organization Details Recorded Time 5 DILATION & CURETTAGE (SURG) completed Krys Reed [facility] 06/26/2024 15:17:38 4 IUD Removal completed Alistair Barnes MD [address], [place], [address], [facility] 02/27/2024 22:17:19 4 Date of Last Pap Smear completed Nerissa Santillan [facility] 02/05/2024 10:12:12 2 Caesarean Section completed Nancy Gamboa [facility] 01/10/2024 14:25:58 Imaging Results Imaging Date Name Status LastModified by Organization Details LastModified Time 06/06/2024 US, obstetric, transvaginal completed [facility] [address], [place], [address], 06/06/2024 18:04:47 06/06/2024 US, obstetric, transvaginal completed [email or web address], [place], [address], 06/06/2024 20:24:16 06/18/2024 US, obstetric, transvaginal completed joan [place] [address], [place], [address], 06/18/2024 16:35:04 06/18/2024 US, obstetric, transvaginal completed [email or web address], [place], [address], 06/18/2024 21:34:32 Procedure Notes None recorded. Medical Equipment None [...] and Address Organization Details Last Updated DateTime 02/05/2024 170.18 cm 34.1 kg/m2 55011.14 g 142 mm[Hg] 78 mm[Hg] Nerissa Santillan [facility] 10:11:33 Date Recorded Body height Body mass index (BMI) Body weight Systolic blood pressure Diastolic blood pressure Provider Name and Address Organization Details Last Updated DateTime 06/06/2024 170.18 cm 35.4 kg/m2 998657.8 8 g 128 mm[Hg] 80 mm[Hg] Nerissa Santillan [facility] 16:53:01 Date Recorded Body height Body mass index (BMI) Body weight Systolic blood pressure Diastolic blood pressure Provider Name and Address Organization Details Last Updated DateTime 06/20/2024 170.18 cm 36 kg/m2 152033.2 5 g 130 mm[Hg] 77 mm[Hg] Nerissa Tyrell [facility] 16:21:29 Social History Question Answer Notes LastModified by Organizat ion Details LastModified Time Tobacco Smoking Status Never Smoker Nancy Gamboa null, [facility] 01/10/2024 14:28:15 What Is Your Level [...] Or The Highest Degree You Have Received? [id number] Information not available 01/10/2024 What Is Your [...] Anxious, Or Unable To Sleep At Night)? [id number] Information not available 01/10/2024 Do You Use Any Illicit Or Recreational Drugs? No Information not available 01/10/2024 Do You Use [...] LastModified Time Unspecified Relation Family history unknown Not available 2023 14:25:17 Medical History Condition Response Allergies (Food, seasonal, environmental ) N Other N Drug/Latex Allergies/Reactions N Blood Transfusion N Breast Cancer N Dermatologic Disorders N Lung Disease N Defects or Inherited Disease N Breast Problem N Gestational Diabetes N Hematologic disorders N Anesthesia Complications N History of STI N Deep Vein Thrombosis N Polycystic ovary syndrome N Anxiety Disorder N Autoimmune disease N Arthritis N Polyps N Infertility N Acid Reflux (GERD) N History of abnormal pap N Cancer N Varicosities N Stroke N Neurologic/Epilepsy N Endometriosis N High Cholesterol N Fibromyalgia N Headaches N Kidney Disease N Heart Problems N Thyroid Problems N Kidney or Bladder Problems N GI Problems N Eating Disorder [...] SNOMED-CT Code Diagnosis ICD10 Code Diagnosis Note [id number] AGUSTIN Christian [place] [address] [address] 01/10/2024 14:17:49 01/10/2024 15:08:21 Gynecologic examination [id number] Z01.419 WWEBC - kyleena IUDpap updateddec lined STI screenenco uraged annual exam with PCPif fertility desired, start PNV and can schedule IUD removal It is strongly advised to have an annual flu shot which you can obtain at most pharmacies . If you have not had a TDap shot in the last 10 years you should obtain one as well. Discussed with patient & provided with informatio n regarding the HPV vaccine if applicable . Encourage safe sexual practices. Do monthly self breast exams. BRCA testing is now available for patients with strong genetic history of female cancer. If interested contact the office. Engage in regular exercise. Avoid tobacco and illicit drugs. This lifestyle behavior pattern will lead to less health conditions and longer life span. If BMI greater than 25 dietary consult advised. Patient received above instructio ns. [id number] Alistair Barnes MD [place] [address],[place] [address] 02/05/2024 09:55:20 02/05/2024 11:24:41 Removal of intrauterine contraceptive device [id number] Z30.432 IUD removed without complicati ons. She tolerated it well. [id number] Asia Macdonald [place] [address],[facility] [place] [address] 06/06/2024 15:45:21 06/06/2024 16:45:09 Uterine size for dates discrepancy 375513699 O26.841 Z3A.01 [id number] Alistair Barnes MD [place] [address] [address] 06/06/2024 15:46:04 06/07/2024 04:55:07 Missed miscarriage 32124169 O02.1 this patient is a 29-year-ol d [...] care and on her care in total. [id number] [facility] [address] [address] 06/18/2024 15:25:14 06/18/2024 16:00:48 Missed miscarriage 84170999 O02.1 O02.81 [id number] [place] [address] [address] 06/20/2024 15:14:51 06/20/2024 17:00:43 Missed miscarriage 15350658 O02.1 O02.81 This patient is a 29-year-ol d female presents for follow-up on missed miscarriag e. We have agreed to perform suction D&C. This was after a lengthy discussion on treatment. We have also talked about the etiology, natural history, complicati ons of. I spent over 30 minutes on care. We have agreed to perform suction D&C. She understand s the risks, benefits, and alternativ es. She is ready to proceed. She has completed the informed consent process. Health Concerns Section Related Observation LastModified by Organization Detai ls LastModified Time None Recorded Concern Status LastModified by Organization Details LastModified Time None Recorded Advance Directives Directive None Recorded Payers Encounter Date Sequence Insurance Name Policy Number Policy Par[place] Covered Member ID Parham Member ID Guarantor Name 02/05/2024 1 [facility] [id number] Angy Guillen [place] [id number] 1 Angy Guillen [place] 06/06/2024 1 [facility] [id number] Angy Guillen [place] [id number] 1 Angy Guillen [place] 06/06/2024 1 [facility] [id number] Angy Guillen [place] [id number] 1 Angy Guillen [place] 06/18/2024 1 [facility] [id number] Angy Guillen [place] [id number] 1 Angy Guillen [place] 06/20/2024 1 [facility] [id number] Angy Guillen [place] [id number] 1 Angy Guillen [place] Notes Date Note Type Note Provider Name and Address Organization Details Recorded Time 02/05/2024 text/html patient presents for IUD removal. She understands the procedure. Has been explained to her in detail. She understands the risks, benefits, and alternatives. She has completed the informed consent process and is ready to proceed. Alistair Barnes MD [address], [place], [address], [facility] 02/27/2024 22:17:24 06/06/2024 text/html this patient is a 29-year-old [...] care in total. Alistair Barnes MD [address], [place], [address], [facility] 06/06/2024 22:53:43 06/20/2024 text/html This patient is a 29 female who presents for [missed discussed the etiology, frequency, natural history, and treatment of this condition. Spent more than 35 minutes talking about the above, as well as, her history, the particular findings of her case, and detail of her the treatment options. We discussed the risk benefits of each option. She understands the risk include infection and hemorrhage. She understands a D&C also holds the risk of injury. She understands that waiting can result in a septic that is even more difficult to treat. We talked about signs and symptoms of infection. we agreed to proceed with suction D&C. The patient understands the procedure. The procedure was described to the patient in great detail. the patient also understands the risks. The risks were also explained in detail. She understands that injuries May occur during surgery. She understands these injuries can result in hospitalization, more surgery, and severe illness. She understands there is risk of hemorrhage and infection. Alistair Barnes MD [address], [place], [address], [facility] 06/20/2024 16:58:22 OBGyn Episode Ob Episode Information Episode Created Date Number of Fetuses Patient Bloodtype Patient rh Status Prepregnancy Weight lbs Domestic Partner Domestic Partner Phone Father Name Tutorial Laboratory Supervisor Status 01/10/20 24 1 CLOSED Fetus Data First Name Last Name Admitted to NICU Weight (g) Sex Living Outcome Pediatric Complications Fetus ID Race Codes Race Delivery Type M Full Term [id number] Primary Luis Alberto Calculation Initial Luis Alberto Date Initial Exam Date Initial Exam Provider Initial Ultrasound Date Last Menstrual Period Date Ultra Sound Weeks Gestation 0 Eighteen To Twenty Week Ulis Alberto Update Ultra Sound Date Fundal Height At Umbil Quickening Date Ultra Sound Latest Weeks Gestation Final Luis Alberto Confirmed By Final Luis Alberto Confirmed Date Final Luis Alberto Date Ultra Sound Latest Days Gestation 0 0 Menstrual History Last Menstrual Date Menses Monthly On Bcp Conception Prior Menses Frequency Hcg Plus Date Menarche Onset Age Delivery Information Delivery Date Delivery Type Labor Anesthesia Weeks Gestation Incision Type Labor Labor Length Hrs Delivered By Post Complications Tubal Sterilization Discharge Date Comments 2 Discharge Information Feeding Method Contraceptive Method Maternal HG B and HCT Levels
--- OUTSIDE RECORDS SUMMARY | 2024-07-02 05:09 | XMS_ITS | Continuity of Care Document ---
Author Organization [facility], [facility] Address [address] [place] [address] Assessment No assessment recorded. Plan of Treatment Reminders Order Date Submit Date Provider Last Modified By Organization Details Last Modified Time Details Appointments SURG POST OP 2024 10:45A Marcio BARNES MD Not available Not available Not available Lab None recorded. Referral None recorded. Procedures None recorded. Surgeries dilation & curettage (SURG) 2024 025 [facility], [address], [place], [address], 06/26/2024 14:49:54 Imaging None recorded. Medication Orders None recorded. Patient TargetsNo targets recorded. Patient InstructionsNo instructions recorded. Reason for Referral None Reported. Results Created Date Observation Date Name Description Value Unit Range Abnormal Flag Note LastModifiedBy Organization Detail LastModifiedTime 06/06/2006/06/2024 , obste tric, trans vagin al No observ ation record ed. [facility] [address], [place], [address], 06/06/2024 18:04:47 06/06/20 24 06/06/2024 US, obste tric, trans vagin al No observ ation record ed. [email or web address], [place], [address], 06/06/2024 20:24:16 06/18/19 25 06/18/2024 US, obste tric, trans vagin al No observ ation record ed. [facility] [address], [place], [address], 06/18/2024 16:35:04 06/18/19 25 06/18/2024 US, obste tric, trans vagin al No observ ation record ed. [email or web address], [place], [address], 06/18/2024 21:34:32 Result Notes None recorded. Procedures Surgical History Date Name Laterality Status Provider Name and Address Organization Details Recorded Time 5 DILATION & CURETTAGE (SURG) completed Krys Reed [facility] 06/26/2024 15:17:38 4 IUD Removal completed Alistair Barnes MD [address], [place], [address], [facility] 02/27/2024 22:17:19 4 Date of Last Pap Smear completed Nerissa Santillan [facility] 02/05/2024 10:12:12 2 Caesarean Section completed Nancy Gamboa [facility] 01/10/2024 14:25:58 Imaging Results None recorded. [...] Updated DateTime 06/20/2024 170.18 cm 36 kg/m2 957709.2 5 g 130 mm[Hg] 77 mm[Hg] Nerissa Santillan [facility] 5 16:21:29 Social History Question Answer Notes LastModified by Organizat ion Details LastModified Time Tobacco Smoking Status Never Smoker Nancy Gamboa [facility] 01/10/2024 14:28:15 What Is Your Level [...] Or The Highest Degree You Have Received? [id number] Information not available 01/10/2024 What Is Your [...] Anxious, Or Unable To Sleep At Night)? [id number] Information not available 01/10/2024 Do You Use [...] N Drug/Latex Allergies/Reactions N Blood Transfusion N Lung Disease N Dermatologic Disorders N Defects or Inherited Disease N Breast Problem N Gestational Diabetes N Hematologic disorders N Anesthesia Complications N History of STI N Deep Vein Thrombosis N Polycystic ovary syndrome N Anxiety Disorder N Autoimmune disease N Arthritis N Polyps N Infertility N History of abnormal pap N Acid Reflux (GERD) N Cancer N Varicosities N Stroke N [...] SNOMED-CT Code Diagnosis ICD10 Code Diagnosis Note [id number] [facility] [address],[place] [address] 06/06/2024 15:45:21 06/06/2024 16:45:09 Uterine size for dates discrepancy 656438574 O26.841 Z3A.01 [id number] Alistair Barnes MD [place] [address],[place] [address] 06/06/2024 15:46:04 06/07/2024 04:55:07 Missed miscarriage 36413953 O02.1 this patient is a 29-year-ol d [...] care and on her care in total. [id number] [facility] [address],[place] [address] 06/18/2024 15:25:14 06/18/2024 16:00:48 Missed miscarriage 86779999 O02.1 O02.81 [id number] [place] [address],[place] [address] 06/20/2024 15:14:51 06/20/2024 17:00:43 Missed miscarriage 47303329 O02.1 O02.81 This patient is a 29-year-ol [...] Member ID Parham Member ID Guarantor Name 06/20/2024 1 [facility] [id number] Angy Guillen Hulbert [id number] 1 Angy Norman Notes Date Note Type Note Provider Name and Address Organization Details Recorded Time 06/20/2024 text/html This patient is a 29 [...] hemorrhage and infection. Alistair Barnes MD [address], [place], [address], [facility] 06/20/2024 16:58:22 OBGyn Episode No OBEpisode recorded.
--- OUTSIDE RECORDS SUMMARY | 2024-07-02 05:09 | XMS_ITS | Continuity of Care Document ---
Author Organization [facility] Address [address] [place] [address] Assessment No assessment recorded. Plan of Treatment Reminders Order Date Submit Date Provider Last Modified By Organization Details Last Modified Time Details Appointments SURG POST OP 2024 10:45A Marcio BARNES MD Not available Not available Not available Lab None recorded. Referral None recorded. Procedures None recorded. Surgeries None recorded. Imaging US, obstetric , transvagi nal 2023 024 [email or web address] [place], [address], [place], [address], 06/06/2024 20:39:17 Medication Orders None recorded. Patient TargetsNo targets recorded. Patient InstructionsNo instructions recorded. Reason for Referral None Reported. Results Created Date Observation Date Name Description Value Unit Range Abnormal Flag Note LastModifiedBy Organization Detail LastModifiedTime 06/06/2006/06/2024 US, obste tric, trans vagin al No observ ation record ed. [facility] [address], [place], [address], 06/06/2024 18:04:47 06/06/2006/06/2024 US, obste tric, trans vagin al No observ ation record ed. [email or web address], [place], [address], 06/06/2024 20:24:16 06/18/19 25 06/18/2024 US, obste tric, trans vagin al No observ ation record ed. [facility] [address], [place], [address], 06/18/2024 16:35:04 06/18/19 25 06/18/2024 US, obste tric, trans vagin al No observ ation record ed. [email or web address], [place], [address], 06/18/2024 21:34:32 Result Notes None recorded. Procedures Surgical History Date Name Laterality Status Provider Name and Address Organization Details Recorded Time 5 DILATION & CURETTAGE (SURG) completed Krys Reed [facility] 06/26/2024 15:17:38 4 IUD Removal completed Alistair Barnes MD [address], [place], [address], [facility] 02/27/2024 22:17:19 4 Date of Last Pap Smear completed Nerissa Santillan [facility] 02/05/2024 10:12:12 2 Caesarean Section completed Nancy Gamboa [facility] 01/10/2024 14:25:58 Imaging Results Imaging Date Name Status LastModified by Organization Details LastModified Time 06/06/2024 US, obstetric, transvaginal completed [facility] [address], [place], [address], 06/06/2024 18:04:47 Procedure Notes None recorded. Medical Equipment None [...] Updated DateTime 06/06/2024 170.18 cm 35.4 kg/m2 863979.8 8 g 128 mm[Hg] 80 mm[Hg] Nerissa Santillan [facility] 16:53:01 Social History Question Answer Notes LastModified by Organizat ion Details LastModified Time Tobacco Smoking Status Never Smoker Nancy Gamboa bri, [facility] 01/10/2024 14:28:15 What Is Your [...] Or The Highest Degree You Have Received? [id number] Information not available 01/10/2024 What Is Your [...] Anxious, Or Unable To Sleep At Night)? [id number] Information not available 01/10/2024 Do You Use [...] ) N Other N Drug/Latex Allergies/Reactions N Breast Cancer N Blood Transfusion N Lung Disease N [...] SNOMED-CT Code Diagnosis ICD10 Code Diagnosis Note [id number] Asia Macdonald [place] [address] [address] 06/06/2024 15:45:21 06/06/2024 16:45:09 Uterine size for dates discrepancy 255427466 O26.841 Z3A.01 [id number] Alistair Barnes MD [place] [address] [address] 06/06/2024 15:46:04 06/07/2024 04:55:07 Missed miscarriage 13598220 O02.1 this patient is a 29-year-ol d [...] Parham Member ID Guarantor Name 06/06/2024 1 [facility] [id number] Angy Norman [id number] 1 Angy Norman Notes Date Note Type [...] total. Alistair Barnes MD [address], [place], [address], [facility] 06/06/2024 22:53:43 OBGyn Episode No OBEpisode recorded.
== END 2024-06-26 13:15 | disposition home or self-care (01) ==
PROVIDERS: Visit Provider Obstetrics & Gynecology
PROC: (CPT 59820; principal; 2024-06-26 11:30)
DX: O02.1 Missed abortion (principal)
CPT/HCPCS: 59820; 36415; 85461; 86850; 86900; 86901; 88305; A9270; J1885; J2003; J2250; J2704; J3010; J7120